=== PATIENT | male | born 1940 | race Caucasian/White ===

== ENCOUNTER 2017-10-07 13:30 | Inpatient (IN) | payer MEDICARE, BC ==
[2017-10-07 14:01] LABS: CHLORIDE,CL 98 mmol/L (98-107); SODIUM,NA 135 mmol/L (136-145)
--- NOTE | 2017-10-07 15:32 | PCM.HP ---
H&P History of Present Illness - General Date of Service: 10/07/17 Admit Problem/Dx: Admission Diagnosis/Problem Admission Diagnosis/Problem Pneumonia Source of Information: Patient, Shelter Records History Limitations: Reports: Altered Mental Status (some limitations due to poor historian) - History of Present Illness Initial Comments - Free Text/Narative: Initially seen at [facility] fever, cough, vomiting. Resident of [place]. Onset of Symptoms: Reports: Today Symptom Onset Date: 10/07/17 Duration of Symptoms: Reports: Hour(s): (symptoms worsening since this morning) Location: Reports: Chest, Abdomen, Generalized (generalized body aches and pains ) Quality: Reports: Ache Severity: Moderate Improves with: Reports: Rest Worsens with: Reports: Movement Associated Symptoms: Reports: Cough, Fever/Chills, Loss of Appetite, Nausea/ Vomiting, Weakness - Related Data Allergies/Adverse Reactions: Allergies Allergy/AdvReac Type Severity Reaction Status Date / Time ceftriaxone sodium Allergy Rash Verified 11/29/15 23:16 [From Rocephin] levofloxacin [From Levaquin] Allergy Rash Verified 11/29/15 23:16 Home Medications: Home Meds Aspirin [Halfprin] 81 mg PO DAILY 06/24/15 [History] Atenolol [Tenormin] 25 mg PO BID 06/24/15 [History] Folic Acid 1 mg PO DAILY 06/24/15 [History] Levothyroxine 75 mcg PO DAILY 06/24/15 [History] Methotrexate 20 mg PO Q7D 06/24/15 [History] Omeprazole [Prilosec] 40 mg PO DAILY 06/24/15 [History] Furosemide 20 mg PO DAILY 08/30/15 [History] Bryant-3 Fatty Acids [Bryant-3] 1 cap PO DAILY 08/30/15 [History] Docusate Sodium [Colace] 200 mg PO DAILY 09/04/15 [History] metFORMIN [Glucophage] 1,000 mg PO BID 09/04/15 [History] Acetaminophen [Tylenol] 650 mg PO Q6H PRN #50 tablet 09/09/15 [Rx] LORazepam [Ativan] 0.25 mg PO Q6H PRN #45 tablet 09/09/15 [Rx] Nph, Human Insulin Isophane [HumuLIN N] 16 unit SUBCUT Q12HR #2 pen 09/09/15 [Rx ] Sertraline [Zoloft] 50 mg PO DAILY #30 tablet 09/09/15 [Rx] predniSONE [Prednisone] 5 mg PO DAILY #60 tablet 09/09/15 [Rx] Acetaminophen 650 mg PO BID 11/29/15 [History] Hydrocodone/Acetaminophen [[place] 5-325] 1 - 2 tab PO Q4H PRN 11/29/15 [History] Hydrocortisone [Hydrocortisone 2.5% Crm] 1 applic RECTAL BID 11/29/15 [History] Polyethylene Glycol 3350 [MiraLAX] 17 gm PO DAILY 11/29/15 [History] Psyllium Husk [Metamucil] 1 tsp PO BID 11/29/15 [History] amLODIPine [Norvasc] 2.5 mg PO DAILY 11/29/15 [History] Past Medical History HEENT History: Reports: None, Cataract, Other (See Below) Other HEENT History: Right upper lid ptosis Cardiovascular History: Reports: Arrhythmia, Heart Murmur, High Cholesterol, Hypertension, SD, Syncope Other Cardiovascular History: Moderate diastolic dysfunction and left atrial dilatation by echocardiogram Respiratory History: Reports: COPD, Pneumonia, Recurrent, Pulmonary Fibrosis Gastrointestinal History: Reports: Chronic Constipation, Chronic Diarrhea, Colon Polyp, Gastritis, GERD, GI Bleed, Hemorrhoids, Hiatal Hernia, Inflammatory Bowel Disease, Irritable Bowel Syndrome, Other (See Below) Other Gastrointestinal History: Dysphagia Genitourinary History: Reports: BPH, Retention, Urinary, Urinary Incontinence Musculoskeletal History: Reports: Back Pain, Chronic, Neck Pain, Chronic, Osteoarthritis, RA, Other (See Below) Other Musculoskeletal History: polymyalgia rheumatica-steroid dependent, moderate Mock's cyst right leg Neurological History: Reports: CVA, Headaches, Chronic, Neuropathy, Diabetic, Vertigo, Other (See Below) Other Neuro History: Borderline mental retardation Psychiatric History: Reports: Anxiety, Depression Endocrine/Metabolic History: Reports: Hypothyroidism, IDDM Hematologic History: Reports: None Immunologic History: Reports: None Oncologic (Cancer) History: Reports: None Dermatologic History: Reports: None Other Dermatologic History: Recent rash, since resolved with triamcinolone - Infectious Disease History Infectious Disease History: Reports: Chicken Pox, Measles - Past Surgical History HEENT Surgical History: Reports: Adenoidectomy, Oral Surgery, Tonsillectomy GI Surgical History: Reports: Colonoscopy, EGD, Hernia, Inguinal, Polypectomy, Other (See Below) Musculoskeletal Surgical History: Reports: Other (See Below) - Past Imaging History Past Imaging History: Reports: Angiography, Cardiac Echo, CAT Scan, MRI, Stress Testing, Swallow Study, Ultrasound, Venous Doppler Social & Family History - Family History Cardiac: Reports: Afib (Mother) Respiratory: Reports: COPD (Father) - Tobacco Use Smoking Status *Q: Never Smoker Second Hand Smoke Exposure: No - Caffeine Use Caffeine Use: Reports: Coffee (2 cups per day). Denies: Energy Drinks, Soda, Tea - Alcohol Use Days Per Week of Alcohol Use: 0 (No previous DWIs, problems with alcohol abuse, etc.) - Recreational Drug Use Recreational Drug Use: No Drug Use in Last 12 Months: No - Living Situation & Occupation Living situation: Reports: Single, Extended Care Facility Occupation: Retired H&P Review of Systems - Review of Systems: Review Of Systems: See Below General: Reports: Fever, Weakness HEENT: Reports: No Symptoms Pulmonary: Reports: Shortness of Breath, Cough Cardiovascular: Reports: No Symptoms Gastrointestinal: Reports: Abdominal Pain, Constipation, Nausea, Vomiting Genitourinary: Reports: No Symptoms Musculoskeletal: Reports: Joint Pain, Muscle Pain Skin: Reports: No Symptoms Psychiatric: Reports: Anxiety Neurological: Reports: No Symptoms Hematologic/Lymphatic: Reports: No Symptoms Exam - Exam Exam: See Below - Exam General: Alert, Oriented HEENT: Hearing Intact, Mucosa Moist & [place] Neck: Supple, Trachea Midline, 2 Lungs: Decreased Breath Sounds Cardiovascular: Regular Rate, Regular Rhythm GI/Abdominal Exam: Tender (generalized) (Male) Exam: Deferred Rectal (Males) Exam: Deferred Back Exam: Normal Inspection, Full Range of Motion, NT Extremities: No Pedal Edema Neurological: Cranial Nerves Intact Neuro Extensive - Mental Status: Alert, Oriented x3, Normal Cognition (patient' s normal, poor historian) Psychiatric: Anxious (about illness) - Patient Data Lab Results Last 24 hrs: Laboratory Results - last 24 hr 10/07/17 10/07/17 Range/Units 13:46 13:46 WBC 13.5 H (4.0-10.2) K/uL RBC 4.05 L (4.33-5.41) M/uL Hgb 12.1 L (13.1-16.8) g/dL Hct 36.2 L (39.0-49.0) % MCV 89.4 (84.0-98.0) fL MCH 29.9 (28.2-33.3) pg MCHC 33.4 (31.7-36.0) g/dL RDW 16.1 H (11.2-14.1) % Plt Count 172 (150-350) K/uL Neut % (Auto) 88.5 H (45.0-80.0) % Lymph % (Auto) 5.6 L (10.0-50.0) % [place] % (Auto) 5.6 (2.0-14.0) % Eos % (Auto) 0.2 (0.0-5.0) % Baso % (Auto) 0.1 (0.0-2.0) % Neut # (Auto) 11.93 H (1.40-7.00) K/uL Lymph # (Auto) 0.76 (0.50-3.50) K/uL [place] # (Auto) 0.76 (0.00-1.00) K/uL Eos # (Auto) 0.03 (0.00-0.50) K/uL Baso # (Auto) 0.01 (0.00-0.20) K/uL Sodium 135 L (136-145) mmol/L Potassium 3.8 (3.5-5.1) mmol/L Chloride 98 (98-107) mmol/L Carbon Dioxide 21.9 (21.0-32.0) mmol/L BUN 15 (7-18) mg/dL Creatinine 0.66 (0.51-1.17) mg/dL Est Cr Clr Drug Dosing TNP Estimated GFR (MDRD) > 60 mL/min Glucose 212 H (74-106) mg/dL Calcium 9.5 (8.5-10.1) mg/dL Total Bilirubin 1.1 H (0.2-1.0) mg/dL AST 17 (15-37) U/L ALT 32 (12-78) U/L Alkaline Phosphatase 74 (46-116) IU/L C-Reactive Protein 3.1 H (<=0.9) mg/dL Total Protein 7.4 (6.4-8.2) g/dL Albumin 3.6 (3.4-5.0) g/dL Amylase 17 L (25-115) U/L Lipase 110 (73-393) U/L Result Diagrams: 10/07/17 13:46 10/07/17 13:46 *Q Meaningful Use (ADM) - VTE *Q VTE Criteria *Q: - Stroke *Q Stroke Criteria *Q: - AMI *Q AMI Criteria *Q: - Problem List (1) Constipation SNOMED Code(s): 52676039 ICD Code: K59.00 - CONSTIPATION, UNSPECIFIED Status: Chronic Priority: Medium Current Visit: Yes Qualifiers: Constipation type: chronic idiopathic constipation Qualified Code(s): K59.04 - Chronic idiopathic constipation (2) Nausea & vomiting SNOMED Code(s): 69285013 ICD Code: R11.2 - NAUSEA WITH VOMITING, UNSPECIFIED Status: Acute Priority: High Current Visit: Yes (3) Pneumonia SNOMED Code(s): 278664387 ICD Code: J18.9 - PNEUMONIA, UNSPECIFIED ORGANISM Status: Acute Priority : High Current Visit: No Problem Details: History of aspiration pneumonia. Discussed with Dr Zhou. Will start Zithromax for community acquired pneumonia. Speech consult ordered Qualifiers: Pneumonia type: aspiration pneumonia Laterality: bilateral Problem List Initiated/Reviewed/Updated: Yes Orders Last 24hrs: Active Orders 24 hr Category Date Time Status Patient Status [ADT] Routine ADT 10/07/17 14:53 Ordered Accu Check [Blood Glucose Check, Bedside] [RC] BIDMEALS Care 10/07/17 15:18 Ordered Ambulate [RC] ASDIRECTED Care 10/07/17 14:53 Ordered Antiembolic Devices [RC] PER UNIT ROUTINE Care 10/07/17 14:59 Ordered Bedrest Bathroom Privileges [RC] ASDIRECTED Care 10/07/17 14:53 Ordered Height and Weight [RC] DAILY Care 10/07/17 14:53 Ordered Intake and Output [RC] QSHIFT Care 10/07/17 14:56 Ordered May Shower [RC] ASDIRECTED Care 10/07/17 14:53 Ordered Oxygen Therapy [RC] PRN Care 10/07/17 14:53 Ordered Peripheral IV Care [RC] . DIRECTED Care 10/07/17 15:00 Ordered Up With Assistance [RC] ASDIRECTED Care 10/07/17 14:53 Ordered VTE/DVT Education [RC] PER UNIT ROUTINE Care 10/07/17 14:53 Ordered Vital Signs [RC] Q4H Care 10/07/17 14:53 Ordered Consult to Case Management [CONS] Routine Cons 10/07/17 14:53 Ordered OT Evaluation and Treatment [CONS] Routine Cons 10/07/17 14:53 Ordered PT Evaluation and Treatment [CONS] Routine Cons 10/07/17 14:53 Ordered [place] [employer] Diet [DIET] Diet 10/07/17 Dinner Ordered Abdomen 2V AP Flat Upright [CR] Routine Exams 10/07/17 13:50 Taken Chest 2V [CR] Routine Exams 10/07/17 13:35 Taken C-REACTIVE PROTEIN [CHEM] AM Lab 10/08/17 05:11 Ordered C-REACTIVE PROTEIN [CHEM] AM Lab 10/09/17 05:11 Ordered C-REACTIVE PROTEIN [CHEM] AM Lab 10/10/17 05:11 Ordered CBC WITH AUTO DIFF [HEME] AM Lab 10/08/17 05:11 Ordered CBC WITH AUTO DIFF [HEME] AM Lab 10/09/17 05:11 Ordered CBC WITH AUTO DIFF [HEME] AM Lab 10/10/17 05:11 Ordered COMPREHENSIVE METABOLIC PN,CMP [CHEM] AM Lab 10/08/17 05:11 Ordered COMPREHENSIVE METABOLIC PN,CMP [CHEM] AM Lab 10/09/17 05:11 Ordered COMPREHENSIVE METABOLIC PN,CMP [CHEM] AM Lab 10/10/17 05:11 Ordered CULTURE BLOOD [BC] Stat Lab 10/07/17 15:00 Ordered CULTURE BLOOD [BC] Stat Lab 10/07/17 15:00 Ordered CULTURE SPUTUM + SMEAR [RM] Stat Lab 10/07/17 14:53 Uncollected Sodium Chloride 0.9% @ 50 MLS/HR(1000ml) Med 10/07/17 15:15 Ordered Sodium Chloride 0.9% [Normal Saline] 1,000 ml IV ASDIRECTED Sodium Chloride 0.9% [Saline Flush] Med 10/07/17 14:53 Ordered 10 ml FLUSH ASDIRECTED PRN metroNIDAZOLE/Normal Saline [Flagyl 500 MG in NS 100 ML Med 10/07/17 15:15 Ordered ] 500 mg Premix Bag 1 bag IV Q8H Antiembolic Hose [OM.PC] Per Unit Routine Oth 10/07/17 14:58 Ordered Blood Culture x2 Reflex Set [OM.PC] Stat Oth 10/07/17 14:53 Ordered Peripheral IV Insertion Adult [OM.PC] Routine Oth 10/07/17 14:53 Ordered Resuscitation Status Routine Resus Stat 10/07/17 14:53 Ordered Medication Orders Sodium Chloride (Normal Saline) 1,000 mls @ 50 mls/hr IV ASDIRECTED JOHN Metronidazole 500 mg/ Premix 100 mls @ 100 mls/hr IV Q8H JOHN Sodium Chloride (Saline Flush) 10 ml FLUSH ASDIRECTED PRN PRN Reason: Keep Vein Open Assessment/Plan Comment:: 10-07-17 Francoise Vazquez PA-C Admitting to IP status after evaluation at [facility], sent down from [facility]. Nursing staff describes concern for aspiration pneumonia due to patient's eating habits and cough. Febrile today, complains of cough, body aches and nausea. Long history of constipation, abdominal x-rays today indicate large amount of stool. CXR indicates pneumonia. WBC 13,500. Consulted with Dr. Zhou regarding admit. Treating pneumonia with Flagyl and Claforan IV. Running IV NS at just 50 ml/h. Will treat nausea with Zofran. Miralax and Mag Citrate for constipation which has been long-standing. Follow up labs ordered for am. [place] notified of admit.
[2017-10-07] MEDS ORDERED: Ondansetron 4 MG/2 ML SDV IVPUSH PRN (16:00)
[2017-10-07] MEDS: Sodium Chloride 0.9% 10 ML Syringe FLUSH PRN ×3 (16:02→16:42)
[2017-10-07] MEDS ORDERED: Magnesium Citrate Solution 296 ML Bottle PO ONE ×2 (16:06→17:00)
[2017-10-07] MEDS: Sodium Chloride 0.9% 1,000 ML IV SCH (16:20)
[2017-10-07] MEDS ORDERED: Calcium Carbonate 500 MG Tab.Chew PO PRN (16:29)
[2017-10-07] MEDS ORDERED: Magnesium Hydroxide 400 MG/5 ML Susp 30 ML Cup PO PRN (16:29)
[2017-10-07] MEDS ORDERED: Aluminum Hydroxide/Magnesium Hydroxide/Simethicone Susp 30 ML Cup PO PRN (16:29)
[2017-10-07] MEDS ORDERED: LORazepam 0.5 MG Tab PO PRN (16:29)
[2017-10-07] MEDS: metroNIDAZOLE/Normal Saline 500 MG in Premix Bag 1 BAG IV SCH (16:51)
[2017-10-07] MEDS: Polyethylene Glycol 3350 Powder 17 GM Packet PO SCH (17:04)
[2017-10-07] MEDS: Trolamine Salicylate/Aloe Vera 10% Crm 85 GM Tube TOP SCH (17:44)
[2017-10-07] MEDS: Atenolol 25 MG Tab PO SCH (17:45)
[2017-10-07] MEDS: Acetaminophen/HYDROcodone 325-5 MG Tab PO PRN (17:52)
[2017-10-07] MEDS: Acetaminophen 325 MG Tab PO SCH (17:54)
[2017-10-07] MEDS: metFORMIN 500 MG Tab PO SCH (17:56)
[2017-10-07] MEDS: Psyllium Husk Powder Sugar Free 5.85 GM Packet PO SCH (17:57)
[2017-10-07] MEDS: Mineral Oil/Petrolatum Ophth Oint 3.5 GM Tube EYEBOTH SCH (20:07)
[2017-10-07] MEDS: Albuterol/Ipratropium 3.0-0.5 MG/3 ML Neb Soln INH SCH (20:07)
[2017-10-07] MEDS: Budesonide 0.5 MG/2 ML Neb Susp NEB SCH (20:07)
[2017-10-07] MEDS: Insulin Isophane NPH, Human 100 Units/ML 3 ML Pen SUBCUT SCH (21:24)
[2017-10-08] MEDS: metroNIDAZOLE/Normal Saline 500 MG in Premix Bag 1 BAG IV SCH ×3 (00:39→15:54)
[2017-10-08 07:37] LABS: CHLORIDE,CL 102 mmol/L (98-107); SODIUM,NA 138 mmol/L (136-145)
[2017-10-08] MEDS ORDERED: Aspirin 81 MG Tab.EC PO SCH (08:00)
[2017-10-08] MEDS ORDERED: Furosemide 20 MG Tab PO SCH (08:00)
[2017-10-08] MEDS ORDERED: Sertraline 25 MG Tab PO SCH (08:00)
[2017-10-08] MEDS: Budesonide 0.5 MG/2 ML Neb Susp NEB SCH (08:23)
[2017-10-08] MEDS: metFORMIN 500 MG Tab PO SCH ×2 (08:24→18:02)
[2017-10-08] MEDS: Albuterol/Ipratropium 3.0-0.5 MG/3 ML Neb Soln INH SCH ×4 (08:24→20:00)
[2017-10-08] MEDS: Psyllium Husk Powder Sugar Free 5.85 GM Packet PO SCH ×2 (08:24→18:01)
[2017-10-08] MEDS: Polyethylene Glycol 3350 Powder 17 GM Packet PO SCH ×2 (08:24)
[2017-10-08] MEDS: Atenolol 25 MG Tab PO SCH ×2 (08:24→20:00)
[2017-10-08] MEDS: Omeprazole 20 MG Cap.CR PO SCH (08:25)
[2017-10-08] MEDS: amLODIPine 5 MG Tab PO SCH (08:25)
[2017-10-08] MEDS: Acetaminophen/HYDROcodone 325-5 MG Tab PO PRN ×2 (08:25→20:17)
[2017-10-08] MEDS: Levothyroxine 75 MCG Tab PO SCH (08:25)
[2017-10-08] MEDS: Acetaminophen 325 MG Tab PO SCH ×2 (08:26→18:01)
[2017-10-08] MEDS: methylPREDNISolone Sodium Succinate 40 MG/1 ML SDV IVPUSH SCH (08:26)
[2017-10-08] MEDS: Trolamine Salicylate/Aloe Vera 10% Crm 85 GM Tube TOP SCH ×2 (08:27→18:02)
[2017-10-08] MEDS: Insulin Isophane NPH, Human 100 Units/ML 3 ML Pen SUBCUT SCH ×2 (08:46→20:01)
[2017-10-08] MEDS: Sodium Chloride 0.9% 1,000 ML IV SCH (15:54)
--- NOTE | 2017-10-08 17:23 | PCM.PN ---
- General Info Date of Service: 10/08/17 Admission Dx/Problem (Free Text): Admission Diagnosis/Problem Admission Diagnosis/Problem Pneumonia Functional Status: Reports: Pain Controlled, Ambulating - Review of Systems General: Reports: Weakness (improving) HEENT: Reports: No Symptoms Pulmonary: Reports: Shortness of Breath, Cough Cardiovascular: Reports: No Symptoms Gastrointestinal: Reports: Constipation, Difficulty Swallowing Genitourinary: Reports: No Symptoms Musculoskeletal: Reports: Other (right groin pain) Skin: Reports: No Symptoms Neurological: Reports: No Symptoms Psychiatric: Reports: No Symptoms - Patient Data Vitals - Most Recent: Last Vital Signs Temp 98.8 F 10/08/17 16:00 Pulse 77 10/08/17 16:00 Resp 16 10/08/17 16:00 BP 120/61 10/08/17 16:00 Pulse Ox 95 10/08/17 16:00 Weight - Most Recent: 184 lb 8.007 oz I&O - Last 24 Hours: Intake & Output 10/08/17 10/08/17 10/08/17 06:59 14:59 22:59 Intake Total 565 800 Output Total 250 450 150 Balance 315 350 -150 Lab Results Last 24 Hours: Laboratory Results - last 24 hr 10/07/17 10/07/17 10/08/17 Range/Units 17:43 21:21 06:55 WBC 8.5 (4.0-10.2) K/uL RBC 3.67 L (4.33-5.41) M/uL Hgb 10.9 L (13.1-16.8) g/dL Hct 33.7 L (39.0-49.0) % MCV 91.8 (84.0-98.0) fL MCH 29.7 (28.2-33.3) pg MCHC 32.3 (31.7-36.0) g/dL RDW 16.3 H (11.2-14.1) % Plt Count 152 (150-350) K/uL Neut % (Auto) 79.7 (45.0-80.0) % Lymph % (Auto) 11.3 (10.0-50.0) % [place] % (Auto) 8.3 (2.0-14.0) % Eos % (Auto) 0.5 (0.0-5.0) % Baso % (Auto) 0.2 (0.0-2.0) % Neut # (Auto) 6.79 (1.40-7.00) K/uL Lymph # (Auto) 0.96 (0.50-3.50) K/uL [place] # (Auto) 0.71 (0.00-1.00) K/uL Eos # (Auto) 0.04 (0.00-0.50) K/uL Baso # (Auto) 0.02 (0.00-0.20) K/uL Sodium (136-145) mmol/L Potassium (3.5-5.1) mmol/L Chloride (98-107) mmol/L Carbon Dioxide (21.0-32.0) mmol/L BUN (7-18) mg/dL Creatinine (0.51-1.17) mg/dL Est Cr Clr Drug Dosing mL/min Estimated GFR (MDRD) mL/min Glucose (74-106) mg/dL POC Glucose 174 H 186 H (65-110) mg/dl Calcium (8.5-10.1) mg/dL Total Bilirubin (0.2-1.0) mg/dL AST (15-37) U/L ALT (12-78) U/L Alkaline Phosphatase (46-116) IU/L C-Reactive Protein (<=0.9) mg/dL Total Protein (6.4-8.2) g/dL Albumin (3.4-5.0) g/dL 10/08/17 10/08/17 Range/Units 06:55 08:23 WBC (4.0-10.2) K/uL RBC (4.33-5.41) M/uL Hgb (13.1-16.8) g/dL Hct (39.0-49.0) % MCV (84.0-98.0) fL MCH (28.2-33.3) pg MCHC (31.7-36.0) g/dL RDW (11.2-14.1) % Plt Count (150-350) K/uL Neut % (Auto) (45.0-80.0) % Lymph % (Auto) (10.0-50.0) % [place] % (Auto) (2.0-14.0) % Eos % (Auto) (0.0-5.0) % Baso % (Auto) (0.0-2.0) % Neut # (Auto) (1.40-7.00) K/uL Lymph # (Auto) (0.50-3.50) K/uL [place] # (Auto) (0.00-1.00) K/uL Eos # (Auto) (0.00-0.50) K/uL Baso # (Auto) (0.00-0.20) K/uL Sodium 138 (136-145) mmol/L Potassium 3.5 (3.5-5.1) mmol/L Chloride 102 (98-107) mmol/L Carbon Dioxide 27.9 (21.0-32.0) mmol/L BUN 18 (7-18) mg/dL Creatinine 0.65 (0.51-1.17) mg/dL Est Cr Clr Drug Dosing 79.69 mL/min Estimated GFR (MDRD) > 60 mL/min Glucose 166 H (74-106) mg/dL POC Glucose 143 H (65-110) mg/dl Calcium 8.4 L (8.5-10.1) mg/dL Total Bilirubin 1.7 H (0.2-1.0) mg/dL AST 24 (15-37) U/L ALT 32 (12-78) U/L Alkaline Phosphatase 62 (46-116) IU/L C-Reactive Protein 15.0 H (<=0.9) mg/dL Total Protein 6.5 (6.4-8.2) g/dL Albumin 2.9 L (3.4-5.0) g/dL Christo Results Last 24 Hours: Microbiology 10/07/17 15:12 Aerobic Blood Culture - Preliminary Blood - Venous NO GROWTH AFTER 1 DAY Anaerobic Blood Culture - Preliminary NO GROWTH AFTER 1 DAY 10/07/17 15:20 Aerobic Blood Culture - Preliminary Blood - Venous - Lab Draw NO GROWTH AFTER 1 DAY Anaerobic Blood Culture - Preliminary NO GROWTH AFTER 1 DAY Med Orders - Current: Current Medications Acetaminophen (Tylenol) 650 mg PO BID JOHN Last Admin: 10/08/17 08:26 Dose: 650 mg Hydrocodone Bitart/Acetaminophen ([place] 325-5 Mg) 1 tab PO BID PRN PRN Reason: Pain Last Admin: 10/08/17 08:25 Dose: 1 tab Al Hydroxide/Mg Hydroxide (Mag-Al Plus) 30 ml PO Q12HR PRN PRN Reason: Heartburn Albuterol/Ipratropium (Duoneb 3.0-0.5 Mg/3 Ml) 3 ml INH QIDRT [facility] Last Admin: 10/08/17 15:54 Dose: 3 ml Albuterol/Ipratropium (Duoneb 3.0-0.5 Mg/3 Ml) 3 ml NEB Q4HRRT PRN PRN Reason: Shortness of Breath Amlodipine Besylate (Norvasc) 2.5 mg PO DAILY [facility] Last Admin: 10/08/17 08:25 Dose: 2.5 mg Aspirin (Halfprin) 81 mg PO DAILY [facility] Last Admin: 10/08/17 08:24 Dose: 81 mg Atenolol (Tenormin) 25 mg PO Q12HR [facility] Calcium Carbonate/Glycine (Tums) 500 mg PO BID PRN PRN Reason: Heartburn Cefotaxime Sodium (Claforan) 1 gm IVPUSH Q8H [facility] Last Admin: 10/08/17 15:54 Dose: 1 gm Sodium Chloride (Normal Saline) 1,000 mls @ 50 mls/hr IV ASDIRECTED [facility] Last Admin: 10/08/17 15:54 Dose: 50 mls/hr Metronidazole 500 mg/ Premix 100 mls @ 100 mls/hr IV Q8H [facility] Last Admin: 10/08/17 15:54 Dose: 100 mls/hr Insulin Human NPH (Humulin N) 16 unit SUBCUT Q12HR [facility] Last Admin: 10/08/17 08:46 Dose: Not Given Levothyroxine Sodium (Levothyroxine) 75 mcg PO ACBREAKFAST [facility] Last Admin: 10/08/17 08:25 Dose: 75 mcg Lorazepam (Ativan) 0.25 mg PO Q6H PRN PRN Reason: Anxiety Magnesium Hydroxide (Milk Of Magnesia) 30 ml PO Q12HR PRN PRN Reason: Constipation Last Admin: 10/08/17 12:02 Dose: 30 ml Metformin HCl (Glucophage) 1,000 mg PO BID [facility] Last Admin: 10/08/17 08:24 Dose: 1,000 mg Methylprednisolone Sodium Succinate (Solu-Medrol) 20 mg IVPUSH DAILY [facility] Last Admin: 10/08/17 08:26 Dose: 20 mg Mineral Oil/White Petrolatum (Lacri-Lube S.O.P Oint) 0 gm EYEBOTH BEDTIME [facility] Last Admin: 10/07/17 20:07 Dose: 1 applic Omeprazole (Omeprazole) 20 mg PO ACBREAKFAST [facility] Last Admin: 10/08/17 08:25 Dose: 20 mg Ondansetron HCl (Zofran) 8 mg IVPUSH Q6H PRN PRN Reason: Nausea/Vomiting Last Admin: 10/07/17 16:02 Dose: 8 mg Polyethylene Glycol (Miralax) 17 gm PO DAILY [facility] Last Admin: 10/08/17 08:24 Dose: 17 gm Polyethylene Glycol (Miralax) 17 gm PO DAILY [facility] Last Admin: 10/08/17 08:24 Dose: Not Given Psyllium Husk (Metamucil Sugar Free) 0 pkt PO BID [facility] Last Admin: 10/08/17 08:24 Dose: 1 pkt Sertraline HCl (Zoloft) 75 mg PO DAILY [facility] Last Admin: 10/08/17 08:24 Dose: 75 mg Sodium Chloride (Saline Flush) 10 ml FLUSH ASDIRECTED PRN PRN Reason: Keep Vein Open Last Admin: 10/07/17 16:42 Dose: 10 ml Trolamine Salicylate (Aspercreme 10%) 0 gm TOP BID [facility] Last Admin: 10/08/17 08:27 Dose: 1 applic Discontinued Medications Atenolol (Tenormin) 25 mg PO BID [facility] Last Admin: 10/08/17 08:24 Dose: 25 mg Budesonide (Pulmicort) 0.5 mg NEB BIDRT [facility] Last Admin: 10/08/17 08:23 Dose: 0.5 mg Furosemide (Lasix) 20 mg PO DAILY [facility] Last Admin: 10/08/17 08:25 Dose: 20 mg Magnesium Citrate (Citrate Of Magnesia) 300 ml PO ONETIME ONE Stop: 10/07/17 16:07 Last Admin: 10/07/17 17:00 Dose: Not Given Magnesium Citrate (Citrate Of Magnesia) 296 ml PO ONETIME ONE Stop: 10/07/17 17:01 Last Admin: 10/07/17 17:04 Dose: 296 ml - Exam General: Alert, Cooperative HEENT: Mucous Membr. Moist/[place] Neck: Trachea Midline, No JVD Lungs: Normal Respiratory Effort, Decreased Breath Sounds Cardiovascular: Regular Rate, Regular Rhythm GI/Abdominal Exam: Normal Bowel Sounds, Soft, Non-Tender, No Organomegaly, No Distention, No Mass, Pelvis Stable (Male) Exam: Other (right groin pain) Back Exam: Normal Inspection Extremities: Normal Inspection, Other (right groin pain) Skin: Warm, Dry, Intact Neurological: No New Focal Deficit Psy/Mental Status: Alert, Normal Affect, Normal Mood, Anxious - Problem List & Annotations (1) Nausea & vomiting SNOMED Code(s): 51508304 Code(s): R11.2 - NAUSEA WITH VOMITING, UNSPECIFIED Status: Acute Priority : High Current Visit: Yes (2) Constipation SNOMED Code(s): 54790521 Code(s): K59.00 - CONSTIPATION, UNSPECIFIED Status: Chronic Priority: Medium Current Visit: Yes Qualifiers: Constipation type: chronic idiopathic constipation Qualified Code(s): K59.04 - Chronic idiopathic constipation (3) Anemia SNOMED Code(s): 510890532 Code(s): D64.9 - ANEMIA, UNSPECIFIED Status: Acute Current Visit: No (4) Anxiety SNOMED Code(s): 35162928 Code(s): F41.9 - ANXIETY DISORDER, UNSPECIFIED Status: Acute Priority: Medium Current Visit: No (5) Anxiety about health SNOMED Code(s): 265140266 Code(s): F41.8 - OTHER SPECIFIED ANXIETY DISORDERS Status: Acute Priority : Medium Current Visit: No (6) Anxiety and depression SNOMED Code(s): 821457418 Code(s): F41.9 - ANXIETY DISORDER, UNSPECIFIED; F32.9 - MAJOR DEPRESSIVE DISORDER, SINGLE EPISODE, UNSPECIFIED Status: Acute Priority: Medium Current Visit: No (7) Anxiety as acute reaction to exceptional stress SNOMED Code(s): 74941934 Code(s): F41.1 - GENERALIZED ANXIETY DISORDER; F43.0 - ACUTE STRESS REACTION Status: Acute Priority: Medium Current Visit: No (8) Pneumonia SNOMED Code(s): 994598075 Code(s): J18.9 - PNEUMONIA, UNSPECIFIED ORGANISM Status: Acute Priority: High Current Visit: No Qualifiers: Pneumonia type: aspiration pneumonia Laterality: bilateral Annotation/Comment:: History of aspiration pneumonia. Discussed with Dr Roa Will start Zithromax for community acquired pneumonia. Speech consult ordered (9) Weakness SNOMED Code(s): 41079373 Code(s): R53.1 - WEAKNESS Status: Acute Priority: High Current Visit: No Annotation/Comment:: PT/OT consulted to evaluate the patient to see if needing swingbed status (10) COPD (chronic obstructive pulmonary disease) SNOMED Code(s): 90985310 Code(s): J44.9 - CHRONIC OBSTRUCTIVE PULMONARY DISEASE, UNSPECIFIED Status : Chronic Priority: Medium Current Visit: No Qualifiers: COPD type: chronic bronchitis Chronic bronchitis type: unspecified Qualified Code(s): J42 - Unspecified chronic bronchitis Annotation/Comment:: Stable by patient history with no recent fever, cough, or bronchitic symptoms (11) Diabetes SNOMED Code(s): 73939443 Code(s): E11.9 - TYPE 2 DIABETES MELLITUS WITHOUT COMPLICATIONS Status: Chronic Priority: Medium Current Visit: No Qualifiers: Diabetes mellitus type: type 2 Diabetes mellitus complication status: with neurologic complications Diabetes mellitus complication detail: with polyneuropathy 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 Annotation/Comment:: will d/c metformin, patient having CT scan. Monitor blood sugars, continue on the Januvia (12) Hypertension SNOMED Code(s): 00126363 Code(s): I10 - ESSENTIAL (PRIMARY) HYPERTENSION Status: Chronic Priority : Medium Current Visit: No Qualifiers: Hypertension type: essential hypertension Qualified Code(s): I10 - Essential (primary) hypertension Annotation/Comment:: Blood Pressures good in the emergency room (13) IDDM (insulin dependent diabetes mellitus) SNOMED Code(s): 17139296 Code(s): E11.9 - TYPE 2 DIABETES MELLITUS WITHOUT COMPLICATIONS; Z79.4 - JAIL (CURRENT) USE OF INSULIN Status: Chronic Priority: Medium Current Visit: No Annotation/Comment:: Stable by patient history despite chronic steroid therapy for his polymyalgia rheumatica (14) Peptic reflux disease SNOMED Code(s): 53483018 Code(s): K21.9 - GASTRO-ESOPHAGEAL REFLUX DISEASE WITHOUT ESOPHAGITIS Status: Chronic Priority: Medium Current Visit: No Annotation/Comment:: Stable by patient history (15) Polyarthritis rheumatica SNOMED Code(s): 62143286 Code(s): M06.9 - RHEUMATOID ARTHRITIS, UNSPECIFIED Status: Chronic Priority: Medium Current Visit: No Qualifiers: Rheumatoid arthritis location: multiple sites Rheumatoid factor presence: unspecified presence Qualified Code(s): M06.9 - Rheumatoid arthritis, unspecified Annotation/Comment:: Stable by patient history with current methotrexate and steroid therapy - Problem List Review Problem List Initiated/Reviewed/Updated: Yes - My Orders Last 24 Hours: My Active Orders 10/08/17 20:00 Atenolol [Tenormin] 25 mg PO Q12HR 10/08/17 Dinner Clear Liquid Diet [DIET] 10/09/17 05:11 LACTIC ACID [CHEM] Routine MAGNESIUM [CHEM] Routine - Plan Plan:: 10-07-17 Francoise Vazquez PA-C Admitting to status [place] [facility] [place] [facility]. Nursing staff describes concern for aspiration pneumonia due to patient's eating habits and cough. Febrile today, complains of cough, body aches and nausea. Long history of constipation, abdominal x-rays today indicate large amount of stool. CXR indicates pneumonia. WBC 13,500. Consulted with Dr. Zhou regarding admit. Treating pneumonia with Flagyl and Claforan IV. Running IV NS at just 50 ml/h. Will treat nausea with Zofran. Miralax and Mag Citrate for constipation which has been long-standing. Follow up labs ordered for . [facility] notified of admit. 10/08/17 Winnie Murrell MD Marked improvement today. Less weak. CRP has increased. Continue IV antibiotics. +bm. Will start clear thickened liquids.
[2017-10-08] MEDS: Mineral Oil/Petrolatum Ophth Oint 3.5 GM Tube EYEBOTH SCH (19:59)
[2017-10-09] MEDS: metroNIDAZOLE/Normal Saline 500 MG in Premix Bag 1 BAG IV SCH ×4 (00:29→23:29)
[2017-10-09] MEDS: Albuterol/Ipratropium 3.0-0.5 MG/3 ML Neb Soln NEB PRN (00:35)
[2017-10-09 07:53] LABS: CHLORIDE,CL 102 mmol/L (98-107); SODIUM,NA 135 mmol/L (136-145)
[2017-10-09] MEDS: Polyethylene Glycol 3350 Powder 17 GM Packet PO SCH ×2 (08:50→09:00)
[2017-10-09] MEDS: Psyllium Husk Powder Sugar Free 5.85 GM Packet PO SCH ×2 (08:50→18:57)
[2017-10-09] MEDS: methylPREDNISolone Sodium Succinate 40 MG/1 ML SDV IVPUSH SCH (08:51)
[2017-10-09] MEDS: Acetaminophen 325 MG Tab PO SCH ×2 (08:53→18:57)
[2017-10-09] MEDS: metFORMIN 500 MG Tab PO SCH ×2 (08:55→18:57)
[2017-10-09] MEDS: Atenolol 25 MG Tab PO SCH ×2 (08:55→18:59)
[2017-10-09] MEDS: Omeprazole 20 MG Cap.CR PO SCH (08:56)
[2017-10-09] MEDS: Trolamine Salicylate/Aloe Vera 10% Crm 85 GM Tube TOP SCH ×2 (08:56→18:58)
[2017-10-09] MEDS: Levothyroxine 75 MCG Tab PO SCH (08:56)
[2017-10-09] MEDS: Sertraline 25 MG Tab PO SCH (08:57)
[2017-10-09] MEDS: amLODIPine 5 MG Tab PO SCH (08:58)
[2017-10-09] MEDS: Insulin Isophane NPH, Human 100 Units/ML 3 ML Pen SUBCUT SCH ×2 (08:59→18:59)
[2017-10-09] MEDS: Albuterol/Ipratropium 3.0-0.5 MG/3 ML Neb Soln INH SCH ×4 (08:59→18:59)
[2017-10-09] MEDS: Sodium Chloride 0.9% 10 ML Syringe FLUSH PRN ×2 (16:19→23:30)
[2017-10-09] MEDS: Sodium Chloride 0.9% 1,000 ML IV SCH (16:21)
[2017-10-09] MEDS: Mineral Oil/Petrolatum Ophth Oint 3.5 GM Tube EYEBOTH SCH (18:59)
--- NOTE | 2017-10-09 19:10 | PCM.PN ---
- General Info Date of Service: 10/09/17 Admission Dx/Problem (Free Text): Admission Diagnosis/Problem Admission Diagnosis/Problem Pneumonia Functional Status: Reports: Tolerating Diet, Ambulating - Review of Systems General: Reports: No Symptoms HEENT: Reports: Other (ptosis no change) Pulmonary: Reports: Cough Cardiovascular: Reports: No Symptoms Gastrointestinal: Reports: No Symptoms Genitourinary: Reports: No Symptoms Musculoskeletal: Reports: Other (right groin pain) Skin: Reports: No Symptoms Neurological: Reports: No Symptoms Psychiatric: Reports: No Symptoms - Patient Data Vitals - Most Recent: Last Vital Signs Temp 97.7 F 10/09/17 15:13 Pulse 67 10/09/17 15:13 Resp 16 10/09/17 15:13 BP 125/75 10/09/17 15:13 Pulse Ox 96 10/09/17 15:13 Weight - Most Recent: 184 lb 8 oz I&O - Last 24 Hours: Intake & Output 10/09/17 10/09/17 10/09/17 06:59 14:59 22:59 Intake Total 982 820 610 Output Total 200 Balance 782 820 610 Lab Results Last 24 Hours: Laboratory Results - last 24 hr 10/08/17 10/08/17 10/09/17 Range/Units 18:07 20:04 07:03 WBC 7.9 (4.0-10.2) K/uL RBC 3.40 L (4.33-5.41) M/uL Hgb 10.2 L (13.1-16.8) g/dL Hct 31.2 L (39.0-49.0) % MCV 91.8 (84.0-98.0) fL MCH 30.0 (28.2-33.3) pg MCHC 32.7 (31.7-36.0) g/dL RDW 15.8 H (11.2-14.1) % Plt Count 147 L (150-350) K/uL Neut % (Auto) 81.6 H (45.0-80.0) % Lymph % (Auto) 12.6 (10.0-50.0) % [place] % (Auto) 4.7 (2.0-14.0) % Eos % (Auto) 1.0 (0.0-5.0) % Baso % (Auto) 0.1 (0.0-2.0) % Neut # (Auto) 6.48 (1.40-7.00) K/uL Lymph # (Auto) 1.00 (0.50-3.50) K/uL [place] # (Auto) 0.37 (0.00-1.00) K/uL Eos # (Auto) 0.08 (0.00-0.50) K/uL Baso # (Auto) 0.01 (0.00-0.20) K/uL Sodium (136-145) mmol/L Potassium (3.5-5.1) mmol/L Chloride (98-107) mmol/L Carbon Dioxide (21.0-32.0) mmol/L BUN (7-18) mg/dL Creatinine (0.51-1.17) mg/dL Est Cr Clr Drug Dosing mL/min Estimated GFR (MDRD) mL/min Glucose (74-106) mg/dL POC Glucose 256 H* 231 H (65-110) mg/dl Lactic Acid (0.4-2.0) mmol/L Calcium (8.5-10.1) mg/dL Magnesium (1.8-2.4) mg/dL Total Bilirubin (0.2-1.0) mg/dL AST (15-37) U/L ALT (12-78) U/L Alkaline Phosphatase (46-116) IU/L C-Reactive Protein (<=0.9) mg/dL Total Protein (6.4-8.2) g/dL Albumin (3.4-5.0) g/dL 10/09/17 10/09/17 10/09/17 Range/Units 07:03 07:03 07:34 WBC (4.0-10.2) K/uL RBC (4.33-5.41) M/uL Hgb (13.1-16.8) g/dL Hct (39.0-49.0) % MCV (84.0-98.0) fL MCH (28.2-33.3) pg MCHC (31.7-36.0) g/dL RDW (11.2-14.1) % Plt Count (150-350) K/uL Neut % (Auto) (45.0-80.0) % Lymph % (Auto) (10.0-50.0) % [place] % (Auto) (2.0-14.0) % Eos % (Auto) (0.0-5.0) % Baso % (Auto) (0.0-2.0) % Neut # (Auto) (1.40-7.00) K/uL Lymph # (Auto) (0.50-3.50) K/uL [place] # (Auto) (0.00-1.00) K/uL Eos # (Auto) (0.00-0.50) K/uL Baso # (Auto) (0.00-0.20) K/uL Sodium 135 L (136-145) mmol/L Potassium 3.5 (3.5-5.1) mmol/L Chloride 102 (98-107) mmol/L Carbon Dioxide 25.9 (21.0-32.0) mmol/L BUN 16 (7-18) mg/dL Creatinine 0.57 (0.51-1.17) mg/dL Est Cr Clr Drug Dosing 91.49 mL/min Estimated GFR (MDRD) > 60 mL/min Glucose 158 H (74-106) mg/dL POC Glucose 141 H (65-110) mg/dl Lactic Acid 1.3 (0.4-2.0) mmol/L Calcium 8.2 L (8.5-10.1) mg/dL Magnesium 2.3 (1.8-2.4) mg/dL Total Bilirubin 0.9 (0.2-1.0) mg/dL AST 40 H (15-37) U/L ALT 29 (12-78) U/L Alkaline Phosphatase 50 (46-116) IU/L C-Reactive Protein 14.7 H (<=0.9) mg/dL Total Protein 6.1 L (6.4-8.2) g/dL Albumin 2.7 L (3.4-5.0) g/dL 10/09/17 Range/Units 16:48 WBC (4.0-10.2) K/uL RBC (4.33-5.41) M/uL Hgb (13.1-16.8) g/dL Hct (39.0-49.0) % MCV (84.0-98.0) fL MCH (28.2-33.3) pg MCHC (31.7-36.0) g/dL RDW (11.2-14.1) % Plt Count (150-350) K/uL Neut % (Auto) (45.0-80.0) % Lymph % (Auto) (10.0-50.0) % [place] % (Auto) (2.0-14.0) % Eos % (Auto) (0.0-5.0) % Baso % (Auto) (0.0-2.0) % Neut # (Auto) (1.40-7.00) K/uL Lymph # (Auto) (0.50-3.50) K/uL [place] # (Auto) (0.00-1.00) K/uL Eos # (Auto) (0.00-0.50) K/uL Baso # (Auto) (0.00-0.20) K/uL Sodium (136-145) mmol/L Potassium (3.5-5.1) mmol/L Chloride (98-107) mmol/L Carbon Dioxide (21.0-32.0) mmol/L BUN (7-18) mg/dL Creatinine (0.51-1.17) mg/dL Est Cr Clr Drug Dosing mL/min Estimated GFR (MDRD) mL/min Glucose (74-106) mg/dL POC Glucose 254 H* (65-110) mg/dl Lactic Acid (0.4-2.0) mmol/L Calcium (8.5-10.1) mg/dL Magnesium (1.8-2.4) mg/dL Total Bilirubin (0.2-1.0) mg/dL AST (15-37) U/L ALT (12-78) U/L Alkaline Phosphatase (46-116) IU/L C-Reactive Protein (<=0.9) mg/dL Total Protein (6.4-8.2) g/dL Albumin (3.4-5.0) g/dL Christo Results Last 24 Hours: Microbiology 10/07/17 15:12 Aerobic Blood Culture - Preliminary Blood - Venous NO GROWTH AFTER 2 DAYS Anaerobic Blood Culture - Preliminary NO GROWTH AFTER 2 DAYS 10/07/17 15:20 Aerobic Blood Culture - Preliminary Blood - Venous - Lab Draw NO GROWTH AFTER 2 DAYS Anaerobic Blood Culture - Preliminary NO GROWTH AFTER 2 DAYS Med Orders - Current: Current Medications Acetaminophen (Tylenol) 650 mg PO BID [facility] Last Admin: 10/09/17 18:57 Dose: 650 mg Hydrocodone Bitart/Acetaminophen ([place] 325-5 Mg) 1 tab PO BID PRN PRN Reason: Pain Last Admin: 10/08/17 20:17 Dose: 1 tab Al Hydroxide/Mg Hydroxide (Mag-Al Plus) 30 ml PO Q12HR PRN PRN Reason: Heartburn Albuterol/Ipratropium (Duoneb 3.0-0.5 Mg/3 Ml) 3 ml INH QIDRT [facility] Last Admin: 10/09/17 18:59 Dose: 3 ml Albuterol/Ipratropium (Duoneb 3.0-0.5 Mg/3 Ml) 3 ml NEB Q4HRRT PRN PRN Reason: Shortness of Breath Last Admin: 10/09/17 00:35 Dose: 3 ml Amlodipine Besylate (Norvasc) 2.5 mg PO DAILY [facility] Last Admin: 10/09/17 08:58 Dose: 2.5 mg Atenolol (Tenormin) 25 mg PO Q12HR [facility] Last Admin: 10/09/17 18:59 Dose: 25 mg Calcium Carbonate/Glycine (Tums) 500 mg PO BID PRN PRN Reason: Heartburn Cefotaxime Sodium (Claforan) 1 gm IVPUSH Q8H [facility] Last Admin: 10/09/17 16:18 Dose: 1 gm Furosemide (Lasix) 40 mg IVPUSH DAILY [facility] Sodium Chloride (Normal Saline) 1,000 mls @ 50 mls/hr IV ASDIRECTED [facility] Last Admin: 10/09/17 16:21 Dose: 50 mls/hr Metronidazole 500 mg/ Premix 100 mls @ 100 mls/hr IV Q8H [facility] Last Admin: 10/09/17 16:19 Dose: 100 mls/hr Insulin Human NPH (Humulin N) 16 unit SUBCUT Q12HR [facility] Last Admin: 10/09/17 18:59 Dose: 16 unit Levothyroxine Sodium (Levothyroxine) 75 mcg PO ACBREAKFAST [facility] Last Admin: 10/09/17 08:56 Dose: 75 mcg Lorazepam (Ativan) 0.25 mg PO Q6H PRN PRN Reason: Anxiety Magnesium Hydroxide (Milk Of Magnesia) 30 ml PO Q12HR PRN PRN Reason: Constipation Last Admin: 10/08/17 12:02 Dose: 30 ml Metformin HCl (Glucophage) 1,000 mg PO BID [facility] Last Admin: 10/09/17 18:57 Dose: 1,000 mg Methylprednisolone Sodium Succinate (Solu-Medrol) 20 mg IVPUSH DAILY [facility] Last Admin: 10/09/17 08:51 Dose: 20 mg Mineral Oil/White Petrolatum (Lacri-Lube S.O.P Oint) 0 gm EYEBOTH BEDTIME [facility] Last Admin: 10/09/17 18:59 Dose: 1 applic Omeprazole (Omeprazole) 20 mg PO ACBREAKFAST [facility] Last Admin: 10/09/17 08:56 Dose: 20 mg Ondansetron HCl (Zofran) 8 mg IVPUSH Q6H PRN PRN Reason: Nausea/Vomiting Last Admin: 10/07/17 16:02 Dose: 8 mg Polyethylene Glycol (Miralax) 17 gm PO DAILY [facility] Last Admin: 10/09/17 09:00 Dose: Not Given Psyllium Husk (Metamucil Sugar Free) 0 pkt PO BID [facility] Last Admin: 10/09/17 18:57 Dose: 1 pkt Sertraline HCl (Zoloft) 50 mg PO DAILY [facility] Last Admin: 10/09/17 08:57 Dose: 50 mg Sodium Chloride (Saline Flush) 10 ml FLUSH ASDIRECTED PRN PRN Reason: Keep Vein Open Last Admin: 10/09/17 16:19 Dose: 10 ml Trolamine Salicylate (Aspercreme 10%) 0 gm TOP BID [facility] Last Admin: 10/09/17 18:58 Dose: 1 applic Discontinued Medications Aspirin (Halfprin) 81 mg PO DAILY [facility] Last Admin: 10/08/17 08:24 Dose: 81 mg Atenolol (Tenormin) 25 mg PO BID [facility] Last Admin: 10/08/17 08:24 Dose: 25 mg Budesonide (Pulmicort) 0.5 mg NEB BIDRT [facility] Last Admin: 10/08/17 08:23 Dose: 0.5 mg Furosemide (Lasix) 20 mg PO DAILY [facility] Last Admin: 10/08/17 08:25 Dose: 20 mg Magnesium Citrate (Citrate Of Magnesia) 300 ml PO ONETIME ONE Stop: 10/07/17 16:07 Last Admin: 10/07/17 17:00 Dose: Not Given Magnesium Citrate (Citrate Of Magnesia) 296 ml PO ONETIME ONE Stop: 10/07/17 17:01 Last Admin: 10/07/17 17:04 Dose: 296 ml Polyethylene Glycol (Miralax) 17 gm PO DAILY [facility] Last Admin: 10/09/17 08:50 Dose: 17 gm Sertraline HCl (Zoloft) 75 mg PO DAILY [facility] Last Admin: 10/08/17 08:24 Dose: 75 mg - Exam General: Alert, Cooperative, No Acute Distress HEENT: Mucous Membr. Moist/[place], Other (ptosis) Neck: Trachea Midline, No JVD Lungs: Normal Respiratory Effort, Decreased Breath Sounds, Wheezing Cardiovascular: Regular Rate, Regular Rhythm GI/Abdominal Exam: Normal Bowel Sounds, Soft, Non-Tender, No Mass, Distended ( mild) (Male) Exam: Deferred Back Exam: Normal Inspection Extremities: Pedal Edema, Other (right groin pain) Skin: Warm, Dry, Intact Neurological: No New Focal Deficit Psy/Mental Status: Alert, Normal Affect, Normal Mood - Problem List & Annotations (1) Nausea & vomiting SNOMED Code(s): 29411229 Code(s): R11.2 - NAUSEA WITH VOMITING, UNSPECIFIED Status: Acute Priority : High Current Visit: Yes (2) Constipation SNOMED Code(s): 04340350 Code(s): K59.00 - CONSTIPATION, UNSPECIFIED Status: Chronic Priority: Medium Current Visit: Yes Qualifiers: Constipation type: chronic idiopathic constipation Qualified Code(s): K59.04 - Chronic idiopathic constipation (3) Anemia SNOMED Code(s): 935125088 Code(s): D64.9 - ANEMIA, UNSPECIFIED Status: Acute Current Visit: No (4) Anxiety SNOMED Code(s): 00464837 Code(s): F41.9 - ANXIETY DISORDER, UNSPECIFIED Status: Acute Priority: Medium Current Visit: No (5) Anxiety about health SNOMED Code(s): 347556255 Code(s): F41.8 - OTHER SPECIFIED ANXIETY DISORDERS Status: Acute Priority : Medium Current Visit: No (6) Anxiety and depression SNOMED Code(s): 202234676 Code(s): F41.9 - ANXIETY DISORDER, UNSPECIFIED; F32.9 - MAJOR DEPRESSIVE DISORDER, SINGLE EPISODE, UNSPECIFIED Status: Acute Priority: Medium Current Visit: No (7) Anxiety as acute reaction to exceptional stress SNOMED Code(s): 20722985 Code(s): F41.1 - GENERALIZED ANXIETY DISORDER; F43.0 - ACUTE STRESS REACTION Status: Acute Priority: Medium Current Visit: No (8) Pneumonia SNOMED Code(s): 850413590 Code(s): J18.9 - PNEUMONIA, UNSPECIFIED ORGANISM Status: Acute Priority: High Current Visit: No Qualifiers: Pneumonia type: aspiration pneumonia Laterality: bilateral Annotation/Comment:: History of aspiration pneumonia. Discussed with Dr Zhou. Will start Zithromax for community acquired pneumonia. Speech consult ordered (9) Weakness SNOMED Code(s): 09278665 Code(s): R53.1 - WEAKNESS Status: Acute Priority: High Current Visit: No Annotation/Comment:: PT/OT consulted to evaluate the patient to see if needing swingbed status (10) COPD (chronic obstructive pulmonary disease) SNOMED Code(s): 63937407 Code(s): J44.9 - CHRONIC OBSTRUCTIVE PULMONARY DISEASE, UNSPECIFIED Status : Chronic Priority: Medium Current Visit: No Qualifiers: COPD type: chronic bronchitis Chronic bronchitis type: unspecified Qualified Code(s): J42 - Unspecified chronic bronchitis Annotation/Comment:: Stable by patient history with no recent fever, cough, or bronchitic symptoms (11) Diabetes SNOMED Code(s): 56170684 Code(s): E11.9 - TYPE 2 DIABETES MELLITUS WITHOUT COMPLICATIONS Status: Chronic Priority: Medium Current Visit: No Qualifiers: Diabetes mellitus type: type 2 Diabetes mellitus complication status: with neurologic complications Diabetes mellitus complication detail: with polyneuropathy 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 Annotation/Comment:: will d/c metformin, patient having CT scan. Monitor blood sugars, continue on the Januvia (12) Hypertension SNOMED Code(s): 27799100 Code(s): I10 - ESSENTIAL (PRIMARY) HYPERTENSION Status: Chronic Priority : Medium Current Visit: No Qualifiers: Hypertension type: essential hypertension Qualified Code(s): I10 - Essential (primary) hypertension Annotation/Comment:: Blood Pressures good in the emergency room (13) IDDM (insulin dependent diabetes mellitus) SNOMED Code(s): 74980962 Code(s): E11.9 - TYPE 2 DIABETES MELLITUS WITHOUT COMPLICATIONS; Z79.4 - [employer] WORK[employer] (CURRENT) USE OF INSULIN Status: Chronic Priority: Medium Current Visit: No Annotation/Comment:: Stable by patient history despite chronic steroid therapy for his polymyalgia rheumatica (14) Peptic reflux disease SNOMED Code(s): 67776037 Code(s): K21.9 - GASTRO-ESOPHAGEAL REFLUX DISEASE WITHOUT ESOPHAGITIS Status: Chronic Priority: Medium Current Visit: No Annotation/Comment:: Stable by patient history (15) Polyarthritis rheumatica SNOMED Code(s): 95948915 Code(s): M06.9 - RHEUMATOID ARTHRITIS, UNSPECIFIED Status: Chronic Priority: Medium Current Visit: No Qualifiers: Rheumatoid arthritis location: multiple sites Rheumatoid factor presence: unspecified presence Qualified Code(s): M06.9 - Rheumatoid arthritis, unspecified Annotation/Comment:: Stable by patient history with current methotrexate and steroid therapy - Problem List Review Problem List Initiated/Reviewed/Updated: Yes - My Orders Last 24 Hours: My Active Orders 10/08/17 20:00 Atenolol [Tenormin] 25 mg PO Q12HR 10/09/17 08:00 Sertraline [Zoloft] 50 mg PO DAILY 10/10/17 05:11 Abdomen 2V AP Flat Upright [CR] Routine Chest 2V [CR] Routine Lumbar Spine Min 4V [CR] Routine 10/10/17 08:00 Furosemide [Lasix] 40 mg IVPUSH DAILY 10/10/17 Breakfast [place] [employer] Diet [DIET] - Plan Plan:: 10-07-17 Francoise Vazquez PA-C Admitting to status after evaluation at [facility], sent down from [facility]. Nursing staff describes concern for aspiration pneumonia due to patient's eating habits and cough. Febrile today, complains of cough, body aches and nausea. Long history of constipation, abdominal x-rays today indicate large amount of stool. CXR indicates pneumonia. WBC 13,500. Consulted with Dr. Zhou regarding admit. Treating pneumonia with Flagyl and Claforan IV. Running IV NS at just 50 ml/h. Will treat nausea with Zofran. Miralax and Mag Citrate for constipation which has been long-standing. Follow up labs ordered for am. [place] notified of admit. 10/08/17 Winnie Murrell MD Marked improvement today. Less weak. CRP has increased. Continue IV antibiotics. +bm. Will start clear thickened liquids. 10/09/17 Winnie Murrell MD Continues to improve. Continue medical therapy.
[2017-10-09] MEDS: Acetaminophen/HYDROcodone 325-5 MG Tab PO PRN (23:44)
[2017-10-10 08:04] LABS: CHLORIDE,CL 104 mmol/L (98-107); SODIUM,NA 137 mmol/L (136-145)
[2017-10-10] MEDS: Furosemide 40 MG/4 ML VIAL IVPUSH SCH (08:35)
[2017-10-10] MEDS: metroNIDAZOLE/Normal Saline 500 MG in Premix Bag 1 BAG IV SCH ×3 (08:35→23:40)
[2017-10-10] MEDS: Psyllium Husk Powder Sugar Free 5.85 GM Packet PO SCH ×2 (08:35→17:14)
[2017-10-10] MEDS: Albuterol/Ipratropium 3.0-0.5 MG/3 ML Neb Soln INH SCH ×4 (08:35→19:29)
[2017-10-10] MEDS: methylPREDNISolone Sodium Succinate 40 MG/1 ML SDV IVPUSH SCH (08:35)
[2017-10-10] MEDS: amLODIPine 5 MG Tab PO SCH (08:36)
[2017-10-10] MEDS: Trolamine Salicylate/Aloe Vera 10% Crm 85 GM Tube TOP SCH ×2 (08:36→17:12)
[2017-10-10] MEDS: Atenolol 25 MG Tab PO SCH ×2 (08:37→19:30)
[2017-10-10] MEDS: Levothyroxine 75 MCG Tab PO SCH (08:37)
[2017-10-10] MEDS: Sertraline 25 MG Tab PO SCH (08:37)
[2017-10-10] MEDS: metFORMIN 500 MG Tab PO SCH ×2 (08:37→17:14)
[2017-10-10] MEDS: Acetaminophen 325 MG Tab PO SCH ×2 (08:37→17:13)
[2017-10-10] MEDS: Insulin Isophane NPH, Human 100 Units/ML 3 ML Pen SUBCUT SCH ×2 (08:38→19:30)
[2017-10-10] MEDS: Omeprazole 20 MG Cap.CR PO SCH (08:38)
[2017-10-10] MEDS: Polyethylene Glycol 3350 Powder 17 GM Packet PO SCH (08:38)
--- NOTE | 2017-10-10 11:09 | PCM.PN ---
- General Info Date of Service: 10/10/17 Admission Dx/Problem (Free Text): Admission Diagnosis/Problem Admission Diagnosis/Problem Pneumonia Functional Status: Reports: Pain Controlled (improved in right groin), Tolerating Diet, Ambulating - Review of Systems General: Reports: No Symptoms HEENT: Reports: No Symptoms Pulmonary: Reports: Shortness of Breath, Cough Cardiovascular: Reports: No Symptoms Gastrointestinal: Reports: No Symptoms Genitourinary: Reports: No Symptoms Musculoskeletal: Reports: Back Pain (low), Joint Pain (right hip and groin pain) Skin: Reports: No Symptoms Neurological: Reports: No Symptoms Psychiatric: Reports: Anxiety - Patient Data Vitals - Most Recent: Last Vital Signs Temp 97.8 F 10/09/17 20:00 Pulse 59 L 10/10/17 08:37 Resp 16 10/09/17 20:00 BP 143/72 H 10/10/17 08:37 Pulse Ox 97 10/09/17 20:00 Weight - Most Recent: 184 lb 8 oz I&O - Last 24 Hours: Intake & Output 10/09/17 10/10/17 10/10/17 22:59 06:59 14:59 Intake Total 610 764 Output Total 400 800 50 Balance 210 -36 -50 Lab Results Last 24 Hours: Laboratory Results - last 24 hr 10/09/17 10/10/17 10/10/17 Range/Units 16:48 07:15 07:15 WBC 6.4 (4.0-10.2) K/uL RBC 3.65 L (4.33-5.41) M/uL Hgb 10.7 L (13.1-16.8) g/dL Hct 33.5 L (39.0-49.0) % MCV 91.8 (84.0-98.0) fL MCH 29.3 (28.2-33.3) pg MCHC 31.9 (31.7-36.0) g/dL RDW 15.8 H (11.2-14.1) % Plt Count 178 (150-350) K/uL Neut % (Auto) 75.5 (45.0-80.0) % Lymph % (Auto) 16.9 (10.0-50.0) % [place] % (Auto) 6.1 (2.0-14.0) % Eos % (Auto) 1.2 (0.0-5.0) % Baso % (Auto) 0.3 (0.0-2.0) % Neut # (Auto) 4.86 (1.40-7.00) K/uL Lymph # (Auto) 1.09 (0.50-3.50) K/uL [place] # (Auto) 0.39 (0.00-1.00) K/uL Eos # (Auto) 0.08 (0.00-0.50) K/uL Baso # (Auto) 0.02 (0.00-0.20) K/uL Sodium 137 (136-145) mmol/L Potassium 3.6 (3.5-5.1) mmol/L Chloride 104 (98-107) mmol/L Carbon Dioxide 25.0 (21.0-32.0) mmol/L BUN 10 (7-18) mg/dL Creatinine 0.60 (0.51-1.17) mg/dL Est Cr Clr Drug Dosing 86.91 mL/min Estimated GFR (MDRD) > 60 mL/min Glucose 100 (74-106) mg/dL POC Glucose 254 H* (65-110) mg/dl Calcium 8.5 (8.5-10.1) mg/dL Total Bilirubin 0.6 (0.2-1.0) mg/dL AST 44 H (15-37) U/L ALT 38 (12-78) U/L Alkaline Phosphatase 51 (46-116) IU/L C-Reactive Protein 5.7 H (<=0.9) mg/dL Total Protein 6.6 (6.4-8.2) g/dL Albumin 2.9 L (3.4-5.0) g/dL 10/10/17 Range/Units 07:48 WBC (4.0-10.2) K/uL RBC (4.33-5.41) M/uL Hgb (13.1-16.8) g/dL Hct (39.0-49.0) % MCV (84.0-98.0) fL MCH (28.2-33.3) pg MCHC (31.7-36.0) g/dL RDW (11.2-14.1) % Plt Count (150-350) K/uL Neut % (Auto) (45.0-80.0) % Lymph % (Auto) (10.0-50.0) % [place] % (Auto) (2.0-14.0) % Eos % (Auto) (0.0-5.0) % Baso % (Auto) (0.0-2.0) % Neut # (Auto) (1.40-7.00) K/uL Lymph # (Auto) (0.50-3.50) K/uL [place] # (Auto) (0.00-1.00) K/uL Eos # (Auto) (0.00-0.50) K/uL Baso # (Auto) (0.00-0.20) K/uL Sodium (136-145) mmol/L Potassium (3.5-5.1) mmol/L Chloride (98-107) mmol/L Carbon Dioxide (21.0-32.0) mmol/L BUN (7-18) mg/dL Creatinine (0.51-1.17) mg/dL Est Cr Clr Drug Dosing mL/min Estimated GFR (MDRD) mL/min Glucose (74-106) mg/dL POC Glucose 103 (65-110) mg/dl Calcium (8.5-10.1) mg/dL Total Bilirubin (0.2-1.0) mg/dL AST (15-37) U/L ALT (12-78) U/L Alkaline Phosphatase (46-116) IU/L C-Reactive Protein (<=0.9) mg/dL Total Protein (6.4-8.2) g/dL Albumin (3.4-5.0) g/dL Christo Results Last 24 Hours: Microbiology 10/07/17 15:12 Aerobic Blood Culture - Preliminary Blood - Venous NO GROWTH AFTER 2 DAYS Anaerobic Blood Culture - Preliminary NO GROWTH AFTER 2 DAYS 10/07/17 15:20 Aerobic Blood Culture - Preliminary Blood - Venous - Lab Draw NO GROWTH AFTER 2 DAYS Anaerobic Blood Culture - Preliminary NO GROWTH AFTER 2 DAYS Med Orders - Current: Current Medications Acetaminophen (Tylenol) 650 mg PO BID JOHN Last Admin: 10/10/17 08:37 Dose: 650 mg Hydrocodone Bitart/Acetaminophen ([place] 325-5 Mg) 1 tab PO BID PRN PRN Reason: Pain Last Admin: 10/09/17 23:44 Dose: 1 tab Al Hydroxide/Mg Hydroxide (Mag-Al Plus) 30 ml PO Q12HR PRN PRN Reason: Heartburn Albuterol/Ipratropium (Duoneb 3.0-0.5 Mg/3 Ml) 3 ml INH QIDRT [facility] Last Admin: 10/10/17 08:35 Dose: 3 ml Albuterol/Ipratropium (Duoneb 3.0-0.5 Mg/3 Ml) 3 ml NEB Q4HRRT PRN PRN Reason: Shortness of Breath Last Admin: 10/09/17 00:35 Dose: 3 ml Amlodipine Besylate (Norvasc) 2.5 mg PO DAILY [facility] Last Admin: 10/10/17 08:36 Dose: 2.5 mg Atenolol (Tenormin) 25 mg PO Q12HR [facility] Last Admin: 10/10/17 08:37 Dose: 25 mg Calcium Carbonate/Glycine (Tums) 500 mg PO BID PRN PRN Reason: Heartburn Cefotaxime Sodium (Claforan) 1 gm IVPUSH Q8H [facility] Last Admin: 10/10/17 08:35 Dose: 1 gm Furosemide (Lasix) 40 mg IVPUSH DAILY [facility] Last Admin: 10/10/17 08:35 Dose: 40 mg Metronidazole 500 mg/ Premix 100 mls @ 100 mls/hr IV Q8H [facility] Last Admin: 10/10/17 08:35 Dose: 100 mls/hr Insulin Human NPH (Humulin N) 16 unit SUBCUT Q12HR [facility] Last Admin: 10/10/17 08:38 Dose: 16 unit Levothyroxine Sodium (Levothyroxine) 75 mcg PO ACBREAKFAST [facility] Last Admin: 10/10/17 08:37 Dose: 75 mcg Lorazepam (Ativan) 0.25 mg PO Q6H PRN PRN Reason: Anxiety Magnesium Hydroxide (Milk Of Magnesia) 30 ml PO Q12HR PRN PRN Reason: Constipation Last Admin: 10/08/17 12:02 Dose: 30 ml Metformin HCl (Glucophage) 1,000 mg PO BID [facility] Last Admin: 10/10/17 08:37 Dose: 1,000 mg Methylprednisolone Sodium Succinate (Solu-Medrol) 20 mg IVPUSH DAILY [facility] Last Admin: 10/10/17 08:35 Dose: 20 mg Mineral Oil/White Petrolatum (Lacri-Lube S.O.P Oint) 0 gm EYEBOTH BEDTIME [facility] Last Admin: 10/09/17 18:59 Dose: 1 applic Omeprazole (Omeprazole) 20 mg PO ACBREAKFAST [facility] Last Admin: 10/10/17 08:38 Dose: 20 mg Ondansetron HCl (Zofran) 8 mg IVPUSH Q6H PRN PRN Reason: Nausea/Vomiting Last Admin: 10/07/17 16:02 Dose: 8 mg Polyethylene Glycol (Miralax) 17 gm PO DAILY [facility] Last Admin: 10/10/17 08:38 Dose: 17 gm Psyllium Husk (Metamucil Sugar Free) 0 pkt PO BID [facility] Last Admin: 10/10/17 08:35 Dose: 1 pkt Sertraline HCl (Zoloft) 100 mg PO DAILY [facility] Sodium Chloride (Saline Flush) 10 ml FLUSH ASDIRECTED PRN PRN Reason: Keep Vein Open Last Admin: 10/09/17 23:30 Dose: 10 ml Trolamine Salicylate (Aspercreme 10%) 0 gm TOP BID [facility] Last Admin: 10/10/17 08:36 Dose: 1 applic Discontinued Medications Aspirin (Halfprin) 81 mg PO DAILY [facility] Last Admin: 10/08/17 08:24 Dose: 81 mg Atenolol (Tenormin) 25 mg PO BID [facility] Last Admin: 10/08/17 08:24 Dose: 25 mg Budesonide (Pulmicort) 0.5 mg NEB BIDRT [facility] Last Admin: 10/08/17 08:23 Dose: 0.5 mg Furosemide (Lasix) 20 mg PO DAILY [facility] Last Admin: 10/08/17 08:25 Dose: 20 mg Sodium Chloride (Normal Saline) 1,000 mls @ 50 mls/hr IV ASDIRECTED [facility] Last Admin: 10/09/17 16:21 Dose: 50 mls/hr Magnesium Citrate (Citrate Of Magnesia) 300 ml PO ONETIME ONE Stop: 10/07/17 16:07 Last Admin: 10/07/17 17:00 Dose: Not Given Magnesium Citrate (Citrate Of Magnesia) 296 ml PO ONETIME ONE Stop: 10/07/17 17:01 Last Admin: 10/07/17 17:04 Dose: 296 ml Polyethylene Glycol (Miralax) 17 gm PO DAILY [facility] Last Admin: 10/09/17 08:50 Dose: 17 gm Sertraline HCl (Zoloft) 75 mg PO DAILY [facility] Last Admin: 10/08/17 08:24 Dose: 75 mg Sertraline HCl (Zoloft) 50 mg PO DAILY [facility] Last Admin: 10/10/17 08:37 Dose: 50 mg - Exam General: Alert, Cooperative, No Acute Distress HEENT: Mucous Membr. Moist/Anton, Other (ptosis) Neck: Trachea Midline, No JVD Lungs: Normal Respiratory Effort, Decreased Breath Sounds, Wheezing Cardiovascular: Regular Rate, Regular Rhythm GI/Abdominal Exam: Normal Bowel Sounds, Soft, Non-Tender, No Mass, Distended ( mild) (Male) Exam: Deferred, Other (right groin pain, no obvious hernia) Back Exam: Decreased Range of Motion, Paraspinal Tenderness (paralumbar), Vertebral Tenderness (lumbar), Other (kyphosis) Extremities: Normal Inspection, Pedal Edema (improved), Limited Range of Motion (right hip with abduction) Skin: Warm, Dry, Intact Neurological: No New Focal Deficit Psy/Mental Status: Alert, Anxious - Problem List & Annotations (1) Nausea & vomiting SNOMED Code(s): 68961756 Code(s): R11.2 - NAUSEA WITH VOMITING, UNSPECIFIED Status: Acute Priority : High Current Visit: Yes (2) Constipation SNOMED Code(s): 35393977 Code(s): K59.00 - CONSTIPATION, UNSPECIFIED Status: Chronic Priority: Medium Current Visit: Yes Qualifiers: Constipation type: chronic idiopathic constipation Qualified Code(s): K59.04 - Chronic idiopathic constipation (3) Anemia SNOMED Code(s): 998486271 Code(s): D64.9 - ANEMIA, UNSPECIFIED Status: Acute Current Visit: No (4) Anxiety SNOMED Code(s): 90605435 Code(s): F41.9 - ANXIETY DISORDER, UNSPECIFIED Status: Acute Priority: Medium Current Visit: No (5) Anxiety about health SNOMED Code(s): 821830585 Code(s): F41.8 - OTHER SPECIFIED ANXIETY DISORDERS Status: Acute Priority : Medium Current Visit: No (6) Anxiety and depression SNOMED Code(s): 147521313 Code(s): F41.9 - ANXIETY DISORDER, UNSPECIFIED; F32.9 - MAJOR DEPRESSIVE DISORDER, SINGLE EPISODE, UNSPECIFIED Status: Acute Priority: Medium Current Visit: No (7) Anxiety as acute reaction to exceptional stress SNOMED Code(s): 98378427 Code(s): F41.1 - GENERALIZED ANXIETY DISORDER; F43.0 - ACUTE STRESS REACTION Status: Acute Priority: Medium Current Visit: No (8) Pneumonia SNOMED Code(s): 713659727 Code(s): J18.9 - PNEUMONIA, UNSPECIFIED ORGANISM Status: Acute Priority: High Current Visit: No Qualifiers: Pneumonia type: aspiration pneumonia Laterality: bilateral Annotation/Comment:: History of aspiration pneumonia. Discussed with Dr Zhou. Will start Zithromax for community acquired pneumonia. Speech consult ordered (9) Weakness SNOMED Code(s): 25899438 Code(s): R53.1 - WEAKNESS Status: Acute Priority: High Current Visit: No Annotation/Comment:: PT/OT consulted to evaluate the patient to see if needing swingbed status (10) COPD (chronic obstructive pulmonary disease) SNOMED Code(s): 29386782 Code(s): J44.9 - CHRONIC OBSTRUCTIVE PULMONARY DISEASE, UNSPECIFIED Status : Chronic Priority: Medium Current Visit: No Qualifiers: COPD type: chronic bronchitis Chronic bronchitis type: unspecified Qualified Code(s): J42 - Unspecified chronic bronchitis Annotation/Comment:: Stable by patient history with no recent fever, cough, or bronchitic symptoms (11) Diabetes SNOMED Code(s): 11144834 Code(s): E11.9 - TYPE 2 DIABETES MELLITUS WITHOUT COMPLICATIONS Status: Chronic Priority: Medium Current Visit: No Qualifiers: Diabetes mellitus type: type 2 Diabetes mellitus complication status: with neurologic complications Diabetes mellitus complication detail: with polyneuropathy 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 Annotation/Comment:: will d/c metformin, patient having CT scan. Monitor blood sugars, continue on the Januvia (12) Hypertension SNOMED Code(s): 33089362 Code(s): I10 - ESSENTIAL (PRIMARY) HYPERTENSION Status: Chronic Priority : Medium Current Visit: No Qualifiers: Hypertension type: essential hypertension Qualified Code(s): I10 - Essential (primary) hypertension Annotation/Comment:: Blood Pressures good in the emergency room (13) IDDM (insulin dependent diabetes mellitus) SNOMED Code(s): 55753031 Code(s): E11.9 - TYPE 2 DIABETES MELLITUS WITHOUT COMPLICATIONS; Z79.4 - INSTRUCTOR PRIVATE (CURRENT) USE OF INSULIN Status: Chronic Priority: Medium Current Visit: No Annotation/Comment:: Stable by patient history despite chronic steroid therapy for his polymyalgia rheumatica (14) Peptic reflux disease SNOMED Code(s): 83800243 Code(s): K21.9 - GASTRO-ESOPHAGEAL REFLUX DISEASE WITHOUT ESOPHAGITIS Status: Chronic Priority: Medium Current Visit: No Annotation/Comment:: Stable by patient history (15) Polyarthritis rheumatica SNOMED Code(s): 18292115 Code(s): M06.9 - RHEUMATOID ARTHRITIS, UNSPECIFIED Status: Chronic Priority: Medium Current Visit: No Qualifiers: Rheumatoid arthritis location: multiple sites Rheumatoid factor presence: unspecified presence Qualified Code(s): M06.9 - Rheumatoid arthritis, unspecified Annotation/Comment:: Stable by patient history with current methotrexate and steroid therapy - Problem List Review Problem List Initiated/Reviewed/Updated: Yes - My Orders Last 24 Hours: My Active Orders 10/10/17 05:11 Abdomen 2V AP Flat Upright [CR] Routine Chest 2V [CR] Routine Lumbar Spine Min 4V [CR] Routine 10/10/17 08:00 Furosemide [Lasix] 40 mg IVPUSH DAILY 10/10/17 Breakfast [employer] Diet [DIET] 10/11/17 05:11 CBC WITH AUTO DIFF [HEME] Routine CMP [COMPREHENSIVE METABOLIC PN,CMP] [CHEM] Routine CRP [C-REACTIVE PROTEIN] [CHEM] Routine 10/11/17 08:00 Sertraline [Zoloft] 100 mg PO DAILY - Plan Plan:: 10-07-17 Francoise Vazquez PA-C Admitting to IP status after evaluation at [facility], sent down from [facility]. Nursing staff describes concern for aspiration pneumonia due to patient's eating habits and cough. Febrile today, complains of cough, body aches and nausea. Long history of constipation, abdominal x-rays today indicate large amount of stool. CXR indicates pneumonia. WBC 13,500. Consulted with Dr. Zhou regarding admit. Treating pneumonia with Flagyl and Claforan IV. Running IV NS at just 50 ml/h. Will treat nausea with Zofran. Miralax and Mag Citrate for constipation which has been long-standing. Follow up labs ordered for am. [place] notified of admit. 10/08/17 Winnie Murrell MD Marked improvement today. Less weak. CRP has increased. Continue IV antibiotics. +bm. Will start clear thickened liquids. 10/09/17 Winnie Murrell MD Continues to improve. Continue medical therapy. 10/10/17 Winnie Murrell MD Continues to improve. Tolerating solid foods. Continue medical therapy. CRP has decreased.
[2017-10-10] MEDS: Acetaminophen/HYDROcodone 325-5 MG Tab PO PRN (17:14)
[2017-10-10] MEDS: Mineral Oil/Petrolatum Ophth Oint 3.5 GM Tube EYEBOTH SCH (19:29)
[2017-10-10] MEDS: Sodium Chloride 0.9% 10 ML Syringe FLUSH PRN ×2 (23:41→23:45)
[2017-10-11] MEDS: Albuterol/Ipratropium 3.0-0.5 MG/3 ML Neb Soln NEB PRN (00:01)
[2017-10-11] MEDS: Acetaminophen/HYDROcodone 325-5 MG Tab PO PRN (04:18)
[2017-10-11] MEDS: Levothyroxine 75 MCG Tab PO SCH (07:46)
[2017-10-11] MEDS: Omeprazole 20 MG Cap.CR PO SCH (07:47)
[2017-10-11] MEDS: Atenolol 25 MG Tab PO SCH (07:47)
[2017-10-11] MEDS: metFORMIN 500 MG Tab PO SCH (07:48)
[2017-10-11] MEDS: amLODIPine 5 MG Tab PO SCH (07:49)
[2017-10-11] MEDS: Acetaminophen 325 MG Tab PO SCH (07:50)
[2017-10-11] MEDS: Insulin Isophane NPH, Human 100 Units/ML 3 ML Pen SUBCUT SCH (07:53)
[2017-10-11] MEDS: Psyllium Husk Powder Sugar Free 5.85 GM Packet PO SCH (07:55)
[2017-10-11] MEDS: Trolamine Salicylate/Aloe Vera 10% Crm 85 GM Tube TOP SCH (07:58)
[2017-10-11] MEDS: Polyethylene Glycol 3350 Powder 17 GM Packet PO SCH (08:00)
[2017-10-11] MEDS ORDERED: Sertraline 25 MG Tab PO SCH (08:00)
[2017-10-11] MEDS: Furosemide 40 MG/4 ML VIAL IVPUSH SCH (08:12)
[2017-10-11] MEDS: methylPREDNISolone Sodium Succinate 40 MG/1 ML SDV IVPUSH SCH (08:16)
[2017-10-11 08:18] LABS: CHLORIDE,CL 105 mmol/L (98-107); SODIUM,NA 138 mmol/L (136-145)
[2017-10-11] MEDS: metroNIDAZOLE/Normal Saline 500 MG in Premix Bag 1 BAG IV SCH (08:20)
[2017-10-11] MEDS: Albuterol/Ipratropium 3.0-0.5 MG/3 ML Neb Soln INH SCH ×2 (08:23→11:12)
[2017-10-11 11:22] VITALS: BP 118/63
--- NOTE | 2017-10-11 12:07 | PCM.PN ---
- General Info Date of Service: 10/11/17 Admission Dx/Problem (Free Text): Admission Diagnosis/Problem Admission Diagnosis/Problem Pneumonia Functional Status: Reports: Pain Controlled, Tolerating Diet, Ambulating - Review of Systems General: Reports: No Symptoms HEENT: Reports: No Symptoms Pulmonary: Reports: Shortness of Breath (chronic), Cough Cardiovascular: Reports: No Symptoms Gastrointestinal: Reports: No Symptoms Genitourinary: Reports: No Symptoms Musculoskeletal: Reports: No Symptoms Skin: Reports: No Symptoms Neurological: Reports: No Symptoms Psychiatric: Reports: Anxiety - Patient Data Vitals - Most Recent: Last Vital Signs Temp 97.7 F 10/11/17 11:21 Pulse 72 10/11/17 11:21 Resp 18 10/11/17 11:21 BP 118/63 10/11/17 11:21 Pulse Ox 95 10/11/17 11:21 Weight - Most Recent: 185 lb 14.4 oz I&O - Last 24 Hours: Intake & Output 10/10/17 10/11/17 10/11/17 22:59 06:59 14:59 Intake Total 100 100 440 Output Total 2950 400 800 Balance -2850 -300 -360 Lab Results Last 24 Hours: Laboratory Results - last 24 hr 10/10/17 10/11/17 10/11/17 Range/Units 17:12 07:17 07:45 WBC 8.2 (4.0-10.2) K/uL RBC 3.66 L (4.33-5.41) M/uL Hgb 10.8 L (13.1-16.8) g/dL Hct 33.1 L (39.0-49.0) % MCV 90.4 (84.0-98.0) fL MCH 29.5 (28.2-33.3) pg MCHC 32.6 (31.7-36.0) g/dL RDW 15.5 H (11.2-14.1) % Plt Count 206 (150-350) K/uL Neut % (Auto) 74.2 (45.0-80.0) % Lymph % (Auto) 19.3 (10.0-50.0) % [place] % (Auto) 5.6 (2.0-14.0) % Eos % (Auto) 0.7 (0.0-5.0) % Baso % (Auto) 0.2 (0.0-2.0) % Neut # (Auto) 6.07 (1.40-7.00) K/uL Lymph # (Auto) 1.58 (0.50-3.50) K/uL [place] # (Auto) 0.46 (0.00-1.00) K/uL Eos # (Auto) 0.06 (0.00-0.50) K/uL Baso # (Auto) 0.02 (0.00-0.20) K/uL Sodium (136-145) mmol/L Potassium (3.5-5.1) mmol/L Chloride (98-107) mmol/L Carbon Dioxide (21.0-32.0) mmol/L BUN (7-18) mg/dL Creatinine (0.51-1.17) mg/dL Est Cr Clr Drug Dosing mL/min Estimated GFR (MDRD) mL/min Glucose (74-106) mg/dL POC Glucose 368 H* 105 (65-110) mg/dl Calcium (8.5-10.1) mg/dL Total Bilirubin (0.2-1.0) mg/dL AST (15-37) U/L ALT (12-78) U/L Alkaline Phosphatase (46-116) IU/L C-Reactive Protein (<=0.9) mg/dL Total Protein (6.4-8.2) g/dL Albumin (3.4-5.0) g/dL 10/11/17 Range/Units 07:45 WBC (4.0-10.2) K/uL RBC (4.33-5.41) M/uL Hgb (13.1-16.8) g/dL Hct (39.0-49.0) % MCV (84.0-98.0) fL MCH (28.2-33.3) pg MCHC (31.7-36.0) g/dL RDW (11.2-14.1) % Plt Count (150-350) K/uL Neut % (Auto) (45.0-80.0) % Lymph % (Auto) (10.0-50.0) % [place] % (Auto) (2.0-14.0) % Eos % (Auto) (0.0-5.0) % Baso % (Auto) (0.0-2.0) % Neut # (Auto) (1.40-7.00) K/uL Lymph # (Auto) (0.50-3.50) K/uL [place] # (Auto) (0.00-1.00) K/uL Eos # (Auto) (0.00-0.50) K/uL Baso # (Auto) (0.00-0.20) K/uL Sodium 138 (136-145) mmol/L Potassium 3.8 (3.5-5.1) mmol/L Chloride 105 (98-107) mmol/L Carbon Dioxide 22.9 (21.0-32.0) mmol/L BUN 18 (7-18) mg/dL Creatinine 0.61 (0.51-1.17) mg/dL Est Cr Clr Drug Dosing 85.49 mL/min Estimated GFR (MDRD) > 60 mL/min Glucose 120 H (74-106) mg/dL POC Glucose (65-110) mg/dl Calcium 8.6 (8.5-10.1) mg/dL Total Bilirubin 0.4 (0.2-1.0) mg/dL AST 38 H (15-37) U/L ALT 42 (12-78) U/L Alkaline Phosphatase 60 (46-116) IU/L C-Reactive Protein 3.0 H (<=0.9) mg/dL Total Protein 6.6 (6.4-8.2) g/dL Albumin 3.0 L (3.4-5.0) g/dL Christo Results Last 24 Hours: Microbiology 10/07/17 15:12 Aerobic Blood Culture - Preliminary Blood - Venous NO GROWTH AFTER 3 DAYS Anaerobic Blood Culture - Preliminary NO GROWTH AFTER 3 DAYS 10/07/17 15:20 Aerobic Blood Culture - Preliminary Blood - Venous - Lab Draw NO GROWTH AFTER 3 DAYS Anaerobic Blood Culture - Preliminary NO GROWTH AFTER 3 DAYS Med Orders - Current: Current Medications Acetaminophen (Tylenol) 650 mg PO BID [facility] Last Admin: 10/11/17 07:50 Dose: 650 mg Hydrocodone Bitart/Acetaminophen ([place] 325-5 Mg) 1 tab PO BID PRN PRN Reason: Pain Last Admin: 10/11/17 04:18 Dose: 1 tab Al Hydroxide/Mg Hydroxide (Mag-Al Plus) 30 ml PO Q12HR PRN PRN Reason: Heartburn Last Admin: 10/11/17 01:02 Dose: 30 ml Albuterol/Ipratropium (Duoneb 3.0-0.5 Mg/3 Ml) 3 ml INH QIDRT [facility] Last Admin: 10/11/17 11:12 Dose: 3 ml Albuterol/Ipratropium (Duoneb 3.0-0.5 Mg/3 Ml) 3 ml NEB Q4HRRT PRN PRN Reason: Shortness of Breath Last Admin: 10/11/17 00:01 Dose: 3 ml Amlodipine Besylate (Norvasc) 2.5 mg PO DAILY [facility] Last Admin: 10/11/17 07:49 Dose: 2.5 mg Atenolol (Tenormin) 25 mg PO Q12HR [facility] Last Admin: 10/11/17 07:47 Dose: 25 mg Calcium Carbonate/Glycine (Tums) 500 mg PO BID PRN PRN Reason: Heartburn Cefotaxime Sodium (Claforan) 1 gm IVPUSH Q8H [facility] Last Admin: 10/11/17 08:03 Dose: 1 gm Furosemide (Lasix) 40 mg IVPUSH DAILY [facility] Last Admin: 10/11/17 08:12 Dose: 40 mg Metronidazole 500 mg/ Premix 100 mls @ 100 mls/hr IV Q8H [facility] Last Admin: 10/11/17 08:20 Dose: 100 mls/hr Insulin Human NPH (Humulin N) 16 unit SUBCUT Q12HR [facility] Last Admin: 10/11/17 07:53 Dose: 16 unit Levothyroxine Sodium (Levothyroxine) 75 mcg PO ACBREAKFAST [facility] Last Admin: 10/11/17 07:46 Dose: 75 mcg Lorazepam (Ativan) 0.25 mg PO Q6H PRN PRN Reason: Anxiety Magnesium Hydroxide (Milk Of Magnesia) 30 ml PO Q12HR PRN PRN Reason: Constipation Last Admin: 10/08/17 12:02 Dose: 30 ml Metformin HCl (Glucophage) 1,000 mg PO BID [facility] Last Admin: 10/11/17 07:48 Dose: 1,000 mg Methylprednisolone Sodium Succinate (Solu-Medrol) 20 mg IVPUSH DAILY [facility] Last Admin: 10/11/17 08:16 Dose: 20 mg Mineral Oil/White Petrolatum (Lacri-Lube S.O.P Oint) 0 gm EYEBOTH BEDTIME [facility] Last Admin: 10/10/17 19:29 Dose: 1 applic Omeprazole (Omeprazole) 20 mg PO ACBREAKFAST [facility] Last Admin: 10/11/17 07:47 Dose: 20 mg Ondansetron HCl (Zofran) 8 mg IVPUSH Q6H PRN PRN Reason: Nausea/Vomiting Last Admin: 10/07/17 16:02 Dose: 8 mg Polyethylene Glycol (Miralax) 17 gm PO DAILY [facility] Last Admin: 10/11/17 08:00 Dose: 17 gm Psyllium Husk (Metamucil Sugar Free) 0 pkt PO BID [facility] Last Admin: 10/11/17 07:55 Dose: 1 pkt Sertraline HCl (Zoloft) 100 mg PO DAILY [facility] Last Admin: 10/11/17 07:49 Dose: 100 mg Sodium Chloride (Saline Flush) 10 ml FLUSH ASDIRECTED PRN PRN Reason: Keep Vein Open Last Admin: 10/10/17 23:45 Dose: 10 ml Trolamine Salicylate (Aspercreme 10%) 0 gm TOP BID [facility] Last Admin: 10/11/17 07:58 Dose: 1 applic Discontinued Medications Aspirin (Halfprin) 81 mg PO DAILY [facility] Last Admin: 10/08/17 08:24 Dose: 81 mg Atenolol (Tenormin) 25 mg PO BID [facility] Last Admin: 10/08/17 08:24 Dose: 25 mg Budesonide (Pulmicort) 0.5 mg NEB BIDRT [facility] Last Admin: 10/08/17 08:23 Dose: 0.5 mg Furosemide (Lasix) 20 mg PO DAILY [facility] Last Admin: 10/08/17 08:25 Dose: 20 mg Sodium Chloride (Normal Saline) 1,000 mls @ 50 mls/hr IV ASDIRECTED [facility] Last Admin: 10/09/17 16:21 Dose: 50 mls/hr Magnesium Citrate (Citrate Of Magnesia) 300 ml PO ONETIME ONE Stop: 10/07/17 16:07 Last Admin: 10/07/17 17:00 Dose: Not Given Magnesium Citrate (Citrate Of Magnesia) 296 ml PO ONETIME ONE Stop: 10/07/17 17:01 Last Admin: 10/07/17 17:04 Dose: 296 ml Polyethylene Glycol (Miralax) 17 gm PO DAILY [facility] Last Admin: 10/09/17 08:50 Dose: 17 gm Sertraline HCl (Zoloft) 75 mg PO DAILY [facility] Last Admin: 10/08/17 08:24 Dose: 75 mg Sertraline HCl (Zoloft) 50 mg PO DAILY [facility] Last Admin: 10/10/17 08:37 Dose: 50 mg - Exam General: Alert, Cooperative, No Acute Distress HEENT: Mucous Membr. Moist/[employer], Other (ptosis) Neck: Trachea Midline, No JVD Lungs: Normal Respiratory Effort, Decreased Breath Sounds, Rub Cardiovascular: Regular Rate, Regular Rhythm GI/Abdominal Exam: Normal Bowel Sounds, Soft, Non-Tender, No Distention (Male) Exam: No Hernia Back Exam: Normal Inspection, Decreased Range of Motion Extremities: Pedal Edema (decreased) Skin: Warm, Dry, Intact Neurological: No New Focal Deficit Psy/Mental Status: Alert, Normal Affect, Anxious - Problem List & Annotations (1) Nausea & vomiting SNOMED Code(s): 44784607 Code(s): R11.2 - NAUSEA WITH VOMITING, UNSPECIFIED Status: Acute Priority : High Current Visit: Yes (2) Constipation SNOMED Code(s): 84786432 Code(s): K59.00 - CONSTIPATION, UNSPECIFIED Status: Chronic Priority: Medium Current Visit: Yes Qualifiers: Constipation type: chronic idiopathic constipation Qualified Code(s): K59.04 - Chronic idiopathic constipation (3) Anemia SNOMED Code(s): 552708715 Code(s): D64.9 - ANEMIA, UNSPECIFIED Status: Acute Current Visit: No (4) Anxiety SNOMED Code(s): 44408109 Code(s): F41.9 - ANXIETY DISORDER, UNSPECIFIED Status: Acute Priority: Medium Current Visit: No (5) Anxiety about health SNOMED Code(s): 544603822 Code(s): F41.8 - OTHER SPECIFIED ANXIETY DISORDERS Status: Acute Priority : Medium Current Visit: No (6) Anxiety and depression SNOMED Code(s): 795813441 Code(s): F41.9 - ANXIETY DISORDER, UNSPECIFIED; F32.9 - MAJOR DEPRESSIVE DISORDER, SINGLE EPISODE, UNSPECIFIED Status: Acute Priority: Medium Current Visit: No (7) Anxiety as acute reaction to exceptional stress SNOMED Code(s): 29625019 Code(s): F41.1 - GENERALIZED ANXIETY DISORDER; F43.0 - ACUTE STRESS REACTION Status: Acute Priority: Medium Current Visit: No (8) Pneumonia SNOMED Code(s): 319871125 Code(s): J18.9 - PNEUMONIA, UNSPECIFIED ORGANISM Status: Acute Priority: High Current Visit: No Qualifiers: Pneumonia type: aspiration pneumonia Laterality: bilateral Annotation/Comment:: History of aspiration pneumonia. Discussed with Dr Zhou. Will start Zithromax for community acquired pneumonia. Speech consult ordered (9) Weakness SNOMED Code(s): 20991054 Code(s): R53.1 - WEAKNESS Status: Acute Priority: High Current Visit: No Annotation/Comment:: PT/OT consulted to evaluate the patient to see if needing swingbed status (10) COPD (chronic obstructive pulmonary disease) SNOMED Code(s): 47375075 Code(s): J44.9 - CHRONIC OBSTRUCTIVE PULMONARY DISEASE, UNSPECIFIED Status : Chronic Priority: Medium Current Visit: No Qualifiers: COPD type: chronic bronchitis Chronic bronchitis type: unspecified Qualified Code(s): J42 - Unspecified chronic bronchitis Annotation/Comment:: Stable by patient history with no recent fever, cough, or bronchitic symptoms (11) Diabetes SNOMED Code(s): 64200101 Code(s): E11.9 - TYPE 2 DIABETES MELLITUS WITHOUT COMPLICATIONS Status: Chronic Priority: Medium Current Visit: No Qualifiers: Diabetes mellitus type: type 2 Diabetes mellitus complication status: with neurologic complications Diabetes mellitus complication detail: with polyneuropathy 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 Annotation/Comment:: will d/c metformin, patient having CT scan. Monitor blood sugars, continue on the Januvia (12) Hypertension SNOMED Code(s): 27128438 Code(s): I10 - ESSENTIAL (PRIMARY) HYPERTENSION Status: Chronic Priority : Medium Current Visit: No Qualifiers: Hypertension type: essential hypertension Qualified Code(s): I10 - Essential (primary) hypertension Annotation/Comment:: Blood Pressures good in the emergency room (13) IDDM (insulin dependent diabetes mellitus) SNOMED Code(s): 59276435 Code(s): E11.9 - TYPE 2 DIABETES MELLITUS WITHOUT COMPLICATIONS; Z79.4 - V[employer]IPMENT [employer] (CURRENT) USE OF INSULIN Status: Chronic Priority: Medium Current Visit: No Annotation/Comment:: Stable by patient history despite chronic steroid therapy for his polymyalgia rheumatica (14) Peptic reflux disease SNOMED Code(s): 89492031 Code(s): K21.9 - GASTRO-ESOPHAGEAL REFLUX DISEASE WITHOUT ESOPHAGITIS Status: Chronic Priority: Medium Current Visit: No Annotation/Comment:: Stable by patient history (15) Polyarthritis rheumatica SNOMED Code(s): 12250294 Code(s): M06.9 - RHEUMATOID ARTHRITIS, UNSPECIFIED Status: Chronic Priority: Medium Current Visit: No Qualifiers: Rheumatoid arthritis location: multiple sites Rheumatoid factor presence: unspecified presence Qualified Code(s): M06.9 - Rheumatoid arthritis, unspecified Annotation/Comment:: Stable by patient history with current methotrexate and steroid therapy - Problem List Review Problem List Initiated/Reviewed/Updated: Yes - My Orders Last 24 Hours: My Active Orders 10/11/17 08:00 Sertraline [Zoloft] 100 mg PO DAILY - Plan Plan:: 10-07-17 Francoise Vazquez PA-C Admitting to status after evaluation at [facility], sent down from [facility]. Nursing staff describes concern for aspiration pneumonia due to patient's eating habits and cough. Febrile today, complains of cough, body aches and nausea. Long history of constipation, abdominal x-rays today indicate large amount of stool. CXR indicates pneumonia. WBC 13,500. Consulted with Dr. Zhou regarding admit. Treating pneumonia with Flagyl and Claforan IV. Running IV NS at just 50 ml/h. Will treat nausea with Zofran. Miralax and Mag Citrate for constipation which has been long-standing. Follow up labs ordered for . [facility] notified of admit. 10/08/17 Winnie Murrell MD Marked improvement today. Less weak. CRP has increased. Continue IV antibiotics. +bm. Will start clear thickened liquids. 10/09/17 Winnie Murrell MD Continues to improve. Continue medical therapy. 10/10/17 Winnie Murrell MD Continues to improve. Tolerating solid foods. Continue medical therapy. CRP has decreased. 10/11/17 Winnie Murrell MD Feels better. Ready for discharge to [facility].
--- NOTE | 2017-10-11 12:33 | PCM.DCSUM1 ---
Discharge Summary - Discharge Data Discharge Date: 10/11/17 Discharge Disposition: Home, Self-Care 01 Condition: Good - Discharge Diagnosis/Problem(s) (1) Nausea & vomiting SNOMED Code(s): 35330573 ICD Code: R11.2 - NAUSEA WITH VOMITING, UNSPECIFIED Status: Acute Priority: High Current Visit: Yes (2) Constipation SNOMED Code(s): 01040138 ICD Code: K59.00 - CONSTIPATION, UNSPECIFIED Status: Chronic Priority: Medium Current Visit: Yes Qualifiers: Constipation type: chronic idiopathic constipation Qualified Code(s): K59.04 - Chronic idiopathic constipation (3) Anemia SNOMED Code(s): 417289241 ICD Code: D64.9 - ANEMIA, UNSPECIFIED Status: Acute Current Visit: No (4) Anxiety SNOMED Code(s): 70080064 ICD Code: F41.9 - ANXIETY DISORDER, UNSPECIFIED Status: Acute Priority: Medium Current Visit: No (5) Anxiety about health SNOMED Code(s): 244739809 ICD Code: F41.8 - OTHER SPECIFIED ANXIETY DISORDERS Status: Acute Priority: Medium Current Visit: No (6) Anxiety and depression SNOMED Code(s): 608480914 ICD Code: F41.9 - ANXIETY DISORDER, UNSPECIFIED; F32.9 - MAJOR DEPRESSIVE DISORDER, SINGLE EPISODE, UNSPECIFIED Status: Acute Priority: Medium Current Visit: No (7) Anxiety as acute reaction to exceptional stress SNOMED Code(s): 00493465 ICD Code: F41.1 - GENERALIZED ANXIETY DISORDER; F43.0 - ACUTE STRESS REACTION Status: Acute Priority: Medium Current Visit: No (8) Pneumonia SNOMED Code(s): 403896137 ICD Code: J18.9 - PNEUMONIA, UNSPECIFIED ORGANISM Status: Acute Priority : High Current Visit: No Problem Details: History of aspiration pneumonia. Discussed with Dr Zhou. Will start Zithromax for community acquired pneumonia. Speech consult ordered Qualifiers: Pneumonia type: aspiration pneumonia Laterality: bilateral (9) Weakness SNOMED Code(s): 53116054 ICD Code: R53.1 - WEAKNESS Status: Acute Priority: High Current Visit: No Problem Details: PT/OT consulted to evaluate the patient to see if needing swingbed status (10) COPD (chronic obstructive pulmonary disease) SNOMED Code(s): 56053144 ICD Code: J44.9 - CHRONIC OBSTRUCTIVE PULMONARY DISEASE, UNSPECIFIED Status : Chronic Priority: Medium Current Visit: No Problem Details: Stable by patient history with no recent fever, cough, or bronchitic symptoms Qualifiers: COPD type: chronic bronchitis Chronic bronchitis type: unspecified Qualified Code(s): J42 - Unspecified chronic bronchitis (11) Diabetes SNOMED Code(s): 31126307 ICD Code: E11.9 - TYPE 2 DIABETES MELLITUS WITHOUT COMPLICATIONS Status: Chronic Priority: Medium Current Visit: No Problem Details: will d/c metformin, patient having CT scan. Monitor blood sugars, continue on the Januvia Qualifiers: Diabetes mellitus type: type 2 Diabetes mellitus complication status: with neurologic complications Diabetes mellitus complication detail: with polyneuropathy 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 (12) Hypertension SNOMED Code(s): 28006522 ICD Code: I10 - ESSENTIAL (PRIMARY) HYPERTENSION Status: Chronic Priority : Medium Current Visit: No Problem Details: Blood Pressures good in the emergency room Qualifiers: Hypertension type: essential hypertension Qualified Code(s): I10 - Essential (primary) hypertension (13) IDDM (insulin dependent diabetes mellitus) SNOMED Code(s): 37846354 ICD Code: E11.9 - TYPE 2 DIABETES MELLITUS WITHOUT COMPLICATIONS; Z79.4 - SKILLED NURSING (CURRENT) USE OF INSULIN Status: Chronic Priority: Medium Current Visit: No Problem Details: Stable by patient history despite chronic steroid therapy for his polymyalgia rheumatica (14) Peptic reflux disease SNOMED Code(s): 82938405 ICD Code: K21.9 - GASTRO-ESOPHAGEAL REFLUX DISEASE WITHOUT ESOPHAGITIS Status: Chronic Priority: Medium Current Visit: No Problem Details: Stable by patient history (15) Polyarthritis rheumatica SNOMED Code(s): 36275495 ICD Code: M06.9 - RHEUMATOID ARTHRITIS, UNSPECIFIED Status: Chronic Priority: Medium Current Visit: No Problem Details: Stable by patient history with current methotrexate and steroid therapy Qualifiers: Rheumatoid arthritis location: multiple sites Rheumatoid factor presence: unspecified presence Qualified Code(s): M06.9 - Rheumatoid arthritis, unspecified - Patient Summary/Data Consults: Consultations 10/07/17 14:53 Consult to Case Management [CONS] Routine OT Evaluation and Treatment [CONS] Routine PT Evaluation and Treatment [CONS] Routine - Patient Instructions Diet: Diabetic Diet (thickened liquids) Activity: As Tolerated Driving: Do Not Drive Showering/Bathing: May Shower Notify Provider of: Nausea and/or Vomiting - Discharge Plan Prescriptions/Med Rec: Cefuroxime [Ceftin] 500 mg PO BID #14 tablet Metronidazole [IJD: metroNIDAZOLE] 500 mg PO TID #21 tab Sennosides/Docusate Sodium [Senna-S] 1 each PO BID #60 tablet Sertraline [Zoloft] 100 mg PO DAILY #90 tablet Home Medications: Home Meds Aspirin [Halfprin] 81 mg PO DAILY 06/24/15 [History] Atenolol [Tenormin] 25 mg PO BID 06/24/15 [History] Folic Acid 1 mg PO DAILY 06/24/15 [History] Methotrexate 20 mg PO WE 06/24/15 [History] Furosemide 20 mg PO DAILY 08/30/15 [History] metFORMIN [Glucophage] 1,000 mg PO BID 09/04/15 [History] Nph, Human Insulin Isophane [HumuLIN N] 16 unit SUBCUT Q12HR #2 pen 09/09/15 [Rx ] Hydrocodone/Acetaminophen [Waldron 5-325] 1 tab PO BID 11/29/15 [History] Polyethylene Glycol 3350 [MiraLAX] 17 gm PO DAILY 11/29/15 [History] amLODIPine [Norvasc] 2.5 mg PO DAILY 11/29/15 [History] Abatacept [Orencia Clickject] 1 syringe SQ MO 10/07/17 [History] Albuterol/Ipratropium [DuoNeb 3.0-0.5 MG/3 ML] 1 vial INH QID 10/07/17 [History] Albuterol/Ipratropium [DuoNeb 3.0-0.5 MG/3 ML] 3 ml NEB Q4HRRT PRN 10/07/17 [ History] Budesonide [Pulmicort] 0.5 mg IH Q12HR 10/07/17 [History] Calcium Carbonate [Tums] 500 mg PO BID 10/07/17 [History] Cyanocobalamin (Vitamin B-12) [Vitamin B-12] 1,000 mcg PO DAILY 10/07/17 [ History] Eucalyptus Oil/Menthol/Camphor [Vicks Vaporub Ointment] 1 applic TOP BEDTIME [History] Fexofenadine [Miryam] 180 mg PO DAILY 10/07/17 [History] Levothyroxine Sodium [Synthroid] 75 mcg PO DAILY 10/07/17 [History] Mag Hydrox/Al Hydrox/Simeth [Antacid Suspension] 30 ml PO Q12HR PRN 10/07/17 [ History] Magnesium Hydroxide [Milk of Magnesia] 30 ml PO DAILY PRN 10/07/17 [History] Mineral Oil/Petrolatum,White [Artificial Tears Eye Ointment] 0.25 gm OP BEDTIME 10/07/17 [History] Multivitamin-Min/Iron/FA/Vit K [Multi-Day Plus Minerals Tablet] 1 tab PO DAILY@ 1800 10/07/17 [History] Trolamine Salicylate/Aloe Vera [Aspercreme 10%] 1 applic TOP BID 10/07/17 [ History] Acetaminophen [Tylenol Arthritis Pain] 650 mg PO Q8HR PRN 10/08/17 [History] LORazepam [Ativan] 0.25 mg PO BEDTIME 10/08/17 [History] Omeprazole Magnesium 20 mg PO DAILY 10/08/17 [History] Psyllium Husk [Metamucil] 0.4 gm PO BID 10/08/17 [History] Trolamine Salicylate/Aloe Vera [Analgesic Creme 10% Cream] 1 applic TOP Q6HR PRN 10/08/17 [History] predniSONE 5 mg PO BID 10/08/17 [History] Cefuroxime [Ceftin] 500 mg PO BID #14 tablet 10/11/17 [Rx] Metronidazole [IJD: metroNIDAZOLE] 500 mg PO TID #21 tab 10/11/17 [Rx] Sennosides/Docusate Sodium [Senna-S] 1 each PO BID #60 tablet 10/11/17 [Rx] Sertraline [Zoloft] 100 mg PO DAILY #90 tablet 10/11/17 [Rx] Referrals: Karen Vazquez PA [Primary Care Provider] - - Discharge Summary/Plan Comment DC Time >30 min.: No - Patient Data Vitals - Most Recent: Last Vital Signs Temp 97.7 F 10/11/17 11:21 Pulse 72 10/11/17 11:21 Resp 18 10/11/17 11:21 BP 118/63 10/11/17 11:21 Pulse Ox 95 10/11/17 11:21 Weight - Most Recent: 185 lb 14.4 oz I&O - Last 24 hours: Intake & Output 10/10/17 10/11/17 10/11/17 22:59 06:59 14:59 Intake Total 100 100 680 Output Total 2950 400 800 Balance -2850 -300 -120 Lab Results - Last 24 hrs: Laboratory Results - last 24 hr 10/10/17 10/11/17 10/11/17 Range/Units 17:12 07:17 07:45 WBC 8.2 (4.0-10.2) K/uL RBC 3.66 L (4.33-5.41) M/uL Hgb 10.8 L (13.1-16.8) g/dL Hct 33.1 L (39.0-49.0) % MCV 90.4 (84.0-98.0) fL MCH 29.5 (28.2-33.3) pg MCHC 32.6 (31.7-36.0) g/dL RDW 15.5 H (11.2-14.1) % Plt Count 206 (150-350) K/uL Neut % (Auto) 74.2 (45.0-80.0) % Lymph % (Auto) 19.3 (10.0-50.0) % Izard % (Auto) 5.6 (2.0-14.0) % Eos % (Auto) 0.7 (0.0-5.0) % Baso % (Auto) 0.2 (0.0-2.0) % Neut # (Auto) 6.07 (1.40-7.00) K/uL Lymph # (Auto) 1.58 (0.50-3.50) K/uL Izard # (Auto) 0.46 (0.00-1.00) K/uL Eos # (Auto) 0.06 (0.00-0.50) K/uL Baso # (Auto) 0.02 (0.00-0.20) K/uL Sodium (136-145) mmol/L Potassium (3.5-5.1) mmol/L Chloride (98-107) mmol/L Carbon Dioxide (21.0-32.0) mmol/L BUN (7-18) mg/dL Creatinine (0.51-1.17) mg/dL Est Cr Clr Drug Dosing mL/min Estimated GFR (MDRD) mL/min Glucose (74-106) mg/dL POC Glucose 368 H* 105 (65-110) mg/dl Calcium (8.5-10.1) mg/dL Total Bilirubin (0.2-1.0) mg/dL AST (15-37) U/L ALT (12-78) U/L Alkaline Phosphatase (46-116) IU/L C-Reactive Protein (<=0.9) mg/dL Total Protein (6.4-8.2) g/dL Albumin (3.4-5.0) g/dL 10/11/17 Range/Units 07:45 WBC (4.0-10.2) K/uL RBC (4.33-5.41) M/uL Hgb (13.1-16.8) g/dL Hct (39.0-49.0) % MCV (84.0-98.0) fL MCH (28.2-33.3) pg MCHC (31.7-36.0) g/dL RDW (11.2-14.1) % Plt Count (150-350) K/uL Neut % (Auto) (45.0-80.0) % Lymph % (Auto) (10.0-50.0) % Izard % (Auto) (2.0-14.0) % Eos % (Auto) (0.0-5.0) % Baso % (Auto) (0.0-2.0) % Neut # (Auto) (1.40-7.00) K/uL Lymph # (Auto) (0.50-3.50) K/uL Izard # (Auto) (0.00-1.00) K/uL Eos # (Auto) (0.00-0.50) K/uL Baso # (Auto) (0.00-0.20) K/uL Sodium 138 (136-145) mmol/L Potassium 3.8 (3.5-5.1) mmol/L Chloride 105 (98-107) mmol/L Carbon Dioxide 22.9 (21.0-32.0) mmol/L BUN 18 (7-18) mg/dL Creatinine 0.61 (0.51-1.17) mg/dL Est Cr Clr Drug Dosing 85.49 mL/min Estimated GFR (MDRD) > 60 mL/min Glucose 120 H (74-106) mg/dL POC Glucose (65-110) mg/dl Calcium 8.6 (8.5-10.1) mg/dL Total Bilirubin 0.4 (0.2-1.0) mg/dL AST 38 H (15-37) U/L ALT 42 (12-78) U/L Alkaline Phosphatase 60 (46-116) IU/L C-Reactive Protein 3.0 H (<=0.9) mg/dL Total Protein 6.6 (6.4-8.2) g/dL Albumin 3.0 L (3.4-5.0) g/dL CECILIO Results - Last 24 hrs: Microbiology 10/07/17 15:12 Aerobic Blood Culture - Preliminary Blood - Venous NO GROWTH AFTER 3 DAYS Anaerobic Blood Culture - Preliminary NO GROWTH AFTER 3 DAYS 10/07/17 15:20 Aerobic Blood Culture - Preliminary Blood - Venous - Lab Draw NO GROWTH AFTER 3 DAYS Anaerobic Blood Culture - Preliminary NO GROWTH AFTER 3 DAYS Med Orders - Current: Current Medications Acetaminophen (Tylenol) 650 mg PO BID [facility] Last Admin: 10/11/17 07:50 Dose: 650 mg Hydrocodone Bitart/Acetaminophen (Waldron 325-5 Mg) 1 tab PO BID PRN PRN Reason: Pain Last Admin: 10/11/17 04:18 Dose: 1 tab Al Hydroxide/Mg Hydroxide (Mag-Al Plus) 30 ml PO Q12HR PRN PRN Reason: Heartburn Last Admin: 10/11/17 01:02 Dose: 30 ml Albuterol/Ipratropium (Duoneb 3.0-0.5 Mg/3 Ml) 3 ml INH QIDRT [facility] Last Admin: 10/11/17 11:12 Dose: 3 ml Albuterol/Ipratropium (Duoneb 3.0-0.5 Mg/3 Ml) 3 ml NEB Q4HRRT PRN PRN Reason: Shortness of Breath Last Admin: 10/11/17 00:01 Dose: 3 ml Amlodipine Besylate (Norvasc) 2.5 mg PO DAILY [facility] Last Admin: 10/11/17 07:49 Dose: 2.5 mg Atenolol (Tenormin) 25 mg PO Q12HR [facility] Last Admin: 10/11/17 07:47 Dose: 25 mg Calcium Carbonate/Glycine (Tums) 500 mg PO BID PRN PRN Reason: Heartburn Cefotaxime Sodium (Claforan) 1 gm IVPUSH Q8H [facility] Last Admin: 10/11/17 08:03 Dose: 1 gm Furosemide (Lasix) 40 mg IVPUSH DAILY [facility] Last Admin: 10/11/17 08:12 Dose: 40 mg Metronidazole 500 mg/ Premix 100 mls @ 100 mls/hr IV Q8H [facility] Last Admin: 10/11/17 08:20 Dose: 100 mls/hr Insulin Human NPH (Humulin N) 16 unit SUBCUT Q12HR [facility] Last Admin: 10/11/17 07:53 Dose: 16 unit Levothyroxine Sodium (Levothyroxine) 75 mcg PO ACBREAKFAST [facility] Last Admin: 10/11/17 07:46 Dose: 75 mcg Lorazepam (Ativan) 0.25 mg PO Q6H PRN PRN Reason: Anxiety Magnesium Hydroxide (Milk Of Magnesia) 30 ml PO Q12HR PRN PRN Reason: Constipation Last Admin: 10/08/17 12:02 Dose: 30 ml Metformin HCl (Glucophage) 1,000 mg PO BID [facility] Last Admin: 10/11/17 07:48 Dose: 1,000 mg Methylprednisolone Sodium Succinate (Solu-Medrol) 20 mg IVPUSH DAILY [facility] Last Admin: 10/11/17 08:16 Dose: 20 mg Mineral Oil/White Petrolatum (Lacri-Lube S.O.P Oint) 0 gm EYEBOTH BEDTIME [facility] Last Admin: 10/10/17 19:29 Dose: 1 applic Omeprazole (Omeprazole) 20 mg PO ACBREAKFAST [facility] Last Admin: 10/11/17 07:47 Dose: 20 mg Ondansetron HCl (Zofran) 8 mg IVPUSH Q6H PRN PRN Reason: Nausea/Vomiting Last Admin: 10/07/17 16:02 Dose: 8 mg Polyethylene Glycol (Miralax) 17 gm PO DAILY [facility] Last Admin: 10/11/17 08:00 Dose: 17 gm Psyllium Husk (Metamucil Sugar Free) 0 pkt PO BID [facility] Last Admin: 10/11/17 07:55 Dose: 1 pkt Sertraline HCl (Zoloft) 100 mg PO DAILY [facility] Last Admin: 10/11/17 07:49 Dose: 100 mg Sodium Chloride (Saline Flush) 10 ml FLUSH ASDIRECTED PRN PRN Reason: Keep Vein Open Last Admin: 10/10/17 23:45 Dose: 10 ml Trolamine Salicylate (Aspercreme 10%) 0 gm TOP BID [facility] Last Admin: 10/11/17 07:58 Dose: 1 applic Discontinued Medications Aspirin (Halfprin) 81 mg PO DAILY [facility] Last Admin: 10/08/17 08:24 Dose: 81 mg Atenolol (Tenormin) 25 mg PO BID [facility] Last Admin: 10/08/17 08:24 Dose: 25 mg Budesonide (Pulmicort) 0.5 mg NEB BIDRT [facility] Last Admin: 10/08/17 08:23 Dose: 0.5 mg Furosemide (Lasix) 20 mg PO DAILY [facility] Last Admin: 10/08/17 08:25 Dose: 20 mg Sodium Chloride (Normal Saline) 1,000 mls @ 50 mls/hr IV ASDIRECTED [facility] Last Admin: 10/09/17 16:21 Dose: 50 mls/hr Magnesium Citrate (Citrate Of Magnesia) 300 ml PO ONETIME ONE Stop: 10/07/17 16:07 Last Admin: 10/07/17 17:00 Dose: Not Given Magnesium Citrate (Citrate Of Magnesia) 296 ml PO ONETIME ONE Stop: 10/07/17 17:01 Last Admin: 10/07/17 17:04 Dose: 296 ml Polyethylene Glycol (Miralax) 17 gm PO DAILY [facility] Last Admin: 10/09/17 08:50 Dose: 17 gm Sertraline HCl (Zoloft) 75 mg PO DAILY [facility] Last Admin: 10/08/17 08:24 Dose: 75 mg Sertraline HCl (Zoloft) 50 mg PO DAILY [facility] Last Admin: 10/10/17 08:37 Dose: 50 mg *Q Meaningful Use (DIS) - VTE *Q VTE Criteria *Q: - Stroke *Q Stroke Criteria *Q: - AMI *Q AMI Criteria *Q:
== END 2017-10-11 13:55 | disposition home or self-care (01) | DRG 179 ==
LOC: LL.LAB 13:30 → UNDOADMIN 14:30 → LL.MS 14:30 → UNDODISIN 10-11 13:55
PROVIDERS: ADMIT Physician Assistant; ATTEND Family Medicine
DX: J69.0 Pneumonitis due to inhalation of food and vomit (principal); R11.2 Nausea with vomiting, unspecified; K59.04 Chronic idiopathic constipation; J18.9 Pneumonia, unspecified organism; D64.9 Anemia, unspecified; F41.8 Other specified anxiety disorders; R53.1 Weakness; E11.42 Type 2 diabetes mellitus with diabetic polyneuropathy; I10 Essential (primary) hypertension; Z79.4 Long term (current) use of insulin; K21.9 Gastro-esophageal reflux disease without esophagitis; M06.9 Rheumatoid arthritis, unspecified; J44.9 Chronic obstructive pulmonary disease, unspecified; F43.0 Acute stress reaction; Z79.52 Long term (current) use of systemic steroids; M25.551 Pain in right hip
CPT/HCPCS: 36415; 71020; 72110; 74020; 80053; 82150; 82962; 83605; 83690; 83735; 85025; 86140; 87040; 94640; 97110-GP; 97161-GP; 97165-GO; A9270-GY; J0698; J1815; J1940; J2405; J2920; J7030; J7050

== ENCOUNTER 2018-03-11 09:35 | Inpatient (IN) | payer MEDICARE, BC ==
[2018-03-11] MEDS ORDERED: methylPREDNISolone Sodium Succinate 40 MG/1 ML SDV IVPUSH SCH (12:00)
[2018-03-11] MEDS: metroNIDAZOLE/Normal Saline 500 MG in Premix Bag 1 BAG IV SCH ×2 (12:40→19:41)
[2018-03-11] MEDS: Sodium Chloride 0.9% 10 ML Syringe FLUSH PRN ×6 (12:40→21:56)
[2018-03-11] MEDS ORDERED: Albuterol/Ipratropium 3.0-0.5 MG/3 ML Neb Soln NEB PRN (13:04)
--- NOTE | 2018-03-11 13:23 | PCM.HP ---
H&P History of Present Illness - General Date of Service: 03/11/18 Admit Problem/Dx: Admission Diagnosis/Problem Admission Diagnosis/Problem Pneumonia Source of Information: Patient, EMS Notes Reviewed, [facility] Records - History of Present Illness Initial Comments - Free Text/Narative: Patient is admitted for aspiration pneumonia, patient was currently on oral antibiotics and increased dose of prednisone. Had another episode of choking while taking pills and eating some ground meat. Worsening respiratory symptoms even after receiving oral antibiotics and breathing treatments. Patient has RA, on methrotrexate. Onset of Symptoms: Reports: Gradual Duration of Symptoms: Reports: Getting Worse Improves with: Reports: Rest Worsens with: Reports: Eating, Movement Associated Symptoms: Reports: Cough, cough w sputum, Loss of Appetite, Shortness of Breath, Weakness Throat Pain Score (Numeric/FACES): 7 - Related Data Allergies/Adverse Reactions: Allergies Allergy/AdvReac Type Severity Reaction Status Date / Time ceftriaxone sodium Allergy Rash Verified 03/11/18 11:14 [From Rocephin] levofloxacin [From Levaquin] Allergy Rash Verified 03/11/18 11:14 Home Medications: Home Meds Aspirin [Halfprin] 81 mg PO DAILY 06/24/15 [History] Atenolol [Tenormin] 25 mg PO BID 06/24/15 [History] Folic Acid 1 mg PO DAILY 06/24/15 [History] Methotrexate 20 mg PO WE 06/24/15 [History] Furosemide 20 mg PO DAILY 08/30/15 [History] metFORMIN [Glucophage] 1,000 mg PO BID 09/04/15 [History] Nph, Human Insulin Isophane [HumuLIN N] 16 unit SUBCUT Q12HR #2 pen 09/09/15 [Rx ] Hydrocodone/Acetaminophen [Warren 5-325] 1 tab PO BID 11/29/15 [History] Polyethylene Glycol 3350 [MiraLAX] 17 gm PO DAILY 11/29/15 [History] amLODIPine [Norvasc] 2.5 mg PO DAILY 11/29/15 [History] Albuterol/Ipratropium [DuoNeb 3.0-0.5 MG/3 ML] 1 vial INH QID 10/07/17 [History] Albuterol/Ipratropium [DuoNeb 3.0-0.5 MG/3 ML] 3 ml NEB Q4HRRT PRN 10/07/17 [ History] Budesonide [Pulmicort] 0.5 mg IH Q12HR 10/07/17 [History] Calcium Carbonate [Tums] 500 mg PO BID 10/07/17 [History] Cyanocobalamin (Vitamin B-12) [Vitamin B-12] 1,000 mcg PO DAILY 10/07/17 [ History] Fexofenadine [Miryam] 180 mg PO DAILY 10/07/17 [History] Magnesium Hydroxide [Milk of Magnesia] 30 ml PO DAILY PRN 10/07/17 [History] Mineral Oil/Petrolatum,White [Artificial Tears Eye Ointment] 0.25 gm OP BEDTIME 10/07/17 [History] Multivitamin-Min/Iron/FA/Vit K [Multi-Day Plus Minerals Tablet] 1 tab PO DAILY@ 1800 10/07/17 [History] Trolamine Salicylate/Aloe Vera [Aspercreme 10%] 1 applic TOP BID 10/07/17 [ History] Acetaminophen [Tylenol Arthritis Pain] 650 mg PO Q8HR PRN 10/08/17 [History] LORazepam [Ativan] 0.25 mg PO BEDTIME 10/08/17 [History] Psyllium Husk [Metamucil] 0.4 gm PO BID 10/08/17 [History] Trolamine Salicylate/Aloe Vera [Analgesic Creme 10% Cream] 1 applic TOP Q6HR PRN 10/08/17 [History] predniSONE 5 mg PO BID 10/08/17 [History] Cefuroxime [Ceftin] 500 mg PO BID #14 tablet 10/11/17 [Rx] Metronidazole [IJD: metroNIDAZOLE] 500 mg PO TID #21 tab 10/11/17 [Rx] Sertraline [Zoloft] 100 mg PO DAILY #90 tablet 10/11/17 [Rx] Docusate Sodium [Colace] 2 cap PO DAILY 03/11/18 [History] Levothyroxine Sodium 88 mcg PO DAILY 03/11/18 [History] Mag Hydrox/Al Hydrox/Simeth [Antacid Suspension] 30 ml PO Q12HR PRN 03/11/18 [ History] Omeprazole [priLOSEC OTC] 20 mg PO DAILY 03/11/18 [History] Past Medical History HEENT History: Reports: None, Cataract, Other (See Below) Other HEENT History: Right upper lid ptosis Cardiovascular History: Reports: Arrhythmia, Heart Murmur, High Cholesterol, Hypertension, [place], Syncope Other Cardiovascular History: Moderate diastolic dysfunction and left atrial dilatation by echocardiogram Respiratory History: Reports: COPD, Pneumonia, Recurrent, Pulmonary Fibrosis Gastrointestinal History: Reports: Chronic Constipation, Chronic Diarrhea, Colon Polyp, Gastritis, GERD, GI Bleed, Hemorrhoids, Hiatal Hernia, Inflammatory Bowel Disease, Irritable Bowel Syndrome, Other (See Below) Other Gastrointestinal History: Dysphagia Genitourinary History: Reports: BPH, Retention, Urinary, Urinary Incontinence Musculoskeletal History: Reports: Back Pain, Chronic, Neck Pain, Chronic, Osteoarthritis, RA, Other (See Below) Other Musculoskeletal History: polymyalgia rheumatica-steroid dependent, moderate Mock's cyst right leg Neurological History: Reports: CVA, Headaches, Chronic, Neuropathy, Diabetic, Vertigo, Other (See Below) Other Neuro History: Borderline mental retardation Psychiatric History: Reports: Anxiety, Depression Endocrine/Metabolic History: Reports: Hypothyroidism, IDDM Hematologic History: Reports: None Immunologic History: Reports: None Oncologic (Cancer) History: Reports: None Dermatologic History: Reports: None Other Dermatologic History: Recent rash, since resolved with triamcinolone - Infectious Disease History Infectious Disease History: Reports: Chicken Pox, Measles - Past Surgical History HEENT Surgical History: Reports: Adenoidectomy, Oral Surgery, Tonsillectomy GI Surgical History: Reports: Colonoscopy, EGD, Hernia, Inguinal, Polypectomy, Other (See Below) Musculoskeletal Surgical History: Reports: Other (See Below) - Past Imaging History Past Imaging History: Reports: Angiography, Cardiac Echo, CAT Scan, MRI, Stress Testing, Swallow Study, Ultrasound, Venous Doppler Social & Family History - Family History Cardiac: Reports: Afib (Mother) Respiratory: Reports: COPD (Father) - Tobacco Use Smoking Status *Q: Never Smoker Second Hand Smoke Exposure: No - Caffeine Use Caffeine Use: Reports: Coffee, Tea - Alcohol Use Days Per Week of Alcohol Use: 0 (No previous DWIs, problems with alcohol abuse, etc.) - Recreational Drug Use Recreational Drug Use: No Drug Use in Last 12 Months: No - Living Situation & Occupation Living situation: Reports: Single, Extended Care Facility Occupation: Retired H&P Review of Systems - Review of Systems: Review Of Systems: See Below General: Reports: Weakness, Fatigue, Decreased Appetite HEENT: Reports: Post Nasal Drip, Sore Throat Pulmonary: Reports: Shortness of Breath, Wheezing, Cough, Sputum Cardiovascular: Reports: Dyspnea on Exertion Gastrointestinal: Reports: Decreased Appetite Genitourinary: Reports: No Symptoms Musculoskeletal: Reports: Joint Pain Skin: Reports: No Symptoms Psychiatric: Reports: Anxiety Neurological: Reports: No Symptoms Hematologic/Lymphatic: Reports: No Symptoms Immunologic: Reports: No Symptoms Exam - Exam Exam: See Below - Vital Signs Vital Signs: Last Vital Signs Temp 98.1 F 03/11/18 09:35 Pulse 98 03/11/18 09:35 Resp 22 H 03/11/18 09:35 BP 119/74 03/11/18 09:35 Pulse Ox 96 03/11/18 09:35 Weight: 182 lb 11.2 oz - Exam Quality Assessment: Supplemental Oxygen, DVT Prophylaxis General: Alert, Oriented, Cooperative HEENT: Conjunctiva Clear, EACs Clear, EOMI, Hearing Intact, Mucosa Moist & [place] , Nares Patent, Normal Nasal Septum, Posterior Pharynx Clear, Pupils Equal, Pupils Reactive, TMs Clear Neck: Supple, Trachea Midline Lungs: Normal Respiratory Effort, Decreased Breath Sounds, Wheezing Cardiovascular: Regular Rate, Regular Rhythm, Normal S1, Normal S2 GI/Abdominal Exam: Normal Bowel Sounds, Soft, Non-Tender, No Organomegaly, No Distention, No Abnormal Bruit, No Mass (Male) Exam: No Hernia Extremities: Normal Inspection, Normal Range of Motion, Non-Tender, No Pedal Edema, Normal Capillary Refill Peripheral Pulses: 1+: Dorsalis Pedis (L), Dorsalis Pedis (R) Skin: Warm, Dry, Intact Neurological: Cranial Nerves Intact, Reflexes Equal Bilateral Neuro Extensive - Mental Status: Alert, Oriented x3, Normal Mood/Affect, Normal Cognition Neuro Extensive - Motor, Sensory, Reflexes: CN II-XII Intact DTR: 1+: Achilles (L), Achilles (R) Psychiatric: Alert, Normal Affect, Normal Mood, Anxious - Patient Data Lab Results Last 24 hrs: Laboratory Results - last 24 hr 03/11/18 Range/Units 12:30 Specimen Type Urinblad Urine Color Yellow Urine Appearance Clear Urine pH 6.5 (5.0-9.0) Ur Specific [place] 1.020 (1.005-1.030) Urine Protein Negative (NEGATIVE) mg/dL Urine Glucose (UA) Negative (NEGATIVE) mg/dL Urine Ketones Negative (NEGATIVE) mg/dL Urine Occult Blood Negative (NEGATIVE) Urine Nitrite Negative (NEGATIVE) Urine Bilirubin Negative (NEGATIVE) Urine Urobilinogen 0.2 (0.2-1.0) E.U./dL Ur Leukocyte Esterase Negative (NEGATIVE) Urine RBC Not seen /HPF Urine WBC 0-5 /HPF Ur Epithelial Cells Rare /LPF Urine Bacteria Rare (NONE TO FEW) /HPF - Problem List (1) Pneumonia SNOMED Code(s): 422594760 ICD Code: J18.9 - PNEUMONIA, UNSPECIFIED ORGANISM Status: Acute Current Visit: Yes Qualifiers: Pneumonia type: aspiration pneumonia Aspiration pneumonia type: due to regurgitated food Laterality: unspecified laterality (2) Rheumatoid arthritis SNOMED Code(s): 63039371 ICD Code: M06.9 - RHEUMATOID ARTHRITIS, UNSPECIFIED Status: Acute Current Visit: Yes Qualifiers: Laterality: unspecified laterality (3) Anxiety SNOMED Code(s): 18190868 ICD Code: F41.9 - ANXIETY DISORDER, UNSPECIFIED Status: Acute Priority: Medium Current Visit: No (4) COPD (chronic obstructive pulmonary disease) SNOMED Code(s): 69517077 ICD Code: J44.9 - CHRONIC OBSTRUCTIVE PULMONARY DISEASE, UNSPECIFIED Status : Chronic Priority: Medium Current Visit: No Qualifiers: COPD type: chronic bronchitis Chronic bronchitis type: unspecified Qualified Code(s): J42 - Unspecified chronic bronchitis (5) Diabetes SNOMED Code(s): 11264099 ICD Code: E11.9 - TYPE 2 DIABETES MELLITUS WITHOUT COMPLICATIONS Status: Chronic Priority: Medium Current Visit: No Problem Details: will d/c metformin, patient having CT scan. Monitor blood sugars, continue on the Januvia Qualifiers: Diabetes mellitus type: type 2 Diabetes mellitus complication status: with neurologic complications Diabetes mellitus complication detail: with polyneuropathy 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 Problem List Initiated/Reviewed/Updated: Yes Orders Last 24hrs: Active Orders 24 hr Category Date Time Status Patient Status [ADT] Routine ADT 03/11/18 11:10 Active Blood Glucose Check, Bedside [RC] TIDMEALS Care 03/11/18 11:10 Active Intake and Output [RC] QSHIFT Care 03/11/18 11:12 Active May Shower [RC] ASDIRECTED Care 03/11/18 11:10 Active Oxygen Therapy [RC] PRN Care 03/11/18 11:10 Active Peripheral IV Care [RC] 00,08,16 Care 03/11/18 11:13 Active Pulse Oximetry [RC] PRN Care 03/11/18 11:12 Active Up With Assistance [RC] ASDIRECTED Care 03/11/18 11:10 Active VTE/DVT Education [RC] PER UNIT ROUTINE Care 03/11/18 11:10 Active Vital Signs [RC] Q4H Care 03/11/18 11:10 Active Consult to Case Management [CONS] Routine Cons 03/11/18 11:10 Active OT Evaluation and Treatment [CONS] Routine Cons 03/11/18 11:10 Active PT Evaluation and Treatment [CONS] Routine Cons 03/11/18 11:10 Active Pharmacy Consult [Consult to Pharmacy] [CONS] Routine Cons 03/11/18 11:35 Active ARCHITECTURE INSTRUCTOR Evaluation and Treatment [CONS] Routine Cons 03/11/18 11:10 Active Mechanical Soft Diet [DIET] Diet 03/11/18 Lunch Active Chest 2V [CR] Routine Exams 03/11/18 11:10 Ordered C-REACTIVE PROTEIN [CHEM] DAILY Lab 03/12/18 05:11 Ordered C-REACTIVE PROTEIN [CHEM] DAILY Lab 03/13/18 05:11 Ordered C-REACTIVE PROTEIN [CHEM] DAILY Lab 03/14/18 05:11 Ordered C-REACTIVE PROTEIN [CHEM] DAILY Lab 03/15/18 05:11 Ordered CBC WITH AUTO DIFF [HEME] DAILY Lab 03/12/18 05:11 Ordered CBC WITH AUTO DIFF [HEME] DAILY Lab 03/13/18 05:11 Ordered CBC WITH AUTO DIFF [HEME] DAILY Lab 03/14/18 05:11 Ordered CBC WITH AUTO DIFF [HEME] DAILY Lab 03/15/18 05:11 Ordered COMPREHENSIVE METABOLIC PN,CMP [CHEM] DAILY Lab 03/12/18 05:11 Ordered COMPREHENSIVE METABOLIC PN,CMP [CHEM] DAILY Lab 03/13/18 05:11 Ordered COMPREHENSIVE METABOLIC PN,CMP [CHEM] DAILY Lab 03/14/18 05:11 Ordered COMPREHENSIVE METABOLIC PN,CMP [CHEM] DAILY Lab 03/15/18 05:11 Ordered CULTURE BLOOD [BC] Stat Lab 03/11/18 11:28 Received CULTURE BLOOD [BC] Stat Lab 03/11/18 12:33 Received CULTURE SPUTUM + SMEAR [RM] Routine Lab 03/11/18 11:10 Ordered CULTURE URINE [RM] Stat Lab 03/11/18 12:30 Received UA W/MICROSCOPIC [URIN] Routine Lab 03/11/18 12:30 Ordered Acetaminophen [Tylenol Arthritis Pain] Med 03/11/18 13:04 Ordered 650 mg PO Q8HR PRN Acetaminophen/HYDROcodone [Warren 325-5 MG] Med 03/11/18 18:00 Ordered 1 tab PO BID Albuterol/Ipratropium [DuoNeb 3.0-0.5 MG/3 ML] Med 03/11/18 16:00 Ordered 1 vial INH QID Albuterol/Ipratropium [DuoNeb 3.0-0.5 MG/3 ML] Med 03/11/18 13:04 Ordered 3 ml NEB Q4HRRT PRN Aspirin [Halfprin] Med 03/12/18 08:00 Ordered 81 mg PO DAILY Atenolol [Tenormin] Med 03/11/18 18:00 Ordered 25 mg PO BID Azithromycin [Zithromax] Med 03/14/18 12:00 Ordered 500 mg PO DAILY Azithromycin [Zithromax] 500 mg Med 03/11/18 13:00 Ordered Sodium Chloride 0.9% [Normal Saline] 250 ml IV Q24H Budesonide [Pulmicort] Med 03/11/18 20:00 Ordered 0.5 mg INH Q12HR Calcium Carbonate [Tums] Med 03/11/18 18:00 Ordered 500 mg PO BID Cyanocobalamin (Vitamin B12) [Vitamin B12] Med 03/12/18 08:00 Ordered 1,000 mcg PO DAILY Docusate Sodium [Colace] Med 03/12/18 08:00 Ordered 2 cap PO DAILY Fexofenadine [Miryam] Med 03/12/18 08:00 Ordered 180 mg PO DAILY Furosemide [Lasix] Med 03/12/18 08:00 Ordered 20 mg PO DAILY LORazepam [Ativan] Med 03/11/18 20:00 Ordered 0.25 mg PO BEDTIME Levothyroxine [Synthroid] Med 03/12/18 08:00 Ordered 88 mcg PO DAILY Mineral Oil/Petrolatum,White [Artificial Tears Eye Med 03/11/18 20:00 Ordered Ointment] 0.25 gm OP BEDTIME Nph, Human Insulin Isophane [HumuLIN N] Med 03/11/18 20:00 Ordered 16 unit SUBCUT Q12HR Omeprazole [priLOSEC OTC] Med 03/12/18 08:00 Ordered 20 mg PO DAILY Polyethylene Glycol 3350 [MiraLAX] Med 03/12/18 08:00 Ordered 17 gm PO DAILY Sertraline [Zoloft] Med 03/12/18 08:00 Ordered 100 mg PO DAILY Sodium Chloride 0.9% [Saline Flush] Med 03/11/18 11:10 Active 10 ml FLUSH ASDIRECTED PRN Tamsulosin [Flomax] Med 03/11/18 20:00 Ordered 0.4 mg PO BEDTIME amLODIPine [Norvasc] Med 03/12/18 08:00 Ordered 2.5 mg PO DAILY cefTAZidime [Fortaz] Med 03/11/18 16:00 Ordered 1 gm IVPUSH Q8HR metFORMIN [Glucophage] Med 03/11/18 18:00 Ordered 1,000 mg PO BID methylPREDNISolone Sod Succ [Solu-MEDROL] Med 03/11/18 12:00 Active 40 mg IVPUSH Q12H metroNIDAZOLE/Normal Saline [Flagyl 500 MG in NS 100 ML Med 03/11/18 12:00 Active ] 500 mg Premix Bag 1 bag IV Q8H Antiembolic Hose [OM.PC] Per Unit Routine Oth 03/11/18 11:12 Ordered Blood Culture x2 Reflex Set [OM.PC] Stat Oth 03/11/18 11:10 Ordered Peripheral IV Insertion Adult [OM.PC] Routine Oth 03/11/18 11:10 Ordered Saline Lock Insert [OM.PC] Routine Oth 03/11/18 11:10 Ordered Resuscitation Status Routine Resus Stat 03/11/18 11:10 Ordered Medication Orders Acetaminophen (Tylenol Arthritis Pain) 650 mg PO Q8HR PRN PRN Reason: Pain Hydrocodone Bitart/Acetaminophen (Warren 325-5 Mg) 1 tab PO BID JOHN Albuterol/Ipratropium (Duoneb 3.0-0.5 Mg/3 Ml) ml INH QID JOHN Albuterol/Ipratropium (Duoneb 3.0-0.5 Mg/3 Ml) 3 ml NEB Q4HRRT PRN PRN Reason: Shortness of Breath Aspirin (Halfprin) 81 mg PO DAILY [facility] Atenolol (Tenormin) 25 mg PO BID [facility] Azithromycin (Zithromax) 500 mg PO DAILY [facility] Budesonide (Pulmicort) 0.5 mg INH Q12HR [facility] Calcium Carbonate/Glycine (Tums) 500 mg PO BID [facility] Ceftazidime (Fortaz) 1 gm IVPUSH Q8HR [facility] Cyanocobalamin (Vitamin B12) 1,000 mcg PO DAILY [facility] Docusate Sodium (Colace) mg PO DAILY [facility] Fexofenadine HCl (Miryam) 180 mg PO DAILY [facility] Furosemide (Lasix) 20 mg PO DAILY [facility] Metronidazole 500 mg/ Premix 100 mls @ 100 mls/hr IV Q8H [facility] Last Admin: 03/11/18 12:40 Dose: 100 mls/hr Azithromycin 500 mg/ Sodium (Chloride) 250 mls @ 250 mls/hr IV Q24H [facility] Stop: 03/14/18 13:01 Insulin Human NPH (Humulin N) 16 unit SUBCUT Q12HR [facility] Levothyroxine Sodium (Synthroid) 88 mcg PO DAILY [facility] Lorazepam (Ativan) 0.25 mg PO BEDTIME [facility] Methylprednisolone Sodium Succinate (Solu-Medrol) 40 mg IVPUSH Q12H [facility] Last Admin: 03/11/18 12:40 Dose: 40 mg Non-Formulary Medication (Amlodipine [Norvasc]) 2.5 mg PO DAILY [facility] Non-Formulary Medication (Metformin [Glucophage]) 1,000 mg PO BID [facility] Non-Formulary Medication (Mineral Oil/Petrolatum,White [Artificial Tears Eye Ointment]) 0.25 gm OP BEDTIME [facility] Non-Formulary Medication (Omeprazole [Prilosec Otc]) 20 mg PO DAILY [facility] Non-Formulary Medication (Sertraline [Zoloft]) 100 mg PO DAILY [facility] Polyethylene Glycol (Miralax) 17 gm PO DAILY [facility] Sodium Chloride (Saline Flush) 10 ml FLUSH ASDIRECTED PRN PRN Reason: Keep Vein Open Last Admin: 03/11/18 12:40 Dose: 10 ml Tamsulosin HCl (Flomax) 0.4 mg PO BEDTIME [facility] Assessment/Plan Comment:: 03/11/2018 Patient has failed outpatient treatment, needs IV antibiotics and IV solumedrol for aspiration pneumonia and COPD flare. patient has DM and RA so immunocompromised state. Will order speech consults and PT/OT. Continue on nebs and recheck labs in the morning. plan to transfer back to [facility] with patient is feeling better. Rash with Ceftriaxone, patient has been on Ceftin, Fortaz and Claforan in the past without adverse drug reactions. Will monitor closely Bebe Pugh,TORY
[2018-03-11] MEDS: Azithromycin 500 MG in Sodium Chloride 0.9% 250 ML IV SCH (13:44)
[2018-03-11] MEDS: cefTAZidime 1 GM Vial IVPUSH SCH ×2 (13:44→21:55)
[2018-03-11] MEDS: Albuterol/Ipratropium 3.0-0.5 MG/3 ML Neb Soln INH SCH ×2 (15:07→19:45)
[2018-03-11] MEDS: Calcium Carbonate 500 MG Tab.Chew PO SCH (17:27)
[2018-03-11] MEDS: Acetaminophen/HYDROcodone 325-5 MG Tab PO SCH (17:27)
[2018-03-11] MEDS: metFORMIN 500 MG Tab PO SCH (17:28)
[2018-03-11] MEDS ORDERED: Atenolol 25 MG Tab PO SCH (18:00)
[2018-03-11] MEDS: LORazepam 0.5 MG Tab PO SCH (19:42)
[2018-03-11] MEDS: Tamsulosin 0.4 MG Cap.ER PO SCH (19:42)
[2018-03-11] MEDS: Mineral Oil/Petrolatum Ophth Oint 3.5 GM Tube EYEBOTH SCH (19:45)
[2018-03-11] MEDS: Budesonide 0.5 MG/2 ML Neb Susp INH SCH (19:45)
[2018-03-11] MEDS: Insulin Isophane NPH, Human 100 Units/ML 3 ML Pen SUBCUT SCH (19:47)
[2018-03-12] MEDS: metroNIDAZOLE/Normal Saline 500 MG in Premix Bag 1 BAG IV SCH ×3 (03:34→19:55)
[2018-03-12] MEDS: Sodium Chloride 0.9% 10 ML Syringe FLUSH PRN ×6 (03:35→21:34)
[2018-03-12] MEDS: Acetaminophen 650 MG Tab.ER PO PRN ×2 (03:55→14:57)
[2018-03-12] MEDS: cefTAZidime 1 GM Vial IVPUSH SCH ×3 (04:00→21:34)
[2018-03-12 07:26] LABS: CHLORIDE,CL 104 mmol/L (98-107); SODIUM,NA 139 mmol/L (136-145)
--- NOTE | 2018-03-12 07:53 | PCM.PN ---
- General Info Date of Service: 03/12/18 Admission Dx/Problem (Free Text): Admission Diagnosis/Problem Admission Diagnosis/Problem Pneumonia Functional Status: Reports: Pain Controlled, Tolerating Diet, Ambulating, Incentive Spirometry - Review of Systems General: Reports: Weakness HEENT: Reports: Sinus Congestion Pulmonary: Reports: Cough, Sputum Cardiovascular: Reports: No Symptoms Gastrointestinal: Reports: No Symptoms Genitourinary: Reports: No Symptoms Musculoskeletal: Reports: No Symptoms Skin: Reports: No Symptoms Neurological: Reports: No Symptoms Psychiatric: Reports: Anxiety - Patient Data Vitals - Most Recent: Last Vital Signs Temp 98.2 F 03/12/18 00:00 Pulse 87 03/12/18 00:00 Resp 20 03/12/18 00:00 BP 94/54 L 03/12/18 00:00 Pulse Ox 98 03/12/18 00:00 Weight - Most Recent: 182 lb 11.2 oz I&O - Last 24 Hours: Intake & Output 03/11/18 03/12/18 03/12/18 22:59 06:59 14:59 Intake Total 350 250 Output Total 500 450 Balance -150 -200 Lab Results Last 24 Hours: Laboratory Results - last 24 hr 03/11/18 03/11/18 03/12/18 Range/Units 12:30 17:10 06:50 WBC (4.0-10.2) K/uL RBC (4.33-5.41) M/uL Hgb (13.1-16.8) g/dL Hct (39.0-49.0) % MCV (84.0-98.0) fL MCH (28.2-33.3) pg MCHC (31.7-36.0) g/dL RDW (11.2-14.1) % Plt Count (150-350) K/uL Neut % (Auto) (45.0-80.0) % Lymph % (Auto) (10.0-50.0) % [place] % (Auto) (2.0-14.0) % Eos % (Auto) (0.0-5.0) % Baso % (Auto) (0.0-2.0) % Neut # (Auto) (1.40-7.00) K/uL Lymph # (Auto) (0.50-3.50) K/uL [place] # (Auto) (0.00-1.00) K/uL Eos # (Auto) (0.00-0.50) K/uL Baso # (Auto) (0.00-0.20) K/uL Sodium 139 (136-145) mmol/L Potassium 3.6 (3.5-5.1) mmol/L Chloride 104 (98-107) mmol/L Carbon Dioxide 28.3 (21.0-32.0) mmol/L BUN 22 H (7-18) mg/dL Creatinine 0.68 (0.51-1.17) mg/dL Est Cr Clr Drug Dosing 74.97 mL/min Estimated GFR (MDRD) > 60 mL/min Glucose 143 H (74-106) mg/dL POC Glucose 258 H* (65-110) mg/dl Calcium 8.5 (8.5-10.1) mg/dL Total Bilirubin 0.3 (0.2-1.0) mg/dL AST 30 (15-37) U/L ALT 41 (12-78) U/L Alkaline Phosphatase 53 (46-116) IU/L C-Reactive Protein 1.3 H (<=0.9) mg/dL Total Protein 7.0 (6.4-8.2) g/dL Albumin 2.9 L (3.4-5.0) g/dL Specimen Type Urinblad Urine Color Yellow Urine Appearance Clear Urine pH 6.5 (5.0-9.0) Ur Specific [place] 1.020 (1.005-1.030) Urine Protein Negative (NEGATIVE) mg/dL Urine Glucose (UA) Negative (NEGATIVE) mg/dL Urine Ketones Negative (NEGATIVE) mg/dL Urine Occult Blood Negative (NEGATIVE) Urine Nitrite Negative (NEGATIVE) Urine Bilirubin Negative (NEGATIVE) Urine Urobilinogen 0.2 (0.2-1.0) E.U./dL Ur Leukocyte Esterase Negative (NEGATIVE) Urine RBC Not seen /HPF Urine WBC 0-5 /HPF Ur Epithelial Cells Rare /LPF Urine Bacteria Rare (NONE TO FEW) /HPF 03/12/18 03/12/18 Range/Units 06:50 07:41 WBC 8.2 (4.0-10.2) K/uL RBC 3.96 L (4.33-5.41) M/uL Hgb 11.1 L (13.1-16.8) g/dL Hct 33.8 L (39.0-49.0) % MCV 85.4 D (84.0-98.0) fL MCH 28.0 L (28.2-33.3) pg MCHC 32.8 (31.7-36.0) g/dL RDW 16.0 H (11.2-14.1) % Plt Count 171 (150-350) K/uL Neut % (Auto) 70.0 (45.0-80.0) % Lymph % (Auto) 23.6 (10.0-50.0) % [place] % (Auto) 5.7 (2.0-14.0) % Eos % (Auto) 0.6 (0.0-5.0) % Baso % (Auto) 0.1 (0.0-2.0) % Neut # (Auto) 5.75 (1.40-7.00) K/uL Lymph # (Auto) 1.94 (0.50-3.50) K/uL [place] # (Auto) 0.47 (0.00-1.00) K/uL Eos # (Auto) 0.05 (0.00-0.50) K/uL Baso # (Auto) 0.01 (0.00-0.20) K/uL Sodium (136-145) mmol/L Potassium (3.5-5.1) mmol/L Chloride (98-107) mmol/L Carbon Dioxide (21.0-32.0) mmol/L BUN (7-18) mg/dL Creatinine (0.51-1.17) mg/dL Est Cr Clr Drug Dosing mL/min Estimated GFR (MDRD) mL/min Glucose (74-106) mg/dL POC Glucose 117 H (65-110) mg/dl Calcium (8.5-10.1) mg/dL Total Bilirubin (0.2-1.0) mg/dL AST (15-37) U/L ALT (12-78) U/L Alkaline Phosphatase (46-116) IU/L C-Reactive Protein (<=0.9) mg/dL Total Protein (6.4-8.2) g/dL Albumin (3.4-5.0) g/dL Specimen Type Urine Color Urine Appearance Urine pH (5.0-9.0) Ur Specific [place] (1.005-1.030) Urine Protein (NEGATIVE) mg/dL Urine Glucose (UA) (NEGATIVE) mg/dL Urine Ketones (NEGATIVE) mg/dL Urine Occult Blood (NEGATIVE) Urine Nitrite (NEGATIVE) Urine Bilirubin (NEGATIVE) Urine Urobilinogen (0.2-1.0) E.U./dL Ur Leukocyte Esterase (NEGATIVE) Urine RBC /HPF Urine WBC /HPF Ur Epithelial Cells /LPF Urine Bacteria (NONE TO FEW) /HPF Med Orders - Current: Current Medications Acetaminophen (Tylenol Arthritis Pain) 650 mg PO Q8HR PRN PRN Reason: Pain Last Admin: 03/12/18 03:55 Dose: 650 mg Hydrocodone Bitart/Acetaminophen ([place] 325-5 Mg) 1 tab PO BID [facility] Last Admin: 03/11/18 17:27 Dose: 1 tab Albuterol/Ipratropium (Duoneb 3.0-0.5 Mg/3 Ml) 3 ml INH QID [facility] Last Admin: 03/11/18 19:45 Dose: 3 ml Albuterol/Ipratropium (Duoneb 3.0-0.5 Mg/3 Ml) 3 ml NEB Q4HRRT PRN PRN Reason: Shortness of Breath Last Admin: 03/12/18 03:51 Dose: 3 ml Amlodipine Besylate (Norvasc) 2.5 mg PO DAILY [facility] Aspirin (Halfprin) 81 mg PO DAILY [facility] Atenolol (Tenormin) 25 mg PO Q12HR [facility] Azithromycin (Zithromax) 500 mg PO DAILY [facility] Budesonide (Pulmicort) 0.5 mg INH Q12HR [facility] Last Admin: 03/11/18 19:45 Dose: 0.5 mg Calcium Carbonate/Glycine (Tums) 500 mg PO BID [facility] Last Admin: 03/11/18 17:27 Dose: 500 mg Ceftazidime (Fortaz) 1 gm IVPUSH Q8H [facility] Last Admin: 03/12/18 04:00 Dose: 1 gm Cyanocobalamin (Vitamin B12) 1,000 mcg PO DAILY [facility] Docusate Sodium (Colace) 200 mg PO DAILY [facility] Fexofenadine HCl (Miryam) 180 mg PO DAILY [facility] Furosemide (Lasix) 20 mg PO DAILY [facility] Metronidazole 500 mg/ Premix 100 mls @ 100 mls/hr IV Q8H [facility] Last Admin: 03/12/18 03:34 Dose: 100 mls/hr Azithromycin 500 mg/ Sodium (Chloride) 250 mls @ 250 mls/hr IV Q24H [facility] Stop: 03/13/18 14:59 Last Admin: 03/11/18 13:44 Dose: 250 mls/hr Insulin Human NPH (Humulin N) 16 unit SUBCUT Q12HR [facility] Last Admin: 03/11/18 19:47 Dose: 16 units Levothyroxine Sodium (Synthroid) 88 mcg PO DAILY [facility] Lorazepam (Ativan) 0.25 mg PO BEDTIME [facility] Last Admin: 03/11/18 19:42 Dose: 0.25 mg Metformin HCl (Glucophage) 1,000 mg PO BID [facility] Last Admin: 03/11/18 17:28 Dose: 1,000 mg Methylprednisolone Sodium Succinate (Solu-Medrol) 40 mg IVPUSH Q12HR [facility] Mineral Oil/White Petrolatum (Lacri-Lube S.O.P Oint) 0 gm EYEBOTH BEDTIME [facility] Last Admin: 03/11/18 19:45 Dose: 0.25 inch Omeprazole (Omeprazole) 20 mg PO DAILY [facility] Polyethylene Glycol (Miralax) 17 gm PO DAILY [facility] Sertraline HCl (Zoloft) 100 mg PO DAILY [facility] Sodium Chloride (Saline Flush) 10 ml FLUSH ASDIRECTED PRN PRN Reason: Keep Vein Open Last Admin: 03/12/18 03:35 Dose: 10 ml Tamsulosin HCl (Flomax) 0.4 mg PO BEDTIME [facility] Last Admin: 03/11/18 19:42 Dose: 0.4 mg Discontinued Medications Atenolol (Tenormin) 25 mg PO BID [facility] Last Admin: 03/11/18 17:27 Dose: 25 mg Cefotaxime Sodium (Claforan) 1 gm IVPUSH Q8H [facility] Last Admin: 03/11/18 13:38 Dose: Not Given Methylprednisolone Sodium Succinate (Solu-Medrol) 40 mg IVPUSH Q12H [facility] Last Admin: 03/11/18 12:40 Dose: 40 mg - Exam Quality Assessment: Supplemental Oxygen General: Alert, Oriented, Cooperative HEENT: Pupils Equal, Pupils Reactive, EOMI, Mucous Membr. Moist/[place] Neck: Supple Lungs: Normal Respiratory Effort, Decreased Breath Sounds, Wheezing (few expiratory wheezes noted to upper lobes) Cardiovascular: Regular Rate, Regular Rhythm, No Murmurs GI/Abdominal Exam: Normal Bowel Sounds, Soft, Non-Tender, No Organomegaly Extremities: Normal Inspection, Normal Range of Motion, Non-Tender, No Pedal Edema, Normal Capillary Refill Peripheral Pulses: 1+: Dorsalis Pedis (L), Dorsalis Pedis (R) Skin: Warm, Dry, Intact Neurological: No New Focal Deficit Psy/Mental Status: Alert, Normal Affect, Normal Mood - Problem List & Annotations (1) Pneumonia SNOMED Code(s): 312376379 Code(s): J18.9 - PNEUMONIA, UNSPECIFIED ORGANISM Status: Acute Current Visit: Yes Qualifiers: Pneumonia type: aspiration pneumonia Aspiration pneumonia type: due to regurgitated food Laterality: unspecified laterality (2) Rheumatoid arthritis SNOMED Code(s): 14406724 Code(s): M06.9 - RHEUMATOID ARTHRITIS, UNSPECIFIED Status: Acute Current Visit: Yes Qualifiers: Laterality: unspecified laterality (3) Anxiety SNOMED Code(s): 09567733 Code(s): F41.9 - ANXIETY DISORDER, UNSPECIFIED Status: Acute Priority: Medium Current Visit: No (4) COPD (chronic obstructive pulmonary disease) SNOMED Code(s): 42392401 Code(s): J44.9 - CHRONIC OBSTRUCTIVE PULMONARY DISEASE, UNSPECIFIED Status : Chronic Priority: Medium Current Visit: No Qualifiers: COPD type: chronic bronchitis Chronic bronchitis type: unspecified Qualified Code(s): J42 - Unspecified chronic bronchitis (5) Diabetes SNOMED Code(s): 17679324 Code(s): E11.9 - TYPE 2 DIABETES MELLITUS WITHOUT COMPLICATIONS Status: Chronic Priority: Medium Current Visit: No Qualifiers: Diabetes mellitus type: type 2 Diabetes mellitus complication status: with neurologic complications Diabetes mellitus complication detail: with polyneuropathy 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 - Problem List Review Problem List Initiated/Reviewed/Updated: Yes - My Orders Last 24 Hours: My Active Orders 03/11/18 11:10 Patient Status [ADT] Routine Blood Glucose Check, Bedside [RC] TIDMEALS May Shower [RC] ASDIRECTED Oxygen Therapy [RC] 2300 Up With Assistance [RC] ASDIRECTED VTE/DVT Education [RC] PER UNIT ROUTINE Consult to Case Management [CONS] Routine OT Evaluation and Treatment [CONS] Routine PT Evaluation and Treatment [CONS] Routine 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 [CONS] Routine Chest 2V [CR] Routine Sodium Chloride 0.9% [Saline Flush] 10 ml FLUSH ASDIRECTED PRN Blood Culture x2 Reflex Set [OM.PC] Stat Peripheral IV Insertion Adult [OM.PC] Routine Saline Lock Insert [OM.PC] Routine Resuscitation Status Routine 03/11/18 11:12 Intake and Output [RC] QSHIFT Pulse Oximetry [RC] PRN Antiembolic Hose [OM.PC] Per Unit Routine 03/11/18 11:13 Peripheral IV Care [RC] 00,08,16 03/11/18 11:28 CULTURE BLOOD [BC] Stat 03/11/18 11:35 Pharmacy Consult [Consult to Pharmacy] [CONS] Routine 03/11/18 12:00 metroNIDAZOLE/Normal Saline [Flagyl 500 MG in NS 100 ML] 500 mg Premix Bag 1 bag IV Q8H 03/11/18 12:30 CULTURE URINE [RM] Stat UA W/MICROSCOPIC [URIN] Routine 03/11/18 12:33 CULTURE BLOOD [BC] Stat 03/11/18 13:00 cefTAZidime [Fortaz] 1 gm IVPUSH Q8H 03/11/18 13:04 Acetaminophen [Tylenol Arthritis Pain] 650 mg PO Q8HR PRN Albuterol/Ipratropium [DuoNeb 3.0-0.5 MG/3 ML] 3 ml NEB Q4HRRT PRN 03/11/18 14:00 Azithromycin [Zithromax] 500 mg Sodium Chloride 0.9% [Normal Saline] 250 ml IV Q24H 03/11/18 15:00 CULTURE SPUTUM + SMEAR [RM] Routine 03/11/18 16:00 Albuterol/Ipratropium [DuoNeb 3.0-0.5 MG/3 ML] 3 ml INH QID 03/11/18 18:00 Acetaminophen/HYDROcodone [[place] 325-5 MG] 1 tab PO BID Calcium Carbonate [Tums] 500 mg PO BID metFORMIN [Glucophage] 1,000 mg PO BID 03/11/18 20:00 Budesonide [Pulmicort] 0.5 mg INH Q12HR LORazepam [Ativan] 0.25 mg PO BEDTIME Mineral Oil/Petrolatum Oint [Lacri-Lube S.O.P Oint] 0 gm EYEBOTH BEDTIME Nph, Human Insulin Isophane [HumuLIN N] 16 unit SUBCUT Q12HR Tamsulosin [Flomax] 0.4 mg PO BEDTIME 03/11/18 Lunch Mechanical Soft Diet [DIET] 03/12/18 08:00 Vital Signs [RC] QID Aspirin [Halfprin] 81 mg PO DAILY Cyanocobalamin (Vitamin B12) [Vitamin B12] 1,000 mcg PO DAILY Docusate Sodium [Colace] 200 mg PO DAILY Fexofenadine [Miryam] 180 mg PO DAILY Furosemide [Lasix] 20 mg PO DAILY Levothyroxine [Synthroid] 88 mcg PO DAILY Omeprazole 20 mg PO DAILY Polyethylene Glycol 3350 [MiraLAX] 17 gm PO DAILY Sertraline [Zoloft] 100 mg PO DAILY amLODIPine [Norvasc] 2.5 mg PO DAILY 03/13/18 05:11 C-REACTIVE PROTEIN [CHEM] DAILY CBC WITH AUTO DIFF [HEME] DAILY COMPREHENSIVE METABOLIC PN,CMP [CHEM] DAILY 03/14/18 05:11 C-REACTIVE PROTEIN [CHEM] DAILY CBC WITH AUTO DIFF [HEME] DAILY COMPREHENSIVE METABOLIC PN,CMP [CHEM] DAILY 03/14/18 12:00 Azithromycin [Zithromax] 500 mg PO DAILY 03/15/18 05:11 C-REACTIVE PROTEIN [CHEM] DAILY CBC WITH AUTO DIFF [HEME] DAILY COMPREHENSIVE METABOLIC PN,CMP [CHEM] DAILY - Plan Plan:: 03/11/2018 Patient has failed outpatient treatment, needs IV antibiotics and IV solumedrol for aspiration pneumonia and COPD flare. patient has DM and RA so immunocompromised state. Will order speech consults and PT/OT. Continue on nebs and recheck labs in the morning. plan to transfer back to [facility] with patient is feeling better. Rash with Ceftriaxone, patient has been on Ceftin, Fortaz and Claforan in the past without adverse drug reactions. Will monitor closely Bebe Pugh CNP 03/12/2018 Patient feeling some better this morning, still with wheezing and productive cough. SBP noted to be in the 90's through the night, will decreased atenolol pm dose. Awaiting speech consult. Will order incentive spirometry and ambulate patient today to see how oxygen levels run with ambulation. Recheck labs in the morning. patient has anxiety with eating, no change in medications will await to see if speech can help the patient with his anxiety prior to eating. Bebe Pugh,MACHINE MAINTENANCE TECHNICIAN
[2018-03-12] MEDS ORDERED: Atenolol 25 MG Tab PO SCH (08:00)
[2018-03-12] MEDS: metFORMIN 500 MG Tab PO SCH ×2 (08:43→17:10)
[2018-03-12] MEDS: Docusate Sodium 100 MG Cap PO SCH (08:43)
[2018-03-12] MEDS: Acetaminophen/HYDROcodone 325-5 MG Tab PO SCH ×2 (08:44→17:09)
[2018-03-12] MEDS: Sertraline 50 MG Tab PO SCH (08:47)
[2018-03-12] MEDS: amLODIPine 5 MG Tab PO SCH (08:48)
[2018-03-12] MEDS: Cyanocobalamin (Vitamin B12) 1,000 MCG Tab PO SCH (08:49)
[2018-03-12] MEDS: Aspirin 81 MG Tab.EC PO SCH (08:51)
[2018-03-12] MEDS: Furosemide 20 MG Tab PO SCH (08:51)
[2018-03-12] MEDS: Levothyroxine 88 MCG Tab PO SCH (08:51)
[2018-03-12] MEDS: Omeprazole 20 MG Cap.CR PO SCH (08:51)
[2018-03-12] MEDS: Calcium Carbonate 500 MG Tab.Chew PO SCH ×2 (08:52→17:09)
[2018-03-12] MEDS: methylPREDNISolone Sodium Succinate 40 MG/1 ML SDV IVPUSH SCH ×2 (08:52→19:56)
[2018-03-12] MEDS: Insulin Isophane NPH, Human 100 Units/ML 3 ML Pen SUBCUT SCH ×2 (08:53→19:56)
[2018-03-12] MEDS: Albuterol/Ipratropium 3.0-0.5 MG/3 ML Neb Soln INH SCH ×4 (08:53→19:55)
[2018-03-12] MEDS: Budesonide 0.5 MG/2 ML Neb Susp INH SCH ×2 (08:53→19:55)
[2018-03-12] MEDS: Polyethylene Glycol 3350 Powder 17 GM Packet PO SCH (08:57)
[2018-03-12] MEDS: Azithromycin 500 MG in Sodium Chloride 0.9% 250 ML IV SCH (14:07)
[2018-03-12] MEDS: Mineral Oil/Petrolatum Ophth Oint 3.5 GM Tube EYEBOTH SCH (19:55)
[2018-03-12] MEDS: Tamsulosin 0.4 MG Cap.ER PO SCH (19:57)
[2018-03-12] MEDS: Atenolol 25 MG Tab PO SCH (19:58)
[2018-03-12] MEDS: LORazepam 0.5 MG Tab PO SCH (19:59)
[2018-03-13] MEDS: Sodium Chloride 0.9% 10 ML Syringe FLUSH PRN ×7 (03:18→19:31)
[2018-03-13] MEDS: metroNIDAZOLE/Normal Saline 500 MG in Premix Bag 1 BAG IV SCH ×3 (03:18→19:26)
[2018-03-13] MEDS: cefTAZidime 1 GM Vial IVPUSH SCH ×4 (04:27→20:07)
[2018-03-13 07:53] LABS: CHLORIDE,CL 102 mmol/L (98-107); SODIUM,NA 136 mmol/L (136-145)
[2018-03-13] MEDS: Atenolol 25 MG Tab PO SCH ×2 (08:13→08:31)
[2018-03-13] MEDS: Calcium Carbonate 500 MG Tab.Chew PO SCH (08:27)
[2018-03-13] MEDS: Aspirin 81 MG Tab.EC PO SCH (08:27)
[2018-03-13] MEDS: Docusate Sodium 100 MG Cap PO SCH (08:28)
[2018-03-13] MEDS: Acetaminophen/HYDROcodone 325-5 MG Tab PO SCH ×2 (08:28→17:19)
[2018-03-13] MEDS: Cyanocobalamin (Vitamin B12) 1,000 MCG Tab PO SCH (08:29)
[2018-03-13] MEDS: Budesonide 0.5 MG/2 ML Neb Susp INH SCH ×2 (08:29→19:26)
[2018-03-13] MEDS: methylPREDNISolone Sodium Succinate 40 MG/1 ML SDV IVPUSH SCH ×2 (08:30→19:31)
[2018-03-13] MEDS: amLODIPine 5 MG Tab PO SCH (08:33)
[2018-03-13] MEDS: metFORMIN 500 MG Tab PO SCH ×2 (08:33→17:19)
[2018-03-13] MEDS: Sertraline 50 MG Tab PO SCH (08:34)
[2018-03-13] MEDS: Furosemide 20 MG Tab PO SCH (08:34)
[2018-03-13] MEDS: Omeprazole 20 MG Cap.CR PO SCH (08:34)
[2018-03-13] MEDS: Levothyroxine 88 MCG Tab PO SCH (08:35)
[2018-03-13] MEDS: Insulin Isophane NPH, Human 100 Units/ML 3 ML Pen SUBCUT SCH ×2 (08:35→19:31)
[2018-03-13] MEDS: Albuterol/Ipratropium 3.0-0.5 MG/3 ML Neb Soln INH SCH ×4 (08:35→19:26)
[2018-03-13] MEDS: Polyethylene Glycol 3350 Powder 17 GM Packet PO SCH (08:35)
--- NOTE | 2018-03-13 09:47 | PCM.PN ---
- General Info Date of Service: 03/13/18 Admission Dx/Problem (Free Text): Admission Diagnosis/Problem Admission Diagnosis/Problem Pneumonia Functional Status: Reports: Pain Controlled, Tolerating Diet, Ambulating - Review of Systems General: Reports: Weakness HEENT: Reports: Sinus Congestion Pulmonary: Reports: Cough, Sputum, Wheezing Cardiovascular: Reports: No Symptoms Gastrointestinal: Reports: Abdominal Pain (epigastric pain states from coughing so much) Genitourinary: Reports: No Symptoms Musculoskeletal: Reports: No Symptoms Skin: Reports: No Symptoms Neurological: Reports: No Symptoms Psychiatric: Reports: Anxiety - Patient Data Vitals - Most Recent: Last Vital Signs Temp 97.6 F 03/12/18 20:00 Pulse 80 03/13/18 08:31 Resp 20 03/12/18 16:00 BP 129/70 03/13/18 08:33 Pulse Ox 98 03/12/18 20:00 Weight - Most Recent: 182 lb 11.188 oz I&O - Last 24 Hours: Intake & Output 03/12/18 03/13/18 03/13/18 22:59 06:59 14:59 Intake Total 240 720 Output Total 1025 Balance -785 720 Lab Results Last 24 Hours: Laboratory Results - last 24 hr 03/12/18 03/12/18 03/13/18 Range/Units 11:01 16:21 07:23 WBC (4.0-10.2) K/uL RBC (4.33-5.41) M/uL Hgb (13.1-16.8) g/dL Hct (39.0-49.0) % MCV (84.0-98.0) fL MCH (28.2-33.3) pg MCHC (31.7-36.0) g/dL RDW (11.2-14.1) % Plt Count (150-350) K/uL Neut % (Auto) (45.0-80.0) % Lymph % (Auto) (10.0-50.0) % [place] % (Auto) (2.0-14.0) % Eos % (Auto) (0.0-5.0) % Baso % (Auto) (0.0-2.0) % Neut # (Auto) (1.40-7.00) K/uL Lymph # (Auto) (0.50-3.50) K/uL [place] # (Auto) (0.00-1.00) K/uL Eos # (Auto) (0.00-0.50) K/uL Baso # (Auto) (0.00-0.20) K/uL Sodium 136 (136-145) mmol/L Potassium 3.9 (3.5-5.1) mmol/L Chloride 102 (98-107) mmol/L Carbon Dioxide 28.1 (21.0-32.0) mmol/L BUN 20 H (7-18) mg/dL Creatinine 0.60 (0.51-1.17) mg/dL Est Cr Clr Drug Dosing 85.53 mL/min Estimated GFR (MDRD) > 60 mL/min Glucose 186 H (74-106) mg/dL POC Glucose 203 H 289 H* (65-110) mg/dl Calcium 8.6 (8.5-10.1) mg/dL Total Bilirubin 0.4 (0.2-1.0) mg/dL AST 30 (15-37) U/L ALT 41 (12-78) U/L Alkaline Phosphatase 58 (46-116) IU/L C-Reactive Protein 1.1 H (<=0.9) mg/dL Total Protein 7.6 (6.4-8.2) g/dL Albumin 3.2 L (3.4-5.0) g/dL 03/13/18 03/13/18 Range/Units 07:23 07:27 WBC 10.5 H (4.0-10.2) K/uL RBC 4.27 L (4.33-5.41) M/uL Hgb 11.8 L (13.1-16.8) g/dL Hct 36.4 L (39.0-49.0) % MCV 85.2 (84.0-98.0) fL MCH 27.6 L (28.2-33.3) pg MCHC 32.4 (31.7-36.0) g/dL RDW 16.2 H (11.2-14.1) % Plt Count 202 (150-350) K/uL Neut % (Auto) 81.5 H (45.0-80.0) % Lymph % (Auto) 13.1 (10.0-50.0) % [place] % (Auto) 5.2 (2.0-14.0) % Eos % (Auto) 0.1 (0.0-5.0) % Baso % (Auto) 0.1 (0.0-2.0) % Neut # (Auto) 8.52 H (1.40-7.00) K/uL Lymph # (Auto) 1.37 (0.50-3.50) K/uL [place] # (Auto) 0.54 (0.00-1.00) K/uL Eos # (Auto) 0.01 (0.00-0.50) K/uL Baso # (Auto) 0.01 (0.00-0.20) K/uL Sodium (136-145) mmol/L Potassium (3.5-5.1) mmol/L Chloride (98-107) mmol/L Carbon Dioxide (21.0-32.0) mmol/L BUN (7-18) mg/dL Creatinine (0.51-1.17) mg/dL Est Cr Clr Drug Dosing mL/min Estimated GFR (MDRD) mL/min Glucose (74-106) mg/dL POC Glucose 172 H (65-110) mg/dl Calcium (8.5-10.1) mg/dL Total Bilirubin (0.2-1.0) mg/dL AST (15-37) U/L ALT (12-78) U/L Alkaline Phosphatase (46-116) IU/L C-Reactive Protein (<=0.9) mg/dL Total Protein (6.4-8.2) g/dL Albumin (3.4-5.0) g/dL Christo Results Last 24 Hours: Microbiology 03/11/18 12:33 Aerobic Blood Culture - Preliminary Blood - Venous - Lab Draw NO GROWTH AFTER 1 DAY Anaerobic Blood Culture - Preliminary NO GROWTH AFTER 1 DAY 03/11/18 11:28 Aerobic Blood Culture - Preliminary Blood - Venous NO GROWTH AFTER 1 DAY Anaerobic Blood Culture - Preliminary NO GROWTH AFTER 1 DAY 03/11/18 12:30 Urine Culture - Preliminary Urine, Bladder NO GROWTH AFTER 1 DAY Med Orders - Current: Current Medications Acetaminophen (Tylenol Arthritis Pain) 650 mg PO Q8HR PRN PRN Reason: Pain Last Admin: 03/12/18 14:57 Dose: 650 mg Hydrocodone Bitart/Acetaminophen (Luverne 325-5 Mg) 1 tab PO BID [facility] Last Admin: 03/13/18 08:28 Dose: 1 tab Albuterol/Ipratropium (Duoneb 3.0-0.5 Mg/3 Ml) 3 ml INH QID [facility] Last Admin: 03/13/18 08:35 Dose: 3 ml Albuterol/Ipratropium (Duoneb 3.0-0.5 Mg/3 Ml) 3 ml NEB Q4HRRT PRN PRN Reason: Shortness of Breath Last Admin: 03/12/18 03:51 Dose: 3 ml Amlodipine Besylate (Norvasc) 2.5 mg PO DAILY [facility] Last Admin: 03/13/18 08:33 Dose: 2.5 mg Aspirin (Halfprin) 81 mg PO DAILY [facility] Last Admin: 03/13/18 08:27 Dose: 81 mg Atenolol (Tenormin) 25 mg PO QAM [facility] Last Admin: 03/13/18 08:31 Dose: 25 mg Atenolol (Tenormin) 12.5 mg PO DAILY@2000 [facility] Azithromycin (Zithromax) 500 mg PO DAILY [facility] Budesonide (Pulmicort) 0.5 mg INH Q12HR [facility] Last Admin: 03/13/18 08:29 Dose: 0.5 mg Calcium Carbonate/Glycine (Tums) 500 mg PO BID [facility] Last Admin: 03/13/18 08:27 Dose: 500 mg Ceftazidime (Fortaz) 1 gm IVPUSH Q8H [facility] Last Admin: 03/13/18 04:27 Dose: 1 gm Cyanocobalamin (Vitamin B12) 1,000 mcg PO DAILY [facility] Last Admin: 03/13/18 08:29 Dose: 1,000 mcg Docusate Sodium (Colace) 200 mg PO DAILY [facility] Last Admin: 03/13/18 08:28 Dose: 200 mg Fexofenadine HCl (Miryam) 180 mg PO DAILY [facility] Last Admin: 03/13/18 08:27 Dose: 180 mg Furosemide (Lasix) 20 mg PO DAILY [facility] Last Admin: 03/13/18 08:34 Dose: 20 mg Metronidazole 500 mg/ Premix 100 mls @ 100 mls/hr IV Q8H [facility] Last Admin: 03/13/18 03:18 Dose: 100 mls/hr Azithromycin 500 mg/ Sodium (Chloride) 250 mls @ 250 mls/hr IV Q24H [facility] Stop: 03/13/18 14:59 Last Admin: 03/12/18 14:07 Dose: 250 mls/hr Insulin Human NPH (Humulin N) 16 unit SUBCUT Q12HR [facility] Last Admin: 03/13/18 08:35 Dose: 16 units Levothyroxine Sodium (Synthroid) 88 mcg PO DAILY [facility] Last Admin: 03/13/18 08:35 Dose: 88 mcg Lorazepam (Ativan) 0.25 mg PO BEDTIME [facility] Last Admin: 03/12/18 19:59 Dose: 0.25 mg Metformin HCl (Glucophage) 1,000 mg PO BID [facility] Last Admin: 03/13/18 08:33 Dose: 1,000 mg Methylprednisolone Sodium Succinate (Solu-Medrol) 40 mg IVPUSH Q12HR [facility] Last Admin: 03/13/18 08:30 Dose: 40 mg Mineral Oil/White Petrolatum (Lacri-Lube S.O.P Oint) 0 gm EYEBOTH BEDTIME [facility] Last Admin: 03/12/18 19:55 Dose: 0.25 inch Omeprazole (Omeprazole) 20 mg PO DAILY [facility] Last Admin: 03/13/18 08:34 Dose: 20 mg Polyethylene Glycol (Miralax) 17 gm PO DAILY [facility] Last Admin: 03/13/18 08:35 Dose: 17 gm Sertraline HCl (Zoloft) 100 mg PO DAILY [facility] Last Admin: 03/13/18 08:34 Dose: 100 mg Sodium Chloride (Saline Flush) 10 ml FLUSH ASDIRECTED PRN PRN Reason: Keep Vein Open Last Admin: 03/13/18 08:37 Dose: 10 ml Tamsulosin HCl (Flomax) 0.4 mg PO BEDTIME [facility] Last Admin: 03/12/18 19:57 Dose: 0.4 mg Discontinued Medications Atenolol (Tenormin) 25 mg PO BID [facility] Last Admin: 03/11/18 17:27 Dose: 25 mg Atenolol (Tenormin) 25 mg PO Q12HR [facility] Last Admin: 03/12/18 08:50 Dose: 25 mg Atenolol (Tenormin) 12.5 mg PO DAILY [facility] Last Admin: 03/13/18 08:13 Dose: Not Given Cefotaxime Sodium (Claforan) 1 gm IVPUSH Q8H [facility] Last Admin: 03/11/18 13:38 Dose: Not Given Methylprednisolone Sodium Succinate (Solu-Medrol) 40 mg IVPUSH Q12H [facility] Last Admin: 03/11/18 12:40 Dose: 40 mg - Exam Quality Assessment: Supplemental Oxygen General: Alert, Oriented, Cooperative, No Acute Distress HEENT: Pupils Equal, Pupils Reactive, EOMI, Mucous Membr. Moist/[place] Neck: Supple, Trachea Midline, No JVD Lungs: Normal Respiratory Effort, Decreased Breath Sounds, Rhonchi, Wheezing Cardiovascular: Regular Rate, Regular Rhythm GI/Abdominal Exam: Normal Bowel Sounds, Soft, Non-Tender, No Distention Back Exam: Normal Inspection Extremities: Normal Inspection, Normal Range of Motion, Non-Tender, No Pedal Edema Peripheral Pulses: 1+: Dorsalis Pedis (L), Dorsalis Pedis (R) Skin: Warm, Dry, Intact Neurological: No New Focal Deficit Psy/Mental Status: Alert, Normal Affect, Normal Mood - Problem List & Annotations (1) Pneumonia SNOMED Code(s): 003682583 Code(s): J18.9 - PNEUMONIA, UNSPECIFIED ORGANISM Status: Acute Current Visit: Yes Qualifiers: Pneumonia type: aspiration pneumonia Aspiration pneumonia type: due to regurgitated food Laterality: unspecified laterality (2) Rheumatoid arthritis SNOMED Code(s): 99883536 Code(s): M06.9 - RHEUMATOID ARTHRITIS, UNSPECIFIED Status: Acute Current Visit: Yes Qualifiers: Laterality: unspecified laterality (3) Anxiety SNOMED Code(s): 75532187 Code(s): F41.9 - ANXIETY DISORDER, UNSPECIFIED Status: Acute Priority: Medium Current Visit: No (4) COPD (chronic obstructive pulmonary disease) SNOMED Code(s): 94415003 Code(s): J44.9 - CHRONIC OBSTRUCTIVE PULMONARY DISEASE, UNSPECIFIED Status : Chronic Priority: Medium Current Visit: No Qualifiers: COPD type: chronic bronchitis Chronic bronchitis type: unspecified Qualified Code(s): J42 - Unspecified chronic bronchitis (5) Diabetes SNOMED Code(s): 34636563 Code(s): E11.9 - TYPE 2 DIABETES MELLITUS WITHOUT COMPLICATIONS Status: Chronic Priority: Medium Current Visit: No Qualifiers: Diabetes mellitus type: type 2 Diabetes mellitus complication status: with neurologic complications Diabetes mellitus complication detail: with polyneuropathy 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 - Problem List Review Problem List Initiated/Reviewed/Updated: Yes - My Orders Last 24 Hours: My Active Orders 03/13/18 08:00 Swallowing Function w Video [CR] Routine Atenolol [Tenormin] 25 mg PO QAM 03/13/18 20:00 Atenolol [Tenormin] 12.5 mg PO DAILY@199903/14/18 05:11 C-REACTIVE PROTEIN [CHEM] DAILY CBC WITH AUTO DIFF [HEME] DAILY COMPREHENSIVE METABOLIC PN,CMP [CHEM] DAILY 03/14/18 12:00 Azithromycin [Zithromax] 500 mg PO DAILY 03/15/18 05:11 C-REACTIVE PROTEIN [CHEM] DAILY CBC WITH AUTO DIFF [HEME] DAILY COMPREHENSIVE METABOLIC PN,CMP [CHEM] DAILY - Plan Plan:: 03/11/2018 Patient has failed outpatient treatment, needs IV antibiotics and IV solumedrol for aspiration pneumonia and COPD flare. patient has DM and RA so immunocompromised state. Will order speech consults and PT/OT. Continue on nebs and recheck labs in the morning. plan to transfer back to [facility] with patient is feeling better. Rash with Ceftriaxone, patient has been on Ceftin, Fortaz and Claforan in the past without adverse drug reactions. Will monitor closely Bebe Pugh CNP 03/12/2018 Patient feeling some better this morning, still with wheezing and productive cough. SBP noted to be in the 90's through the night, will decreased atenolol pm dose. Awaiting speech consult. Will order incentive spirometry and ambulate patient today to see how oxygen levels run with ambulation. Recheck labs in the morning. patient has anxiety with eating, no change in medications will await to see if speech can help the patient with his anxiety prior to eating. Bebe Pugh CNP 03/13/2018 Patient continues to feel some better, states able to swallow the metformin pills here at the hospital. Video swallow set today at noon. Labs reviewed with the patient. Patient ambulating in the room per himself, does not qualify for physical therapy. Patient is resident at [place] on the Basic Unit. catering convention services manager looking into if patient will qualify for [facility]. Patient continues to need inpatient stay to monitor swallowing as patient is high risk for aspiration pneumonia and immuno-compromised due to RA. Bebe Pugh,ACADEMIC DIRECTOR
[2018-03-13] MEDS: Azithromycin 500 MG in Sodium Chloride 0.9% 250 ML IV SCH (14:26)
[2018-03-13] MEDS: Tamsulosin 0.4 MG Cap.ER PO SCH (19:30)
[2018-03-13] MEDS: LORazepam 0.5 MG Tab PO SCH (19:30)
[2018-03-13] MEDS: Mineral Oil/Petrolatum Ophth Oint 3.5 GM Tube EYEBOTH SCH (19:31)
[2018-03-13] MEDS ORDERED: Atenolol 25 MG Tab PO SCH (20:00)
[2018-03-14] MEDS: metroNIDAZOLE/Normal Saline 500 MG in Premix Bag 1 BAG IV SCH ×2 (04:06→11:55)
[2018-03-14] MEDS: cefTAZidime 1 GM Vial IVPUSH SCH ×2 (04:06→13:25)
[2018-03-14] MEDS: Budesonide 0.5 MG/2 ML Neb Susp INH SCH (07:11)
[2018-03-14] MEDS: Polyethylene Glycol 3350 Powder 17 GM Packet PO SCH (07:11)
[2018-03-14] MEDS: methylPREDNISolone Sodium Succinate 40 MG/1 ML SDV IVPUSH SCH (07:11)
[2018-03-14] MEDS: Albuterol/Ipratropium 3.0-0.5 MG/3 ML Neb Soln INH SCH ×2 (07:11→11:55)
[2018-03-14] MEDS: Aspirin 81 MG Tab.EC PO SCH (07:12)
[2018-03-14] MEDS: Furosemide 20 MG Tab PO SCH (07:12)
[2018-03-14] MEDS: amLODIPine 5 MG Tab PO SCH (07:12)
[2018-03-14] MEDS: Atenolol 25 MG Tab PO SCH (07:12)
[2018-03-14] MEDS: Acetaminophen/HYDROcodone 325-5 MG Tab PO SCH (07:12)
[2018-03-14] MEDS: Cyanocobalamin (Vitamin B12) 1,000 MCG Tab PO SCH (07:13)
[2018-03-14] MEDS: Omeprazole 20 MG Cap.CR PO SCH (07:13)
[2018-03-14] MEDS: Docusate Sodium 100 MG Cap PO SCH (07:13)
[2018-03-14] MEDS: Sertraline 50 MG Tab PO SCH (07:13)
[2018-03-14] MEDS: metFORMIN 500 MG Tab PO SCH (07:13)
[2018-03-14] MEDS: Levothyroxine 88 MCG Tab PO SCH (07:13)
[2018-03-14] MEDS: Sodium Chloride 0.9% 10 ML Syringe FLUSH PRN ×3 (07:15→13:25)
[2018-03-14 07:51] LABS: CHLORIDE,CL 101 mmol/L (98-107); SODIUM,NA 135 mmol/L (136-145)
[2018-03-14] MEDS: Insulin Isophane NPH, Human 100 Units/ML 3 ML Pen SUBCUT SCH (09:35)
--- NOTE | 2018-03-14 10:18 | PCM.PN ---
- General Info Date of Service: 03/14/18 Admission Dx/Problem (Free Text): Admission Diagnosis/Problem Admission Diagnosis/Problem Pneumonia Functional Status: Reports: Pain Controlled, Tolerating Diet, Ambulating - Review of Systems General: Reports: Weakness HEENT: Reports: No Symptoms Pulmonary: Reports: Cough, Sputum Cardiovascular: Reports: No Symptoms Gastrointestinal: Reports: No Symptoms Genitourinary: Reports: No Symptoms Musculoskeletal: Reports: No Symptoms Skin: Reports: No Symptoms Neurological: Reports: No Symptoms Psychiatric: Reports: Anxiety - Patient Data Vitals - Most Recent: Last Vital Signs Temp 97.8 F 03/13/18 20:00 Pulse 81 03/14/18 07:12 Resp 32 H 03/13/18 20:00 BP 117/72 03/14/18 07:12 Pulse Ox 98 03/13/18 20:00 Weight - Most Recent: 182 lb 11.188 oz I&O - Last 24 Hours: Intake & Output 03/13/18 03/14/18 03/14/18 22:59 06:59 14:59 Intake Total 1200 100 Output Total 750 900 Balance 450 -800 Lab Results Last 24 Hours: Laboratory Results - last 24 hr 03/13/18 03/13/18 03/13/18 Range/Units 11:21 17:10 22:39 WBC (4.0-10.2) K/uL RBC (4.33-5.41) M/uL Hgb (13.1-16.8) g/dL Hct (39.0-49.0) % MCV (84.0-98.0) fL MCH (28.2-33.3) pg MCHC (31.7-36.0) g/dL RDW (11.2-14.1) % Plt Count (150-350) K/uL Neut % (Auto) (45.0-80.0) % Lymph % (Auto) (10.0-50.0) % Brown % (Auto) (2.0-14.0) % Eos % (Auto) (0.0-5.0) % Baso % (Auto) (0.0-2.0) % Neut # (Auto) (1.40-7.00) K/uL Lymph # (Auto) (0.50-3.50) K/uL Brown # (Auto) (0.00-1.00) K/uL Eos # (Auto) (0.00-0.50) K/uL Baso # (Auto) (0.00-0.20) K/uL Sodium (136-145) mmol/L Potassium (3.5-5.1) mmol/L Chloride (98-107) mmol/L Carbon Dioxide (21.0-32.0) mmol/L BUN (7-18) mg/dL Creatinine (0.51-1.17) mg/dL Est Cr Clr Drug Dosing mL/min Estimated GFR (MDRD) mL/min Glucose (74-106) mg/dL POC Glucose 239 H 198 H 237 H (65-110) mg/dl Calcium (8.5-10.1) mg/dL Total Bilirubin (0.2-1.0) mg/dL AST (15-37) U/L ALT (12-78) U/L Alkaline Phosphatase (46-116) IU/L C-Reactive Protein (<=0.9) mg/dL Total Protein (6.4-8.2) g/dL Albumin (3.4-5.0) g/dL 03/14/18 03/14/18 03/14/18 Range/Units 07:05 07:05 08:01 WBC 10.2 (4.0-10.2) K/uL RBC 4.15 L (4.33-5.41) M/uL Hgb 11.5 L (13.1-16.8) g/dL Hct 35.3 L (39.0-49.0) % MCV 85.1 (84.0-98.0) fL MCH 27.7 L (28.2-33.3) pg MCHC 32.6 (31.7-36.0) g/dL RDW 16.1 H (11.2-14.1) % Plt Count 197 (150-350) K/uL Neut % (Auto) 81.7 H (45.0-80.0) % Lymph % (Auto) 13.2 (10.0-50.0) % Brown % (Auto) 5.0 (2.0-14.0) % Eos % (Auto) 0.0 (0.0-5.0) % Baso % (Auto) 0.1 (0.0-2.0) % Neut # (Auto) 8.29 H (1.40-7.00) K/uL Lymph # (Auto) 1.34 (0.50-3.50) K/uL Brown # (Auto) 0.51 (0.00-1.00) K/uL Eos # (Auto) 0.00 (0.00-0.50) K/uL Baso # (Auto) 0.01 (0.00-0.20) K/uL Sodium 135 L (136-145) mmol/L Potassium 4.2 (3.5-5.1) mmol/L Chloride 101 (98-107) mmol/L Carbon Dioxide 28.7 (21.0-32.0) mmol/L BUN 16 (7-18) mg/dL Creatinine 0.59 (0.51-1.17) mg/dL Est Cr Clr Drug Dosing 86.98 mL/min Estimated GFR (MDRD) > 60 mL/min Glucose 207 H (74-106) mg/dL POC Glucose 210 H (65-110) mg/dl Calcium 8.4 L (8.5-10.1) mg/dL Total Bilirubin 0.4 (0.2-1.0) mg/dL AST 25 (15-37) U/L ALT 40 (12-78) U/L Alkaline Phosphatase 57 (46-116) IU/L C-Reactive Protein 0.3 (<=0.9) mg/dL Total Protein 7.2 (6.4-8.2) g/dL Albumin 3.1 L (3.4-5.0) g/dL Christo Results Last 24 Hours: Microbiology 03/11/18 12:33 Aerobic Blood Culture - Preliminary Blood - Venous - Lab Draw NO GROWTH AFTER 2 DAYS Anaerobic Blood Culture - Preliminary NO GROWTH AFTER 2 DAYS 03/11/18 11:28 Aerobic Blood Culture - Preliminary Blood - Venous NO GROWTH AFTER 2 DAYS Anaerobic Blood Culture - Preliminary NO GROWTH AFTER 2 DAYS 03/11/18 15:00 Gram Stain - Final Sputum - Expectorated Sputum Culture - Final Yeast Isolated 03/11/18 12:30 Urine Culture - Final Urine, Bladder NO GROWTH AFTER 2 DAYS Med Orders - Current: Current Medications Acetaminophen (Tylenol Arthritis Pain) 650 mg PO Q8HR PRN PRN Reason: Pain Last Admin: 03/12/18 14:57 Dose: 650 mg Hydrocodone Bitart/Acetaminophen ([place] 325-5 Mg) 1 tab PO BID [facility] Last Admin: 03/14/18 07:12 Dose: 1 tab Albuterol/Ipratropium (Duoneb 3.0-0.5 Mg/3 Ml) 3 ml INH QID [facility] Last Admin: 03/14/18 07:11 Dose: 3 ml Albuterol/Ipratropium (Duoneb 3.0-0.5 Mg/3 Ml) 3 ml NEB Q4HRRT PRN PRN Reason: Shortness of Breath Last Admin: 03/12/18 03:51 Dose: 3 ml Amlodipine Besylate (Norvasc) 2.5 mg PO DAILY [facility] Last Admin: 03/14/18 07:12 Dose: 2.5 mg Aspirin (Halfprin) 81 mg PO DAILY [facility] Last Admin: 03/14/18 07:12 Dose: 81 mg Atenolol (Tenormin) 25 mg PO QAM [facility] Last Admin: 03/14/18 07:12 Dose: 25 mg Atenolol (Tenormin) 12.5 mg PO DAILY@1999 [facility] Last Admin: 03/13/18 19:27 Dose: 12.5 mg Azithromycin (Zithromax) 500 mg PO DAILY [facility] Budesonide (Pulmicort) 0.5 mg INH Q12HR [facility] Last Admin: 03/14/18 07:11 Dose: 0.5 mg Ceftazidime (Fortaz) 1 gm IVPUSH Q8H [facility] Last Admin: 03/14/18 04:06 Dose: 1 gm Cyanocobalamin (Vitamin B12) 1,000 mcg PO DAILY [facility] Last Admin: 03/14/18 07:13 Dose: 1,000 mcg Docusate Sodium (Colace) 200 mg PO DAILY [facility] Last Admin: 03/14/18 07:13 Dose: 200 mg Fexofenadine HCl (Miryam) 180 mg PO DAILY [facility] Last Admin: 03/14/18 07:11 Dose: 180 mg Furosemide (Lasix) 20 mg PO DAILY [facility] Last Admin: 03/14/18 07:12 Dose: 20 mg Metronidazole 500 mg/ Premix 100 mls @ 100 mls/hr IV Q8H [facility] Last Admin: 03/14/18 04:06 Dose: 100 mls/hr Insulin Human NPH (Humulin N) 16 unit SUBCUT Q12HR [facility] Last Admin: 03/14/18 09:35 Dose: 16 units Levothyroxine Sodium (Synthroid) 88 mcg PO DAILY [facility] Last Admin: 03/14/18 07:13 Dose: 88 mcg Lorazepam (Ativan) 0.25 mg PO BEDTIME [facility] Last Admin: 03/13/18 19:30 Dose: 0.25 mg Metformin HCl (Glucophage) 1,000 mg PO BID [facility] Last Admin: 03/14/18 07:13 Dose: 1,000 mg Methylprednisolone Sodium Succinate (Solu-Medrol) 40 mg IVPUSH Q12HR [facility] Last Admin: 03/14/18 07:11 Dose: 40 mg Mineral Oil/White Petrolatum (Lacri-Lube S.O.P Oint) 0 gm EYEBOTH BEDTIME [facility] Last Admin: 03/13/18 19:31 Dose: 0.25 inch Omeprazole (Omeprazole) 20 mg PO DAILY [facility] Last Admin: 03/14/18 07:13 Dose: 20 mg Polyethylene Glycol (Miralax) 17 gm PO DAILY [facility] Last Admin: 03/14/18 07:11 Dose: 17 gm Sertraline HCl (Zoloft) 100 mg PO DAILY [facility] Last Admin: 03/14/18 07:13 Dose: 100 mg Sodium Chloride (Saline Flush) 10 ml FLUSH ASDIRECTED PRN PRN Reason: Keep Vein Open Last Admin: 03/14/18 07:15 Dose: 10 ml Tamsulosin HCl (Flomax) 0.4 mg PO BEDTIME [facility] Last Admin: 03/13/18 19:30 Dose: 0.4 mg Discontinued Medications Atenolol (Tenormin) 25 mg PO BID [facility] Last Admin: 03/11/18 17:27 Dose: 25 mg Atenolol (Tenormin) 25 mg PO Q12HR [facility] Last Admin: 03/12/18 08:50 Dose: 25 mg Atenolol (Tenormin) 12.5 mg PO DAILY [facility] Last Admin: 03/13/18 08:13 Dose: Not Given Calcium Carbonate/Glycine (Tums) 500 mg PO BID [facility] Last Admin: 03/13/18 08:27 Dose: 500 mg Cefotaxime Sodium (Claforan) 1 gm IVPUSH Q8H [facility] Last Admin: 03/11/18 13:38 Dose: Not Given Azithromycin 500 mg/ Sodium (Chloride) 250 mls @ 250 mls/hr IV Q24H [facility] Stop: 03/13/18 14:59 Last Admin: 03/13/18 14:26 Dose: 250 mls/hr Methylprednisolone Sodium Succinate (Solu-Medrol) 40 mg IVPUSH Q12H [facility] Last Admin: 03/11/18 12:40 Dose: 40 mg - Exam General: Alert, Oriented, Cooperative, No Acute Distress HEENT: Pupils Equal, Pupils Reactive, EOMI, Mucous Membr. Moist/[place] Neck: Supple Lungs: Normal Respiratory Effort, Decreased Breath Sounds Cardiovascular: Regular Rate, Regular Rhythm GI/Abdominal Exam: Normal Bowel Sounds, Soft, Non-Tender, No Organomegaly Extremities: Normal Inspection, Normal Range of Motion, Non-Tender, No Pedal Edema, Normal Capillary Refill Peripheral Pulses: 1+: Dorsalis Pedis (L), Dorsalis Pedis (R) Skin: Warm, Dry, Intact Neurological: No New Focal Deficit Psy/Mental Status: Alert, Normal Affect, Normal Mood, Anxious - Problem List & Annotations (1) Pneumonia SNOMED Code(s): 103611628 Code(s): J18.9 - PNEUMONIA, UNSPECIFIED ORGANISM Status: Acute Current Visit: Yes Qualifiers: Pneumonia type: aspiration pneumonia Aspiration pneumonia type: due to regurgitated food Laterality: unspecified laterality (2) Rheumatoid arthritis SNOMED Code(s): 79051927 Code(s): M06.9 - RHEUMATOID ARTHRITIS, UNSPECIFIED Status: Acute Current Visit: Yes Qualifiers: Laterality: unspecified laterality (3) Anxiety SNOMED Code(s): 19455106 Code(s): F41.9 - ANXIETY DISORDER, UNSPECIFIED Status: Acute Priority: Medium Current Visit: No (4) COPD (chronic obstructive pulmonary disease) SNOMED Code(s): 85862807 Code(s): J44.9 - CHRONIC OBSTRUCTIVE PULMONARY DISEASE, UNSPECIFIED Status : Chronic Priority: Medium Current Visit: No Qualifiers: COPD type: chronic bronchitis Chronic bronchitis type: unspecified Qualified Code(s): J42 - Unspecified chronic bronchitis (5) Diabetes SNOMED Code(s): 70163992 Code(s): E11.9 - TYPE 2 DIABETES MELLITUS WITHOUT COMPLICATIONS Status: Chronic Priority: Medium Current Visit: No Qualifiers: Diabetes mellitus type: type 2 Diabetes mellitus complication status: with neurologic complications Diabetes mellitus complication detail: with polyneuropathy 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 - Problem List Review Problem List Initiated/Reviewed/Updated: Yes - My Orders Last 24 Hours: My Active Orders 03/13/18 20:00 Atenolol [Tenormin] 12.5 mg PO DAILY@199903/14/18 12:00 Azithromycin [Zithromax] 500 mg PO DAILY 03/15/18 05:11 C-REACTIVE PROTEIN [CHEM] DAILY CBC WITH AUTO DIFF [HEME] DAILY COMPREHENSIVE METABOLIC PN,CMP [CHEM] DAILY - Plan Plan:: 03/11/2018 Patient has failed outpatient treatment, needs IV antibiotics and IV solumedrol for aspiration pneumonia and COPD flare. patient has DM and RA so immunocompromised state. Will order speech consults and PT/OT. Continue on nebs and recheck labs in the morning. plan to transfer back to [facility] with patient is feeling better. Rash with Ceftriaxone, patient has been on Ceftin, Fortaz and Claforan in the past without adverse drug reactions. Will monitor closely Bebe Pugh CNP 03/12/2018 Patient feeling some better this morning, still with wheezing and productive cough. SBP noted to be in the 90's through the night, will decreased atenolol pm dose. Awaiting speech consult. Will order incentive spirometry and ambulate patient today to see how oxygen levels run with ambulation. Recheck labs in the morning. patient has anxiety with eating, no change in medications will await to see if speech can help the patient with his anxiety prior to eating. Bebe Pugh CNP 03/13/2018 Patient continues to feel some better, states able to swallow the metformin pills here at the hospital. Video swallow set today at noon. Labs reviewed with the patient. Patient ambulating in the room per himself, does not qualify for physical therapy. Patient is resident at [facility] on the Basic Unit. creative services producer looking into if patient will qualify for [facility]. Patient continues to need inpatient stay to monitor swallowing as patient is high risk for aspiration pneumonia and immuno-compromised due to RA. Bebe Pugh CNP 03/14/2018 Patient is doing well, states ready to go home. Cough is improved. Speech evaluation done, will continue to follow at [facility]. Labs reviewed with the patient. Ready to discharge back to [facility] on oral antibiotics and prednisone. Bebe Pugh,CAR DRYER
--- NOTE | 2018-03-14 10:55 | PCM.DCSUM1 ---
Discharge Summary - Hospital Course Free Text/Narrative:: Patient was admitted for aspiration pneumonia. Treated with IV Zithromax, Fortax and Flagyl. IV solumedrol given and nebs given every 4 hours. Patient had swallow evaluation recommends for mechanical soft diet. Patient improved with inpatient services. - Discharge Data Discharge Date: 03/14/18 Discharge Disposition: DC/Tfer to SNF 03 Condition: Fair - Discharge Diagnosis/Problem(s) (1) Pneumonia SNOMED Code(s): 154614815 ICD Code: J18.9 - PNEUMONIA, UNSPECIFIED ORGANISM Status: Acute Current Visit: Yes Qualifiers: Pneumonia type: aspiration pneumonia Aspiration pneumonia type: due to regurgitated food Laterality: unspecified laterality (2) Rheumatoid arthritis SNOMED Code(s): 00957702 ICD Code: M06.9 - RHEUMATOID ARTHRITIS, UNSPECIFIED Status: Acute Current Visit: Yes Qualifiers: Laterality: unspecified laterality (3) Anxiety SNOMED Code(s): 20492091 ICD Code: F41.9 - ANXIETY DISORDER, UNSPECIFIED Status: Acute Priority: Medium Current Visit: No (4) COPD (chronic obstructive pulmonary disease) SNOMED Code(s): 25087374 ICD Code: J44.9 - CHRONIC OBSTRUCTIVE PULMONARY DISEASE, UNSPECIFIED Status : Chronic Priority: Medium Current Visit: No Qualifiers: COPD type: chronic bronchitis Chronic bronchitis type: unspecified Qualified Code(s): J42 - Unspecified chronic bronchitis (5) Diabetes SNOMED Code(s): 51869663 ICD Code: E11.9 - TYPE 2 DIABETES MELLITUS WITHOUT COMPLICATIONS Status: Chronic Priority: Medium Current Visit: No Qualifiers: Diabetes mellitus type: type 2 Diabetes mellitus complication status: with neurologic complications Diabetes mellitus complication detail: with polyneuropathy 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 - Patient Summary/Data Consults: Consultations 03/11/18 11:10 Consult to Case Management [CONS] Routine OT Evaluation and Treatment [CONS] Routine PT Evaluation and Treatment [CONS] Routine [employer] 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 Labs CBC, CMP and CRP in one week ( [place] lab day). Pharmacy at hospital to check on different options for metformin shape - Discharge Plan Prescriptions/Med Rec: Azithromycin [Zithromax] 500 mg PO DAILY 6 Days #6 tab Pantoprazole Sodium [Protonix] 40 mg PO DAILY #90 tablet.dr Home Medications: Home Meds Aspirin [Halfprin] 81 mg PO DAILY 06/24/15 [History] Furosemide 20 mg PO DAILY 08/30/15 [History] metFORMIN [Glucophage] 1,000 mg PO BID 09/04/15 [History] Nph, Human Insulin Isophane [HumuLIN N] 16 unit SUBCUT Q12HR #2 pen 09/09/15 [Rx ] Hydrocodone/Acetaminophen [[place] 5-325] 1 tab PO BID 11/29/15 [History] Polyethylene Glycol 3350 [MiraLAX] 17 gm PO DAILY 11/29/15 [History] amLODIPine [Norvasc] 2.5 mg PO DAILY 11/29/15 [History] Albuterol/Ipratropium [DuoNeb 3.0-0.5 MG/3 ML] 1 vial INH QID 10/07/17 [History] Albuterol/Ipratropium [DuoNeb 3.0-0.5 MG/3 ML] 3 ml NEB Q4HRRT PRN 10/07/17 [ History] Budesonide [Pulmicort] 0.5 mg IH Q12HR 10/07/17 [History] Calcium Carbonate [Tums] 500 mg PO BID 10/07/17 [History] Cyanocobalamin (Vitamin B-12) [Vitamin B-12] 1,000 mcg PO DAILY 10/07/17 [ History] Fexofenadine [Miryam] 180 mg PO DAILY 10/07/17 [History] Magnesium Hydroxide [Milk of Magnesia] 30 ml PO DAILY PRN 10/07/17 [History] Mineral Oil/Petrolatum,White [Artificial Tears Eye Ointment] 0.25 gm EYEBOTH BEDTIME 10/07/17 [History] Trolamine Salicylate/Aloe Vera [Aspercreme 10%] 1 applic TOP BID 10/07/17 [ History] Acetaminophen [Tylenol Arthritis Pain] 650 mg PO Q8HR PRN 10/08/17 [History] LORazepam [Ativan] 0.25 mg PO BEDTIME 10/08/17 [History] Trolamine Salicylate/Aloe Vera [Analgesic Creme 10% Cream] 1 applic TOP Q6HR PRN 10/08/17 [History] predniSONE 5 mg PO BID 10/08/17 [History] Sertraline [Zoloft] 100 mg PO DAILY #90 tablet 10/11/17 [Rx] Docusate Sodium [Colace] 2 cap PO DAILY 03/11/18 [History] Levothyroxine Sodium 88 mcg PO DAILY 03/11/18 [History] Mag Hydrox/Al Hydrox/Simeth [Antacid Suspension] 30 ml PO Q12HR PRN 03/11/18 [ History] Tamsulosin [Flomax] 0.4 mg PO QPM 03/11/18 [History] Atenolol [Tenormin] 12.5 mg PO DAILY@2000 tablet 03/14/18 [Rx] Atenolol [Tenormin] 25 mg PO QAM #0 03/14/18 [Rx] Azithromycin [Zithromax] 500 mg PO DAILY 6 Days #6 tab 03/14/18 [Rx] Pantoprazole Sodium [Protonix] 40 mg PO DAILY #90 tablet.dr 03/14/18 [Rx] Tamsulosin [Flomax] 0.4 mg PO BEDTIME cap.er 03/14/18 [Rx] metroNIDAZOLE [Metronidazole] 500 mg PO TID 7 Days #21 03/14/18 [Rx] - Discharge Summary/Plan Comment DC Time >30 min.: No Discharge Summary/Plan Comment: Patient is discharged back to [facility]. Continue on Zithromax and Flagyl. Prednisone will be continued and speech pathologist to continue working with the patient. Follow up in 2 weeks at the clinic or on next rounds. Follow up labs in one week. Bebe Pugh CNP - Patient Data Vitals - Most Recent: Last Vital Signs Temp 97.8 F 03/13/18 20:00 Pulse 81 03/14/18 07:12 Resp 32 H 03/13/18 20:00 BP 117/72 03/14/18 07:12 Pulse Ox 98 03/13/18 20:00 Weight - Most Recent: 182 lb 11.188 oz I&O - Last 24 hours: Intake & Output 03/13/18 03/14/18 03/14/18 22:59 06:59 14:59 Intake Total 1200 100 Output Total 750 900 Balance 450 -800 Lab Results - Last 24 hrs: Laboratory Results - last 24 hr 03/13/18 03/13/18 03/13/18 Range/Units 11:21 17:10 22:39 WBC (4.0-10.2) K/uL RBC (4.33-5.41) M/uL Hgb (13.1-16.8) g/dL Hct (39.0-49.0) % MCV (84.0-98.0) fL MCH (28.2-33.3) pg MCHC (31.7-36.0) g/dL RDW (11.2-14.1) % Plt Count (150-350) K/uL Neut % (Auto) (45.0-80.0) % Lymph % (Auto) (10.0-50.0) % Gray % (Auto) (2.0-14.0) % Eos % (Auto) (0.0-5.0) % Baso % (Auto) (0.0-2.0) % Neut # (Auto) (1.40-7.00) K/uL Lymph # (Auto) (0.50-3.50) K/uL Gray # (Auto) (0.00-1.00) K/uL Eos # (Auto) (0.00-0.50) K/uL Baso # (Auto) (0.00-0.20) K/uL Sodium (136-145) mmol/L Potassium (3.5-5.1) mmol/L Chloride (98-107) mmol/L Carbon Dioxide (21.0-32.0) mmol/L BUN (7-18) mg/dL Creatinine (0.51-1.17) mg/dL Est Cr Clr Drug Dosing mL/min Estimated GFR (MDRD) mL/min Glucose (74-106) mg/dL POC Glucose 239 H 198 H 237 H (65-110) mg/dl Calcium (8.5-10.1) mg/dL Total Bilirubin (0.2-1.0) mg/dL AST (15-37) U/L ALT (12-78) U/L Alkaline Phosphatase (46-116) IU/L C-Reactive Protein (<=0.9) mg/dL Total Protein (6.4-8.2) g/dL Albumin (3.4-5.0) g/dL 03/14/18 03/14/18 03/14/18 Range/Units 07:05 07:05 08:01 WBC 10.2 (4.0-10.2) K/uL RBC 4.15 L (4.33-5.41) M/uL Hgb 11.5 L (13.1-16.8) g/dL Hct 35.3 L (39.0-49.0) % MCV 85.1 (84.0-98.0) fL MCH 27.7 L (28.2-33.3) pg MCHC 32.6 (31.7-36.0) g/dL RDW 16.1 H (11.2-14.1) % Plt Count 197 (150-350) K/uL Neut % (Auto) 81.7 H (45.0-80.0) % Lymph % (Auto) 13.2 (10.0-50.0) % Gray % (Auto) 5.0 (2.0-14.0) % Eos % (Auto) 0.0 (0.0-5.0) % Baso % (Auto) 0.1 (0.0-2.0) % Neut # (Auto) 8.29 H (1.40-7.00) K/uL Lymph # (Auto) 1.34 (0.50-3.50) K/uL Gray # (Auto) 0.51 (0.00-1.00) K/uL Eos # (Auto) 0.00 (0.00-0.50) K/uL Baso # (Auto) 0.01 (0.00-0.20) K/uL Sodium 135 L (136-145) mmol/L Potassium 4.2 (3.5-5.1) mmol/L Chloride 101 (98-107) mmol/L Carbon Dioxide 28.7 (21.0-32.0) mmol/L BUN 16 (7-18) mg/dL Creatinine 0.59 (0.51-1.17) mg/dL Est Cr Clr Drug Dosing 86.98 mL/min Estimated GFR (MDRD) > 60 mL/min Glucose 207 H (74-106) mg/dL POC Glucose 210 H (65-110) mg/dl Calcium 8.4 L (8.5-10.1) mg/dL Total Bilirubin 0.4 (0.2-1.0) mg/dL AST 25 (15-37) U/L ALT 40 (12-78) U/L Alkaline Phosphatase 57 (46-116) IU/L C-Reactive Protein 0.3 (<=0.9) mg/dL Total Protein 7.2 (6.4-8.2) g/dL Albumin 3.1 L (3.4-5.0) g/dL CECILIO Results - Last 24 hrs: Microbiology 03/11/18 12:33 Aerobic Blood Culture - Preliminary Blood - Venous - Lab Draw NO GROWTH AFTER 2 DAYS Anaerobic Blood Culture - Preliminary NO GROWTH AFTER 2 DAYS 03/11/18 11:28 Aerobic Blood Culture - Preliminary Blood - Venous NO GROWTH AFTER 2 DAYS Anaerobic Blood Culture - Preliminary NO GROWTH AFTER 2 DAYS 03/11/18 15:00 Gram Stain - Final Sputum - Expectorated Sputum Culture - Final Yeast Isolated 03/11/18 12:30 Urine Culture - Final Urine, Bladder NO GROWTH AFTER 2 DAYS Med Orders - Current: Current Medications Acetaminophen (Tylenol Arthritis Pain) 650 mg PO Q8HR PRN PRN Reason: Pain Last Admin: 03/12/18 14:57 Dose: 650 mg Hydrocodone Bitart/Acetaminophen ([place] 325-5 Mg) 1 tab PO BID [facility] Last Admin: 03/14/18 07:12 Dose: 1 tab Albuterol/Ipratropium (Duoneb 3.0-0.5 Mg/3 Ml) 3 ml INH QID [facility] Last Admin: 03/14/18 07:11 Dose: 3 ml Albuterol/Ipratropium (Duoneb 3.0-0.5 Mg/3 Ml) 3 ml NEB Q4HRRT PRN PRN Reason: Shortness of Breath Last Admin: 03/12/18 03:51 Dose: 3 ml Amlodipine Besylate (Norvasc) 2.5 mg PO DAILY [facility] Last Admin: 03/14/18 07:12 Dose: 2.5 mg Aspirin (Halfprin) 81 mg PO DAILY [facility] Last Admin: 03/14/18 07:12 Dose: 81 mg Atenolol (Tenormin) 25 mg PO QAM [facility] Last Admin: 03/14/18 07:12 Dose: 25 mg Atenolol (Tenormin) 12.5 mg PO DAILY@1999 [facility] Last Admin: 03/13/18 19:27 Dose: 12.5 mg Azithromycin (Zithromax) 500 mg PO DAILY [facility] Budesonide (Pulmicort) 0.5 mg INH Q12HR [facility] Last Admin: 03/14/18 07:11 Dose: 0.5 mg Ceftazidime (Fortaz) 1 gm IVPUSH Q8H [facility] Last Admin: 03/14/18 04:06 Dose: 1 gm Cyanocobalamin (Vitamin B12) 1,000 mcg PO DAILY [facility] Last Admin: 03/14/18 07:13 Dose: 1,000 mcg Docusate Sodium (Colace) 200 mg PO DAILY [facility] Last Admin: 03/14/18 07:13 Dose: 200 mg Fexofenadine HCl (Miryam) 180 mg PO DAILY [facility] Last Admin: 03/14/18 07:11 Dose: 180 mg Furosemide (Lasix) 20 mg PO DAILY [facility] Last Admin: 03/14/18 07:12 Dose: 20 mg Metronidazole 500 mg/ Premix 100 mls @ 100 mls/hr IV Q8H [facility] Last Admin: 03/14/18 04:06 Dose: 100 mls/hr Insulin Human NPH (Humulin N) 16 unit SUBCUT Q12HR [facility] Last Admin: 03/14/18 09:35 Dose: 16 units Levothyroxine Sodium (Synthroid) 88 mcg PO DAILY [facility] Last Admin: 03/14/18 07:13 Dose: 88 mcg Lorazepam (Ativan) 0.25 mg PO BEDTIME [facility] Last Admin: 03/13/18 19:30 Dose: 0.25 mg Metformin HCl (Glucophage) 1,000 mg PO BID [facility] Last Admin: 03/14/18 07:13 Dose: 1,000 mg Methylprednisolone Sodium Succinate (Solu-Medrol) 40 mg IVPUSH Q12HR [facility] Last Admin: 03/14/18 07:11 Dose: 40 mg Mineral Oil/White Petrolatum (Lacri-Lube S.O.P Oint) 0 gm EYEBOTH BEDTIME [facility] Last Admin: 03/13/18 19:31 Dose: 0.25 inch Omeprazole (Omeprazole) 20 mg PO DAILY [facility] Last Admin: 03/14/18 07:13 Dose: 20 mg Polyethylene Glycol (Miralax) 17 gm PO DAILY [facility] Last Admin: 03/14/18 07:11 Dose: 17 gm Sertraline HCl (Zoloft) 100 mg PO DAILY [facility] Last Admin: 03/14/18 07:13 Dose: 100 mg Sodium Chloride (Saline Flush) 10 ml FLUSH ASDIRECTED PRN PRN Reason: Keep Vein Open Last Admin: 03/14/18 07:15 Dose: 10 ml Tamsulosin HCl (Flomax) 0.4 mg PO BEDTIME [facility] Last Admin: 03/13/18 19:30 Dose: 0.4 mg Discontinued Medications Atenolol (Tenormin) 25 mg PO BID [facility] Last Admin: 03/11/18 17:27 Dose: 25 mg Atenolol (Tenormin) 25 mg PO Q12HR [facility] Last Admin: 03/12/18 08:50 Dose: 25 mg Atenolol (Tenormin) 12.5 mg PO DAILY [facility] Last Admin: 03/13/18 08:13 Dose: Not Given Calcium Carbonate/Glycine (Tums) 500 mg PO BID [facility] Last Admin: 03/13/18 08:27 Dose: 500 mg Cefotaxime Sodium (Claforan) 1 gm IVPUSH Q8H [facility] Last Admin: 03/11/18 13:38 Dose: Not Given Azithromycin 500 mg/ Sodium (Chloride) 250 mls @ 250 mls/hr IV Q24H [facility] Stop: 03/13/18 14:59 Last Admin: 03/13/18 14:26 Dose: 250 mls/hr Methylprednisolone Sodium Succinate (Solu-Medrol) 40 mg IVPUSH Q12H [facility] Last Admin: 03/11/18 12:40 Dose: 40 mg
[2018-03-14] MEDS ORDERED: Azithromycin 250 MG Tab PO SCH (12:00)
[2018-03-14 12:32] VITALS: BP 114/69
== END 2018-03-14 13:51 | DRG 179 ==
LOC: LL.MS 09:35
PROVIDERS: ADMIT Family Medicine; ATTEND Family Medicine
DX: J69.0 Pneumonitis due to inhalation of food and vomit (principal); M06.9 Rheumatoid arthritis, unspecified; F41.9 Anxiety disorder, unspecified; J44.9 Chronic obstructive pulmonary disease, unspecified; E11.42 Type 2 diabetes mellitus with diabetic polyneuropathy; H02.401 Unspecified ptosis of right eyelid; I49.9 Cardiac arrhythmia, unspecified; E78.00 Pure hypercholesterolemia, unspecified; I10 Essential (primary) hypertension; J84.10 Pulmonary fibrosis, unspecified; K21.9 Gastro-esophageal reflux disease without esophagitis; K58.2 Mixed irritable bowel syndrome; K64.9 Unspecified hemorrhoids; R13.10 Dysphagia, unspecified; N40.1 Benign prostatic hyperplasia with lower urinary tract symptoms; N39.498 Other specified urinary incontinence; R33.8 Other retention of urine; G89.29 Other chronic pain; M54.9 Dorsalgia, unspecified; M54.2 Cervicalgia; M19.90 Unspecified osteoarthritis, unspecified site; M35.3 Polymyalgia rheumatica; M71.21 Synovial cyst of popliteal space [Baker], right knee; R42 Dizziness and giddiness; R41.83 Borderline intellectual functioning; F32.9 Major depressive disorder, single episode, unspecified; E03.9 Hypothyroidism, unspecified; K29.70 Gastritis, unspecified, without bleeding; I25.2 Old myocardial infarction; Z79.82 Long term (current) use of aspirin; Z79.4 Long term (current) use of insulin; Z86.010 Personal history of colon polyps; Z79.52 Long term (current) use of systemic steroids; Z86.73 Personal history of transient ischemic attack (TIA), and cerebral infarction without residual deficits; Z79.899 Other long term (current) drug therapy; Z87.01 Personal history of pneumonia (recurrent); Z88.1 Allergy status to other antibiotic agents
CPT/HCPCS: 36415; 71046; 74230; 80053; 81001; 82962; 85025; 86140; 87040; 87070; 87086; 87205; 92526-GN; 92611-GN; 94640; 97161-GP; 97165-GO; A9270-GY; J0456; J0713; J1815; J2920; J7050

== ENCOUNTER 2019-03-23 21:03 | Emergency (ER) | payer MEDICARE, BC ==
--- NOTE | 2019-03-23 21:18 | EDM.PDOC ---
ED HPI GENERAL MEDICAL PROBLEM - General Chief Complaint: Respiratory Problem Stated Complaint: aspiration Time Seen by Provider: 03/23/19 21:05 Source of Information: Reports: Patient, Senior Living Records, Old Records ([facility] EMR. No paper hospital chart available.) History Limitations: Reports: No Limitations - History of Present Illness INITIAL COMMENTS - FREE TEXT/NARRATIVE: The patient was brought to the emergency room via transport vehicle from [facility] for evaluation of possible aspiration of one of his pills at about 17:50 hours this evening. He has had a persistent cough since that time , however no sedation, recent history of fever or bronchitic type symptoms. He has had problems with recurrent bronchitis and aspiration pneumonia in the past as below. His pills are usually crushed, however this medication today was apparently not crushed. Dr. Lawrence was at the halfway, however she requested that the patient be seen in the emergency room. The patient denies any chest pain/pressure, heart flutter, dizziness, orthostasis, orthopnea, diaphoresis, paresthesias, recent decreased exercise tolerance, or any other anginal-type symptoms. No recent history of abdominal pain, heartburn, nausea, diarrhea, melena, gross hematochezia, or any food intolerance, including fatty foods, etc.. The patient also denies any recent fever, dyspnea, etc.. He does complain of nonspecific 10/10 throat pain possibly secondary to medication, however he denies any other specific pain or discomfort other than chronic chest wall pain from his chronic cough in the past. Onset: Today, Sudden Onset Date: 03/23/19 Onset Time: 17:50 Duration: Improving Location: Reports: Chest (Chest wall pain as abovechronic), Other (As above). Denies: Head, Face, Neck, Abdomen, Back, Upper Extremity, Left, Upper Extremity , Right, Lower Extremity, Left, Radiates to Quality: Reports: Ache, Same as Previous Episode, Other (As above) Severity: Severe Improves with: Reports: None Worsens with: Reports: None Context: Reports: Other (As above). Denies: Sick Contact, Trauma Associated Symptoms: Reports: Confusion (Stable chronic), Chest Pain (As above) , Cough. 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: Other (see below) (None) Throat Pain Score (Numeric/FACES): 10 - Related Data Allergies Allergy/AdvReac Type Severity Reaction Status Date / Time ceftriaxone sodium Allergy Rash Verified 03/11/18 11:14 [From Rocephin] levofloxacin [From Levaquin] Allergy Rash Verified 03/11/18 11:14 Home Meds: Home Meds Aspirin [Halfprin] 81 mg PO DAILY 06/24/15 [History] Furosemide 20 mg PO DAILY 08/30/15 [History] metFORMIN [Glucophage] 1,000 mg PO BID 09/04/15 [History] Hydrocodone/Acetaminophen [[place] 5-325] 1 tab PO BID 11/29/15 [History] Polyethylene Glycol 3350 [MiraLAX] 17 gm PO DAILY 11/29/15 [History] amLODIPine [Norvasc] 2.5 mg PO DAILY 11/29/15 [History] Albuterol/Ipratropium [DuoNeb 3.0-0.5 MG/3 ML] 1 vial INH QID 10/07/17 [History] Albuterol/Ipratropium [DuoNeb 3.0-0.5 MG/3 ML] 3 ml NEB Q4HRRT PRN 10/07/17 [ History] Budesonide [Pulmicort] 0.5 mg IH Q12HR 10/07/17 [History] Calcium Carbonate [Tums] 500 mg PO BID 10/07/17 [History] Cyanocobalamin (Vitamin B-12) [Vitamin B-12] 1,000 mcg PO DAILY 10/07/17 [ History] Fexofenadine [Miryam] 180 mg PO DAILY 10/07/17 [History] Magnesium Hydroxide [Milk of Magnesia] 30 ml PO DAILY PRN 10/07/17 [History] Mineral Oil/Petrolatum,White [Artificial Tears Eye Ointment] 0.25 gm EYEBOTH BEDTIME 10/07/17 [History] Trolamine Salicylate/Aloe Vera [Aspercreme 10%] 1 applic TOP BID 10/07/17 [ History] Acetaminophen [Tylenol Arthritis Pain] 650 mg PO Q8HR PRN 10/08/17 [History] predniSONE 5 mg PO BID 10/08/17 [History] Docusate Sodium [Colace] 2 cap PO DAILY 03/11/18 [History] Levothyroxine Sodium 88 mcg PO DAILY 03/11/18 [History] Mag Hydrox/Al Hydrox/Simeth [Antacid Suspension] 30 ml PO Q12HR PRN 03/11/18 [ History] Azithromycin [Zithromax] 500 mg PO DAILY 6 Days #6 tab 03/14/18 [Rx] Tamsulosin [Flomax] 0.4 mg PO BEDTIME cap.er 03/14/18 [Rx] Atenolol [Tenormin] 25 mg PO DAILY 03/23/19 [History] Atenolol [Tenormin] 25 mg PO QPM 03/23/19 [History] Eucalyptus Oil/Menthol/Camphor [Vicks Vaporub Ointment] 50 gm TP BEDTIME [History] Famotidine [Pepcid] 20 mg PO BID 03/23/19 [History] Folic Acid 1 mg PO DAILY 03/23/19 [History] Methotrexate 8 tab PO WE 03/23/19 [History] Nph, Human Insulin Isophane [HumuLIN N] 18 unit SUBCUT Q12HR 03/23/19 [History] Ranitidine [Zantac] 150 mg PO BID 03/23/19 [History] Sertraline [Zoloft] 75 mg PO DAILY 03/23/19 [History] guaiFENesin [Tussin] 100 mg PO BID 03/23/19 [History] Past Medical History HEENT History: Reports: Allergic Rhinitis, Cataract, Other (See Below). 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 Dry eye syndrome. Cardiovascular History: Reports: Arrhythmia, CAD, Cardiomyopathy, Heart Murmur, High Cholesterol, Hypertension, PR, Syncope. Denies: Aneurysm, Blood Clots/VTE/ DVT, Bypass, Heart Failure, PTCA, PVD, Stents Other Cardiovascular History: Complete right bundle branch block. Moderate diastolic dysfunction and left atrial dilatation by echocardiogram. Mild diffuse valvular disease without heart murmurs although heart murmurs as a child. Near syncopal episode on 08/30/15. History of non-STEMI. Hyperlipidemia with secondary fatty liver. Respiratory History: Reports: Bronchitis, Recurrent, COPD, Intubation, Previous , Pneumonia, Recurrent, Pulmonary Fibrosis, Sleep Apnea, Other (See Below). Denies: Asthma, Intubation, Difficult, PE, Pneumothorax, TB Other Respiratory History: Recurrent aspiration pneumonia. Gastrointestinal History: Reports: Chronic Constipation, Chronic Diarrhea, Colon Polyp, Gastritis, GERD, GI Bleed, Hemorrhoids, Hiatal Hernia, Inflammatory Bowel Disease, Irritable Bowel Syndrome, Other (See Below). Denies : Celiac Disease, Cholelithiasis, Fecal Incontinence, Jaundice, PUD Other Gastrointestinal History: Excision of adenomatous colonic polyp at hepatic flexure in July 2011. Dysphagia Genitourinary History: Reports: BPH, Prostate Disorder, Retention, Urinary, Urinary Incontinence. Denies: Acute Renal Failure, Chronic Renal Insuffiency, Renal Calculus, STD, UTI, Recurrent Musculoskeletal History: Reports: Arthritis, Back Pain, Chronic, Neck Pain, Chronic, Osteoarthritis, Osteoporosis, RA, Other (See Below). Denies: Fracture , Gout, SLE Other Musculoskeletal History: Rheumatoid arthritis with current methotrexate and steroid therapy. polymyalgia rheumatica-steroid dependent, moderate Mock's cyst right leg Neurological History: Reports: CVA, Headaches, Chronic, Neuropathy, Diabetic, Neuropathy, Peripheral, Vertigo, Other (See Below). Denies: Brain Injury, Cerebral Aneurysms, Concussion, Head Trauma, Migraines, MS, Parkinson's, Seizure , TIA Other Neuro History: Right lacunar infarct. 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 Psychiatric History: Reports: Addiction, Anxiety, Depression, Other (See Below) . Denies: Psych Hospitalization(s), Suicide Attempt, Suicidal Ideation Other Psychiatric History: Chronic narcotic use. Endocrine/Metabolic History: Reports: Diabetes, Type II, Hypothyroidism, IDDM, Osteopenia, Osteoporosis, Other (See Below). Denies: Diabetes, Type I, Diabetes Mellitus, Type 3c Other Endocrine/Metabolic History: Hyponatremia. Hypomagnesemia. Hematologic History: Reports: Anemia. Denies: Blood Transfusion(s) Immunologic History: Reports: None. Denies: AIDS, HIV, SLE Oncologic (Cancer) History: Reports: None Dermatologic History: Reports: None. Denies: Eczema, Psoriasis - Infectious Disease History Infectious Disease History: Reports: Chicken Pox, Measles. Denies: C-Difficile , Helicobacter Pylori, Meningitis, Mononucleosis, MRSA, Mumps, Pertussis ( Whooping Cough), Scarlet Fever, Shingles, TB, VRE - Past Surgical History Head Surgeries/Procedures: Reports: None HEENT Surgical History: Reports: Adenoidectomy, Oral Surgery, Tonsillectomy, Other (See Below). Denies: Cataract Surgery, Eye Surgery, Laser Surgery, LASIK , Myringotomy w Tube(s), Naso-Sinus Surgery Other HEENT Surgeries/Procedures: Complete teeth extraction. Tonsillectomy and adenoidectomy at about age 5. Cardiovascular Surgical History: Reports: None. Denies: Varicose Respiratory Surgical History: Reports: None. Denies: Thoracentesis GI Surgical History: Reports: Colonoscopy, EGD, Hernia, Inguinal, Polypectomy, Other (See Below). Denies: Hernia, Abdominal, Hernia Repair/Other Other GI Surgeries/Procedures: Colonoscopy on 09/22/15 with concomitant EGD with biopsy. Previous colonoscopy in July 2011 with polypectomy of a benign adenoma at the hepatic flexure. Right inguinal hernia repair on 07/18/06. Hemorrhoidectomy. Male Surgical History: Reports: Circumcision, Other (See Below). Denies: TURP-Transurethral Resection of Prostate, Vasectomy Other Male Surgeries/Procedures: Circumcision as an Endocrine Surgical History: Reports: None. Denies: Thyroid Biopsy Neurological Surgical History: Reports: None. Denies: C-Spine, Discectomy, Laminectomy, Lumbar Spine, Sacral Spine, Spinal Fusion, Thoracic Spine, Vertebroplasty Musculoskeletal Surgical History: Reports: Other (See Below). Denies: Carpal Tunnel, Ganglion Cyst, Joint Replacement, ORIF, Shoulder Surgery Other Musculoskeletal Surgeries/Procedures:: Excision of bilateral calcaneal benign fibromas on 06/20/10. Oncologic Surgical History: Reports: None Dermatological Surgical History: Reports: None - Past Imaging History Past Imaging History: Reports: Angiography (Heart catheterization at [facility] in October 2015.), Cardiac Echo (Last echocardiogram on with ejection fraction of 6065 percent and findings as above. Previous echocardiogram on 02/26/14.), CAT Scan (CT of the brain on 04/29/17 and 10/04/16. CT of the chest on 07/04/17, 09/01/14, and 03/26/14. CT of the chest and neck on 14/07.), MRI (C-spine on 09/01/13. Left ankle on 09/01/13.), Sleep Study (, 03/29/16, 03/13/16, and 01/03/16), Stress Testing (Cardiolite stress test on ), Swallow Study (04/03/18, 03/11/18, 10/18/16, 06/01/15, and 08/04/15.), Ultrasound (Abdominal ultrasound on 04/20/14), Venous Doppler (Right leg on and 11/23/15) Social & Family History - Family History Cardiac: Reports: Other (See Below) Other Cardiac Family History: Mother with atrial fibrillation. Respiratory: Reports: Other (See Below) Other Respiratory Family Hisory: Father with COPD. - Tobacco Use Smoking Status *Q: Never Smoker Tobacco Use Within Last Twelve Months: No Used Tobacco, but Quit: No Smoking Cessation Information Provided To Patient: No Second Hand Smoke Exposure: No Second Hand Smoke Education Provided: No - Caffeine Use Caffeine Use: Reports: Tea (3 Cups Per day). Denies: Coffee, Energy Drinks, Soda - Alcohol Use Alcohol Use History: No Days Per Week of Alcohol Use: 0 Number of Drinks Per Day: 0 Number of Drinks Per Day Comment: No previous DWIs, problems with alcohol abuse , etc. Total Drinks Per Week: 0 Alcohol Use in Last Twelve Months: No - Recreational Drug Use Recreational Drug Use: No Drug Use in Last 12 Months: No - Living Situation & Occupation Living situation: Reports: Single (No children), [facility] Occupation: Retired (Retired [employer] at age 61) ED ROS GENERAL - Review of Systems Review Of Systems: ROS reveals no pertinent complaints other than HPI. ED EXAM, GENERAL - Physical Exam Exam: See Below Exam Limited By: No Limitations General Appearance: Alert, WD/WN, No Apparent Distress Eye Exam: Bilateral Eye: EOMI, PERRL, Other (Mild bilateral exophthalmos) Ears: Normal External Exam, Normal Canal, Hearing Grossly Normal, Normal TMs Nose: Normal Inspection, Normal Mucosa, No Blood Throat/Mouth: Normal Lips, Normal Teeth, Normal Gums, Normal Oropharynx, Normal Voice, No Airway Compromise, Dysphagia (Stable chronic), Other (No evidence of mucosal injury in the pharynx or presence of foreign body). No: Inflammation, Perioral Cyanosis Head: Atraumatic, Normocephalic. No: Facial Swelling, Facial Tenderness, Sinus Tenderness Neck: Supple, Non-Tender, Full Range of Motion, Carotid Bruit (Mild bilateral carotid bruits). No: Lymphadenopathy (L), Lymphadenopathy (R), Thyromegaly Respiratory/Chest: No Respiratory Distress, No Accessory Muscle Use, Chest Non- Tender, Rhonchi (Occasional bilateral). No: Rales, Wheezing, Pleural Rub, Retractions Cardiovascular: Normal Peripheral Pulses, No Gallop, No JVD, No Murmur, No Rub, Tachycardia (Borderline, regular rhythm). No: No Edema (Dependent edema as below), Gallop/S3, Gallop/S4, Friction Rub Peripheral Pulses: 2+: Radial (L), Radial (R) GI/Abdominal: Normal Bowel Sounds, Soft, Non-Tender, No Organomegaly, No Distention, No Abnormal Bruit, No Mass, Pelvis Stable, Other (Obese). No: Guarding (Male) Exam: Deferred Rectal (Males) Exam: Deferred Back Exam: Normal Inspection, Full Range of Motion. No: CVA Tenderness (L), CVA Tenderness (R), Muscle Spasm Extremities: Normal Range of Motion, Non-Tender, Normal Capillary Refill, Pedal Edema (+1 bilateral pedal/pretibial edema). No: Car's Sign Neurological: Alert, Oriented, CN II-XII Intact, Normal Cognition, Normal Gait, No Motor/Sensory Deficits Psychiatric: Normal Affect, Normal Mood Skin Exam: Warm, Dry, Intact, Normal Color, No Rash. No: Diaphoretic, Wound/ Incision Lymphatic: No Adenopathy Course - Vital Signs Last Recorded V/S: Last Vital Signs Temp 36.4 C 03/23/19 21:03 Pulse 107 H 03/23/19 22:44 Resp 20 03/23/19 22:44 BP 154/72 H 03/23/19 22:44 Pulse Ox 99 03/23/19 22:44 Vital Signs - 24 hr 03/23/19 03/23/19 03/23/19 21:03 21:30 21:44 Temperature [ 36.4 C Oral] Pulse, 120 H 106 H 106 H Peripheral [ Right Pulse Oximetry] Respiratory 20 24 H 24 H Rate Blood Pressure 138/81 141/72 H 131/79 [Right Upper Arm] O2 Sat by Pulse 100 100 98 Oximetry 03/23/19 03/23/19 03/23/19 22:00 22:15 22:30 Temperature [ Oral] Pulse, 96 103 H 107 H Peripheral [ Right Pulse Oximetry] Respiratory 24 H 25 H 24 H Rate Blood Pressure 132/73 145/75 H 149/90 H [Right Upper Arm] O2 Sat by Pulse 96 97 98 Oximetry 03/23/19 22:44 Temperature [ Oral] Pulse, 107 H Peripheral [ Right Pulse Oximetry] Respiratory 20 Rate Blood Pressure 154/72 H [Right Upper Arm] O2 Sat by Pulse 99 Oximetry - Orders/Labs/Meds Orders: Active Orders 24 hr Category Date Time Status Cardiac Monitoring [RC] CONTINUOUS Care 03/23/19 21:19 Active Peripheral IV Care [RC] . DIRECTED Care 03/23/19 22:34 Active Pulse Oximetry [RC] CONTINUOUS Care 03/23/19 21:19 Active Up With Assistance [RC] ASDIRECTED Care 03/23/19 21:19 Active Chest 2V [CR] Stat Exams 03/23/19 21:19 Taken Obtain Past Medical Record [OM.PC] Stat Oth 03/23/19 21:19 Active Peripheral IV Insertion Adult [OM.PC] Routine Oth 03/23/19 22:34 Ordered Resuscitation Status Routine Resus Stat 03/23/19 21:18 Ordered Labs: Laboratory Tests 03/23/19 03/23/19 03/23/19 Range/Units 21:33 21:35 21:35 WBC 11.8 H (4.0-10.2) K/uL RBC 4.16 L (4.33-5.41) M/uL Hgb 12.3 L (13.1-16.8) g/dL Hct 36.9 L (39.0-49.0) % MCV 88.7 (84.0-98.0) fL MCH 29.6 (28.2-33.3) pg MCHC 33.3 (31.7-36.0) g/dL RDW 16.1 H (11.2-14.1) % Plt Count 199 (150-350) K/uL Neut % (Auto) 85.4 H (45.0-80.0) % Lymph % (Auto) 8.9 L (10.0-50.0) % [place] % (Auto) 4.9 (2.0-14.0) % Eos % (Auto) 0.5 (0.0-5.0) % Baso % (Auto) 0.3 (0.0-2.0) % Neut # (Auto) 10.10 H (1.40-7.00) K/uL Lymph # (Auto) 1.05 (0.50-3.50) K/uL [place] # (Auto) 0.58 (0.00-1.00) K/uL Eos # (Auto) 0.06 (0.00-0.50) K/uL Baso # (Auto) 0.04 (0.00-0.20) K/uL Sodium 133 L (136-145) mmol/L Potassium 4.0 (3.5-5.1) mmol/L Chloride 97 L (98-107) mmol/L Carbon Dioxide 23.8 (21.0-32.0) mmol/L BUN 9 (7-18) mg/dL Creatinine 0.63 (0.51-1.17) mg/dL Est Cr Clr Drug Dosing TNP Estimated GFR (MDRD) > 60 mL/min Glucose 114 H (74-106) mg/dL Lactic Acid 1.7 (0.4-2.0) mmol/L Calcium 8.8 (8.5-10.1) mg/dL Magnesium 1.5 L (1.8-2.4) mg/dL Total Bilirubin 0.5 (0.2-1.0) mg/dL AST 28 (15-37) U/L ALT 36 (12-78) U/L Alkaline Phosphatase 74 (46-116) IU/L Total Protein 7.4 (6.4-8.2) g/dL Albumin 3.5 (3.4-5.0) g/dL Meds: Medications Discontinued Medications Generic Name Dose Route Start Last Admin Trade Name Freq PRN Reason Stop Dose Admin Amoxicillin/Clavulanate Potassium 1 tab 03/23/19 22:13 Augmentin 875 Mg/125 Mg PO 03/23/19 22:14 ONETIME ONE Sodium Chloride 10 ml 03/23/19 22:33 Saline Flush FLUSH ASDIRECTED PRN Keep Vein Open Augmentin not given. - Radiology Interpretation Free Text/Narrative:: Leg Breaker shows mostly borderline mild sinus tachycardia with heart rate in the 100s with no ectopy or arrhythmia, however increased tachycardia in the 120s with coughing episodes. Chest x-ray, PA and lateral, shows moderate COPD changes with mild aortic valve calcification and mild pulmonary hypertension. No cardiomegaly, CHF, pulmonary infiltrates, foreign body, pneumothorax, etc.. Moderate osteoarthritic and osteoporotic changes noted. Departure - Departure Time of Disposition: 23:00 Disposition: DC/Tfer to [facility] 02 Condition: Good Clinical Impression: IDDM (insulin dependent diabetes mellitus), Anxiety and depression, Peptic reflux disease, Hyponatremia, Hypomagnesemia Aspiration into airway Qualifiers: Encounter type: initial encounter Qualified Code(s): T17.908A - Unspecified foreign body in respiratory tract, part unspecified causing other injury, initial encounter COPD (chronic obstructive pulmonary disease) Qualifiers: COPD type: emphysema Emphysema type: panlobular Qualified Code(s): J43.1 - Panlobular emphysema Hypertension Qualifiers: Hypertension type: essential hypertension Qualified Code(s): I10 - Essential ( primary) hypertension Rheumatoid arthritis Qualifiers: Rheumatoid arthritis location: multiple sites Rheumatoid factor presence: unspecified presence Qualified Code(s): M06.9 - Rheumatoid arthritis, unspecified Coronary artery disease Qualifiers: Coronary Disease-Associated Artery/Lesion type: [place] artery [place] vs. transplanted heart: [place] heart Associated angina: without angina Qualified Code(s): I25.10 - Atherosclerotic heart disease of [place] coronary artery without angina pectoris - Discharge Information *PRESCRIPTION DRUG MONITORING PROGRAM REVIEWED*: Not Applicable *COPY OF PRESCRIPTION DRUG MONITORING REPORT IN PATIENT BRITTANY: Not Applicable Referrals: PCP,None [Primary Care Provider] - Forms: ED Department Discharge, Interfacility Transfer EMTALA - Problem List & Annotations (1) Aspiration into airway SNOMED Code(s): 784153368 Code(s): T17.908A - UNSP FB IN RESP TRACT, PART UNSP CAUSING OTH INJURY, INIT Status: Acute Priority: High Onset Date: 03/23/19 Annotation/ Comment:: Patient was observed for an extended period of time in the emergency room with persistent coughing and mild distress consistent with possible aspiration of his medication as above. Chest x-ray appears normal with no direct evidence of foreign body, pulmonary infiltrates, etc.. Telephone consultation at 22:[address] Shetty, ENT at [facility], who does accept transfer the patient for initial evaluation in the emergency room, with no further treatment recommendations given. They do agree to contact the emergency room physician for me at this time. Possible bronchoscopy, etc. depending on his clinical course. Vital signs were stable at time of transfer with no supplemental oxygen required. Saline lock was placed. Note mild WBC elevation likely secondary to stress reaction with patient afebrile at this time. Qualifiers: Encounter type: initial encounter Qualified Code(s): T17.908A - Unspecified foreign body in respiratory tract, part unspecified causing other injury, initial encounter (2) Anxiety and depression SNOMED Code(s): 070919670 Code(s): F41.9 - ANXIETY DISORDER, UNSPECIFIED; F32.9 - MAJOR DEPRESSIVE DISORDER, SINGLE EPISODE, UNSPECIFIED Status: Chronic Priority: Medium Annotation/Comment:: Stable by history. (3) Coronary artery disease SNOMED Code(s): 87536712 Code(s): I25.10 - ATHSCL HEART DISEASE OF [place] CORONARY ARTERY W/O ANG PCTRS Status: Chronic Priority: Medium Annotation/Comment:: No chest pain or anginal type symptoms. Qualifiers: Coronary Disease-Associated Artery/Lesion type: [place] artery [place] vs. transplanted heart: [place] heart Associated angina: without angina Qualified Code(s): I25.10 - Atherosclerotic heart disease of [place] coronary artery without angina pectoris (4) Rheumatoid arthritis SNOMED Code(s): 50588376 Code(s): M06.9 - RHEUMATOID ARTHRITIS, UNSPECIFIED Status: Chronic Priority: Medium Annotation/Comment:: Stable by history with current methotrexate and steroid therapy with additional history of polymyalgia rheumatica. Qualifiers: Rheumatoid arthritis location: multiple sites Rheumatoid factor presence: unspecified presence Qualified Code(s): M06.9 - Rheumatoid arthritis, unspecified (5) COPD (chronic obstructive pulmonary disease) SNOMED Code(s): 49355179 Code(s): J44.9 - CHRONIC OBSTRUCTIVE PULMONARY DISEASE, UNSPECIFIED Status : Chronic Priority: Medium Annotation/Comment:: Stable by history with no recent bronchitic complaints, etc. 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 (7) Peptic reflux disease SNOMED Code(s): 095118046 Code(s): K21.9 - GASTRO-ESOPHAGEAL REFLUX DISEASE WITHOUT ESOPHAGITIS Status: Chronic Priority: Medium Annotation/Comment:: Stable by patient history (8) Hyponatremia SNOMED Code(s): 89779743 Code(s): E87.1 - HYPO-OSMOLALITY AND HYPONATREMIA Status: Acute Priority : Medium Onset Date: 03/23/19 Annotation/Comment:: Close follow-up by accepting providers. No direct clinical evidence of CHF with previously known hyponatremia in the past. (9) Hypomagnesemia SNOMED Code(s): 227194055 Code(s): E83.42 - HYPOMAGNESEMIA Status: Chronic Priority: Medium Annotation/Comment:: Currently under therapy. Medication adjustment likely required. - Problem List Review Problem List Initiated/Reviewed/Updated: Yes - My Orders Last 24 Hours: My Active Orders 03/23/19 21:18 Resuscitation Status Routine 03/23/19 21:19 Cardiac Monitoring [RC] CONTINUOUS Pulse Oximetry [RC] CONTINUOUS Up With Assistance [RC] ASDIRECTED Chest 2V [CR] Stat Obtain Past Medical Record [OM.PC] Stat 03/23/19 22:34 Peripheral IV Care [RC] . DIRECTED Peripheral IV Insertion Adult [OM.PC] Routine - Assessment/Plan Last 24 Hours: My Active Orders 03/23/19 21:18 Resuscitation Status Routine 03/23/19 21:19 Cardiac Monitoring [RC] CONTINUOUS Pulse Oximetry [RC] CONTINUOUS Up With Assistance [RC] ASDIRECTED Chest 2V [CR] Stat Obtain Past Medical Record [OM.PC] Stat 03/23/19 22:34 Peripheral IV Care [RC] . DIRECTED Peripheral IV Insertion Adult [OM.PC] Routine Assessment:: As above Plan: As above. Extensive precautions were given to the patient, who is in agreement with the treatment plan. Ambulance transfer with double cutter accompaniment.
[2019-03-23 21:55] LABS: CHLORIDE,CL 97 mmol/L (98-107); SODIUM,NA 133 mmol/L (136-145)
[2019-03-23] MEDS ORDERED: Amoxicillin/Clavulanate K 875-125 MG Tab PO ONE (22:13)
[2019-03-23] MEDS ORDERED: Sodium Chloride 0.9% 10 ML Syringe FLUSH PRN (22:33)
[2019-03-23 23:17] VITALS: BP 154/72
== END 2019-03-23 23:01 ==
LOC: LL.ED 21:03
DX: T17.990A Other foreign object in respiratory tract, part unspecified in causing asphyxiation, initial encounter (principal); F41.8 Other specified anxiety disorders; K21.9 Gastro-esophageal reflux disease without esophagitis; E87.1 Hypo-osmolality and hyponatremia; E83.42 Hypomagnesemia; J43.1 Panlobular emphysema; M06.9 Rheumatoid arthritis, unspecified; I25.10 Atherosclerotic heart disease of native coronary artery without angina pectoris; I10 Essential (primary) hypertension; E11.9 Type 2 diabetes mellitus without complications; Z88.1 Allergy status to other antibiotic agents; Z88.8 Allergy status to other drugs, medicaments and biological substances; Z79.82 Long term (current) use of aspirin; Z79.899 Other long term (current) drug therapy
CPT/HCPCS: 36415; 71046; 80053; 83605; 83735; 85025; 99285-25

== ENCOUNTER → 2019-09-30 | Outpatient (CLI) | payer MEDICARE, BC | LOC: LL.CLIN 10:15 | PROVIDERS: ATTEND Orthopaedic Surgery | DX: M67.431 Ganglion, right wrist (principal) | CPT/HCPCS: 20612; 99203 ==

== ENCOUNTER 2019-11-30 15:12 | Inpatient (IN) | payer MEDICARE, BC, MEDICAID ==
[2019-11-30] MEDS ORDERED: Ondansetron 4 MG/2 ML SDV IVPUSH PRN (19:01)
[2019-11-30] MEDS ORDERED: Albuterol/Ipratropium 3.0-0.5 MG/3 ML Neb Soln NEB PRN (19:17)
[2019-11-30] MEDS ORDERED: fentaNYL 100 MCG/2 ML SDV IVPUSH ONE (19:30)
--- NOTE | 2019-11-30 19:32 | PCM.HP.2 ---
H&P History of Present Illness - General Date of Service: 11/30/19 Admit Problem/Dx: Admission Diagnosis/Problem Admission Diagnosis/Problem Acute diverticulitis of intestine Source of Information: Patient, Old Records History Limitations: Reports: No Limitations - History of Present Illness Initial Comments - Free Text/Narative: 79 year old white male with nausea, vomiting, diarrhea, abdomenal pain for a couple of days. So weak today he had to be fed and he was not able to get out of bed per self. Diagnosis: diverticulitis. Also muscle spasms. Onset of Symptoms: Reports: Gradual Duration of Symptoms: Reports: Recurring Location: Reports: Abdomen Quality: Reports: Ache, Dull Severity: Moderate Improves with: Reports: Immobilization Worsens with: Reports: Movement Associated Symptoms: Reports: Loss of Appetite, Malaise, Nausea/Vomiting, Weakness Right Knee Pain Score (Numeric/FACES): 5 - Related Data Allergies/Adverse Reactions: Allergies Allergy/AdvReac Type Severity Reaction Status Date / Time ceftriaxone sodium Allergy Rash Verified 03/11/18 11:14 [From Rocephin] levofloxacin [From Levaquin] Allergy Rash Verified 03/11/18 11:14 Home Medications: Home Meds Aspirin [Halfprin] 81 mg PO DAILY 06/24/15 [History] Furosemide 20 mg PO DAILY 08/30/15 [History] metFORMIN [Glucophage] 1,000 mg PO BID 09/04/15 [History] Hydrocodone/Acetaminophen [[place] 5-325] 1 tab PO TID 11/29/15 [History] Polyethylene Glycol 3350 [MiraLAX] 17 gm PO DAILY 11/29/15 [History] amLODIPine [Norvasc] 2.5 mg PO DAILY 11/29/15 [History] Albuterol/Ipratropium [DuoNeb 3.0-0.5 MG/3 ML] 1 vial INH QID 10/07/17 [History] Albuterol/Ipratropium [DuoNeb 3.0-0.5 MG/3 ML] 3 ml NEB Q4HRRT PRN 10/07/17 [ History] Budesonide [Pulmicort] 0.5 mg IH Q12HR 10/07/17 [History] Calcium Carbonate [Tums] 500 mg PO BID 10/07/17 [History] Cyanocobalamin (Vitamin B-12) [Vitamin B-12] 1,000 mcg PO DAILY 10/07/17 [ History] Fexofenadine [Miryam] 180 mg PO DAILY 10/07/17 [History] Magnesium Hydroxide [Milk of Magnesia] 30 ml PO DAILY PRN 10/07/17 [History] Trolamine Salicylate/Aloe Vera [Aspercreme 10%] 1 applic TOP BID 10/07/17 [ History] Acetaminophen [Tylenol Arthritis Pain] 650 mg PO Q8HR PRN 10/08/17 [History] predniSONE 5 mg PO DAILY 10/08/17 [History] Docusate Sodium [Colace] 2 cap PO DAILY 03/11/18 [History] Mag Hydrox/Al Hydrox/Simeth [Antacid Suspension] 30 ml PO DAILY PRN 03/11/18 [ History] Eucalyptus Oil/Menthol/Camphor [Vicks Vaporub Ointment] 50 gm TP BEDTIME [History] Famotidine [Pepcid] 20 mg PO BID 03/23/19 [History] Folic Acid 1 mg PO DAILY 03/23/19 [History] Methotrexate 8 tab PO WE 03/23/19 [History] Nph, Human Insulin Isophane [HumuLIN N] 18 unit SUBCUT Q12HR 03/23/19 [History] Sertraline [Zoloft] 100 mg PO DAILY 03/23/19 [History] atenoloL [Tenormin] 25 mg PO DAILY 03/23/19 [History] Atenolol [Tenormin] 12.5 mg PO BEDTIME 11/30/19 [History] Carboxymethyl/Gly/Poly80/Pf [Refresh Optive Advanced Drops] 1 each EYEBOTH TID 11/30/19 [History] Doxazosin Mesylate [Cardura] 2 mg PO BEDTIME 11/30/19 [History] LORazepam [Ativan] 0.5 mg PO BID PRN 11/30/19 [History] Levothyroxine Sodium [Synthroid] 100 mcg PO DAILY 11/30/19 [History] Mineral Oil/Petrolatum,White [Retaine Pm Eye Ointment] 1 applic EYEBOTH BEDTIME 11/30/19 [History] guaiFENesin/Dextromethorphan [Safetussin DM] 10 ml PO BID 11/30/19 [History] guaiFENesin/Dextromethorphan [Safetussin DM] 10 ml PO Q6H PRN 11/30/19 [History] Past Medical History HEENT History: Reports: Allergic Rhinitis, Cataract, Other (See Below) Other HEENT History: 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 Dry eye syndrome. Cardiovascular History: Reports: Arrhythmia, CAD, Cardiomyopathy, Heart Murmur, High Cholesterol, Hypertension, [place], Syncope Other Cardiovascular History: Complete right bundle branch block. Moderate diastolic dysfunction and left atrial dilatation by echocardiogram. Mild diffuse valvular disease without heart murmurs although heart murmurs as a child. Near syncopal episode on 08/30/15. History of non-STEMI. Hyperlipidemia with secondary fatty liver. Respiratory History: Reports: Bronchitis, Recurrent, COPD, Intubation, Previous , Pneumonia, Recurrent, Pulmonary Fibrosis, Sleep Apnea, Other (See Below) Other Respiratory History: Recurrent aspiration pneumonia. Gastrointestinal History: Reports: Chronic Constipation, Chronic Diarrhea, Colon Polyp, Gastritis, GERD, GI Bleed, Hemorrhoids, Hiatal Hernia, Inflammatory Bowel Disease, Irritable Bowel Syndrome, Other (See Below) Other Gastrointestinal History: Excision of adenomatous colonic polyp at hepatic flexure in July 2011. Dysphagia Genitourinary History: Reports: BPH, Prostate Disorder, Retention, Urinary, Urinary Incontinence Musculoskeletal History: Reports: Arthritis, Back Pain, Chronic, Neck Pain, Chronic, Osteoarthritis, Osteoporosis, RA, Other (See Below) Other Musculoskeletal History: Rheumatoid arthritis with current methotrexate and steroid therapy. polymyalgia rheumatica-steroid dependent, moderate Mock's cyst right leg Neurological History: Reports: CVA, Headaches, Chronic, Neuropathy, Diabetic, Neuropathy, Peripheral, Vertigo, Other (See Below) Other Neuro History: Right lacunar infarct. 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 Psychiatric History: Reports: Addiction, Anxiety, Depression, Other (See Below) Other Psychiatric History: Chronic narcotic use. Endocrine/Metabolic History: Reports: Diabetes, Type II, Hypothyroidism, IDDM, Osteopenia, Osteoporosis, Other (See Below) Other Endocrine/Metabolic History: Hyponatremia. Hypomagnesemia. Hematologic History: Reports: Anemia Immunologic History: Reports: None Oncologic (Cancer) History: Reports: None Dermatologic History: Reports: None Other Dermatologic History: Recent rash, since resolved with triamcinolone - Infectious Disease History Infectious Disease History: Reports: Chicken Pox, Measles - Past Surgical History Head Surgeries/Procedures: Reports: None HEENT Surgical History: Reports: Adenoidectomy, Oral Surgery, Tonsillectomy, Other (See Below) Other HEENT Surgeries/Procedures: Complete teeth extraction. Tonsillectomy and adenoidectomy at about age 5. Cardiovascular Surgical History: Reports: None Respiratory Surgical History: Reports: None GI Surgical History: Reports: Colonoscopy, EGD, Hernia, Inguinal, Polypectomy, Other (See Below) Other GI Surgeries/Procedures: Colonoscopy on 09/22/15 with concomitant EGD with biopsy. Previous colonoscopy in July 2011 with polypectomy of a benign adenoma at the hepatic flexure. Right inguinal hernia repair on 07/18/06. Hemorrhoidectomy. Male Surgical History: Reports: Circumcision, Other (See Below) Other Male Surgeries/Procedures: Circumcision as an infant Endocrine Surgical History: Reports: None Neurological Surgical History: Reports: None Musculoskeletal Surgical History: Reports: Other (See Below) Other Musculoskeletal Surgeries/Procedures:: Excision of bilateral calcaneal benign fibromas on 06/20/10. Oncologic Surgical History: Reports: None Dermatological Surgical History: Reports: None - Past Imaging History Past Imaging History: Reports: Angiography (Heart catheterization at [facility] in October 2015[facility] Cardiac Echo (Last echocardiogram on with ejection fraction of 6065 percent and findings as above. Previous echocardiogram on 02/26/14.), CAT Scan (CT of the brain on 04/29/17 and 10/04/16. CT of the chest on 07/04/17, 09/01/14, and 03/26/14. CT of the chest and neck on 14/07.), MRI (C-spine on 09/01/13. Left ankle on 09/01/13.), Sleep Study (, 03/29/16, 03/13/16, and 01/03/16), Stress Testing (Cardiolite stress test on ), Swallow Study (04/03/18, 03/11/18, 10/18/16, 06/01/15, and 08/04/15.), Ultrasound (Abdominal ultrasound on 04/20/14), Venous Doppler (Right leg on and 11/23/15) Social & Family History - Family History Cardiac: Reports: Other (See Below) Other Cardiac Family History: Mother with atrial fibrillation. Respiratory: Reports: Other (See Below) Other Respiratory Family Hisory: Father with COPD. - Tobacco Use Smoking Status *Q: Never Smoker Second Hand Smoke Exposure: No - Caffeine Use Caffeine Use: Reports: Tea - Recreational Drug Use Recreational Drug Use: No - Living Situation & Occupation Living situation: Reports: Single (No children), [facility]) Occupation: Retired (Retired [employer] at age 61) H&P Review of Systems - Review of Systems: Review Of Systems: See Below General: Reports: Fever, Malaise, Weakness, Decreased Appetite HEENT: Reports: No Symptoms Pulmonary: Reports: No Symptoms Cardiovascular: Reports: Edema, Blood Pressure Problem (hypotension) Gastrointestinal: Reports: Abdominal Pain, Anorexia, Diarrhea, Decreased Appetite, Nausea, Vomiting Genitourinary: Reports: Retention (history) Musculoskeletal: Reports: Leg Pain (muscle spasms) Skin: Reports: No Symptoms Psychiatric: Reports: Anxiety Neurological: Reports: Pre-Existing Deficit Hematologic/Lymphatic: Reports: No Symptoms Immunologic: Reports: Seasonal Allergy Exam - Exam Exam: See Below - Vital Signs Vital Signs: Last Vital Signs Temp 98.1 F 11/30/19 16:14 Pulse 103 H 11/30/19 16:14 Resp 18 11/30/19 16:14 BP 97/57 L 11/30/19 16:14 Pulse Ox 97 11/30/19 16:14 Weight: 158 lb 6.4 oz - Exam General: Alert, Cooperative, Mild Distress HEENT: Hearing Intact, Glasses, Other (mucosa dry) Neck: Trachea Midline Lungs: Normal Respiratory Effort, Decreased Breath Sounds Cardiovascular: Regular Rate, Regular Rhythm GI/Abdominal Exam: Tender (diffuse), Abnormal Bowel Sounds (hypoactive) (Male) Exam: Deferred Rectal (Males) Exam: Deferred Back Exam: Normal Inspection Extremities: Non-Tender, No Pedal Edema Skin: Warm, Dry, Intact, Other (skin turgor decreased) Neurological: Sensation Intact, Other (generalized weakness) Neuro Extensive - Mental Status: Alert, Normal Mood/Affect Neuro Extensive - Motor, Sensory, Reflexes: Other (unable to walk due to generalized weakness) Psychiatric: Alert, Anxious Sepsis Event Note - Evaluation Sepsis Screening Result: No Definite Risk - Focused Exam Vital Signs: Vital Signs Temp Pulse Resp BP Pulse Ox 11/30/19 16:14 98.1 F 103 H 18 97/57 L 97 Date Exam was Performed: 11/30/19 Time Exam was Performed: 19:27 *Q Meaningful Use (ADM) - VTE *Q VTE Mechanical Contraindications *Q: At Risk for Falls VTE Pharmacological Contraindications *Q: Not Candidate LT Anticoag - Problem List (1) Diverticulitis large intestine w/o perforation or abscess w/o bleeding SNOMED Code(s): 2334836 ICD Code: K57.32 - DVTRCLI OF LG INT W/O PERFORATION OR ABSCESS W/O BLEEDING Status: Acute Priority: High Current Visit: Yes (2) Dehydration determined by examination SNOMED Code(s): 127946490 ICD Code: E86.0 - DEHYDRATION Status: Acute Priority: High Current Visit: Yes (3) Hypotension SNOMED Code(s): 48984228 ICD Code: I95.9 - HYPOTENSION, UNSPECIFIED Status: Acute Priority: High Current Visit: No Qualifiers: Hypotension type: unspecified hypotension type Qualified Code(s): I95.9 - Hypotension, unspecified (4) Weakness SNOMED Code(s): 68550311 ICD Code: R53.1 - WEAKNESS Status: Acute Priority: High Current Visit: No Problem Details: PT/OT consulted to evaluate the patient to see if needing swingbed status (5) Anemia SNOMED Code(s): 157515226 ICD Code: D64.9 - ANEMIA, UNSPECIFIED Status: Acute Current Visit: No Qualifiers: Anemia type: folate deficiency Folate deficiency anemia type: drug-induced Qualified Code(s): 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 (6) Anxiety SNOMED Code(s): 07920647 ICD Code: F41.9 - ANXIETY DISORDER, UNSPECIFIED Status: Acute Priority: Medium Current Visit: No (7) Anxiety about health SNOMED Code(s): 096315125 ICD Code: F41.8 - OTHER SPECIFIED ANXIETY DISORDERS Status: Acute Priority: Medium Current Visit: No (8) Depression SNOMED Code(s): 40815019 ICD Code: F32.9 - MAJOR DEPRESSIVE DISORDER, SINGLE EPISODE, UNSPECIFIED Status: Acute Priority: Medium Current Visit: No Qualifiers: Depression Type: major depressive disorder Major depression recurrence: recurrent Active/Remission status: in partial remission Qualified Code(s): F33.41 - Major depressive disorder, recurrent, in partial remission (9) Nausea & vomiting SNOMED Code(s): 51714676 ICD Code: R11.2 - NAUSEA WITH VOMITING, UNSPECIFIED Status: Acute Priority: High Current Visit: No (10) Anxiety and depression SNOMED Code(s): 871665235 ICD Code: F41.9 - ANXIETY DISORDER, UNSPECIFIED; F32.9 - MAJOR DEPRESSIVE DISORDER, SINGLE EPISODE, UNSPECIFIED Status: Chronic Priority: Medium Current Visit: No Problem Details: Stable by history. (11) COPD (chronic obstructive pulmonary disease) SNOMED Code(s): 68411364 ICD Code: J44.9 - CHRONIC OBSTRUCTIVE PULMONARY DISEASE, UNSPECIFIED Status : Chronic Priority: Medium Current Visit: No Problem Details: Stable by history with no recent bronchitic complaints, etc. Qualifiers: COPD type: emphysema Emphysema type: panlobular Qualified Code(s): J43.1 - Panlobular emphysema (12) Coronary artery disease SNOMED Code(s): 77825303 ICD Code: I25.10 - ATHSCL HEART DISEASE OF [place] CORONARY ARTERY W/O ANG PCTRS Status: Chronic Priority: Medium Current Visit: No Problem Details : No chest pain or anginal type symptoms. Qualifiers: Coronary Disease-Associated Artery/Lesion type: [place] artery [place] vs. transplanted heart: [place] heart Associated angina: without angina Qualified Code(s): I25.10 - Atherosclerotic heart disease of [place] coronary artery without angina pectoris (13) Hypertension SNOMED Code(s): 60632150 ICD Code: I10 - ESSENTIAL (PRIMARY) HYPERTENSION Status: Chronic Priority : Medium Current Visit: No Problem Details: Blood Pressures good in the emergency room Qualifiers: Hypertension type: essential hypertension Qualified Code(s): I10 - Essential (primary) hypertension (14) Hypomagnesemia SNOMED Code(s): 705246368 ICD Code: E83.42 - HYPOMAGNESEMIA Status: Chronic Priority: Medium Current Visit: No Problem Details: Currently under therapy. Medication adjustment likely required. (15) IDDM (insulin dependent diabetes mellitus) SNOMED Code(s): 23903500 ICD Code: E11.9 - TYPE 2 DIABETES MELLITUS WITHOUT COMPLICATIONS; Z79.4 - RETIREMENT (CURRENT) USE OF INSULIN Status: Chronic Priority: Medium Current Visit: No Problem Details: Stable by patient history despite chronic steroid therapy for his polymyalgia rheumatica as above. (16) Peptic reflux disease SNOMED Code(s): 484039949 ICD Code: K21.9 - GASTRO-ESOPHAGEAL REFLUX DISEASE WITHOUT ESOPHAGITIS Status: Chronic Priority: Medium Current Visit: No Problem Details: Stable by patient history (17) Polyarthritis rheumatica SNOMED Code(s): 75759306 ICD Code: M06.9 - RHEUMATOID ARTHRITIS, UNSPECIFIED Status: Chronic Priority: Medium Current Visit: No Problem Details: Stable by patient history with current methotrexate and steroid therapy Qualifiers: Rheumatoid arthritis location: multiple sites Rheumatoid factor presence: unspecified presence Qualified Code(s): M06.9 - Rheumatoid arthritis, unspecified (18) Rheumatoid arthritis SNOMED Code(s): 22429390 ICD Code: M06.9 - RHEUMATOID ARTHRITIS, UNSPECIFIED Status: Chronic Priority: Medium Current Visit: No Problem Details: Stable by history with current methotrexate and steroid therapy with additional history of polymyalgia rheumatica. Qualifiers: Rheumatoid arthritis location: multiple sites Rheumatoid factor presence: unspecified presence Qualified Code(s): M06.9 - Rheumatoid arthritis, unspecified (19) Diarrhea SNOMED Code(s): 86571525 ICD Code: R19.7 - DIARRHEA, UNSPECIFIED Status: Acute Priority: High Current Visit: Yes Qualifiers: Diarrhea type: presumed infectious Qualified Code(s): R19.7 - Diarrhea, unspecified Problem List Initiated/Reviewed/Updated: Yes Orders Last 24hrs: Active Orders 24 hr Category Date Time Status Patient Status [ADT] Routine ADT 11/30/19 19:01 Ordered Blood Glucose Check, Bedside [RC] BIDMEALS Care 11/30/19 19:01 Ordered EKG Documentation Completion [RC] ASDIRECTED Care 11/30/19 19:11 Ordered Height and Weight [RC] UPON Care 11/30/19 19:01 Ordered May Shower [RC] ASDIRECTED Care 11/30/19 19:01 Ordered Oxygen Therapy [RC] PRN Care 11/30/19 19:01 Ordered Up With Assistance [RC] ASDIRECTED Care 11/30/19 19:01 Ordered VTE/DVT Education [RC] PER UNIT ROUTINE Care 11/30/19 19:01 Ordered Vital Signs [RC] Q4H Care 11/30/19 19:01 Ordered Consult to Case Management/Emergency Vehicle Operations Instructor [CONS] Cons 11/30/19 19:01 Ordered Routine OT Evaluation and Treatment [CONS] Routine Cons 11/30/19 19:01 Ordered PT Evaluation and Treatment [CONS] Routine Cons 11/30/19 19:01 Ordered Clear Liquid Diet [DIET] Diet 11/30/19 Dinner Ordered Abdomen 1V Flat [CR] Routine Exams 11/30/19 19:01 Stop Req Abdomen 2V AP Flat Upright [CR] Routine Exams 11/30/19 19:13 Ordered Chest 2V [CR] Routine Exams 11/30/19 19:01 Ordered C-REACTIVE PROTEIN [CHEM] Routine Lab 11/30/19 19:01 Ordered CBC WITH AUTO DIFF [HEME] Routine Lab 11/30/19 19:01 Ordered COMPREHENSIVE METABOLIC PN,CMP [CHEM] Routine Lab 11/30/19 19:01 Ordered CREATINE KINASE,CK [CHEM] Routine Lab 11/30/19 19:01 Ordered CULTURE BLOOD [BC] Stat Lab 11/30/19 19:09 Ordered CULTURE BLOOD [BC] Stat Lab 11/30/19 19:09 Ordered LACTIC ACID [CHEM] Routine Lab 11/30/19 19:21 Ordered TROPONIN I [CHEM] Routine Lab 11/30/19 19:01 Ordered UA W/MICROSCOPIC [URIN] Routine Lab 11/30/19 19:01 Ordered Acetaminophen [Tylenol Arthritis Pain] Med 11/30/19 19:17 Ordered 650 mg PO Q8HR PRN Acetaminophen/HYDROcodone [[place]eth[place] 325-5 MG] Med 12/01/19 08:00 Ordered 1 tab PO TID Albuterol/Ipratropium [DuoNeb 3.0-0.5 MG/3 ML] Med 11/30/19 20:00 Ordered 1 vial INH QID Albuterol/Ipratropium [DuoNeb 3.0-0.5 MG/3 ML] Med 11/30/19 19:17 Ordered 3 ml NEB Q4HRRT PRN Budesonide [Pulmicort] Med 11/30/19 20:00 Ordered 0.5 mg NEB Q12HR Carboxymethyl/Gly/Poly80/Pf [Refresh Optive Advanced Med 12/01/19 08:00 Ordered Drops] 1 each EYEBOTH TID Eucalyptus Oil/Menthol/Camphor [Vicks Vaporub Ointment] Med 11/30/19 20:00 Ordered 50 gm TP BEDTIME LORazepam [Ativan] Med 11/30/19 19:17 Ordered 0.5 mg PO BID PRN Lactated Ringers [Ringers, Lactated] 1,000 ml Med 11/30/19 19:15 Ordered IV ASDIRECTED Mineral Oil/Petrolatum,White [Retaine Pm Eye Ointment] Med 11/30/19 20:00 Ordered 1 applic EYEBOTH BEDTIME Ondansetron [Zofran] Med 11/30/19 19:01 Ordered 4 mg IVPUSH Q4H PRN Sodium Chloride 0.9% [Saline Flush] Med 11/30/19 19:01 Ordered 10 ml FLUSH ASDIRECTED PRN Sodium Chloride 0.9% [Saline Flush] Med 11/30/19 20:00 Ordered 10 ml FLUSH Q12HR Trolamine Salicylate/Aloe Vera [Aspercreme 10%] Med 11/30/19 19:30 Ordered 1 applic TOP BID fentaNYL [Sublimaze] Med 11/30/19 19:30 Once 50 mcg IVPUSH ONETIME ONE guaiFENesin/Dextromethorphan [Safetussin DM] Med 11/30/19 19:17 Ordered 10 ml PO Q6H PRN metroNIDAZOLE/Normal Saline [Flagyl 500 MG in NS 100 ML Med 11/30/19 19:30 Ordered ] 500 mg Premix Bag 1 bag IV Q8H Blood Culture x2 Reflex Set [OM.PC] Stat Oth 11/30/19 19:01 Ordered Saline Lock Insert [OM.PC] Routine Oth 11/30/19 19:01 Ordered VTE Mechanical Contraindications [AST] Per Unit Routine Oth 11/30/19 19:01 Ordered VTE Pharmacological Contraindications [AST] Per Unit Oth 11/30/19 19:01 Ordered Routine Resuscitation Status Routine Resus Stat 11/30/19 19:01 Ordered EKG 12 Lead [EK] Routine Ther 11/30/19 19:01 Ordered Medication Orders Acetaminophen (Tylenol Arthritis Pain) 650 mg PO Q8HR PRN PRN Reason: Pain Hydrocodone Bitart/Acetaminophen ([place] 325-5 Mg) 1 tab PO TID JOHN Albuterol/Ipratropium (Duoneb 3.0-0.5 Mg/3 Ml) ml INH QID JOHN Albuterol/Ipratropium (Duoneb 3.0-0.5 Mg/3 Ml) 3 ml NEB Q4HRRT PRN PRN Reason: Shortness of Breath Budesonide (Pulmicort) 0.5 mg NEB Q12HR JOHN Fentanyl (Sublimaze) 50 mcg IVPUSH ONETIME ONE Stop: 11/30/19 19:31 Lactated Ringer's (Ringers, Lactated) 1,000 mls @ 75 mls/hr IV ASDIRECTED JOHN Metronidazole 500 mg/ Premix 100 mls @ 100 mls/hr IV Q8H JOHN Lorazepam (Ativan) 0.5 mg PO BID PRN PRN Reason: Anxiety Non-Formulary Medication (Carboxymethyl/Gly/Poly80/Pf [Refresh Optive Advanced Drops]) 1 each EYEBOTH TID JOHN Non-Formulary Medication (Eucalyptus Oil/Menthol/Camphor [Vicks Vaporub Ointment ]) 50 gm TP BEDTIME JOHN Non-Formulary Medication (Guaifenesin/Dextromethorphan [Safetussin Dm]) 10 ml PO Q6H PRN PRN Reason: Cough Non-Formulary Medication (Mineral Oil/Petrolatum,White [Retaine Pm Eye Ointment] ) 1 applic EYEBOTH BEDTIME JOHN Ondansetron HCl (Zofran) 4 mg IVPUSH Q4H PRN PRN Reason: Nausea/Vomiting Sodium Chloride (Saline Flush) 10 ml FLUSH ASDIRECTED PRN PRN Reason: Keep Vein Open Sodium Chloride (Saline Flush) 10 ml FLUSH Q12HR [facility] Trolamine Salicylate (Aspercreme 10%) gm TOP BID JOHN Assessment/Plan Comment:: 11/30/2019 Winnie Murrell MD 79 yo white male, acute diverticulitis, dehydration, hypotension. Admit in- patient for IV fluids, IV antibiotics, pain management, blood pressure management. - Mortality Measure Prognosis:: Good
[2019-11-30 19:59] LABS: CHLORIDE,CL 100 mmol/L (98-107); SODIUM,NA 135 mmol/L (136-145)
[2019-11-30] MEDS ORDERED: MENTHOL TP SCH (20:00)
[2019-11-30] MEDS ORDERED: CAMPHOR TP SCH (20:00)
[2019-11-30] MEDS ORDERED: [UNRECOGNIZED DRUG - OTHER] TP SCH (20:00)
[2019-11-30] MEDS ORDERED: EUCALYPTUS OIL TP SCH (20:00)
[2019-11-30] MEDS: Lactated Ringers 1,000 ML IV SCH (20:15)
[2019-11-30] MEDS: Sodium Chloride 0.9% 10 ML Syringe FLUSH SCH (20:16)
[2019-11-30] MEDS: metroNIDAZOLE/Normal Saline 500 MG in Premix Bag 1 BAG IV SCH (20:18)
[2019-11-30] MEDS: Albuterol/Ipratropium 3.0-0.5 MG/3 ML Neb Soln INH SCH (20:18)
[2019-11-30] MEDS: Mineral Oil/Petrolatum Ophth Oint 3.5 GM Tube EYEBOTH SCH (20:20)
[2019-11-30] MEDS: Budesonide 0.5 MG/2 ML Neb Susp NEB SCH (20:22)
[2019-11-30] MEDS: Trolamine Salicylate/Aloe Vera 10% Crm 85 GM Tube TOP SCH (20:42)
[2019-11-30] MEDS: Acetaminophen 650 MG Tab.ER PO PRN (20:52)
[2019-11-30] MEDS: guaiFENesin/Dextromethorphan 100-10 MG/5 ML Soln 10 ML Cup PO PRN (20:53)
[2019-11-30] MEDS ORDERED: fentaNYL 100 MCG/2 ML SDV IVPUSH PRN (20:53)
[2019-11-30] MEDS: LORazepam 0.5 MG Tab PO PRN (20:53)
[2019-11-30] MEDS ORDERED: Insulin Lispro 100 Units/ML 3 ML Vial SUBCUT ONE (21:30)
[2019-11-30] MEDS: methylPREDNISolone Sodium Succinate 40 MG/1 ML SDV IVPUSH SCH (21:38)
[2019-12-01] MEDS: methylPREDNISolone Sodium Succinate 40 MG/1 ML SDV IVPUSH SCH ×3 (04:47→20:21)
[2019-12-01] MEDS: metroNIDAZOLE/Normal Saline 500 MG in Premix Bag 1 BAG IV SCH ×3 (04:47→20:22)
[2019-12-01] MEDS: Acetaminophen/HYDROcodone 325-5 MG Tab PO SCH ×3 (07:26→17:11)
[2019-12-01] MEDS: Insulin Lispro 100 Units/ML 3 ML Vial SUBCUT SCH ×3 (07:27→17:16)
[2019-12-01] MEDS: Albuterol/Ipratropium 3.0-0.5 MG/3 ML Neb Soln INH SCH ×4 (07:28→20:34)
[2019-12-01] MEDS: Trolamine Salicylate/Aloe Vera 10% Crm 85 GM Tube TOP SCH ×2 (07:28→17:20)
[2019-12-01] MEDS: Budesonide 0.5 MG/2 ML Neb Susp NEB SCH ×2 (07:29→20:05)
[2019-12-01] MEDS ORDERED: Hypromellose 0.3% Ophth Soln 15 ML Bottle EYEBOTH SCH (08:00)
[2019-12-01 08:08] LABS: CHLORIDE,CL 106 mmol/L (98-107); SODIUM,NA 141 mmol/L (136-145)
[2019-12-01] MEDS ORDERED: Atenolol 25 MG Tab PO SCH ×2 (08:45→20:00)
[2019-12-01] MEDS: Polyvinyl Alcohol 1.4% Ophth Soln 15 ML Bottle EYEBOTH SCH ×3 (09:18→17:21)
[2019-12-01] MEDS: Sodium Chloride 0.9% 10 ML Syringe FLUSH SCH ×3 (09:18→20:12)
[2019-12-01] MEDS ORDERED: Acetaminophen 650 MG Tab.ER PO PRN (11:45)
[2019-12-01] MEDS ORDERED: Acetaminophen 325 MG Tab PO PRN (12:00)
[2019-12-01] MEDS: Lactated Ringers 1,000 ML IV SCH (13:50)
--- NOTE | 2019-12-01 15:41 | PCM.PN ---
- General Info Date of Service: 12/01/19 Admission Dx/Problem (Free Text): Admission Diagnosis/Problem Admission Diagnosis/Problem Acute diverticulitis of intestine Functional Status: Reports: Tolerating Diet, Urinating - Review of Systems General: Reports: Weakness HEENT: Reports: Glasses Pulmonary: Reports: Cough Cardiovascular: Reports: No Symptoms Gastrointestinal: Reports: Decreased Appetite, Difficulty Swallowing (not new) Genitourinary: Reports: Retention (history) Musculoskeletal: Reports: Leg Pain (right), Joint Pain, Joint Swelling Skin: Reports: No Symptoms Neurological: Reports: Pre-Existing Deficit, Difficulty Walking, Weakness, Gait Disturbance Psychiatric: Reports: Anxiety - Patient Data Vitals - Most Recent: Last Vital Signs Temp 98.7 F 12/01/19 15:27 Pulse 90 12/01/19 15:27 Resp 18 12/01/19 15:27 BP 132/67 12/01/19 15:27 Pulse Ox 98 12/01/19 15:27 Weight - Most Recent: 158 lb 6.4 oz I&O - Last 24 Hours: Intake & Output 12/01/19 12/01/19 12/01/19 06:59 14:59 22:59 Intake Total 737 600 Output Total 400 Balance 737 -400 600 Lab Results Last 24 Hours: Laboratory Results - last 24 hr 11/30/19 11/30/19 11/30/19 Range/Units 19:23 19:23 19:23 WBC 13.7 H (4.0-10.2) K/uL RBC 4.55 (4.33-5.41) M/uL Hgb 12.4 L (13.1-16.8) g/dL Hct 38.3 L (39.0-49.0) % MCV 84.2 D (84.0-98.0) fL MCH 27.3 L (28.2-33.3) pg MCHC 32.4 (31.7-36.0) g/dL RDW 16.6 H (11.2-14.1) % Plt Count 198 (150-350) K/uL Neut % (Auto) 91.2 H (45.0-80.0) % Lymph % (Auto) 4.5 L (10.0-50.0) % [place] % (Auto) 4.2 (2.0-14.0) % Eos % (Auto) 0.0 (0.0-5.0) % Baso % (Auto) 0.1 (0.0-2.0) % Neut # (Auto) 12.49 H (1.40-7.00) K/uL Lymph # (Auto) 0.62 (0.50-3.50) K/uL [place] # (Auto) 0.58 (0.00-1.00) K/uL Eos # (Auto) 0.00 (0.00-0.50) K/uL Baso # (Auto) 0.02 (0.00-0.20) K/uL ESR (0-20) mm/hr Sodium 135 L (136-145) mmol/L Potassium 4.0 (3.5-5.1) mmol/L Chloride 100 (98-107) mmol/L Carbon Dioxide 20.2 L (21.0-32.0) mmol/L BUN 34 H D (7-18) mg/dL Creatinine 1.06 (0.51-1.17) mg/dL Est Cr Clr Drug Dosing 48.35 mL/min Estimated GFR (MDRD) > 60 mL/min Glucose 254 H (74-106) mg/dL POC Glucose (65-110) mg/dl Lactic Acid 2.5 H (0.4-2.0) mmol/L Calcium 8.5 (8.5-10.1) mg/dL Magnesium (1.8-2.4) mg/dL Iron (50-175) ug/dL TIBC (250-450) ug/dL % Saturation Ferritin (8-388) ng/mL Total Bilirubin 1.2 H (0.2-1.0) mg/dL AST 47 H (15-37) U/L ALT 26 (12-78) U/L Alkaline Phosphatase 70 (46-116) IU/L Creatine Kinase 758 H (26-308) U/L Creatine Kinase Index (0.0-2.5) % CK-MB (CK-2) (0.00-3.60) ng/mL Troponin I 0.062 H* (0.000-0.056) ng/mL C-Reactive Protein 49.0 H (<=0.9) mg/dL Total Protein 7.9 (6.4-8.2) g/dL Albumin 3.2 L (3.4-5.0) g/dL Vitamin B12 (193-986) pg/mL Folate (8.6-58.9) ng/mL TSH, Ultra Sensitive (0.358-3.740) mIU/mL Specimen Type Urine Color Urine Appearance Urine pH (5.0-9.0) Ur Specific [place] (1.005-1.030) Urine Protein (NEGATIVE) mg/dL Urine Glucose (UA) (NEGATIVE) mg/dL Urine Ketones (NEGATIVE) mg/dL Urine Occult Blood (NEGATIVE) Urine Nitrite (NEGATIVE) Urine Bilirubin (NEGATIVE) Urine Urobilinogen (0.2-1.0) E.U./dL Ur Leukocyte Esterase (NEGATIVE) Urine RBC /HPF Urine WBC /HPF Ur Epithelial Cells /LPF Amorphous Sediment (0/HPF) /HPF Urine Bacteria (NONE TO FEW) /HPF 12/01/19 12/01/19 12/01/19 Range/Units 06:50 06:50 06:50 WBC 11.2 H (4.0-10.2) K/uL RBC 4.09 L (4.33-5.41) M/uL Hgb 11.1 L (13.1-16.8) g/dL Hct 34.3 L (39.0-49.0) % MCV 83.9 L (84.0-98.0) fL MCH 27.1 L (28.2-33.3) pg MCHC 32.4 (31.7-36.0) g/dL RDW 16.2 H (11.2-14.1) % Plt Count 189 (150-350) K/uL Neut % (Auto) 95.6 H (45.0-80.0) % Lymph % (Auto) 2.2 L (10.0-50.0) % [place] % (Auto) 2.2 (2.0-14.0) % Eos % (Auto) 0.0 (0.0-5.0) % Baso % (Auto) 0.0 (0.0-2.0) % Neut # (Auto) 10.67 H (1.40-7.00) K/uL Lymph # (Auto) 0.25 L (0.50-3.50) K/uL [place] # (Auto) 0.25 (0.00-1.00) K/uL Eos # (Auto) 0.00 (0.00-0.50) K/uL Baso # (Auto) 0.00 (0.00-0.20) K/uL ESR 86 H (0-20) mm/hr Sodium 141 (136-145) mmol/L Potassium 3.9 (3.5-5.1) mmol/L Chloride 106 (98-107) mmol/L Carbon Dioxide 23.7 (21.0-32.0) mmol/L BUN 30 H (7-18) mg/dL Creatinine 0.66 (0.51-1.17) mg/dL Est Cr Clr Drug Dosing 77.65 mL/min Estimated GFR (MDRD) > 60 mL/min Glucose 244 H (74-106) mg/dL POC Glucose (65-110) mg/dl Lactic Acid (0.4-2.0) mmol/L Calcium 8.5 (8.5-10.1) mg/dL Magnesium 2.1 (1.8-2.4) mg/dL Iron 8 L (50-175) ug/dL TIBC 225 L (250-450) ug/dL % Saturation 3.93009 Ferritin 270 (8-388) ng/mL Total Bilirubin 1.0 (0.2-1.0) mg/dL AST 42 H (15-37) U/L ALT 24 (12-78) U/L Alkaline Phosphatase 64 (46-116) IU/L Creatine Kinase 631 H (26-308) U/L Creatine Kinase Index 1.0 (0.0-2.5) % CK-MB (CK-2) 6.20 H* (0.00-3.60) ng/mL Troponin I 0.065 H* (0.000-0.056) ng/mL C-Reactive Protein 18.8 H (<=0.9) mg/dL Total Protein 7.4 (6.4-8.2) g/dL Albumin 2.8 L (3.4-5.0) g/dL Vitamin B12 683 (193-986) pg/mL Folate (8.6-58.9) ng/mL TSH, Ultra Sensitive 1.566 (0.358-3.740) mIU/mL Specimen Type Urine Color Urine Appearance Urine pH (5.0-9.0) Ur Specific [place] (1.005-1.030) Urine Protein (NEGATIVE) mg/dL Urine Glucose (UA) (NEGATIVE) mg/dL Urine Ketones (NEGATIVE) mg/dL Urine Occult Blood (NEGATIVE) Urine Nitrite (NEGATIVE) Urine Bilirubin (NEGATIVE) Urine Urobilinogen (0.2-1.0) E.U./dL Ur Leukocyte Esterase (NEGATIVE) Urine RBC /HPF Urine WBC /HPF Ur Epithelial Cells /LPF Amorphous Sediment (0/HPF) /HPF Urine Bacteria (NONE TO FEW) /HPF 12/01/19 12/01/19 12/01/19 Range/Units 06:50 07:00 07:00 WBC (4.0-10.2) K/uL RBC (4.33-5.41) M/uL Hgb (13.1-16.8) g/dL Hct (39.0-49.0) % MCV (84.0-98.0) fL MCH (28.2-33.3) pg MCHC (31.7-36.0) g/dL RDW (11.2-14.1) % Plt Count (150-350) K/uL Neut % (Auto) (45.0-80.0) % Lymph % (Auto) (10.0-50.0) % [place] % (Auto) (2.0-14.0) % Eos % (Auto) (0.0-5.0) % Baso % (Auto) (0.0-2.0) % Neut # (Auto) (1.40-7.00) K/uL Lymph # (Auto) (0.50-3.50) K/uL [place] # (Auto) (0.00-1.00) K/uL Eos # (Auto) (0.00-0.50) K/uL Baso # (Auto) (0.00-0.20) K/uL ESR (0-20) mm/hr Sodium (136-145) mmol/L Potassium (3.5-5.1) mmol/L Chloride (98-107) mmol/L Carbon Dioxide (21.0-32.0) mmol/L BUN (7-18) mg/dL Creatinine (0.51-1.17) mg/dL Est Cr Clr Drug Dosing mL/min Estimated GFR (MDRD) mL/min Glucose (74-106) mg/dL POC Glucose 224 H (65-110) mg/dl Lactic Acid (0.4-2.0) mmol/L Calcium (8.5-10.1) mg/dL Magnesium (1.8-2.4) mg/dL Iron (50-175) ug/dL TIBC (250-450) ug/dL % Saturation Ferritin (8-388) ng/mL Total Bilirubin (0.2-1.0) mg/dL AST (15-37) U/L ALT (12-78) U/L Alkaline Phosphatase (46-116) IU/L Creatine Kinase (26-308) U/L Creatine Kinase Index (0.0-2.5) % CK-MB (CK-2) (0.00-3.60) ng/mL Troponin I (0.000-0.056) ng/mL C-Reactive Protein (<=0.9) mg/dL Total Protein (6.4-8.2) g/dL Albumin (3.4-5.0) g/dL Vitamin B12 (193-986) pg/mL Folate 20.0 (8.6-58.9) ng/mL TSH, Ultra Sensitive (0.358-3.740) mIU/mL Specimen Type Urincc Urine Color Dark yellow Urine Appearance Clear Urine pH 5.5 (5.0-9.0) Ur Specific [place] >= 1.030 (1.005-1.030) Urine Protein 100 H (NEGATIVE) mg/dL Urine Glucose (UA) 100 H (NEGATIVE) mg/dL Urine Ketones 40 H (NEGATIVE) mg/dL Urine Occult Blood Moderate H (NEGATIVE) Urine Nitrite Negative (NEGATIVE) Urine Bilirubin Negative (NEGATIVE) Urine Urobilinogen 0.2 (0.2-1.0) E.U./dL Ur Leukocyte Esterase Negative (NEGATIVE) Urine RBC 0-5 /HPF Urine WBC 0-5 /HPF Ur Epithelial Cells Few /LPF Amorphous Sediment Few (0/HPF) /HPF Urine Bacteria Few (NONE TO FEW) /HPF Med Orders - Current: Current Medications Acetaminophen (Tylenol Arthritis Pain) 650 mg PO Q8HR PRN PRN Reason: Pain Last Admin: 11/30/19 20:52 Dose: 650 mg Acetaminophen (Tylenol) 325 mg PO Q3H PRN PRN Reason: fever Hydrocodone Bitart/Acetaminophen ([place] 325-5 Mg) 1 tab PO TID [facility] Last Admin: 12/01/19 11:26 Dose: 1 tab Albuterol/Ipratropium (Duoneb 3.0-0.5 Mg/3 Ml) 3 ml INH QIDRT [facility] Last Admin: 12/01/19 15:19 Dose: 3 ml Albuterol/Ipratropium (Duoneb 3.0-0.5 Mg/3 Ml) 3 ml NEB Q4HRRT PRN PRN Reason: Shortness of Breath Artificial Tears (Liquitears 1.4% Ophth Soln) 0 ml EYEBOTH TID [facility] Last Admin: 12/01/19 11:26 Dose: 1 drop Atenolol (Tenormin) 12.5 mg PO BEDTIME [facility] Atenolol (Tenormin) 25 mg PO DAILY [facility] Last Admin: 12/01/19 09:19 Dose: 25 mg Budesonide (Pulmicort) 0.5 mg NEB Q12HR [facility] Last Admin: 12/01/19 07:29 Dose: 0.5 mg Famotidine (Pepcid) 20 mg IVPUSH BID [facility] Fentanyl (Sublimaze) 50 mcg IVPUSH Q4H PRN PRN Reason: Pain Fexofenadine HCl (Miryam) 180 mg PO DAILY [facility] Guaifenesin/Dextromethorphan (Robitussin Dm) 10 ml PO Q6H PRN PRN Reason: Cough Last Admin: 11/30/19 20:53 Dose: 10 ml Guaifenesin/Dextromethorphan (Robitussin Dm) 10 ml PO BID [facility] Lactated Ringer's (Ringers, Lactated) 1,000 mls @ 75 mls/hr IV ASDIRECTED [facility] Last Admin: 12/01/19 13:50 Dose: 75 mls/hr Metronidazole 500 mg/ Premix 100 mls @ 100 mls/hr IV Q8H [facility] Last Admin: 12/01/19 11:25 Dose: 100 mls/hr Insulin Human Lispro (Humalog) 0 unit SUBCUT TID@0800,1200,1800 [facility]; Protocol Last Admin: 12/01/19 11:24 Dose: 8 units Insulin Human NPH (Humulin N) 20 unit SQ BIDAC [facility] Lorazepam (Ativan) 0.5 mg PO BID PRN PRN Reason: Anxiety Last Admin: 11/30/19 20:53 Dose: 0.5 mg Meropenem (Merrem) 500 mg IVPUSH Q12HR [facility] Methylprednisolone Sodium Succinate (Solu-Medrol) 40 mg IVPUSH Q12HR [facility] Mineral Oil/White Petrolatum (Lacri-Lube S.O.P Oint) 0 gm EYEBOTH BEDTIME [facility] Last Admin: 11/30/19 20:20 Dose: 1 applic Non-Formulary Medication (Eucalyptus Oil/Menthol/Camphor [Vicks Vaporub Ointment ]) 50 gm TP BEDTIME [facility] Ondansetron HCl (Zofran) 4 mg IVPUSH Q4H PRN PRN Reason: Nausea/Vomiting Sertraline HCl (Zoloft) 100 mg PO BEDTIME [facility] Sodium Chloride (Saline Flush) 10 ml FLUSH ASDIRECTED PRN PRN Reason: Keep Vein Open Sodium Chloride (Saline Flush) 10 ml FLUSH Q12HR [facility] Last Admin: 12/01/19 09:18 Dose: Not Given Trolamine Salicylate (Aspercreme 10%) 0 gm TOP BID [facility] Last Admin: 12/01/19 07:28 Dose: 1 applic Discontinued Medications Artificial Tears (Genteal Mild To Moderate Ophth Soln) 0 ml EYEBOTH TID [facility] Last Admin: 12/01/19 07:36 Dose: Not Given Fentanyl (Sublimaze) 50 mcg IVPUSH ONETIME ONE Stop: 11/30/19 19:31 Last Admin: 11/30/19 20:20 Dose: 50 mcg Insulin Human Lispro (Humalog) 6 unit SUBCUT ONETIME ONE Stop: 12/01/19 21:01 Insulin Human Lispro (Humalog) 6 unit SUBCUT ONETIME ONE Stop: 11/30/19 21:31 Last Admin: 11/30/19 22:46 Dose: 6 units Methylprednisolone Sodium Succinate (Solu-Medrol) 40 mg IVPUSH Q8H [facility] Last Admin: 12/01/19 14:18 Dose: 40 mg - Exam General: Alert, Cooperative, No Acute Distress HEENT: Mucous Membr. Moist/[place] Neck: Trachea Midline, No JVD Lungs: Normal Respiratory Effort, Decreased Breath Sounds Cardiovascular: Regular Rate, Regular Rhythm GI/Abdominal Exam: Soft, Non-Tender (Male) Exam: Deferred Back Exam: Normal Inspection Extremities: Joint Swelling (right knee) Skin: Warm, Dry, Intact Neurological: Other (generalized weakness) Psy/Mental Status: Alert, Anxious Sepsis Event Note - Evaluation Sepsis Screening Result: No Definite Risk - Focused Exam Vital Signs: Vital Signs Temp Pulse Pulse Resp BP BP Pulse Ox 12/01/19 15:27 98.7 F 90 18 132/67 98 12/01/19 10:56 99.0 F 96 18 125/64 97 12/01/19 09:19 90 152/63 H 12/01/19 07:37 97.9 F 90 18 152/63 H 98 12/01/19 04:00 98.2 F 93 16 128/67 98 Date Exam was Performed: 12/01/19 Time Exam was Performed: 15:35 - Problem List & Annotations (1) Diverticulitis large intestine w/o perforation or abscess w/o bleeding SNOMED Code(s): 1341861 Code(s): K57.32 - DVTRCLI OF LG INT W/O PERFORATION OR ABSCESS W/O BLEEDING Status: Acute Priority: High Current Visit: Yes (2) Dehydration determined by examination SNOMED Code(s): 724366181 Code(s): E86.0 - DEHYDRATION Status: Acute Priority: High Current Visit : Yes (3) Hypotension SNOMED Code(s): 51346199 Code(s): I95.9 - HYPOTENSION, UNSPECIFIED Status: Acute Priority: High Current Visit: No Qualifiers: Hypotension type: unspecified hypotension type Qualified Code(s): I95.9 - Hypotension, unspecified (4) Weakness SNOMED Code(s): 83023332 Code(s): R53.1 - WEAKNESS Status: Acute Priority: High Current Visit: No Annotation/Comment:: PT/OT consulted to evaluate the patient to see if needing swingbed status (5) Anemia SNOMED Code(s): 218364145 Code(s): D64.9 - ANEMIA, UNSPECIFIED Status: Acute Current Visit: No Qualifiers: Anemia type: folate deficiency Folate deficiency anemia type: drug-induced Qualified Code(s): 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 (6) Anxiety SNOMED Code(s): 93164347 Code(s): F41.9 - ANXIETY DISORDER, UNSPECIFIED Status: Acute Priority: Medium Current Visit: No (7) Anxiety about health SNOMED Code(s): 443236186 Code(s): F41.8 - OTHER SPECIFIED ANXIETY DISORDERS Status: Acute Priority : Medium Current Visit: No (8) Depression SNOMED Code(s): 97846453 Code(s): F32.9 - MAJOR DEPRESSIVE DISORDER, SINGLE EPISODE, UNSPECIFIED Status: Acute Priority: Medium Current Visit: No Qualifiers: Depression Type: major depressive disorder Major depression recurrence: recurrent Active/Remission status: in partial remission Qualified Code(s): F33.41 - Major depressive disorder, recurrent, in partial remission (9) Nausea & vomiting SNOMED Code(s): 42076980 Code(s): R11.2 - NAUSEA WITH VOMITING, UNSPECIFIED Status: Acute Priority : High Current Visit: No (10) Anxiety and depression SNOMED Code(s): 977710093 Code(s): F41.9 - ANXIETY DISORDER, UNSPECIFIED; F32.9 - MAJOR DEPRESSIVE DISORDER, SINGLE EPISODE, UNSPECIFIED Status: Chronic Priority: Medium Current Visit: No Annotation/Comment:: Stable by history. (11) COPD (chronic obstructive pulmonary disease) SNOMED Code(s): 68116614 Code(s): J44.9 - CHRONIC OBSTRUCTIVE PULMONARY DISEASE, UNSPECIFIED Status : Chronic Priority: Medium Current Visit: No Qualifiers: COPD type: emphysema Emphysema type: panlobular Qualified Code(s): J43.1 - Panlobular emphysema Annotation/Comment:: Stable by history with no recent bronchitic complaints, etc. (12) Coronary artery disease SNOMED Code(s): 08024830 Code(s): I25.10 - ATHSCL HEART DISEASE OF [place] CORONARY ARTERY W/O ANG PCTRS Status: Chronic Priority: Medium Current Visit: No Qualifiers: Coronary Disease-Associated Artery/Lesion type: [place] artery [place] vs. transplanted heart: [place] heart Associated angina: without angina Qualified Code(s): I25.10 - Atherosclerotic heart disease of [place] coronary artery without angina pectoris Annotation/Comment:: No chest pain or anginal type symptoms. (13) Hypertension SNOMED Code(s): 55968578 Code(s): I10 - ESSENTIAL (PRIMARY) HYPERTENSION Status: Chronic Priority : Medium Current Visit: No Qualifiers: Hypertension type: essential hypertension Qualified Code(s): I10 - Essential (primary) hypertension Annotation/Comment:: Blood Pressures good in the emergency room (14) Hypomagnesemia SNOMED Code(s): 590105721 Code(s): E83.42 - HYPOMAGNESEMIA Status: Chronic Priority: Medium Current Visit: No Annotation/Comment:: Currently under therapy. Medication adjustment likely required. (15) IDDM (insulin dependent diabetes mellitus) SNOMED Code(s): 26567904 Code(s): E11.9 - TYPE 2 DIABETES MELLITUS WITHOUT COMPLICATIONS; Z79.4 - FAMILY PRACTICE MEDICAL DOCTOR (CURRENT) USE OF INSULIN Status: Chronic Priority: Medium Current Visit: No Annotation/Comment:: Stable by patient history despite chronic steroid therapy for his polymyalgia rheumatica as above. (16) Peptic reflux disease SNOMED Code(s): 033902748 Code(s): K21.9 - GASTRO-ESOPHAGEAL REFLUX DISEASE WITHOUT ESOPHAGITIS Status: Chronic Priority: Medium Current Visit: No Annotation/Comment:: Stable by patient history (17) Polyarthritis rheumatica SNOMED Code(s): 34518302 Code(s): M06.9 - RHEUMATOID ARTHRITIS, UNSPECIFIED Status: Chronic Priority: Medium Current Visit: No Qualifiers: Rheumatoid arthritis location: multiple sites Rheumatoid factor presence: unspecified presence Qualified Code(s): M06.9 - Rheumatoid arthritis, unspecified Annotation/Comment:: Stable by patient history with current methotrexate and steroid therapy (18) Rheumatoid arthritis SNOMED Code(s): 70967057 Code(s): M06.9 - RHEUMATOID ARTHRITIS, UNSPECIFIED Status: Chronic Priority: Medium Current Visit: No Qualifiers: Rheumatoid arthritis location: multiple sites Rheumatoid factor presence: unspecified presence Qualified Code(s): M06.9 - Rheumatoid arthritis, unspecified Annotation/Comment:: Stable by history with current methotrexate and steroid therapy with additional history of polymyalgia rheumatica. (19) Diarrhea SNOMED Code(s): 05474510 Code(s): R19.7 - DIARRHEA, UNSPECIFIED Status: Acute Priority: High Current Visit: Yes Qualifiers: Diarrhea type: presumed infectious Qualified Code(s): R19.7 - Diarrhea, unspecified (20) Effusion, right knee SNOMED Code(s): 568115176590402 Code(s): M25.461 - EFFUSION, RIGHT KNEE Status: Acute Priority: High Current Visit: Yes - Problem List Review Problem List Initiated/Reviewed/Updated: Yes - My Orders Last 24 Hours: My Active Orders 11/30/19 19:01 Patient Status [ADT] Routine May Shower [RC] ASDIRECTED Oxygen Therapy [RC] .PRN Up With Assistance [RC] ASDIRECTED VTE/DVT Education [RC] PER UNIT ROUTINE Consult to Case Management/Scholastic Aptitude Test Grader [CONS] Routine OT Evaluation and Treatment [CONS] Routine PT Evaluation and Treatment [CONS] Routine Ondansetron [Zofran] 4 mg IVPUSH Q4H PRN Sodium Chloride 0.9% [Saline Flush] 10 ml FLUSH ASDIRECTED PRN Blood Culture x2 Reflex Set [OM.PC] Stat Saline Lock Insert [OM.PC] Routine VTE Mechanical Contraindications [AST] Per Unit Routine VTE Pharmacological Contraindications [AST] Per Unit Routine Resuscitation Status Routine 11/30/19 19:11 EKG Documentation Completion [RC] ASDIRECTED 11/30/19 19:15 Lactated Ringers [Ringers, Lactated] 1,000 ml IV ASDIRECTED 11/30/19 19:17 Acetaminophen [Tylenol Arthritis Pain] 650 mg PO Q8HR PRN Albuterol/Ipratropium [DuoNeb 3.0-0.5 MG/3 ML] 3 ml NEB Q4HRRT PRN Dextromethorphan/guaiFENesin [Robitussin DM] 10 ml PO Q6H PRN LORazepam [Ativan] 0.5 mg PO BID PRN 11/30/19 19:23 CULTURE BLOOD [BC] Stat 11/30/19 19:30 CULTURE BLOOD [BC] Stat Trolamine Salicylate/Aloe Vera [Aspercreme 10%] 0 gm TOP BID 11/30/19 20:00 Abdomen 1V Flat [CR] Routine Chest 1V Frontal [CR] Routine Albuterol/Ipratropium [DuoNeb 3.0-0.5 MG/3 ML] 3 ml INH QIDRT Budesonide [Pulmicort] 0.5 mg NEB Q12HR Eucalyptus Oil/Menthol/Camphor [Vicks Vaporub Ointment] 50 gm TP BEDTIME Mineral Oil/Petrolatum Oint [Lacri-Lube S.O.P Oint] 0 gm EYEBOTH BEDTIME Sodium Chloride 0.9% [Saline Flush] 10 ml FLUSH Q12HR metroNIDAZOLE/Normal Saline [Flagyl 500 MG in NS 100 ML] 500 mg Premix Bag 1 bag IV Q8H 11/30/19 20:51 Accu Check [Blood Glucose Check, Bedside] [RC] TIDMEALS 11/30/19 20:53 fentaNYL [Sublimaze] 50 mcg IVPUSH Q4H PRN 12/01/19 08:00 Acetaminophen/HYDROcodone [[place] 325-5 MG] 1 tab PO TID Insulin Lispro [HumaLOG] See Protocol SUBCUT TID@0800,1200,1800 Polyvinyl Alcohol [LiquiTears 1.4% Ophth Soln] 0 ml EYEBOTH TID 12/01/19 08:44 Knee 1V or 2V Rt [CR] Routine 12/01/19 08:45 atenoloL [Tenormin] 25 mg PO DAILY 12/01/19 12:00 Acetaminophen [Tylenol] 325 mg PO Q3H PRN 12/01/19 15:13 Consult to Speech Language Pathology [CLINICAL LIAISON Evaluation and Treatment] [CONS] Routine 12/01/19 16:00 Vital Signs [RC] QID 12/01/19 17:30 Insulin NPH Human Isophane [HumuLIN N] 20 unit SQ BIDAC 12/01/19 18:00 Dextromethorphan/guaiFENesin [Robitussin DM] 10 ml PO BID Famotidine [Pepcid] 20 mg IVPUSH BID 12/01/19 20:00 Meropenem [Merrem] 500 mg IVPUSH Q12HR Sertraline [Zoloft] 100 mg PO BEDTIME atenoloL [Tenormin] 12.5 mg PO BEDTIME methylPREDNISolone Sod Succ [Solu-MEDROL] 40 mg IVPUSH Q12HR 12/01/19 Lunch Full Liquid Diet [DIET] 12/02/19 05:11 CBC WITH AUTO DIFF [HEME] DAILY CK W CKMB [CHEM] Routine CMP [COMPREHENSIVE METABOLIC PN,CMP] [CHEM] DAILY CRP [C-REACTIVE PROTEIN] [CHEM] DAILY LACTIC ACID [CHEM] Routine SEDIMENTATION RATE AUTO [HEME] Routine TROPONIN I [CHEM] Routine 12/02/19 08:00 Fexofenadine [Miryam] 180 mg PO DAILY 12/03/19 05:11 CBC WITH AUTO DIFF [HEME] DAILY CMP [COMPREHENSIVE METABOLIC PN,CMP] [CHEM] DAILY CRP [C-REACTIVE PROTEIN] [CHEM] DAILY - Plan Plan:: 11/30/2019 Winnie Murrell MD 79 yo white male, acute diverticulitis, dehydration, hypotension. Admit in- patient for IV fluids, IV antibiotics, pain management, blood pressure management. 12/01/2019 Winnie Murrell MD A little bit better today. No abdomenal pain, no emesis, no diarrhea. Still taking in marginal intake of fluid. Continue IV antibiotics and IV fluids.
[2019-12-01] MEDS: Famotidine 20 MG/2 ML SDV IVPUSH SCH (17:14)
[2019-12-01] MEDS: guaiFENesin/Dextromethorphan 100-10 MG/5 ML Soln 10 ML Cup PO SCH (17:18)
[2019-12-01] MEDS: Insulin Isophane NPH, Human 100 Units/ML 3 ML Vial SQ SCH (17:26)
[2019-12-01] MEDS: Meropenem 500 MG SDV IVPUSH SCH (20:10)
[2019-12-01] MEDS: Sertraline 50 MG Tab PO SCH (20:27)
[2019-12-01] MEDS: Metoprolol Tartrate 25 MG Tab PO SCH (20:27)
[2019-12-01] MEDS: Mineral Oil/Petrolatum Ophth Oint 3.5 GM Tube EYEBOTH SCH (20:32)
[2019-12-01] MEDS: LORazepam 0.5 MG Tab PO PRN (20:39)
[2019-12-01] MEDS: guaiFENesin/Dextromethorphan 100-10 MG/5 ML Soln 10 ML Cup PO PRN (20:41)
[2019-12-01] MEDS ORDERED: Insulin Lispro 100 Units/ML 3 ML Vial SUBCUT ONE (21:00)
[2019-12-02] MEDS: metroNIDAZOLE/Normal Saline 500 MG in Premix Bag 1 BAG IV SCH ×3 (04:08→20:05)
[2019-12-02 07:56] LABS: CHLORIDE,CL 103 mmol/L (98-107); SODIUM,NA 137 mmol/L (136-145)
[2019-12-02] MEDS: Sodium Chloride 0.9% 10 ML Syringe FLUSH SCH ×2 (08:17→20:04)
[2019-12-02] MEDS: Famotidine 20 MG/2 ML SDV IVPUSH SCH ×2 (08:18→17:01)
[2019-12-02] MEDS: methylPREDNISolone Sodium Succinate 40 MG/1 ML SDV IVPUSH SCH ×2 (08:18→20:05)
[2019-12-02] MEDS: Meropenem 500 MG SDV IVPUSH SCH ×2 (08:18→20:05)
[2019-12-02] MEDS: Acetaminophen/HYDROcodone 325-5 MG Tab PO SCH ×3 (08:19→17:05)
[2019-12-02] MEDS: Metoprolol Tartrate 25 MG Tab PO SCH ×2 (08:21→20:16)
[2019-12-02] MEDS: guaiFENesin/Dextromethorphan 100-10 MG/5 ML Soln 10 ML Cup PO SCH ×2 (08:24→17:06)
[2019-12-02] MEDS: Albuterol/Ipratropium 3.0-0.5 MG/3 ML Neb Soln INH SCH ×4 (08:24→20:22)
[2019-12-02] MEDS: Budesonide 0.5 MG/2 ML Neb Susp NEB SCH ×2 (08:24→20:04)
[2019-12-02] MEDS: Trolamine Salicylate/Aloe Vera 10% Crm 85 GM Tube TOP SCH ×2 (08:25→17:05)
[2019-12-02] MEDS: Insulin Isophane NPH, Human 100 Units/ML 3 ML Vial SQ SCH ×2 (08:26→17:03)
[2019-12-02] MEDS: Polyvinyl Alcohol 1.4% Ophth Soln 15 ML Bottle EYEBOTH SCH ×3 (08:26→17:00)
[2019-12-02] MEDS: Insulin Lispro 100 Units/ML 3 ML Vial SUBCUT SCH ×3 (08:27→17:04)
[2019-12-02] MEDS: Lactated Ringers 1,000 ML IV SCH (08:46)
[2019-12-02] MEDS: LORazepam 0.5 MG Tab PO PRN ×2 (12:28→20:16)
[2019-12-02] MEDS: Sertraline 50 MG Tab PO SCH (20:15)
[2019-12-02] MEDS: Mineral Oil/Petrolatum Ophth Oint 3.5 GM Tube EYEBOTH SCH (20:21)
[2019-12-02] MEDS: guaiFENesin/Dextromethorphan 100-10 MG/5 ML Soln 10 ML Cup PO PRN (20:32)
--- NOTE | 2019-12-02 21:59 | PCM.PN ---
- General Info Date of Service: 12/02/19 Admission Dx/Problem (Free Text): Admission Diagnosis/Problem Admission Diagnosis/Problem Acute diverticulitis of intestine Functional Status: Reports: Tolerating Diet, Ambulating, Urinating - Review of Systems General: Reports: Weakness (improving), Appetite (improving) HEENT: Reports: No Symptoms Pulmonary: Reports: Cough Cardiovascular: Reports: No Symptoms Gastrointestinal: Reports: No Symptoms Genitourinary: Reports: No Symptoms, Retention (history) Musculoskeletal: Reports: Joint Pain (right knee), Joint Swelling (right knee) Skin: Reports: No Symptoms Neurological: Reports: Pre-Existing Deficit, Weakness Psychiatric: Reports: Anxiety - Patient Data Vitals - Most Recent: Last Vital Signs Temp 98.7 F 12/02/19 20:00 Pulse 80 12/02/19 20:16 Resp 18 12/02/19 20:00 BP 132/66 12/02/19 20:16 Pulse Ox 98 12/02/19 20:00 Weight - Most Recent: 158 lb 6.4 oz I&O - Last 24 Hours: Intake & Output 12/02/19 12/02/19 12/02/19 06:59 14:59 22:59 Intake Total 1003 1030 1285 Output Total 400 150 350 Balance 603 880 935 Lab Results Last 24 Hours: Laboratory Results - last 24 hr 12/02/19 12/02/19 12/02/19 Range/Units 07:16 07:20 07:20 WBC 13.7 H (4.0-10.2) K/uL RBC 3.90 L (4.33-5.41) M/uL Hgb 10.4 L (13.1-16.8) g/dL Hct 32.7 L (39.0-49.0) % MCV 83.8 L (84.0-98.0) fL MCH 26.7 L (28.2-33.3) pg MCHC 31.8 (31.7-36.0) g/dL RDW 15.7 H (11.2-14.1) % Plt Count 201 (150-350) K/uL Neut % (Auto) 93.7 H (45.0-80.0) % Lymph % (Auto) 3.2 L (10.0-50.0) % [place] % (Auto) 3.0 (2.0-14.0) % Eos % (Auto) 0.0 (0.0-5.0) % Baso % (Auto) 0.1 (0.0-2.0) % Neut # (Auto) 12.84 H (1.40-7.00) K/uL Lymph # (Auto) 0.44 L (0.50-3.50) K/uL [place] # (Auto) 0.41 (0.00-1.00) K/uL Eos # (Auto) 0.00 (0.00-0.50) K/uL Baso # (Auto) 0.01 (0.00-0.20) K/uL ESR 78 H (0-20) mm/hr Sodium 137 (136-145) mmol/L Potassium 4.0 (3.5-5.1) mmol/L Chloride 103 (98-107) mmol/L Carbon Dioxide 23.3 (21.0-32.0) mmol/L BUN 27 H (7-18) mg/dL Creatinine 0.61 (0.51-1.17) mg/dL Est Cr Clr Drug Dosing 84.02 mL/min Estimated GFR (MDRD) > 60 mL/min Glucose 293 H (74-106) mg/dL POC Glucose 289 H* (65-110) mg/dl Lactic Acid (0.4-2.0) mmol/L Calcium 8.3 L (8.5-10.1) mg/dL Total Bilirubin 0.7 (0.2-1.0) mg/dL AST 43 H (15-37) U/L ALT 32 (12-78) U/L Alkaline Phosphatase 62 (46-116) IU/L Creatine Kinase 530 H (26-308) U/L Creatine Kinase Index 1.8 (0.0-2.5) % CK-MB (CK-2) 9.40 H* (0.00-3.60) ng/mL Troponin I 0.099 H* (0.000-0.056) ng/mL C-Reactive Protein 7.6 H (<=0.9) mg/dL Total Protein 7.1 (6.4-8.2) g/dL Albumin 2.6 L (3.4-5.0) g/dL 12/02/19 12/02/1920 Range/Units 07:20 11:29 16:56 WBC (4.0-10.2) K/uL RBC (4.33-5.41) M/uL Hgb (13.1-16.8) g/dL Hct (39.0-49.0) % MCV (84.0-98.0) fL MCH (28.2-33.3) pg MCHC (31.7-36.0) g/dL RDW (11.2-14.1) % Plt Count (150-350) K/uL Neut % (Auto) (45.0-80.0) % Lymph % (Auto) (10.0-50.0) % [place] % (Auto) (2.0-14.0) % Eos % (Auto) (0.0-5.0) % Baso % (Auto) (0.0-2.0) % Neut # (Auto) (1.40-7.00) K/uL Lymph # (Auto) (0.50-3.50) K/uL [place] # (Auto) (0.00-1.00) K/uL Eos # (Auto) (0.00-0.50) K/uL Baso # (Auto) (0.00-0.20) K/uL ESR (0-20) mm/hr Sodium (136-145) mmol/L Potassium (3.5-5.1) mmol/L Chloride (98-107) mmol/L Carbon Dioxide (21.0-32.0) mmol/L BUN (7-18) mg/dL Creatinine (0.51-1.17) mg/dL Est Cr Clr Drug Dosing mL/min Estimated GFR (MDRD) mL/min Glucose (74-106) mg/dL POC Glucose 286 H* 275 H* (65-110) mg/dl Lactic Acid 2.1 H (0.4-2.0) mmol/L Calcium (8.5-10.1) mg/dL Total Bilirubin (0.2-1.0) mg/dL AST (15-37) U/L ALT (12-78) U/L Alkaline Phosphatase (46-116) IU/L Creatine Kinase (26-308) U/L Creatine Kinase Index (0.0-2.5) % CK-MB (CK-2) (0.00-3.60) ng/mL Troponin I (0.000-0.056) ng/mL C-Reactive Protein (<=0.9) mg/dL Total Protein (6.4-8.2) g/dL Albumin (3.4-5.0) g/dL Christo Results Last 24 Hours: Microbiology 11/30/19 19:30 Aerobic Blood Culture - Preliminary Blood - Venous - Lab Draw NO GROWTH AFTER 2 DAYS Anaerobic Blood Culture - Preliminary NO GROWTH AFTER 2 DAYS 11/30/19 19:23 Aerobic Blood Culture - Preliminary Blood - Venous NO GROWTH AFTER 2 DAYS Anaerobic Blood Culture - Preliminary NO GROWTH AFTER 2 DAYS Med Orders - Current: Current Medications Acetaminophen (Tylenol Arthritis Pain) 650 mg PO Q8HR PRN PRN Reason: Pain Last Admin: 11/30/19 20:52 Dose: 650 mg Acetaminophen (Tylenol) 325 mg PO Q3H PRN PRN Reason: fever Hydrocodone Bitart/Acetaminophen ([place] 325-5 Mg) 1 tab PO TID [facility] Last Admin: 12/02/19 17:05 Dose: 1 tab Albuterol/Ipratropium (Duoneb 3.0-0.5 Mg/3 Ml) 3 ml INH QIDRT [facility] Last Admin: 12/02/19 20:22 Dose: 3 ml Albuterol/Ipratropium (Duoneb 3.0-0.5 Mg/3 Ml) 3 ml NEB Q4HRRT PRN PRN Reason: Shortness of Breath Artificial Tears (Liquitears 1.4% Ophth Soln) 0 ml EYEBOTH TID [facility] Last Admin: 12/02/19 17:00 Dose: 1 drop Budesonide (Pulmicort) 0.5 mg NEB Q12HR [facility] Last Admin: 12/02/19 20:04 Dose: 0.5 mg Famotidine (Pepcid) 20 mg IVPUSH BID [facility] Last Admin: 12/02/19 17:01 Dose: 20 mg Fentanyl (Sublimaze) 50 mcg IVPUSH Q4H PRN PRN Reason: Pain Fexofenadine HCl (Miryam) 180 mg PO DAILY [facility] Last Admin: 12/02/19 08:24 Dose: 180 mg Guaifenesin/Dextromethorphan (Robitussin Dm) 10 ml PO Q6H PRN PRN Reason: Cough Last Admin: 12/02/19 20:32 Dose: 10 ml Guaifenesin/Dextromethorphan (Robitussin Dm) 10 ml PO BID [facility] Last Admin: 12/02/19 17:06 Dose: 10 ml Metronidazole 500 mg/ Premix 100 mls @ 100 mls/hr IV Q8H JOHN Last Admin: 12/02/19 20:05 Dose: 100 mls/hr Insulin Human Lispro (Humalog) 0 unit SUBCUT TID@0800,1200,1800 JOHN; Protocol Last Admin: 12/02/19 17:04 Dose: 6 units Insulin Human NPH (Humulin N) 20 unit SQ BIDAC JOHN Last Admin: 12/02/19 17:03 Dose: 20 unit Lorazepam (Ativan) 0.5 mg PO BID PRN PRN Reason: Anxiety Last Admin: 12/02/19 20:16 Dose: 0.5 mg Meropenem (Merrem) 500 mg IVPUSH Q12HR [facility] Last Admin: 12/02/19 20:05 Dose: 500 mg Methylprednisolone Sodium Succinate (Solu-Medrol) 40 mg IVPUSH Q12HR [facility] Last Admin: 12/02/19 20:05 Dose: 40 mg Metoprolol Tartrate (Lopressor) 25 mg PO Q12HR [facility] Last Admin: 12/02/19 20:16 Dose: 25 mg Mineral Oil/White Petrolatum (Lacri-Lube S.O.P Oint) 0 gm EYEBOTH BEDTIME [facility] Last Admin: 12/02/19 20:21 Dose: 1 applic Non-Formulary Medication (Eucalyptus Oil/Menthol/Camphor [Vicks Vaporub Ointment ]) 50 gm TP BEDTIME [facility] Ondansetron HCl (Zofran) 4 mg IVPUSH Q4H PRN PRN Reason: Nausea/Vomiting Sertraline HCl (Zoloft) 100 mg PO BEDTIME [facility] Last Admin: 12/02/19 20:15 Dose: 100 mg Sodium Chloride (Saline Flush) 10 ml FLUSH ASDIRECTED PRN PRN Reason: Keep Vein Open Sodium Chloride (Saline Flush) 10 ml FLUSH Q12HR [facility] Last Admin: 12/02/19 20:04 Dose: 10 ml Trolamine Salicylate (Aspercreme 10%) 0 gm TOP BID [facility] Last Admin: 12/02/19 17:05 Dose: 1 applic Discontinued Medications Artificial Tears (Genteal Mild To Moderate Ophth Soln) 0 ml EYEBOTH TID [facility] Last Admin: 12/01/19 07:36 Dose: Not Given Atenolol (Tenormin) 12.5 mg PO BEDTIME [facility] Atenolol (Tenormin) 25 mg PO DAILY [facility] Last Admin: 12/01/19 09:19 Dose: 25 mg Fentanyl (Sublimaze) 50 mcg IVPUSH ONETIME ONE Stop: 11/30/19 19:31 Last Admin: 11/30/19 20:20 Dose: 50 mcg Lactated Ringer's (Ringers, Lactated) 1,000 mls @ 75 mls/hr IV ASDIRECTED [facility] Last Admin: 12/02/19 08:46 Dose: 75 mls/hr Insulin Human Lispro (Humalog) 6 unit SUBCUT ONETIME ONE Stop: 12/01/19 21:01 Insulin Human Lispro (Humalog) 6 unit SUBCUT ONETIME ONE Stop: 11/30/19 21:31 Last Admin: 11/30/19 22:46 Dose: 6 units Methylprednisolone Sodium Succinate (Solu-Medrol) 40 mg IVPUSH Q8H [facility] Last Admin: 12/01/19 14:18 Dose: 40 mg - Exam General: No Acute Distress HEENT: Mucous Membr. Moist/[place] Neck: Trachea Midline, No JVD Lungs: Clear to Auscultation, Normal Respiratory Effort Cardiovascular: Regular Rate, Regular Rhythm GI/Abdominal Exam: Soft, Non-Tender, No Distention (Male) Exam: Deferred Back Exam: Normal Inspection Extremities: Normal Inspection, Non-Tender Skin: Warm, Dry, Intact Neurological: No New Focal Deficit Psy/Mental Status: Anxious Sepsis Event Note - Evaluation Sepsis Screening Result: No Definite Risk - Focused Exam Vital Signs: Vital Signs Temp Pulse Pulse Resp BP BP Pulse Ox 12/02/19 20:16 80 132/66 12/02/19 20:00 98.7 F 80 18 132/66 98 12/02/19 16:00 98.7 F 82 16 127/53 L 99 12/02/19 11:15 98.0 F 82 15 124/57 L 99 Date Exam was Performed: 12/02/19 Time Exam was Performed: 21:54 - Problem List & Annotations (1) Diverticulitis large intestine w/o perforation or abscess w/o bleeding SNOMED Code(s): 5290048 Code(s): K57.32 - DVTRCLI OF LG INT W/O PERFORATION OR ABSCESS W/O BLEEDING Status: Acute Priority: High Current Visit: Yes (2) Dehydration determined by examination SNOMED Code(s): 265920471 Code(s): E86.0 - DEHYDRATION Status: Acute Priority: High Current Visit : Yes (3) Hypotension SNOMED Code(s): 99622117 Code(s): I95.9 - HYPOTENSION, UNSPECIFIED Status: Acute Priority: High Current Visit: No Qualifiers: Hypotension type: unspecified hypotension type Qualified Code(s): I95.9 - Hypotension, unspecified (4) Weakness SNOMED Code(s): 63905649 Code(s): R53.1 - WEAKNESS Status: Acute Priority: High Current Visit: No Annotation/Comment:: PT/OT consulted to evaluate the patient to see if needing swingbed status (5) Anemia SNOMED Code(s): 495716191 Code(s): D64.9 - ANEMIA, UNSPECIFIED Status: Acute Current Visit: No Qualifiers: Anemia type: folate deficiency Folate deficiency anemia type: drug-induced Qualified Code(s): 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 (6) Anxiety SNOMED Code(s): 71788433 Code(s): F41.9 - ANXIETY DISORDER, UNSPECIFIED Status: Acute Priority: Medium Current Visit: No (7) Anxiety about health SNOMED Code(s): 498627033 Code(s): F41.8 - OTHER SPECIFIED ANXIETY DISORDERS Status: Acute Priority : Medium Current Visit: No (8) Depression SNOMED Code(s): 04270040 Code(s): F32.9 - MAJOR DEPRESSIVE DISORDER, SINGLE EPISODE, UNSPECIFIED Status: Acute Priority: Medium Current Visit: No Qualifiers: Depression Type: major depressive disorder Major depression recurrence: recurrent Active/Remission status: in partial remission Qualified Code(s): F33.41 - Major depressive disorder, recurrent, in partial remission (9) Nausea & vomiting SNOMED Code(s): 36721497 Code(s): R11.2 - NAUSEA WITH VOMITING, UNSPECIFIED Status: Acute Priority : High Current Visit: No (10) Anxiety and depression SNOMED Code(s): 310716790 Code(s): F41.9 - ANXIETY DISORDER, UNSPECIFIED; F32.9 - MAJOR DEPRESSIVE DISORDER, SINGLE EPISODE, UNSPECIFIED Status: Chronic Priority: Medium Current Visit: No Annotation/Comment:: Stable by history. 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 (12) Coronary artery disease SNOMED Code(s): 81341307 Code(s): I25.10 - ATHSCL HEART DISEASE OF [place] CORONARY ARTERY W/O ANG PCTRS Status: Chronic Priority: Medium Current Visit: No Qualifiers: Coronary Disease-Associated Artery/Lesion type: [place] artery [place] vs. transplanted heart: [place] heart Associated angina: without angina Qualified Code(s): I25.10 - Atherosclerotic heart disease of [place] coronary artery without angina pectoris Annotation/Comment:: No chest pain or anginal type symptoms. (13) Hypertension SNOMED Code(s): 58735859 Code(s): I10 - ESSENTIAL (PRIMARY) HYPERTENSION Status: Chronic Priority : Medium Current Visit: No Qualifiers: Hypertension type: essential hypertension Qualified Code(s): I10 - Essential (primary) hypertension Annotation/Comment:: Blood Pressures good in the emergency room (14) Hypomagnesemia SNOMED Code(s): 342998949 Code(s): E83.42 - HYPOMAGNESEMIA Status: Chronic Priority: Medium Current Visit: No Annotation/Comment:: Currently under therapy. Medication adjustment likely required. 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 (16) Peptic reflux disease SNOMED Code(s): 448345357 Code(s): K21.9 - GASTRO-ESOPHAGEAL REFLUX DISEASE WITHOUT ESOPHAGITIS Status: Chronic Priority: Medium Current Visit: No Annotation/Comment:: Stable by patient history (17) Polyarthritis rheumatica SNOMED Code(s): 89229480 Code(s): M06.9 - RHEUMATOID ARTHRITIS, UNSPECIFIED Status: Chronic Priority: Medium Current Visit: No Qualifiers: Rheumatoid arthritis location: multiple sites Rheumatoid factor presence: unspecified presence Qualified Code(s): M06.9 - Rheumatoid arthritis, unspecified Annotation/Comment:: Stable by patient history with current methotrexate and steroid therapy (18) Rheumatoid arthritis SNOMED Code(s): 94971045 Code(s): M06.9 - RHEUMATOID ARTHRITIS, UNSPECIFIED Status: Chronic Priority: Medium Current Visit: No Qualifiers: Rheumatoid arthritis location: multiple sites Rheumatoid factor presence: unspecified presence Qualified Code(s): M06.9 - Rheumatoid arthritis, unspecified Annotation/Comment:: Stable by history with current methotrexate and steroid therapy with additional history of polymyalgia rheumatica. 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 SNOMED Code(s): 72013886 Code(s): H49.40 - PROGRESSIVE EXTERNAL OPHTHALMOPLEGIA, UNSPECIFIED EYE; Q93.89 - OTHER DELETIONS FROM THE AUTOSOMES Status: Chronic Priority: Medium Current Visit: Yes (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 SNOMED Code(s): 64490306 Code(s): H49.43 - PROGRESSIVE EXTERNAL OPHTHALMOPLEGIA, BILATERAL; G72.9 - MYOPATHY, UNSPECIFIED Status: Chronic Priority: Medium Current Visit: Yes - Problem List Review Problem List Initiated/Reviewed/Updated: Yes - My Orders Last 24 Hours: My Active Orders 12/02/19 08:00 Fexofenadine [Miryam] 180 mg PO DAILY 12/03/19 05:11 Swallowing Function w Video [CR] Routine CBC WITH AUTO DIFF [HEME] DAILY CMP [COMPREHENSIVE METABOLIC PN,CMP] [CHEM] DAILY CRP [C-REACTIVE PROTEIN] [CHEM] DAILY TROPONIN I [CHEM] Routine - Plan Plan:: 11/30/2019 Winnie Murrell MD 79 yo white male, acute diverticulitis, dehydration, hypotension. Admit in- patient for IV fluids, IV antibiotics, pain management, blood pressure management. 12/01/2019 iWnnie Murrell MD A little bit better today. No abdomenal pain, no emesis, no diarrhea. Still taking in marginal intake of fluid. Continue IV antibiotics and IV fluids. 12/02/2019 Winnie Murrell MD Able to get out of bed today. No more emesis or diarrhea. PO intake improved. Will stop IV fluids. Labs improving.
[2019-12-03] MEDS: metroNIDAZOLE/Normal Saline 500 MG in Premix Bag 1 BAG IV SCH ×3 (04:08→19:48)
[2019-12-03] MEDS: methylPREDNISolone Sodium Succinate 40 MG/1 ML SDV IVPUSH SCH ×2 (07:25→19:43)
[2019-12-03] MEDS: Meropenem 500 MG SDV IVPUSH SCH ×2 (07:25→19:41)
[2019-12-03] MEDS: Sodium Chloride 0.9% 10 ML Syringe FLUSH SCH ×2 (07:26→19:44)
[2019-12-03] MEDS: Insulin Lispro 100 Units/ML 3 ML Vial SUBCUT SCH ×3 (07:28→17:14)
[2019-12-03] MEDS: Insulin Isophane NPH, Human 100 Units/ML 3 ML Vial SQ SCH ×2 (07:29→17:13)
[2019-12-03] MEDS: Famotidine 20 MG/2 ML SDV IVPUSH SCH ×2 (07:33→17:17)
[2019-12-03] MEDS: Albuterol/Ipratropium 3.0-0.5 MG/3 ML Neb Soln INH SCH ×4 (07:33→19:41)
[2019-12-03] MEDS: guaiFENesin/Dextromethorphan 100-10 MG/5 ML Soln 10 ML Cup PO SCH ×2 (07:40→17:11)
[2019-12-03] MEDS: Polyvinyl Alcohol 1.4% Ophth Soln 15 ML Bottle EYEBOTH SCH ×3 (07:41→17:11)
[2019-12-03] MEDS: Metoprolol Tartrate 25 MG Tab PO SCH ×2 (07:42→19:47)
[2019-12-03] MEDS: Acetaminophen/HYDROcodone 325-5 MG Tab PO SCH ×3 (07:42→17:15)
[2019-12-03] MEDS: Budesonide 0.5 MG/2 ML Neb Susp NEB SCH ×2 (07:46→19:41)
[2019-12-03] MEDS: Trolamine Salicylate/Aloe Vera 10% Crm 85 GM Tube TOP SCH ×2 (07:46→17:15)
[2019-12-03] MEDS: Sodium Chloride 0.9% 10 ML Syringe FLUSH PRN ×2 (07:47→11:52)
[2019-12-03 08:22] LABS: CHLORIDE,CL 103 mmol/L (98-107); SODIUM,NA 136 mmol/L (136-145)
[2019-12-03] MEDS: Aspirin 81 MG Tab.EC PO SCH (09:42)
[2019-12-03] MEDS: LORazepam 0.5 MG Tab PO PRN ×2 (11:57→19:43)
[2019-12-03] MEDS: Acetaminophen 650 MG Tab.ER PO PRN (19:42)
[2019-12-03] MEDS: Sertraline 50 MG Tab PO SCH (19:44)
[2019-12-03] MEDS: Mineral Oil/Petrolatum Ophth Oint 3.5 GM Tube EYEBOTH SCH (19:51)
[2019-12-03] MEDS ORDERED: LORazepam 0.5 MG Tab PO PRN (19:53)
--- NOTE | 2019-12-03 20:10 | PCM.PN ---
- General Info Date of Service: 12/03/19 Admission Dx/Problem (Free Text): Admission Diagnosis/Problem Admission Diagnosis/Problem Acute diverticulitis of intestine Functional Status: Reports: Tolerating Diet, Ambulating, Urinating - Review of Systems General: Reports: Weakness, Malaise HEENT: Reports: No Symptoms Pulmonary: Reports: Cough Cardiovascular: Reports: No Symptoms Gastrointestinal: Reports: No Symptoms Genitourinary: Reports: No Symptoms Musculoskeletal: Reports: Back Pain, Joint Pain (right knee) Skin: Reports: Bruising (from IVs and blood draws) Neurological: Reports: Pre-Existing Deficit (bilateral Ptosis), Weakness Psychiatric: Reports: Anxiety - Patient Data Vitals - Most Recent: Last Vital Signs Temp 98.9 F 12/03/19 15:53 Pulse 73 12/03/19 19:47 Resp 16 12/03/19 15:53 BP 119/62 12/03/19 19:47 Pulse Ox 99 12/03/19 15:53 Weight - Most Recent: 158 lb 6.4 oz I&O - Last 24 Hours: Intake & Output 12/03/19 12/03/19 12/03/19 06:59 14:59 22:59 Intake Total 737 635 5601 Output Total 550 200 200 Balance -200 280 980 Lab Results Last 24 Hours: Laboratory Results - last 24 hr 12/03/19 12/03/19 12/03/19 Range/Units 07:22 07:23 07:23 WBC 10.7 H (4.0-10.2) K/uL RBC 3.78 L (4.33-5.41) M/uL Hgb 10.2 L (13.1-16.8) g/dL Hct 32.1 L (39.0-49.0) % MCV 84.9 (84.0-98.0) fL MCH 27.0 L (28.2-33.3) pg MCHC 31.8 (31.7-36.0) g/dL RDW 16.0 H (11.2-14.1) % Plt Count 214 (150-350) K/uL Neut % (Auto) 91.3 H (45.0-80.0) % Lymph % (Auto) 4.6 L (10.0-50.0) % Harris % (Auto) 4.1 (2.0-14.0) % Eos % (Auto) 0.0 (0.0-5.0) % Baso % (Auto) 0.0 (0.0-2.0) % Neut # (Auto) 9.72 H (1.40-7.00) K/uL Lymph # (Auto) 0.49 L (0.50-3.50) K/uL Harris # (Auto) 0.44 (0.00-1.00) K/uL Eos # (Auto) 0.00 (0.00-0.50) K/uL Baso # (Auto) 0.00 (0.00-0.20) K/uL Sodium 136 (136-145) mmol/L Potassium 3.9 (3.5-5.1) mmol/L Chloride 103 (98-107) mmol/L Carbon Dioxide 22.1 (21.0-32.0) mmol/L BUN 25 H (7-18) mg/dL Creatinine 0.61 (0.51-1.17) mg/dL Est Cr Clr Drug Dosing 84.02 mL/min Estimated GFR (MDRD) > 60 mL/min Glucose 331 H (74-106) mg/dL POC Glucose 313 H* (65-110) mg/dl Calcium 8.0 L (8.5-10.1) mg/dL Total Bilirubin 0.5 (0.2-1.0) mg/dL AST 25 (15-37) U/L ALT 34 (12-78) U/L Alkaline Phosphatase 59 (46-116) IU/L Troponin I 0.114 H* (0.000-0.056) ng/mL C-Reactive Protein 8.0 H (<=0.9) mg/dL Total Protein 7.0 (6.4-8.2) g/dL Albumin 2.6 L (3.4-5.0) g/dL 12/03/19 Range/Units 11:39 WBC (4.0-10.2) K/uL RBC (4.33-5.41) M/uL Hgb (13.1-16.8) g/dL Hct (39.0-49.0) % MCV (84.0-98.0) fL MCH (28.2-33.3) pg MCHC (31.7-36.0) g/dL RDW (11.2-14.1) % Plt Count (150-350) K/uL Neut % (Auto) (45.0-80.0) % Lymph % (Auto) (10.0-50.0) % Harris % (Auto) (2.0-14.0) % Eos % (Auto) (0.0-5.0) % Baso % (Auto) (0.0-2.0) % Neut # (Auto) (1.40-7.00) K/uL Lymph # (Auto) (0.50-3.50) K/uL Harris # (Auto) (0.00-1.00) K/uL Eos # (Auto) (0.00-0.50) K/uL Baso # (Auto) (0.00-0.20) K/uL Sodium (136-145) mmol/L Potassium (3.5-5.1) mmol/L Chloride (98-107) mmol/L Carbon Dioxide (21.0-32.0) mmol/L BUN (7-18) mg/dL Creatinine (0.51-1.17) mg/dL Est Cr Clr Drug Dosing mL/min Estimated GFR (MDRD) mL/min Glucose (74-106) mg/dL POC Glucose 254 H* (65-110) mg/dl Calcium (8.5-10.1) mg/dL Total Bilirubin (0.2-1.0) mg/dL AST (15-37) U/L ALT (12-78) U/L Alkaline Phosphatase (46-116) IU/L Troponin I (0.000-0.056) ng/mL C-Reactive Protein (<=0.9) mg/dL Total Protein (6.4-8.2) g/dL Albumin (3.4-5.0) g/dL Christo Results Last 24 Hours: Microbiology 11/30/19 19:30 Aerobic Blood Culture - Preliminary Blood - Venous - Lab Draw NO GROWTH AFTER 3 DAYS Anaerobic Blood Culture - Preliminary NO GROWTH AFTER 3 DAYS 11/30/19 19:23 Aerobic Blood Culture - Preliminary Blood - Venous NO GROWTH AFTER 3 DAYS Anaerobic Blood Culture - Preliminary NO GROWTH AFTER 3 DAYS Med Orders - Current: Current Medications Acetaminophen (Tylenol Arthritis Pain) 650 mg PO Q8HR PRN PRN Reason: Pain Last Admin: 12/03/19 19:42 Dose: 650 mg Acetaminophen (Tylenol) 325 mg PO Q3H PRN PRN Reason: fever Hydrocodone Bitart/Acetaminophen ([place] 325-5 Mg) 1 tab PO TID [facility] Last Admin: 12/03/19 17:15 Dose: 1 tab Albuterol/Ipratropium (Duoneb 3.0-0.5 Mg/3 Ml) 3 ml INH QIDRT [facility] Last Admin: 12/03/19 19:41 Dose: 3 ml Albuterol/Ipratropium (Duoneb 3.0-0.5 Mg/3 Ml) 3 ml NEB Q4HRRT PRN PRN Reason: Shortness of Breath Artificial Tears (Liquitears 1.4% Ophth Soln) 0 ml EYEBOTH TID [facility] Last Admin: 12/03/19 17:11 Dose: 1 drop Aspirin (Halfprin) 81 mg PO WITHBREAKFAST [facility] Last Admin: 12/03/19 09:42 Dose: 81 mg Budesonide (Pulmicort) 0.5 mg NEB Q12HR [facility] Last Admin: 12/03/19 19:41 Dose: 0.5 mg Famotidine (Pepcid) 20 mg IVPUSH BID [facility] Last Admin: 12/03/19 17:17 Dose: 20 mg Fentanyl (Sublimaze) 50 mcg IVPUSH Q4H PRN PRN Reason: Pain Fexofenadine HCl (Miryam) 180 mg PO DAILY [facility] Last Admin: 12/03/19 07:44 Dose: 180 mg Guaifenesin/Dextromethorphan (Robitussin Dm) 10 ml PO Q6H PRN PRN Reason: Cough Last Admin: 12/02/19 20:32 Dose: 10 ml Guaifenesin/Dextromethorphan (Robitussin Dm) 10 ml PO BID [facility] Last Admin: 12/03/19 17:11 Dose: 10 ml Metronidazole 500 mg/ Premix 100 mls @ 100 mls/hr IV Q8H [facility] Last Admin: 12/03/19 19:48 Dose: 100 mls/hr Insulin Human Lispro (Humalog) 0 unit SUBCUT TID@0800,1200,1800 [facility]; Protocol Last Admin: 12/03/19 17:14 Dose: 6 units Insulin Human NPH (Humulin N) 30 unit SQ BIDAC [facility] Lorazepam (Ativan) 0.5 mg PO Q4H PRN PRN Reason: Anxiety Lorazepam (Ativan) 0.5 mg PO TID [facility] Meropenem (Merrem) 500 mg IVPUSH Q12HR [facility] Last Admin: 12/03/19 19:41 Dose: 500 mg Methylprednisolone Sodium Succinate (Solu-Medrol) 40 mg IVPUSH DAILY [facility] Metoprolol Tartrate (Lopressor) 25 mg PO Q12HR [facility] Last Admin: 12/03/19 19:47 Dose: 25 mg Mineral Oil/White Petrolatum (Lacri-Lube S.O.P Oint) 0 gm EYEBOTH BEDTIME [facility] Last Admin: 12/03/19 19:51 Dose: 1 applic Non-Formulary Medication (Eucalyptus Oil/Menthol/Camphor [Vicks Vaporub Ointment ]) 50 gm TP BEDTIME [facility] Ondansetron HCl (Zofran) 4 mg IVPUSH Q4H PRN PRN Reason: Nausea/Vomiting Sertraline HCl (Zoloft) 100 mg PO BEDTIME [facility] Last Admin: 12/03/19 19:44 Dose: 100 mg Sodium Chloride (Saline Flush) 10 ml FLUSH ASDIRECTED PRN PRN Reason: Keep Vein Open Last Admin: 12/03/19 11:52 Dose: 10 ml Sodium Chloride (Saline Flush) 10 ml FLUSH Q12HR [facility] Last Admin: 12/03/19 19:44 Dose: 10 ml Trolamine Salicylate (Aspercreme 10%) 0 gm TOP BID [facility] Last Admin: 12/03/19 17:15 Dose: 1 applic Discontinued Medications Artificial Tears (Genteal Mild To Moderate Ophth Soln) 0 ml EYEBOTH TID [facility] Last Admin: 12/01/19 07:36 Dose: Not Given Atenolol (Tenormin) 12.5 mg PO BEDTIME [facility] Atenolol (Tenormin) 25 mg PO DAILY [facility] Last Admin: 12/01/19 09:19 Dose: 25 mg Fentanyl (Sublimaze) 50 mcg IVPUSH ONETIME ONE Stop: 11/30/19 19:31 Last Admin: 11/30/19 20:20 Dose: 50 mcg Lactated Ringer's (Ringers, Lactated) 1,000 mls @ 75 mls/hr IV ASDIRECTED [facility] Last Admin: 12/02/19 08:46 Dose: 75 mls/hr Insulin Human Lispro (Humalog) 6 unit SUBCUT ONETIME ONE Stop: 12/01/19 21:01 Insulin Human Lispro (Humalog) 6 unit SUBCUT ONETIME ONE Stop: 11/30/19 21:31 Last Admin: 11/30/19 22:46 Dose: 6 units Insulin Human NPH (Humulin N) 20 unit SQ BIDAC [facility] Last Admin: 12/03/19 17:13 Dose: 20 unit Lorazepam (Ativan) 0.5 mg PO BID PRN PRN Reason: Anxiety Last Admin: 12/03/19 19:43 Dose: 0.5 mg Methylprednisolone Sodium Succinate (Solu-Medrol) 40 mg IVPUSH Q8H [facility] Last Admin: 12/01/19 14:18 Dose: 40 mg Methylprednisolone Sodium Succinate (Solu-Medrol) 40 mg IVPUSH Q12HR [facility] Last Admin: 12/03/19 19:43 Dose: 40 mg - Exam General: Alert, Cooperative, No Acute Distress HEENT: Mucous Membr. Moist/[place] Neck: Trachea Midline, No JVD Lungs: Normal Respiratory Effort, Decreased Breath Sounds Cardiovascular: Regular Rate, Regular Rhythm GI/Abdominal Exam: Normal Bowel Sounds, Soft, Non-Tender, No Distention (Male) Exam: Deferred Back Exam: Normal Inspection Extremities: Joint Swelling (right knee) Skin: Warm, Dry, Intact, Ecchymosis Neurological: No New Focal Deficit Psy/Mental Status: Alert, Anxious Sepsis Event Note - Evaluation Sepsis Screening Result: No Definite Risk - Focused Exam Vital Signs: Vital Signs Temp Pulse Pulse Resp BP BP Pulse Ox 12/03/19 19:47 73 119/62 12/03/19 15:53 98.9 F 78 16 119/71 99 12/03/19 11:58 98.6 F 76 16 124/61 99 Date Exam was Performed: 12/03/19 Time Exam was Performed: 20:05 - Problem List & Annotations (1) Diverticulitis large intestine w/o perforation or abscess w/o bleeding SNOMED Code(s): 9855235 Code(s): K57.32 - DVTRCLI OF LG INT W/O PERFORATION OR ABSCESS W/O BLEEDING Status: Acute Priority: High Current Visit: Yes (2) Weakness SNOMED Code(s): 40402233 Code(s): R53.1 - WEAKNESS Status: Acute Priority: High Current Visit: No Annotation/Comment:: PT/OT consulted to evaluate the patient to see if needing swingbed status (3) Anemia SNOMED Code(s): 332685066 Code(s): D64.9 - ANEMIA, UNSPECIFIED Status: Acute Current Visit: No Qualifiers: Anemia type: folate deficiency Folate deficiency anemia type: drug-induced Qualified Code(s): 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 (4) Anxiety SNOMED Code(s): 92889259 Code(s): F41.9 - ANXIETY DISORDER, UNSPECIFIED Status: Acute Priority: Medium Current Visit: No (5) Anxiety about health SNOMED Code(s): 600785734 Code(s): F41.8 - OTHER SPECIFIED ANXIETY DISORDERS Status: Acute Priority : Medium Current Visit: No (6) Depression SNOMED Code(s): 44832666 Code(s): F32.9 - MAJOR DEPRESSIVE DISORDER, SINGLE EPISODE, UNSPECIFIED Status: Acute Priority: Medium Current Visit: No Qualifiers: Depression Type: major depressive disorder Major depression recurrence: recurrent Active/Remission status: in partial remission Qualified Code(s): F33.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 (8) COPD (chronic obstructive pulmonary disease) SNOMED Code(s): 03784156 Code(s): J44.9 - CHRONIC OBSTRUCTIVE PULMONARY DISEASE, UNSPECIFIED Status : Chronic Priority: Medium Current Visit: No Qualifiers: COPD type: emphysema Emphysema type: panlobular Qualified Code(s): J43.1 - Panlobular emphysema Annotation/Comment:: Stable by history with no recent bronchitic complaints, etc. (9) Coronary artery disease SNOMED Code(s): 15171151 Code(s): I25.10 - ATHSCL HEART DISEASE OF [place] CORONARY ARTERY W/O ANG PCTRS Status: Chronic Priority: Medium Current Visit: No Qualifiers: Coronary Disease-Associated Artery/Lesion type: [place] artery [place] vs. transplanted heart: [place] heart Associated angina: without angina Qualified Code(s): I25.10 - Atherosclerotic heart disease of [place] coronary artery without angina pectoris Annotation/Comment:: No chest pain or anginal type symptoms. (10) Hypertension SNOMED Code(s): 62838209 Code(s): I10 - ESSENTIAL (PRIMARY) HYPERTENSION Status: Chronic Priority : Medium Current Visit: No Qualifiers: Hypertension type: essential hypertension Qualified Code(s): I10 - Essential (primary) hypertension Annotation/Comment:: Blood Pressures good in the emergency room (11) Hypomagnesemia SNOMED Code(s): 594273696 Code(s): E83.42 - HYPOMAGNESEMIA Status: Chronic Priority: Medium Current Visit: No Annotation/Comment:: Currently under therapy. Medication adjustment likely required. 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 (13) Peptic reflux disease SNOMED Code(s): 976969539 Code(s): K21.9 - GASTRO-ESOPHAGEAL REFLUX DISEASE WITHOUT ESOPHAGITIS Status: Chronic Priority: Medium Current Visit: No Annotation/Comment:: Stable by patient history (14) Polyarthritis rheumatica SNOMED Code(s): 56359324 Code(s): M06.9 - RHEUMATOID ARTHRITIS, UNSPECIFIED Status: Chronic Priority: Medium Current Visit: No Qualifiers: Rheumatoid arthritis location: multiple sites Rheumatoid factor presence: unspecified presence Qualified Code(s): M06.9 - Rheumatoid arthritis, unspecified Annotation/Comment:: Stable by patient history with current methotrexate and steroid therapy (15) Rheumatoid arthritis SNOMED Code(s): 95537506 Code(s): M06.9 - RHEUMATOID ARTHRITIS, UNSPECIFIED Status: Chronic Priority: Medium Current Visit: No Qualifiers: Rheumatoid arthritis location: multiple sites Rheumatoid factor presence: unspecified presence Qualified Code(s): M06.9 - Rheumatoid arthritis, unspecified Annotation/Comment:: Stable by history with current methotrexate and steroid therapy with additional history of polymyalgia rheumatica. 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 SNOMED Code(s): 21608740 Code(s): H49.43 - PROGRESSIVE EXTERNAL OPHTHALMOPLEGIA, BILATERAL; G72.9 - MYOPATHY, UNSPECIFIED Status: Chronic Priority: Medium Current Visit: Yes (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 SNOMED Code(s): 110865724 Code(s): Q87.89 - OTH CONGENITAL MALFORMATION SYNDROMES, NEC; H49.30 - TOTAL (EXTERNAL) OPHTHALMOPLEGIA, UNSPECIFIED EYE; F79 - UNSPECIFIED INTELLECTUAL DISABILITIES; K14.5 - PLICATED TONGUE Status: Chronic Priority: Medium Current Visit: Yes (20) Progressive external ophthalmoplegia of both eyes SNOMED Code(s): 36946467 Code(s): H49.43 - PROGRESSIVE EXTERNAL OPHTHALMOPLEGIA, BILATERAL Status: Chronic Priority: Medium Current Visit: Yes (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 SNOMED Code(s): 16933423 Code(s): Q87.89 - OTH CONGENITAL MALFORMATION SYNDROMES, NEC; H49.30 - TOTAL (EXTERNAL) OPHTHALMOPLEGIA, UNSPECIFIED EYE; H57.03 - MIOSIS; 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 Status: Chronic Priority: Medium Current Visit: Yes - Problem List Review Problem List Initiated/Reviewed/Updated: Yes - My Orders Last 24 Hours: My Active Orders 12/03/19 05:11 Swallowing Function w Video [CR] Routine 12/03/19 08:38 Aspirin [Halfprin] 81 mg PO WITHBREAKFAST 12/03/19 19:53 LORazepam [Ativan] 0.5 mg PO Q4H PRN 12/04/19 05:11 EKG Documentation Completion [RC] ASDIRECTED CREATINE KINASE,CK [CHEM] Routine TROPONIN I [CHEM] Routine EKG 12 Lead [EK] Routine 12/04/19 07:30 Insulin NPH Human Is[place] [HumuLIN N] 30 unit SQ BIDAC 12/04/19 08:00 Docusate Sodium [Colace] 200 mg PO DAILY Iron Polysaccharides Complex [Ferrex 150] 150 mg PO DAILY LORazepam [Ativan] 0.5 mg PO TID Polyethylene Glycol 3350 [MiraLAX] 17 gm PO DAILY methylPREDNISolone Sod Succ [Solu-MEDROL] 40 mg IVPUSH DAILY 12/04/19 Breakfast [place] [employer] Diet [DIET] - Plan Plan:: 11/30/2019 Winnie Murrell MD 79 yo white male, acute diverticulitis, dehydration, hypotension. Admit in- patient for IV fluids, IV antibiotics, pain management, blood pressure management. 12/01/2019 Winnie Murrell MD A little bit better today. No abdomenal pain, no emesis, no diarrhea. Still taking in marginal intake of fluid. Continue IV antibiotics and IV fluids. 12/02/2019 Winnie Murrell MD Able to get out of bed today. No more emesis or diarrhea. PO intake improved. Will stop IV fluids. Labs improving. 12/03/2019 Winnie Murrell MD He says he is much improved with all the stuff I pumped into him! Strength improved. Labs continue to improve. Video swallowing test today. Discharge plans discussed with him.
[2019-12-04] MEDS: metroNIDAZOLE/Normal Saline 500 MG in Premix Bag 1 BAG IV SCH ×2 (04:13→11:17)
[2019-12-04] MEDS: Sodium Chloride 0.9% 10 ML Syringe FLUSH PRN ×2 (04:15→08:18)
[2019-12-04] MEDS ORDERED: Insulin Isophane NPH, Human 100 Units/ML 3 ML Vial SQ SCH (07:30)
[2019-12-04] MEDS ORDERED: methylPREDNISolone Sodium Succinate 40 MG/1 ML SDV IVPUSH SCH (08:00)
[2019-12-04] MEDS ORDERED: Iron Polysaccharides Complex 150 MG Cap PO SCH (08:00)
[2019-12-04] MEDS ORDERED: Docusate Sodium 100 MG Cap PO SCH (08:00)
[2019-12-04] MEDS: Albuterol/Ipratropium 3.0-0.5 MG/3 ML Neb Soln INH SCH ×2 (08:13→11:14)
[2019-12-04] MEDS: Budesonide 0.5 MG/2 ML Neb Susp NEB SCH (08:13)
[2019-12-04] MEDS: Polyethylene Glycol 3350 Powder 17 GM Packet PO SCH ×2 (08:14→11:25)
[2019-12-04] MEDS: LORazepam 0.5 MG Tab PO SCH ×2 (08:14→11:13)
[2019-12-04] MEDS: Acetaminophen/HYDROcodone 325-5 MG Tab PO SCH ×2 (08:15→11:12)
[2019-12-04] MEDS: Metoprolol Tartrate 25 MG Tab PO SCH (08:15)
[2019-12-04] MEDS: guaiFENesin/Dextromethorphan 100-10 MG/5 ML Soln 10 ML Cup PO SCH (08:16)
[2019-12-04] MEDS: Aspirin 81 MG Tab.EC PO SCH (08:16)
[2019-12-04] MEDS: Famotidine 20 MG/2 ML SDV IVPUSH SCH (08:16)
[2019-12-04] MEDS: Sodium Chloride 0.9% 10 ML Syringe FLUSH SCH (08:17)
[2019-12-04] MEDS: Polyvinyl Alcohol 1.4% Ophth Soln 15 ML Bottle EYEBOTH SCH ×2 (08:21→11:13)
[2019-12-04] MEDS: Meropenem 500 MG SDV IVPUSH SCH (08:23)
[2019-12-04] MEDS: Insulin Lispro 100 Units/ML 3 ML Vial SUBCUT SCH ×2 (08:25→11:14)
[2019-12-04] MEDS: Trolamine Salicylate/Aloe Vera 10% Crm 85 GM Tube TOP SCH (08:27)
[2019-12-04] MEDS ORDERED: metroNIDAZOLE 500 MG Tab PO ONE (11:00)
[2019-12-04 11:28] VITALS: BP 128/62; PULSE 67
--- NOTE | 2019-12-04 20:25 | PCM.PN ---
- General Info Date of Service: 12/04/19 Admission Dx/Problem (Free Text): Admission Diagnosis/Problem Admission Diagnosis/Problem Acute diverticulitis of intestine Functional Status: Reports: Pain Controlled, Tolerating Diet, Ambulating, Urinating - Review of Systems General: Reports: No Symptoms HEENT: Reports: No Symptoms Pulmonary: Reports: No Symptoms Cardiovascular: Reports: No Symptoms Gastrointestinal: Reports: No Symptoms Genitourinary: Reports: No Symptoms Musculoskeletal: Reports: No Symptoms Skin: Reports: No Symptoms Neurological: Reports: Other (ptosis) Psychiatric: Reports: Anxiety - Patient Data Vitals - Most Recent: Last Vital Signs Temp 98.2 F 12/04/19 11:26 Pulse 67 12/04/19 11:26 Resp 20 12/04/19 11:26 BP 128/62 12/04/19 11:26 Pulse Ox 100 12/04/19 11:26 Weight - Most Recent: 158 lb 6.4 oz I&O - Last 24 Hours: Intake & Output 12/04/19 12/04/19 12/04/19 06:59 14:59 22:59 Intake Total 300 720 Output Total 450 Balance -150 720 Lab Results Last 24 Hours: Laboratory Results - last 24 hr 12/03/19 12/04/19 12/04/19 Range/Units 17:03 07:30 07:44 POC Glucose 275 H* 233 H (65-110) mg/dl Creatine Kinase 128 (26-308) U/L Troponin I 0.124 H* (0.000-0.056) ng/mL 12/04/19 Range/Units 11:09 POC Glucose 227 H (65-110) mg/dl Creatine Kinase (26-308) U/L Troponin I (0.000-0.056) ng/mL Christo Results Last 24 Hours: Microbiology 11/30/19 19:30 Aerobic Blood Culture - Preliminary Blood - Venous - Lab Draw NO GROWTH AFTER 4 DAYS Anaerobic Blood Culture - Preliminary NO GROWTH AFTER 4 DAYS 11/30/19 19:23 Aerobic Blood Culture - Preliminary Blood - Venous NO GROWTH AFTER 4 DAYS Anaerobic Blood Culture - Preliminary NO GROWTH AFTER 4 DAYS Med Orders - Current: Current Medications Discontinued Medications Acetaminophen (Tylenol Arthritis Pain) 650 mg PO Q8HR PRN PRN Reason: Pain Last Admin: 12/03/19 19:42 Dose: 650 mg Acetaminophen (Tylenol) 325 mg PO Q3H PRN PRN Reason: fever Hydrocodone Bitart/Acetaminophen ([place] 325-5 Mg) 1 tab PO TID [facility] Last Admin: 12/04/19 11:12 Dose: 1 tab Albuterol/Ipratropium (Duoneb 3.0-0.5 Mg/3 Ml) 3 ml INH QIDRT [facility] Last Admin: 12/04/19 11:14 Dose: 3 ml Albuterol/Ipratropium (Duoneb 3.0-0.5 Mg/3 Ml) 3 ml NEB Q4HRRT PRN PRN Reason: Shortness of Breath Artificial Tears (Genteal Mild To Moderate Ophth Soln) 0 ml EYEBOTH TID [facility] Last Admin: 12/01/19 07:36 Dose: Not Given Artificial Tears (Liquitears 1.4% Ophth Soln) 0 ml EYEBOTH TID [facility] Last Admin: 12/04/19 11:13 Dose: 1 drop Aspirin (Halfprin) 81 mg PO WITHBREAKFAST [facility] Last Admin: 12/04/19 08:16 Dose: 81 mg Atenolol (Tenormin) 12.5 mg PO BEDTIME [facility] Atenolol (Tenormin) 25 mg PO DAILY [facility] Last Admin: 12/01/19 09:19 Dose: 25 mg Budesonide (Pulmicort) 0.5 mg NEB Q12HR [facility] Last Admin: 12/04/19 08:13 Dose: 0.5 mg Docusate Sodium (Colace) 200 mg PO DAILY [facility] Last Admin: 12/04/19 08:14 Dose: 200 mg Famotidine (Pepcid) 20 mg IVPUSH BID [facility] Last Admin: 12/04/19 08:16 Dose: 20 mg Fentanyl (Sublimaze) 50 mcg IVPUSH ONETIME ONE Stop: 11/30/19 19:31 Last Admin: 11/30/19 20:20 Dose: 50 mcg Fentanyl (Sublimaze) 50 mcg IVPUSH Q4H PRN PRN Reason: Pain Fexofenadine HCl (Miryam) 180 mg PO DAILY [facility] Last Admin: 12/04/19 08:15 Dose: 180 mg Guaifenesin/Dextromethorphan (Robitussin Dm) 10 ml PO Q6H PRN PRN Reason: Cough Last Admin: 12/02/19 20:32 Dose: 10 ml Guaifenesin/Dextromethorphan (Robitussin Dm) 10 ml PO BID [facility] Last Admin: 12/04/19 08:16 Dose: 10 ml Lactated Ringer's (Ringers, Lactated) 1,000 mls @ 75 mls/hr IV ASDIRECTED [facility] Last Admin: 12/02/19 08:46 Dose: 75 mls/hr Metronidazole 500 mg/ Premix 100 mls @ 100 mls/hr IV Q8H [facility] Last Admin: 12/04/19 11:17 Dose: Not Given Insulin Human Lispro (Humalog) 0 unit SUBCUT TID@0800,1200,1800 JOHN; Protocol Last Admin: 12/04/19 11:14 Dose: 4 units Insulin Human Lispro (Humalog) 6 unit SUBCUT ONETIME ONE Stop: 12/01/19 21:01 Insulin Human Lispro (Humalog) 6 unit SUBCUT ONETIME ONE Stop: 11/30/19 21:31 Last Admin: 11/30/19 22:46 Dose: 6 units Insulin Human NPH (Humulin N) 20 unit SQ BIDAC [facility] Last Admin: 12/03/19 17:13 Dose: 20 unit Insulin Human NPH (Humulin N) 30 unit SQ BIDAC [facility] Last Admin: 12/04/19 08:24 Dose: 30 unit Lorazepam (Ativan) 0.5 mg PO BID PRN PRN Reason: Anxiety Last Admin: 12/03/19 19:43 Dose: 0.5 mg Lorazepam (Ativan) 0.5 mg PO Q4H PRN PRN Reason: Anxiety Lorazepam (Ativan) 0.5 mg PO TID [facility] Last Admin: 12/04/19 11:13 Dose: 0.5 mg Meropenem (Merrem) 500 mg IVPUSH Q12HR [facility] Last Admin: 12/04/19 08:23 Dose: 500 mg Methylprednisolone Sodium Succinate (Solu-Medrol) 40 mg IVPUSH Q8H [facility] Last Admin: 12/01/19 14:18 Dose: 40 mg Methylprednisolone Sodium Succinate (Solu-Medrol) 40 mg IVPUSH Q12HR [facility] Last Admin: 12/03/19 19:43 Dose: 40 mg Methylprednisolone Sodium Succinate (Solu-Medrol) 40 mg IVPUSH DAILY [facility] Last Admin: 12/04/19 08:17 Dose: 40 mg Metoprolol Tartrate (Lopressor) 25 mg PO Q12HR [facility] Last Admin: 12/04/19 08:15 Dose: 25 mg Metronidazole (Flagyl) 500 mg PO ONETIME ONE Stop: 12/04/19 11:01 Last Admin: 12/04/19 11:13 Dose: 500 mg Mineral Oil/White Petrolatum (Lacri-Lube S.O.P Oint) 0 gm EYEBOTH BEDTIME [facility] Last Admin: 12/03/19 19:51 Dose: 1 applic Non-Formulary Medication (Eucalyptus Oil/Menthol/Camphor [Vicks Vaporub Ointment ]) 0 gm TP BEDTIME [facility] Ondansetron HCl (Zofran) 4 mg IVPUSH Q4H PRN PRN Reason: Nausea/Vomiting Polyethylene Glycol (Miralax) 17 gm PO DAILY [facility] Last Admin: 12/04/19 11:25 Dose: Not Given Polysaccharide Iron Complex (Ferrex 150) 150 mg PO DAILY [facility] Last Admin: 12/04/19 08:15 Dose: 150 mg Sertraline HCl (Zoloft) 100 mg PO BEDTIME [facility] Last Admin: 12/03/19 19:44 Dose: 100 mg Sodium Chloride (Saline Flush) 10 ml FLUSH ASDIRECTED PRN PRN Reason: Keep Vein Open Last Admin: 12/04/19 08:18 Dose: 10 ml Sodium Chloride (Saline Flush) 10 ml FLUSH Q12HR [facility] Last Admin: 12/04/19 08:17 Dose: 10 ml Trolamine Salicylate (Aspercreme 10%) 0 gm TOP BID [facility] Last Admin: 12/04/19 08:27 Dose: 1 applic - Exam General: Alert, Cooperative, No Acute Distress HEENT: Mucous Membr. Moist/[place] Neck: Trachea Midline, No JVD Lungs: Normal Respiratory Effort, Decreased Breath Sounds Cardiovascular: Regular Rate, Regular Rhythm GI/Abdominal Exam: Soft, Non-Tender, No Distention (Male) Exam: Deferred Back Exam: Normal Inspection Extremities: Normal Inspection, Joint Swelling (right knee improving) Skin: Warm, Dry, Intact Psy/Mental Status: Alert, Anxious Sepsis Event Note - Evaluation Sepsis Screening Result: No Definite Risk - Focused Exam Vital Signs: Vital Signs Temp Pulse Resp BP Pulse Ox 12/04/19 11:26 98.2 F 67 20 128/62 100 Date Exam was Performed: 12/04/19 Time Exam was Performed: 20:18 - Problem List & Annotations (1) Diverticulitis large intestine w/o perforation or abscess w/o bleeding SNOMED Code(s): 7955973 Code(s): K57.32 - DVTRCLI OF LG INT W/O PERFORATION OR ABSCESS W/O BLEEDING Status: Acute Priority: High (2) Weakness SNOMED Code(s): 93168256 Code(s): R53.1 - WEAKNESS Status: Acute Priority: High Annotation/ Comment:: PT/OT consulted to evaluate the patient to see if needing swingbed status (3) Anemia SNOMED Code(s): 603302319 Code(s): D64.9 - ANEMIA, UNSPECIFIED Status: Acute Qualifiers: Anemia type: folate deficiency Folate deficiency anemia type: drug-induced Qualified Code(s): 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 (4) Anxiety SNOMED Code(s): 44848303 Code(s): F41.9 - ANXIETY DISORDER, UNSPECIFIED Status: Acute Priority: Medium (5) Anxiety about health SNOMED Code(s): 808015738 Code(s): F41.8 - OTHER SPECIFIED ANXIETY DISORDERS Status: Acute Priority : Medium (6) Depression SNOMED Code(s): 79771461 Code(s): F32.9 - MAJOR DEPRESSIVE DISORDER, SINGLE EPISODE, UNSPECIFIED Status: Acute Priority: Medium Qualifiers: Depression Type: major depressive disorder Major depression recurrence: recurrent Active/Remission status: in partial remission Qualified Code(s): F33.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 (8) COPD (chronic obstructive pulmonary disease) SNOMED Code(s): 21105828 Code(s): J44.9 - CHRONIC OBSTRUCTIVE PULMONARY DISEASE, UNSPECIFIED Status : Chronic Priority: Medium Qualifiers: COPD type: emphysema Emphysema type: panlobular Qualified Code(s): J43.1 - Panlobular emphysema Annotation/Comment:: Stable by history with no recent bronchitic complaints, etc. (9) Coronary artery disease SNOMED Code(s): 35895001 Code(s): I25.10 - ATHSCL HEART DISEASE OF [place] CORONARY ARTERY W/O ANG PCTRS Status: Chronic Priority: Medium Qualifiers: Coronary Disease-Associated Artery/Lesion type: [place] artery [place] vs. transplanted heart: [place] heart Associated angina: without angina Qualified Code(s): I25.10 - Atherosclerotic heart disease of [place] coronary artery without angina pectoris Annotation/Comment:: No chest pain or anginal type symptoms. (10) Hypertension SNOMED Code(s): 85173871 Code(s): I10 - ESSENTIAL (PRIMARY) HYPERTENSION Status: Chronic Priority : Medium Qualifiers: Hypertension type: essential hypertension Qualified Code(s): I10 - Essential (primary) hypertension Annotation/Comment:: Blood Pressures good in the emergency room (11) Hypomagnesemia SNOMED Code(s): 563453867 Code(s): E83.42 - HYPOMAGNESEMIA Status: Chronic Priority: Medium Annotation/Comment:: Currently under therapy. Medication adjustment likely required. 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 (13) Peptic reflux disease SNOMED Code(s): 829177333 Code(s): K21.9 - GASTRO-ESOPHAGEAL REFLUX DISEASE WITHOUT ESOPHAGITIS Status: Chronic Priority: Medium Annotation/Comment:: Stable by patient history (14) Polyarthritis rheumatica SNOMED Code(s): 83161382 Code(s): M06.9 - RHEUMATOID ARTHRITIS, UNSPECIFIED Status: Chronic Priority: Medium Qualifiers: Rheumatoid arthritis location: multiple sites Rheumatoid factor presence: unspecified presence Qualified Code(s): M06.9 - Rheumatoid arthritis, unspecified Annotation/Comment:: Stable by patient history with current methotrexate and steroid therapy (15) Rheumatoid arthritis SNOMED Code(s): 02889721 Code(s): M06.9 - RHEUMATOID ARTHRITIS, UNSPECIFIED Status: Chronic Priority: Medium Qualifiers: Rheumatoid arthritis location: multiple sites Rheumatoid factor presence: unspecified presence Qualified Code(s): M06.9 - Rheumatoid arthritis, unspecified Annotation/Comment:: Stable by history with current methotrexate and steroid therapy with additional history of polymyalgia rheumatica. 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 SNOMED Code(s): 428692722 Code(s): Q87.89 - OTH CONGENITAL MALFORMATION SYNDROMES, NEC; H49.30 - TOTAL (EXTERNAL) OPHTHALMOPLEGIA, UNSPECIFIED EYE; F79 - UNSPECIFIED INTELLECTUAL DISABILITIES; K14.5 - PLICATED TONGUE Status: Chronic Priority: Medium (20) Progressive external ophthalmoplegia of both eyes SNOMED Code(s): 34449675 Code(s): H49.43 - PROGRESSIVE EXTERNAL OPHTHALMOPLEGIA, BILATERAL Status: Chronic Priority: Medium (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 SNOMED Code(s): 56418337 Code(s): Q87.89 - OTH CONGENITAL MALFORMATION SYNDROMES, NEC; H49.30 - TOTAL (EXTERNAL) OPHTHALMOPLEGIA, UNSPECIFIED EYE; H57.03 - MIOSIS; 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 Admit in- patient for IV fluids, IV antibiotics, pain management, blood pressure management. 12/01/2019 Winnie Murrell MD A little bit better today. No abdomenal pain, no emesis, no diarrhea. Still taking in marginal intake of fluid. Continue IV antibiotics and IV fluids. 12/02/2019 Winnie Murrell MD Able to get out of bed today. No more emesis or diarrhea. PO intake improved. Will stop IV fluids. Labs improving. 12/03/2019 Winnie Murrell MD He says he is much improved with all the stuff I pumped into him! Strength improved. Labs continue to improve. Video swallowing test today. Discharge plans discussed with him. 12/04/2019 ~10:30 (late entry) Winnie Murrell MD He ate regular food this AM. Stable and improved. Ready for discharge back to [place] [facility] on [facility] side of home. He says his brother Devin has already moved all of his stuff to his new room. Ganglionic cyst on left wrist has markedly decreased in size. He agrees to postpone procedure with Dr. Mackenzie at this time. Will continue to monitor.
--- NOTE | 2019-12-04 20:26 | PCM.DCSUM1 ---
Discharge Summary - Hospital Course Diagnosis: Stroke: No - Discharge Data Discharge Date: 12/04/19 Discharge Disposition: DC/Tfer to [facility] Condition: Fair - Referral to Home Health Primary Care Physician: PCP Unknown - Discharge Diagnosis/Problem(s) (1) Diverticulitis large intestine w/o perforation or abscess w/o bleeding SNOMED Code(s): 1306038 ICD Code: K57.32 - DVTRCLI OF LG INT W/O PERFORATION OR ABSCESS W/O BLEEDING Status: Acute Priority: High (2) Weakness SNOMED Code(s): 43243323 ICD Code: R53.1 - WEAKNESS Status: Acute Priority: High Problem Details : PT/OT consulted to evaluate the patient to see if needing swingbed status (3) Anemia SNOMED Code(s): 198890411 ICD Code: D64.9 - ANEMIA, UNSPECIFIED Status: Acute Qualifiers: Anemia type: folate deficiency Folate deficiency anemia type: drug-induced Qualified Code(s): 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 (4) Anxiety SNOMED Code(s): 22589933 ICD Code: F41.9 - ANXIETY DISORDER, UNSPECIFIED Status: Acute Priority: Medium (5) Anxiety about health SNOMED Code(s): 481959426 ICD Code: F41.8 - OTHER SPECIFIED ANXIETY DISORDERS Status: Acute Priority: Medium (6) Depression SNOMED Code(s): 49007746 ICD Code: F32.9 - MAJOR DEPRESSIVE DISORDER, SINGLE EPISODE, UNSPECIFIED Status: Acute Priority: Medium Qualifiers: Depression Type: major depressive disorder Major depression recurrence: recurrent Active/Remission status: in partial remission Qualified Code(s): F33.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 (8) COPD (chronic obstructive pulmonary disease) SNOMED Code(s): 68311915 ICD Code: J44.9 - CHRONIC OBSTRUCTIVE PULMONARY DISEASE, UNSPECIFIED Status : Chronic Priority: Medium Problem Details: Stable by history with no recent bronchitic complaints, etc. Qualifiers: COPD type: emphysema Emphysema type: panlobular Qualified Code(s): J43.1 - Panlobular emphysema (9) Coronary artery disease SNOMED Code(s): 46496390 ICD Code: I25.10 - ATHSCL HEART DISEASE OF [place] CORONARY ARTERY W/O ANG PCTRS Status: Chronic Priority: Medium Problem Details: No chest pain or anginal type symptoms. Qualifiers: Coronary Disease-Associated Artery/Lesion type: [place] artery [place] vs. transplanted heart: [place] heart Associated angina: without angina Qualified Code(s): I25.10 - Atherosclerotic heart disease of [place] coronary artery without angina pectoris (10) Hypertension SNOMED Code(s): 60153908 ICD Code: I10 - ESSENTIAL (PRIMARY) HYPERTENSION Status: Chronic Priority : Medium Problem Details: Blood Pressures good in the emergency room Qualifiers: Hypertension type: essential hypertension Qualified Code(s): I10 - Essential (primary) hypertension (11) Hypomagnesemia SNOMED Code(s): 919911522 ICD Code: E83.42 - HYPOMAGNESEMIA Status: Chronic Priority: Medium Problem Details: Currently under therapy. Medication adjustment likely required. (12) IDDM (insulin dependent diabetes mellitus) SNOMED Code(s): 13260395 ICD Code: E11.9 - TYPE 2 DIABETES MELLITUS WITHOUT COMPLICATIONS; Z79.4 - DOCTOR OF AUDIOLOGY (CURRENT) USE OF INSULIN Status: Chronic Priority: Medium Problem Details: Stable by patient history despite chronic steroid therapy for his polymyalgia rheumatica as above. (13) Peptic reflux disease SNOMED Code(s): 949930210 ICD Code: K21.9 - GASTRO-ESOPHAGEAL REFLUX DISEASE WITHOUT ESOPHAGITIS Status: Chronic Priority: Medium Problem Details: Stable by patient history (14) Polyarthritis rheumatica SNOMED Code(s): 90641300 ICD Code: M06.9 - RHEUMATOID ARTHRITIS, UNSPECIFIED Status: Chronic Priority: Medium Problem Details: Stable by patient history with current methotrexate and steroid therapy Qualifiers: Rheumatoid arthritis location: multiple sites Rheumatoid factor presence: unspecified presence Qualified Code(s): M06.9 - Rheumatoid arthritis, unspecified (15) Rheumatoid arthritis SNOMED Code(s): 00087289 ICD Code: M06.9 - RHEUMATOID ARTHRITIS, UNSPECIFIED Status: Chronic Priority: Medium Problem Details: Stable by history with current methotrexate and steroid therapy with additional history of polymyalgia rheumatica. 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 SNOMED Code(s): 28218397 ICD Code: H49.43 - PROGRESSIVE EXTERNAL OPHTHALMOPLEGIA, BILATERAL; G72.9 - MYOPATHY, UNSPECIFIED Status: Chronic Priority: Medium (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 SNOMED Code(s): 518852664 ICD Code: Q87.89 - OTH CONGENITAL MALFORMATION SYNDROMES, NEC; H49.30 - TOTAL (EXTERNAL) OPHTHALMOPLEGIA, UNSPECIFIED EYE; F79 - UNSPECIFIED INTELLECTUAL DISABILITIES; K14.5 - PLICATED TONGUE Status: Chronic Priority : Medium (20) Progressive external ophthalmoplegia of both eyes SNOMED Code(s): 86932172 ICD Code: H49.43 - PROGRESSIVE EXTERNAL OPHTHALMOPLEGIA, BILATERAL Status: Chronic Priority: Medium (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 SNOMED Code(s): 80283073 ICD Code: Q87.89 - OTH CONGENITAL MALFORMATION SYNDROMES, NEC; H49.30 - TOTAL (EXTERNAL) OPHTHALMOPLEGIA, UNSPECIFIED EYE; H57.03 - MIOSIS; 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 Status: Chronic Priority: Medium (22) Comfort measures only status SNOMED Code(s): 60651392741128 ICD Code: Z51.5 - ENCOUNTER FOR PALLIATIVE CARE Status: Acute Priority: High - Patient Summary/Data Consults: Consultations 11/30/19 19:01 Consult to Case Management/Clinical Data Analyst [CONS] Routine OT Evaluation and Treatment [CONS] Routine PT Evaluation and Treatment [CONS] Routine 12/01/19 15:13 Consult to Speech Language Pathology [BONDERIZER Evaluation and Treatment] [CONS] Routine - Patient Instructions Diet: Limited Carb Activity: As Tolerated Driving: Do Not Drive Showering/Bathing: May Shower Other/Special Instructions: PT-OT referral: evaluate and treat. Speech therapy referral: strengthen swallowing muscles. CBC, Sedimentation Rate, CRP. CMP next week on lab week - Discharge Plan *PRESCRIPTION DRUG MONITORING PROGRAM REVIEWED*: Not Applicable *COPY OF PRESCRIPTION DRUG MONITORING REPORT IN PATIENT BRITTANY: Not Applicable Prescriptions/Med Rec: Metoprolol Tartrate [Lopressor] 25 mg PO Q12HR #60 tablet Iron Polysaccharides Complex [Ferrex 150] 150 mg PO DAILY #30 cap metroNIDAZOLE [Metronidazole] 500 mg PO TID #22 tablet Polyethylene Glycol 3350 [MiraLAX] 17 gm PO BID #60 packet predniSONE [Prednisone] See Taper PO DAILY #14 tablet Home Medications: Home Meds Aspirin [Halfprin] 81 mg PO DAILY 06/24/15 [History] Furosemide 20 mg PO DAILY 08/30/15 [History] Albuterol/Ipratropium [DuoNeb 3.0-0.5 MG/3 ML] 1 vial INH QID 10/07/17 [History] Albuterol/Ipratropium [DuoNeb 3.0-0.5 MG/3 ML] 3 ml NEB Q4HRRT PRN 10/07/17 [ History] Budesonide [Pulmicort] 0.5 mg IH Q12HR 10/07/17 [History] Calcium Carbonate [Tums] 500 mg PO BID 10/07/17 [History] Cyanocobalamin (Vitamin B-12) [Vitamin B-12] 1,000 mcg PO DAILY 10/07/17 [ History] Magnesium Hydroxide [Milk of Magnesia] 30 ml PO DAILY PRN 10/07/17 [History] Trolamine Salicylate/Aloe Vera [Aspercreme 10%] 1 applic TOP BID 10/07/17 [ History] Acetaminophen [Tylenol Arthritis Pain] 650 mg PO Q8HR PRN 10/08/17 [History] Docusate Sodium [Colace] 2 cap PO DAILY 03/11/18 [History] Mag Hydrox/Al Hydrox/Simeth [Antacid Suspension] 30 ml PO DAILY PRN 03/11/18 [ History] Eucalyptus Oil/Menthol/Camphor [Vicks Vaporub Ointment] 50 gm TP BEDTIME [History] Famotidine [Pepcid] 20 mg PO BID 03/23/19 [History] Nph, Human Insulin Isophane [HumuLIN N] 18 unit SUBCUT Q12HR 03/23/19 [History] Sertraline [Zoloft] 100 mg PO DAILY 03/23/19 [History] Carboxymethyl/Gly/Poly80/Pf [Refresh Optive Advanced Drops] 1 each EYEBOTH TID 11/30/19 [History] Doxazosin Mesylate [Cardura] 2 mg PO BEDTIME 11/30/19 [History] LORazepam [Ativan] 0.5 mg PO BID 11/30/19 [History] Levothyroxine Sodium [Synthroid] 100 mcg PO DAILY 11/30/19 [History] Mineral Oil/Petrolatum,White [Retaine Pm Eye Ointment] 1 applic EYEBOTH BEDTIME 11/30/19 [History] guaiFENesin/Dextromethorphan [Safetussin DM] 10 ml PO BID 11/30/19 [History] guaiFENesin/Dextromethorphan [Safetussin DM] 10 ml PO Q6H PRN 11/30/19 [History] Acetaminophen/HYDROcodone [[place] 325-5 MG] 1 tab PO TID tablet 12/04/19 [Rx] Iron Polysaccharides Complex [Ferrex 150] 150 mg PO DAILY #30 cap 12/04/19 [Rx] Metoprolol Tartrate [Lopressor] 25 mg PO Q12HR #60 tablet 12/04/19 [Rx] Polyethylene Glycol 3350 [MiraLAX] 17 gm PO BID #60 packet 12/04/19 [Rx] metroNIDAZOLE [Metronidazole] 500 mg PO TID #22 tablet 12/04/19 [Rx] predniSONE [Prednisone] See Taper PO DAILY #14 tablet 12/04/19 [Rx] Oxygen Therapy Mode: Room Air - Discharge Summary/Plan Comment DC Time >30 min.: No - Patient Data Vitals - Most Recent: Last Vital Signs Temp 98.2 F 12/04/19 11:26 Pulse 67 12/04/19 11:26 Resp 20 12/04/19 11:26 BP 128/62 12/04/19 11:26 Pulse Ox 100 12/04/19 11:26 Weight - Most Recent: 158 lb 6.4 oz I&O - Last 24 hours: Intake & Output 12/04/19 12/04/19 12/04/19 06:59 14:59 22:59 Intake Total 300 720 Output Total 450 Balance -150 720 Lab Results - Last 24 hrs: Laboratory Results - last 24 hr 12/03/19 12/04/19 12/04/19 Range/Units 17:03 07:30 07:44 POC Glucose 275 H* 233 H (65-110) mg/dl Creatine Kinase 128 (26-308) U/L Troponin I 0.124 H* (0.000-0.056) ng/mL 12/04/19 Range/Units 11:09 POC Glucose 227 H (65-110) mg/dl Creatine Kinase (26-308) U/L Troponin I (0.000-0.056) ng/mL CECILIO Results - Last 24 hrs: Microbiology 11/30/19 19:30 Aerobic Blood Culture - Preliminary Blood - Venous - Lab Draw NO GROWTH AFTER 4 DAYS Anaerobic Blood Culture - Preliminary NO GROWTH AFTER 4 DAYS 11/30/19 19:23 Aerobic Blood Culture - Preliminary Blood - Venous NO GROWTH AFTER 4 DAYS Anaerobic Blood Culture - Preliminary NO GROWTH AFTER 4 DAYS Med Orders - Current: Current Medications Discontinued Medications Acetaminophen (Tylenol Arthritis Pain) 650 mg PO Q8HR PRN PRN Reason: Pain Last Admin: 12/03/19 19:42 Dose: 650 mg Acetaminophen (Tylenol) 325 mg PO Q3H PRN PRN Reason: fever Hydrocodone Bitart/Acetaminophen ([place] 325-5 Mg) 1 tab PO TID [facility] Last Admin: 12/04/19 11:12 Dose: 1 tab Albuterol/Ipratropium (Duoneb 3.0-0.5 Mg/3 Ml) 3 ml INH QIDRT [facility] Last Admin: 12/04/19 11:14 Dose: 3 ml Albuterol/Ipratropium (Duoneb 3.0-0.5 Mg/3 Ml) 3 ml NEB Q4HRRT PRN PRN Reason: Shortness of Breath Artificial Tears (Genteal Mild To Moderate Ophth Soln) 0 ml EYEBOTH TID [facility] Last Admin: 12/01/19 07:36 Dose: Not Given Artificial Tears (Liquitears 1.4% Ophth Soln) 0 ml EYEBOTH TID [facility] Last Admin: 12/04/19 11:13 Dose: 1 drop Aspirin (Halfprin) 81 mg PO WITHBREAKFAST [facility] Last Admin: 12/04/19 08:16 Dose: 81 mg Atenolol (Tenormin) 12.5 mg PO BEDTIME [facility] Atenolol (Tenormin) 25 mg PO DAILY [facility] Last Admin: 12/01/19 09:19 Dose: 25 mg Budesonide (Pulmicort) 0.5 mg NEB Q12HR [facility] Last Admin: 12/04/19 08:13 Dose: 0.5 mg Docusate Sodium (Colace) 200 mg PO DAILY [facility] Last Admin: 12/04/19 08:14 Dose: 200 mg Famotidine (Pepcid) 20 mg IVPUSH BID [facility] Last Admin: 12/04/19 08:16 Dose: 20 mg Fentanyl (Sublimaze) 50 mcg IVPUSH ONETIME ONE Stop: 11/30/19 19:31 Last Admin: 11/30/19 20:20 Dose: 50 mcg Fentanyl (Sublimaze) 50 mcg IVPUSH Q4H PRN PRN Reason: Pain Fexofenadine HCl (Miryam) 180 mg PO DAILY [facility] Last Admin: 12/04/19 08:15 Dose: 180 mg Guaifenesin/Dextromethorphan (Robitussin Dm) 10 ml PO Q6H PRN PRN Reason: Cough Last Admin: 12/02/19 20:32 Dose: 10 ml Guaifenesin/Dextromethorphan (Robitussin Dm) 10 ml PO BID [facility] Last Admin: 12/04/19 08:16 Dose: 10 ml Lactated Ringer's (Ringers, Lactated) 1,000 mls @ 75 mls/hr IV ASDIRECTED [facility] Last Admin: 12/02/19 08:46 Dose: 75 mls/hr Metronidazole 500 mg/ Premix 100 mls @ 100 mls/hr IV Q8H [facility] Last Admin: 12/04/19 11:17 Dose: Not Given Insulin Human Lispro (Humalog) 0 unit SUBCUT TID@0800,1200,1800 [facility]; Protocol Last Admin: 12/04/19 11:14 Dose: 4 units Insulin Human Lispro (Humalog) 6 unit SUBCUT ONETIME ONE Stop: 12/01/19 21:01 Insulin Human Lispro (Humalog) 6 unit SUBCUT ONETIME ONE Stop: 11/30/19 21:31 Last Admin: 11/30/19 22:46 Dose: 6 units Insulin Human NPH (Humulin N) 20 unit SQ BIDAC [facility] Last Admin: 12/03/19 17:13 Dose: 20 unit Insulin Human NPH (Humulin N) 30 unit SQ BIDAC [facility] Last Admin: 12/04/19 08:24 Dose: 30 unit Lorazepam (Ativan) 0.5 mg PO BID PRN PRN Reason: Anxiety Last Admin: 12/03/19 19:43 Dose: 0.5 mg Lorazepam (Ativan) 0.5 mg PO Q4H PRN PRN Reason: Anxiety Lorazepam (Ativan) 0.5 mg PO TID [facility] Last Admin: 12/04/19 11:13 Dose: 0.5 mg Meropenem (Merrem) 500 mg IVPUSH Q12HR [facility] Last Admin: 12/04/19 08:23 Dose: 500 mg Methylprednisolone Sodium Succinate (Solu-Medrol) 40 mg IVPUSH Q8H [facility] Last Admin: 12/01/19 14:18 Dose: 40 mg Methylprednisolone Sodium Succinate (Solu-Medrol) 40 mg IVPUSH Q12HR [facility] Last Admin: 12/03/19 19:43 Dose: 40 mg Methylprednisolone Sodium Succinate (Solu-Medrol) 40 mg IVPUSH DAILY [facility] Last Admin: 12/04/19 08:17 Dose: 40 mg Metoprolol Tartrate (Lopressor) 25 mg PO Q12HR [facility] Last Admin: 12/04/19 08:15 Dose: 25 mg Metronidazole (Flagyl) 500 mg PO ONETIME ONE Stop: 12/04/19 11:01 Last Admin: 12/04/19 11:13 Dose: 500 mg Mineral Oil/White Petrolatum (Lacri-Lube S.O.P Oint) 0 gm EYEBOTH BEDTIME [facility] Last Admin: 12/03/19 19:51 Dose: 1 applic Non-Formulary Medication (Eucalyptus Oil/Menthol/Camphor [Vicks Vaporub Ointment ]) 0 gm TP BEDTIME [facility] Ondansetron HCl (Zofran) 4 mg IVPUSH Q4H PRN PRN Reason: Nausea/Vomiting Polyethylene Glycol (Miralax) 17 gm PO DAILY [facility] Last Admin: 12/04/19 11:25 Dose: Not Given Polysaccharide Iron Complex (Ferrex 150) 150 mg PO DAILY [facility] Last Admin: 12/04/19 08:15 Dose: 150 mg Sertraline HCl (Zoloft) 100 mg PO BEDTIME [facility] Last Admin: 12/03/19 19:44 Dose: 100 mg Sodium Chloride (Saline Flush) 10 ml FLUSH ASDIRECTED PRN PRN Reason: Keep Vein Open Last Admin: 12/04/19 08:18 Dose: 10 ml Sodium Chloride (Saline Flush) 10 ml FLUSH Q12HR [facility] Last Admin: 12/04/19 08:17 Dose: 10 ml Trolamine Salicylate (Aspercreme 10%) 0 gm TOP BID [facility] Last Admin: 12/04/19 08:27 Dose: 1 applic *Q Meaningful Use (DIS) - VTE *Q VTE Mechanical Contraindications *Q: At Risk for Falls VTE Pharmacological Contraindications *Q: Not Candidate LT Anticoag
== END 2019-12-04 12:25 | DRG 392 ==
LOC: LL.MS 15:12 → UNDOADMIN 15:12 → LL.MS 15:35 → UNDOADMIN 15:35 → LL.MS 19:01
PROVIDERS: ADMIT Family Medicine; ATTEND Family Medicine
DX: K57.32 Diverticulitis of large intestine without perforation or abscess without bleeding (principal); E86.0 Dehydration; I95.9 Hypotension, unspecified; D52.1 Drug-induced folate deficiency anemia; F41.8 Other specified anxiety disorders; F33.41 Major depressive disorder, recurrent, in partial remission; Z51.5 Encounter for palliative care; F32.9 Major depressive disorder, single episode, unspecified; J43.1 Panlobular emphysema; I25.10 Atherosclerotic heart disease of native coronary artery without angina pectoris; E83.42 Hypomagnesemia; K21.9 Gastro-esophageal reflux disease without esophagitis; M06.9 Rheumatoid arthritis, unspecified; M25.461 Effusion, right knee; H49.43 Progressive external ophthalmoplegia, bilateral; E78.00 Pure hypercholesterolemia, unspecified; I10 Essential (primary) hypertension; E11.9 Type 2 diabetes mellitus without complications; M67.432 Ganglion, left wrist; M81.0 Age-related osteoporosis without current pathological fracture; Q10.0 Congenital ptosis; Z88.1 Allergy status to other antibiotic agents; Z79.82 Long term (current) use of aspirin; Z79.84 Long term (current) use of oral hypoglycemic drugs; Z79.890 Hormone replacement therapy; Z79.52 Long term (current) use of systemic steroids; Z79.899 Other long term (current) drug therapy; I25.2 Old myocardial infarction; Z86.73 Personal history of transient ischemic attack (TIA), and cerebral infarction without residual deficits
CPT/HCPCS: 36415; 71045; 73560-RT; 74018; 74230; 80053; 81001; 82550; 82553; 82607; 82728; 82746; 82962; 83540; 83550; 83605; 83735; 84443; 84484; 85025; 85652; 86140; 87040; 92526-GN; 92610-GN; 92611-GN; 93005; 94640; 97110-GP; 97161-GP; 97165-GO; 97530-GP; 97535-GO; A9270-GY; J1815; J2185; J2920; J3010; J3490; J7120; J7620-GY

== ENCOUNTER 2020-12-15 11:17 | Emergency (ER) | payer MEDICARE, BC, MEDICAID ==
[2020-12-15] MEDS ORDERED: Metoprolol Tartrate 5 MG/5 ML SDV IVPUSH ONE ×2 (11:28→13:15)
[2020-12-15] MEDS ORDERED: Aspirin 81 MG Tab.Chew CHEW ONE (11:28)
[2020-12-15] MEDS ORDERED: Ticagrelor 90 MG Tab PO ONE (11:28)
[2020-12-15] MEDS ORDERED: Famotidine 20 MG/2 ML SDV IVPUSH ONE (11:28)
--- NOTE | 2020-12-15 11:28 | EDM.PDOC ---
ED HPI GENERAL MEDICAL PROBLEM - General Chief Complaint: General Stated Complaint: tachycardia, increased BP, "not feeling well" Time Seen by Provider: 12/15/20 11:20 Source of Information: Reports: Patient, Penitentiary Records, Old Records ([facility] chart/EMR) History Limitations: Reports: Other (The patient is a somewhat poor historian secondary to his current illness and borderline mental deficits/organic brain syndrome) - History of Present Illness INITIAL COMMENTS - FREE TEXT/NARRATIVE: Patient was brought to the emergency room via transport vehicle from [facility] for evaluation of 1010 retrosternal chest pressure with possible radiation to the back, shoulders, and epigastric region, although the patient is a somewhat poor historian. No apparent treatment prior to arrival with only limited history obtained from the [place] [facility]. Note that the patient did receive his second COVID-19 immunization yesterday with symptoms starting sometime during the evening. He did apparently have COVID-19 infection last year in September 2020, although apparent negative COVID-19 rapid test at the [place] [facility] yesterday based on limited history. The patient denies any heart flutter, dizziness, orthostasis, orthopnea, diaphoresis, paresthesias, recent decreased exercise tolerance, or any other anginal-type symptoms. No recent history of abdominal pain, heartburn, nausea, diarrhea, melena, gross hematochezia, or any food intolerance, including fatty foods, etc., although some mild anorexia this morning with the patient not eating breakfast and refusing his morning medications today. He apparently had a normal bowel movement earlier this morning. He denies any gross hematuria, colic, or other UTI symptoms. The patient also denies any recent fever, wheezing, dyspnea, etc., although stable chronic clear productive cough secondary to his COPD. Onset: Gradual, Unknown/Unsure Onset Date: 12/14/20 Duration: Constant Location: Reports: Chest, Abdomen, Back, Upper Extremity, Left, Upper Extremity, Right, Radiates to (As above?). Denies: Head, Face, Neck Quality: Reports: Pressure, Same as Previous Episode Severity: Severe Improves with: Reports: None Worsens with: Reports: None Context: Reports: Other (As above). Denies: Sick Contact, Trauma Associated Symptoms: Reports: Confusion (Borderline), Chest Pain, Cough, cough w sputum, Fever/Chills, Loss of Appetite. Denies: Diaphoresis, Headaches, Nausea/Vomiting, Rash, Seizure, Shortness of Breath, Weakness Treatments APPLICATION PACKAGER: Reports: Other (see below) (None) Middle Chest Pain Score (Numeric/FACES): 10 - Related Data Allergies Allergy/AdvReac Type Severity Reaction Status Date / Time ceftriaxone sodium Allergy Rash Verified 12/15/20 11:19 [From Rocephin] levofloxacin [From Levaquin] Allergy Rash Verified 12/15/20 11:19 Home Meds: Home Meds Aspirin [Halfprin] 81 mg PO DAILY 06/24/15 [History] Furosemide 20 mg PO DAILY 08/30/15 [History] Albuterol/Ipratropium [DuoNeb 3.0-0.5 MG/3 ML] 1 vial INH QID 10/07/17 [History] Albuterol/Ipratropium [DuoNeb 3.0-0.5 MG/3 ML] 3 ml NEB Q4HRRT PRN 10/07/17 [History] Budesonide [Pulmicort] 0.5 mg IH Q12HR 10/07/17 [History] Calcium Carbonate [Tums] 500 mg PO BID 10/07/17 [History] Cyanocobalamin (Vitamin B-12) [Vitamin B-12] 1,000 mcg PO DAILY 10/07/17 [History] Magnesium Hydroxide [Milk of Magnesia] 30 ml PO DAILY PRN 10/07/17 [History] Trolamine Salicylate/Aloe Vera [Aspercreme 10%] 1 applic TOP BID 10/07/17 [History] Acetaminophen [Tylenol Arthritis Pain] 650 mg PO Q8HR PRN 10/08/17 [History] Docusate Sodium [Colace] 1 cap PO BID 03/11/18 [History] Eucalyptus Oil/Menthol/Camphor [Vicks Vaporub Ointment] 50 gm TP BEDTIME 03/23/19 [History] Nph, Human Insulin Isophane [HumuLIN N] 26 unit SUBCUT Q12HR 03/23/19 [History] Sertraline [Zoloft] 100 mg PO DAILY 03/23/19 [History] Carboxymethyl/Gly/Poly80/Pf [Refresh Optive Advanced Drops] 1 each EYEBOTH TID 11/30/19 [History] Doxazosin Mesylate [Cardura] 2 mg PO BEDTIME 11/30/19 [History] LORazepam [Ativan] 0.25 mg PO QAM 11/30/19 [History] Levothyroxine Sodium [Synthroid] 125 mcg PO DAILY 11/30/19 [History] Mineral Oil/Petrolatum,White [Retaine Pm Eye Ointment] 1 applic EYEBOTH BEDTIME 11/30/19 [History] guaiFENesin/Dextromethorphan [Safetussin DM] 10 ml PO BID 11/30/19 [History] Iron Polysaccharides Complex [Ferrex 150] 150 mg PO DAILY #30 cap 12/04/19 [Rx] Acetaminophen/HYDROcodone [Calumet 325-5 MG] 1 tab PO BID 12/15/20 [History] Ascorbate Calcium [Vitamin C] 500 mg PO DAILY 12/15/20 [History] Fexofenadine [Miryam] 180 mg PO DAILY 12/15/20 [History] Fluticasone Propionate [Flonase] 1 spray NASBOTH DAILY 12/15/20 [History] Gabapentin [Neurontin] 100 mg PO TID 12/15/20 [History] Hydrocodone/Acetaminophen [Hydrocodone-Acetamin 5-325 mg] 1 tab PO BID 12/15/20 [History] LORazepam [Ativan] 1 tab PO BEDTIME 12/15/20 [History] Metoprolol Tartrate [Lopressor] 25 mg PO BID 12/15/20 [History] Omeprazole Magnesium [Prilosec Otc] 20 mg PO BID 12/15/20 [History] Sennosides/Docusate Sodium [Senna Plus 8.6-50 mg Tablet] 1 tab PO BID 12/15/20 [History] atorvaSTATin Calcium [Atorvastatin Calcium] 1 tab PO BEDTIME 12/15/20 [History] guaiFENesin [Mucinex] 600 mg PO BID 12/15/20 [History] polyethylene glycoL 3350 [MiraLAX] 17 gm PO DAILY 12/15/20 [History] predniSONE [Prednisone] 10 mg PO DAILY 12/15/20 [History] Past Medical History HEENT History: Reports: Allergic Rhinitis, Cataract, Other (See Below). 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 Dry eye syndrome. Cardiovascular History: Reports: Arrhythmia, CAD, Cardiomyopathy, Heart Murmur, High Cholesterol, Hypertension, [place], Syncope. Denies: Afib, Aneurysm, Blood Clots/VTE/DVT, Heart Failure, PVD Other Cardiovascular History: Complete right bundle branch block. Moderate diastolic dysfunction and left atrial dilatation by echocardiogram. Mild diffuse valvular disease without heart murmurs although heart murmurs as a child. Near syncopal episode on 08/30/15. Hypertension with history of hypotension. History of STEMI. Hyperlipidemia with secondary fatty liver. Respiratory History: Reports: Bronchitis, Recurrent, COPD, Intubation, Previous, Pneumonia, Recurrent, Pulmonary Fibrosis, Sleep Apnea, Other (See Below). Denies: Asthma, Intubation, Difficult, PE, Pneumothorax, TB Other Respiratory History: Recurrent aspiration pneumonia. Gastrointestinal History: Reports: Chronic Constipation, Chronic Diarrhea, Colon Polyp, Diverticulosis, Fatty Liver, Gastritis, GERD, GI Bleed, Hemorrhoids, Hiatal Hernia, Inflammatory Bowel Disease, Irritable Bowel Syndrome, Other (See Below). Denies: Celiac Disease, Cholelithiasis, Fecal Incontinence, Hepatitis, Jaundice, Pancreatitis, PUD Other Gastrointestinal History: History of diverticulosis/diverticulitis. Excision of adenomatous colonic polyp at hepatic flexure in July 2011. Dysphagia Genitourinary History: Reports: BPH, Prostate Disorder, Retention, Urinary, Urinary Incontinence. Denies: Acute Renal Failure, Chronic Renal Insuffiency, Renal Calculus, STD, UTI, Recurrent Musculoskeletal History: Reports: Arthritis, Back Pain, Chronic, Neck Pain, Chronic, Osteoarthritis, Osteoporosis, RA, Other (See Below). Denies: Fracture, Gout, SLE Other Musculoskeletal History: Rheumatoid arthritis with current methotrexate and steroid therapy. polymyalgia rheumatica-steroid dependent, moderate Mock's cyst right leg Neurological History: Reports: CVA, Headaches, Chronic, Neuropathy, Diabetic, Neuropathy, Peripheral, Vertigo, Other (See Below). Denies: Cerebral Aneurysms, Concussion, Head Trauma, Migraines, MS, Parkinson's, Seizure, TIA Other Neuro History: Right lacunar infarct. 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 Psychiatric History: Reports: Addiction, Anxiety, Dementia, Depression, Other (See Below). 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 Chronic narcotic use. Endocrine/Metabolic History: Reports: Diabetes, Type II, Hypomagnesemia, Hypothyroidism, IDDM, Obesity/BMI 30+, Osteopenia, Osteoporosis, Other (See Below). Denies: Diabetes, Type I, Diabetes Mellitus, Type 3c Other Endocrine/Metabolic History: Hyponatremia. Hematologic History: Reports: Anemia. Denies: Blood Transfusion(s), Iron Deficiency Immunologic History: Reports: None. Denies: AIDS, HIV, SLE Oncologic (Cancer) History: Reports: None. Denies: Basal Cell Carcinoma, Brain, Colon, Hodgkin's Lymphoma, Leukemia, Lymphoma, Malignant Melanoma, Non- Hodgkin's Lymphoma, Prostate, Squamous Cell Carcinoma Dermatologic History: Reports: None. Denies: Eczema, Psoriasis - Infectious Disease History Infectious Disease History: Reports: Chicken Pox, Measles, Novel Coronavirus (September 2020.). Denies: C-Difficile, Meningitis, Mononucleosis, MRSA, Mumps, Pertussis (Whooping Cough), Rheumatic Fever, RSV, Rubella, Scarlet Fever, TB, VRE - Past Surgical History Head Surgeries/Procedures: Reports: None HEENT Surgical History: Reports: Adenoidectomy, Oral Surgery, Tonsillectomy, Other (See Below). Denies: Cataract Surgery, Detached Retina, Eye Surgery, Laser Surgery, LASIK, Myringotomy w Tube(s) Other HEENT Surgeries/Procedures: Complete teeth extraction. Tonsillectomy and adenoidectomy at about age 5. Cardiovascular Surgical History: Reports: None. Denies: Varicose Respiratory Surgical History: Reports: None. Denies: Thoracentesis GI Surgical History: Reports: Colonoscopy, EGD, Hernia, Inguinal, Polypectomy, Other (See Below). Denies: Appendectomy, Cholecystectomy, Hernia, Abdominal, Hernia Repair/Other Other GI Surgeries/Procedures: Colonoscopy on 09/22/15 with concomitant EGD with biopsy. Previous colonoscopy in July 2011 with polypectomy of a benign adenoma at the hepatic flexure. Right inguinal hernia repair on 07/18/06. Hemorrhoidectomy. Male Surgical History: Reports: Circumcision, Other (See Below). Denies: TURP-Transurethral Resection of Prostate Other Male Surgeries/Procedures: Circumcision as an infant Endocrine Surgical History: Reports: None. Denies: Thyroid Biopsy Neurological Surgical History: Denies: C-Spine, Discectomy, Intracranial, Laminectomy, Lumbar Spine, Sacral Spine, Spinal Fusion, Thoracic Spine, Vertebroplasty Musculoskeletal Surgical History: Reports: None, Other (See Below). Denies: Arthroscopic Knee, Arthroscopic Procedure, Carpal Tunnel, Ganglion Cyst, Joint Replacement, ORIF, Shoulder Surgery Other Musculoskeletal Surgeries/Procedures:: Excision of bilateral calcaneal benign fibromas on 06/20/10. Oncologic Surgical History: Reports: None Dermatological Surgical History: Reports: None - Past Imaging History Past Imaging History: Reports: Angiography (Heart catheterization at [facility] in October 2015.), Cardiac Echo (Last echocardiogram on 06/25/17 with ejection fraction of 6065 percent and findings as above. Previous echocardiogram on 02/26/14.), CAT Scan (CT of the brain on 04/29/17 and 10/04/16. CT of the chest on 07/04/17, 09/01/14, and 03/26/14. CT of the chest and neck on 02/12/08.), MRI (C-spine on 09/01/13. Left ankle on 09/01/13.), Sleep Study (09/11/17, 03/29/16, 03/13/16, and 01/03/16), Stress Testing (Cardiolite stress test on 08/19/03), Swallow Study (04/03/18, 03/11/18, 10/18/16, 06/01/15, and 08/04/15.), Ultrasound (Abdominal ultrasound on 04/20/14), Venous Doppler (Right leg on 08/30/15 and 11/23/15) Social & Family History - Family History Cardiac: Reports: Afib, Arrhythmia, Other (See Below) Other Cardiac Family History: Mother with atrial fibrillation. Respiratory: Reports: COPD, Other (See Below) Other Respiratory Family Hisory: Father with COPD. - Tobacco Use Tobacco Use Status *Q: Never Tobacco User Tobacco Use Within Last Twelve Months: No Used Tobacco, but Quit: No Smoking Cessation Information Provided To Patient: No Second Hand Smoke Exposure: No Second Hand Smoke Education Provided: No - Caffeine Use Caffeine Use: Reports: Tea - Alcohol Use Alcohol Use History: No Days Per Week of Alcohol Use: 0 Number of Drinks Per Day: 0 Number of Drinks Per Day Comment: No previous DWIs, problems with alcohol abuse, etc. Total Drinks Per Week: 0 Alcohol Use in Last Twelve Months: No - Recreational Drug Use Recreational Drug Use: No Drug Use in Last 12 Months: No - Living Situation & Occupation Living situation: Reports: Single (No children), [facility] Occupation: Retired (Retired [employer] at age 61) ED ROS GENERAL - Review of Systems Review Of Systems: Comprehensive ROS is negative, except as noted in HPI. ED EXAM, GENERAL - Physical Exam Exam: See Below Exam Limited By: No Limitations General Appearance: Alert, WD/WN, No Apparent Distress Eye Exam: Bilateral Eye: EOMI, Normal Inspection (No vertigo or nystagmus), PERRL Ears: Normal External Exam, Normal Canal, Hearing Grossly Normal, Normal TMs Nose: Normal Inspection, Normal Mucosa, No Blood Throat/Mouth: Normal Inspection, Normal Lips, Normal Gums, Normal Oropharynx, Normal Voice, No Airway Compromise, Dysphagia (Stable chronic). No: Normal Teeth (Complete absent dentition with the patient not wearing his dentures.), Perioral Cyanosis Head: Atraumatic, Normocephalic. No: Facial Swelling, Facial Tenderness, Sinus Tenderness Neck: Supple, Non-Tender, Full Range of Motion, Carotid Bruit (Mild bilateral carotid bruits). No: Lymphadenopathy (L), Lymphadenopathy (R), Thyromegaly Respiratory/Chest: No Accessory Muscle Use, Chest Non-Tender, Rales (Mild bilateral basilar). No: Rhonchi, Wheezing, Pleural Rub, Retractions Cardiovascular: Normal Peripheral Pulses, No Edema, No Gallop, No JVD, No Murmur, No Rub, Tachycardia (Regular rhythm). No: Gallop/S3, Gallop/S4, Friction Rub Peripheral Pulses: 2+: Radial (L), Radial (R), Dorsalis Pedis (L), Dorsalis Pedis (R) GI/Abdominal: Normal Bowel Sounds, Soft, Non-Tender, No Organomegaly, No Dis tention, No Abnormal Bruit, No Mass, Other (Obese). No: Guarding (Male) Exam: Deferred Rectal (Males) Exam: Deferred Back Exam: Normal Inspection, Full Range of Motion. No: CVA Tenderness (L), CVA Tenderness (R), Muscle Spasm Extremities: Normal Inspection, Normal Range of Motion, Non-Tender, No Pedal Edema, Normal Capillary Refill. No: Car's Sign Neurological: Alert, CN II-XII Intact, Normal Gait, Normal Reflexes (Negative Babinski's), No Motor/Sensory Deficits, Confused (Stable by exam borderline mental deficits and organic brain syndrome.) Psychiatric: Normal Affect, Normal Mood Skin Exam: Warm, Dry, Intact, Normal Color, No Rash. No: Diaphoretic, Ecchymosis, Wound/Incision Lymphatic: No Adenopathy #1 Interpretation EKG Date: 12/15/20 Time: 11:39 Rhythm: Other (Sinus tachycardia) Rate (Beats/Min): 124 [place]: Normal P-Wave: Present QRS: RBBB (0.92 seconds representing a stable complete right bundle branch block) ST-T: Other (New T wave inversions in leads V2V3 with stable previous T wave inversion in lead V1 with nonspecific ST changes in the anterior leads.) QT: Normal HI/PQ Interval: 0.14 seconds representing a borderline short HI interval with no delta waves noted. Stable pulmonary hypertension by EKG. Comparison: Change From Previous EKG (As above since 12/04/2019) EKG Interpretation Comments: 1. Anterior wall cardiac ischemianew 2. Complete right bundle branch block 3. Borderline short HI interval 4. Pulmonary hypertension by EKG Course - Vital Signs Last Recorded V/S: Last Vital Signs Temp 37.3 C 12/15/20 13:30 Pulse 115 H 12/15/20 15:06 Resp 26 H 12/15/20 14:30 BP 136/76 12/15/20 15:06 Pulse Ox 98 12/15/20 15:06 Vital Signs - 24 hr 12/15/20 12/15/20 12/15/20 11:17 11:22 11:35 Temperature [ 36.9 C 36.9 C Oral] Pulse, Peripheral Pulse, 121 H 126 H 122 H Peripheral [ Pulse Oximetry] Respiratory 28 H 28 H 30 H Rate Blood Pressure Blood Pressure 162/78 H 162/78 H 147/75 H [Right Upper Arm] O2 Sat by Pulse 96 97 96 Oximetry 12/15/20 12/15/20 12/15/20 11:42 11:45 12:00 Temperature [ 37.7 C Oral] Pulse, 124 H Peripheral Pulse, 122 H 110 H Peripheral [ Pulse Oximetry] Respiratory 34 H 34 H Rate Blood Pressure 152/76 H Blood Pressure 152/76 H 136/84 [Right Upper Arm] O2 Sat by Pulse 96 97 Oximetry 12/15/20 12/15/20 12/15/20 12:15 12:30 12:45 Temperature [ Oral] Pulse, Peripheral Pulse, 112 H 115 H 117 H Peripheral [ Pulse Oximetry] Respiratory 30 H 32 H 28 H Rate Blood Pressure Blood Pressure 138/66 130/65 137/64 [Right Upper Arm] O2 Sat by Pulse 96 97 117 H Oximetry 12/15/20 12/15/20 12/15/20 13:00 13:30 13:40 Temperature [ 37.3 C Oral] Pulse, 116 H Peripheral Pulse, 121 H 105 H Peripheral [ Pulse Oximetry] Respiratory 26 H 32 H Rate Blood Pressure 142/59 H Blood Pressure 140/63 142/59 H [Right Upper Arm] O2 Sat by Pulse 98 95 Oximetry 12/15/20 12/15/20 12/15/20 14:00 14:30 15:06 Temperature [ Oral] Pulse, Peripheral Pulse, 106 H 109 H 115 H Peripheral [ Pulse Oximetry] Respiratory 28 H 26 H Rate Blood Pressure Blood Pressure 124/78 108/70 136/76 [Right Upper Arm] O2 Sat by Pulse 97 98 98 Oximetry - Orders/Labs/Meds Orders: Active Orders 24 hr Category Date Time Status Cardiac Monitoring [RC] . DIRECTED Care 12/15/20 11:28 Active EKG Documentation Completion [RC] ASDIRECTED Care 12/15/20 11:28 Active Oxygen Therapy, ED [RC] PRN Care 12/15/20 11:28 Active Peripheral IV Care [RC] . DIRECTED Care 12/15/20 11:28 Active Peripheral IV Care [RC] . DIRECTED Care 12/15/20 12:58 Active Pulse Oximetry [RC] CONTINUOUS Care 12/15/20 11:28 Active RT Aerosol Therapy [RC] ASDIRECTED Care 12/15/20 13:15 Active Up With Assistance [RC] PFP Care 12/15/20 11:28 Active Vital Signs [RC] PFP Care 12/15/20 11:28 Active Nothing per Oral Now Diet [DIET] Diet 12/15/20 Breakfast Active Chest 1V Frontal [CR] Stat Exams 12/15/20 11:28 Taken Chest PE [Ang Chest] [CT] Stat Exams 12/15/20 12:26 Taken CULTURE URINE [RM] Routine Lab 12/15/20 14:15 Ordered Heparin Sodium/0.45% NaCl [Heparin 25,000 Units in 1/2 Med 12/15/20 12:45 Active NS 500 ML] 500 ml IV TITRATE Sodium Chloride 0.9% [Saline Flush] Med 12/15/20 11:28 Active 10 ml FLUSH ASDIRECTED PRN Sodium Chloride 0.9% [Saline Flush] Med 12/15/20 12:57 Active 10 ml FLUSH ASDIRECTED PRN Obtain Past Medical Record [OM.PC] Urgent Oth 12/15/20 11:28 Active Peripheral IV Insertion Adult [OM.PC] Stat Oth 12/15/20 11:28 Ordered Peripheral IV Insertion Adult [OM.PC] Stat Oth 12/15/20 12:45 Ordered Resuscitation Status Stat Resus Stat 12/15/20 11:28 Ordered Medication Orders Heparin Sodium/Sodium Chloride (Heparin 25,000 Units In 1/2 Ns 500 Ml) 500 mls @ 18.816 mls/hr IV TITRATE JOHN; Protocol Last Admin: 12/15/20 12:51 Dose: 12 units/kg/hr, 18.816 mls/hr Documented by: PRINCESS Cosigned by: AMADO Sodium Chloride (Saline Flush) 10 ml FLUSH ASDIRECTED PRN PRN Reason: Keep Vein Open Last Admin: 12/15/20 13:56 Dose: 10 ml Documented by: Admin: 12/15/20 13:42 Dose: 10 ml Documented by: Admin: 12/15/20 12:52 Dose: 10 ml Documented by: PRINCESS Sodium Chloride (Saline Flush) 10 ml FLUSH ASDIRECTED PRN PRN Reason: Keep Vein Open Labs: Laboratory Tests 12/15/20 12/15/20 12/15/20 Range/Units 11:52 11:52 11:52 WBC 7.7 (4.0-10.2) K/uL RBC 4.04 L (4.33-5.41) M/uL Hgb 10.4 L (13.1-16.8) g/dL Hct 33.1 L (39.0-49.0) % MCV 81.9 L (84.0-98.0) fL MCH 25.7 L (28.2-33.3) pg MCHC 31.4 L (31.7-36.0) g/dL RDW 15.9 H (11.2-14.1) % Plt Count 225 (150-350) K/uL Neut % (Auto) 88.6 H (45.0-80.0) % Lymph % (Auto) 6.9 L (10.0-50.0) % [place] % (Auto) 3.8 (2.0-14.0) % Eos % (Auto) 0.3 (0.0-5.0) % Baso % (Auto) 0.4 (0.0-2.0) % Neut # (Auto) 6.83 (1.40-7.00) K/uL Lymph # (Auto) 0.53 (0.50-3.50) K/uL [place] # (Auto) 0.29 (0.00-1.00) K/uL Eos # (Auto) 0.02 (0.00-0.50) K/uL Baso # (Auto) 0.03 (0.00-0.20) K/uL PT 12.8 H (9.5-12.0) SEC INR 1.3 APTT 23.9 L (24.5-32.8) SEC D-Dimer, Quantitative 3660 H (0-400) ng/mL Sodium (136-145) mmol/L Potassium (3.5-5.1) mmol/L Chloride (98-107) mmol/L Carbon Dioxide (21.0-32.0) mmol/L BUN (7-18) mg/dL Creatinine (0.51-1.17) mg/dL Est Cr Clr Drug Dosing mL/min Estimated GFR (MDRD) mL/min Glucose (74-106) mg/dL Lactic Acid (0.4-2.0) mmol/L Uric Acid (2.6-7.2) mg/dL Calcium (8.5-10.1) mg/dL Magnesium (1.8-2.4) mg/dL Total Bilirubin (0.2-1.0) mg/dL AST (15-37) U/L ALT (12-78) U/L Alkaline Phosphatase (46-116) IU/L Creatine Kinase (26-308) U/L Creatine Kinase Index (0.0-2.5) % CK-MB (CK-2) (0.00-3.60) ng/mL Troponin I (0.000-0.056) ng/mL NT-Pro-B Natriuret Pep (0-125) pg/mL Total Protein (6.4-8.2) g/dL Albumin (3.4-5.0) g/dL TSH, Ultra Sensitive (0.358-3.740) mIU/mL Specimen Type Urine Color Urine Appearance Urine pH (5.0-9.0) Ur Specific [place] (1.005-1.030) Urine Protein (NEGATIVE) mg/dL Urine Glucose (UA) (NEGATIVE) mg/dL Urine Ketones (NEGATIVE) mg/dL Urine Occult Blood (NEGATIVE) Urine Nitrite (NEGATIVE) Urine Bilirubin (NEGATIVE) Urine Urobilinogen (0.2-1.0) E.U./dL Ur Leukocyte Esterase (NEGATIVE) Urine RBC /HPF Urine WBC /HPF Ur Epithelial Cells /LPF Urine Bacteria (NONE TO FEW) /HPF Urine Mucus (NEGATIVE) /LPF 12/15/20 12/15/20 12/15/20 Range/Units 11:52 11:52 14:30 WBC (4.0-10.2) K/uL RBC (4.33-5.41) M/uL Hgb (13.1-16.8) g/dL Hct (39.0-49.0) % MCV (84.0-98.0) fL MCH (28.2-33.3) pg MCHC (31.7-36.0) g/dL RDW (11.2-14.1) % Plt Count (150-350) K/uL Neut % (Auto) (45.0-80.0) % Lymph % (Auto) (10.0-50.0) % [place] % (Auto) (2.0-14.0) % Eos % (Auto) (0.0-5.0) % Baso % (Auto) (0.0-2.0) % Neut # (Auto) (1.40-7.00) K/uL Lymph # (Auto) (0.50-3.50) K/uL [place] # (Auto) (0.00-1.00) K/uL Eos # (Auto) (0.00-0.50) K/uL Baso # (Auto) (0.00-0.20) K/uL PT (9.5-12.0) SEC INR APTT (24.5-32.8) SEC D-Dimer, Quantitative (0-400) ng/mL Sodium 132 L (136-145) mmol/L Potassium 4.2 (3.5-5.1) mmol/L Chloride 96 L (98-107) mmol/L Carbon Dioxide 25.3 (21.0-32.0) mmol/L BUN 16 (7-18) mg/dL Creatinine 0.63 (0.51-1.17) mg/dL Est Cr Clr Drug Dosing 79.99 mL/min Estimated GFR (MDRD) > 60 mL/min Glucose 211 H (74-106) mg/dL Lactic Acid 1.6 (0.4-2.0) mmol/L Uric Acid 2.6 (2.6-7.2) mg/dL Calcium 8.9 (8.5-10.1) mg/dL Magnesium 1.8 (1.8-2.4) mg/dL Total Bilirubin 0.7 (0.2-1.0) mg/dL AST 19 (15-37) U/L ALT 28 (12-78) U/L Alkaline Phosphatase 66 (46-116) IU/L Creatine Kinase 161 (26-308) U/L Creatine Kinase Index 1.1 (0.0-2.5) % CK-MB (CK-2) 1.80 (0.00-3.60) ng/mL Troponin I 0.059 H* (0.000-0.056) ng/mL NT-Pro-B Natriuret Pep 320 H (0-125) pg/mL Total Protein 8.0 (6.4-8.2) g/dL Albumin 3.0 L (3.4-5.0) g/dL TSH, Ultra Sensitive 2.973 (0.358-3.740) mIU/mL Specimen Type Urincc Urine Color Yellow Urine Appearance Clear Urine pH 8.5 (5.0-9.0) Ur Specific [place] 1.015 (1.005-1.030) Urine Protein 30 H (NEGATIVE) mg/dL Urine Glucose (UA) Negative (NEGATIVE) mg/dL Urine Ketones Negative (NEGATIVE) mg/dL Urine Occult Blood Negative (NEGATIVE) Urine Nitrite Negative (NEGATIVE) Urine Bilirubin Negative (NEGATIVE) Urine Urobilinogen 0.2 (0.2-1.0) E.U./dL Ur Leukocyte Esterase Negative (NEGATIVE) Urine RBC 5-10 H /HPF Urine WBC Not seen /HPF Ur Epithelial Cells Rare /LPF Urine Bacteria Few (NONE TO FEW) /HPF Urine Mucus Few H (NEGATIVE) /LPF Meds: Medications Generic Name Dose Route Start Last Admin Trade Name Damonq PRN Reason Stop Dose Admin Heparin Sodium/Sodium Chloride 500 mls @ 18.816 mls/hr 12/15/20 12:45 12/15/20 12:51 Heparin 25,000 Units In 1/2 Ns 500 Ml IV 12 units/kg/hr TITRATE JOHN 18.816 mls/hr Administration Protocol 12 UNITS/KG/HR Sodium Chloride 10 ml 12/15/20 11:28 12/15/20 13:56 Saline Flush FLUSH 10 ml ASDIRECTED PRN Administration Keep Vein Open Sodium Chloride 10 ml 12/15/20 12:57 Saline Flush FLUSH ASDIRECTED PRN Keep Vein Open Discontinued Medications Generic Name Dose Route Start Last Admin Trade Name Lauren PRN Reason Stop Dose Admin Albuterol/Ipratropium 3 ml 12/15/20 13:15 12/15/20 13:38 Duoneb 3.0-0.5 Mg/3 Ml NEB 12/15/20 13:16 3 ml ONETIME ONE Administration Aspirin 324 mg 12/15/20 11:28 12/15/20 11:35 Aspirin CHEW 12/15/20 11:29 324 mg ONETIME ONE Administration Enoxaparin Sodium 80 mg 12/15/20 12:25 12/15/20 12:37 Lovenox SUBCUT 12/15/20 12:26 Not Given ONETIME ONE Famotidine 40 mg 12/15/20 11:28 12/15/20 11:42 Pepcid IVPUSH 12/15/20 11:29 40 mg ONETIME ONE Administration Furosemide 60 mg 12/15/20 13:15 12/15/20 13:55 Lasix IVPUSH 12/15/20 13:16 60 mg NOW ONE Administration Furosemide Confirm 12/15/20 13:46 12/15/20 13:57 Lasix Administered 12/15/20 13:47 Not Given Dose 40 mg .ROUTE .STK-MED ONE Heparin Sodium (Porcine) 4,000 units 12/15/20 12:37 12/15/20 12:48 Heparin Sodium IVPUSH 12/15/20 12:38 4,000 units ONETIME ONE Administration Iopamidol 100 ml 12/15/20 12:30 12/15/20 14:06 Isovue-370 (76%) IVPUSH 12/15/20 12:31 100 ml ONETIME STA Administration Iopamidol Confirm 12/15/20 12:35 Isovue-370 (76%) Administered 12/15/20 12:36 Dose 100 ml .ROUTE .STK-MED ONE Metoprolol Tartrate 2.5 mg 12/15/20 11:28 12/15/20 11:42 Lopressor IVPUSH 12/15/20 11:29 2.5 mg ONETIME ONE Administration Metoprolol Tartrate 2.5 mg 12/15/20 13:15 12/15/20 13:40 Lopressor IVPUSH 12/15/20 13:16 2.5 mg ONETIME ONE Administration Ticagrelor 180 mg 12/15/20 11:28 12/15/20 11:35 Brilinta PO 12/15/20 11:29 180 mg ONETIME ONE Administration - Radiology Interpretation Free Text/Narrative:: 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 Note initial improvement to sinus tachycardia in the 110s after initial dose of Lopressor with return mild tachycardia in the 120s thereafter requiring an additional dose. Chest x-ray, portable, shows moderate COPD changes with evidence of mild centralized CHF/pulmonary hypertension with additional mild aortic valve calcification. No pulmonary infiltrates, pneumothorax, cardiomegaly, etc.. Official chest x-ray report was overall negative. Telephone consultation at 2:12 PM with the radiology department at [facility] in [place]. Mildly suboptimal exam secondary to patient motion however no direct evidence of PE. Incidental finding of mild left axillary lymphadenopathy and inflammation consistent with the COVID-19 second immunization, which the patient received in that arm yesterday. Written radiological report received prior to patient transfer. 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 transplanted heart: [place] heart Associated angina: without angina Qualified Code(s): I25.10 - Atherosclerotic heart disease of [place] coronary artery without angina pectoris - Discharge Information *PRESCRIPTION DRUG MONITORING PROGRAM REVIEWED*: Not Applicable *COPY OF PRESCRIPTION DRUG MONITORING REPORT IN PATIENT BRITTANY: Not Applicable Referrals: Chaparrita Goldstein MD [Primary Care Provider] - Forms: ED Department Discharge, Interfacility Transfer [facility] Care Plan Goals: See plan Sepsis Event Note (ED) - Evaluation Sepsis Screening Result: No Definite Risk - Focused Exam Vital Signs: Vital Signs Temp Pulse Pulse Resp BP BP Pulse Ox 12/15/20 15:06 115 H 136/76 98 12/15/20 14:30 109 H 26 H 108/70 98 12/15/20 14:00 106 H 28 H 124/78 97 12/15/20 13:40 116 H 142/59 H 12/15/20 13:30 37.3 C 105 H 32 H 142/59 H 95 12/15/20 13:00 121 H 26 H 140/63 98 12/15/20 12:45 117 H 28 H 137/64 117 H 12/15/20 12:30 115 H 32 H 130/65 97 12/15/20 12:15 112 H 30 H 138/66 96 12/15/20 12:00 37.7 C 110 H 34 H 136/84 97 12/15/20 11:45 122 H 34 H 152/76 H 96 12/15/20 11:42 124 H 152/76 H 12/15/20 11:35 122 H 30 H 147/75 H 96 12/15/20 11:22 36.9 C 126 H 28 H 162/78 H 97 12/15/20 11:17 36.9 C 121 H 28 H 162/78 H 96 - Problem List & Annotations (1) Coronary artery disease SNOMED Code(s): 87566247 Code(s): I25.10 - ATHSCL HEART DISEASE OF [place] CORONARY ARTERY W/O ANG PCTRS Status: Chronic Priority: High Onset Date: 12/14/20 Annotation/Comment:: Suspect anterior wall cardiac ischemia and/or non-STEMI with chest pain protocol initiated immediately upon patient's arrival to our emergency room. Note mildly positive troponin I with mild CHF component. Note additional D-dimer elevation as below/above with subsequent negative CTA of the chest for PE. Initial telephone consultation at 12:55 PM with his brother, Devin, who was not available and then at 1 PM with his [id number], Yoli, who will try to get in contact with her . IV heparin therapy initiated as per non-STEMI protocol with T wave inversions represented of new anterior wall cardiac ischemia by EKG. Note sinus tachycardia on arrival with low-dose 2.5 mg of IV Lopressor initiated immediately upon patient's arrival to our facility with additional dose required during later phases of his ER care. Additional IV Lasix was initiated secondary to his mild CHF. Subsequent telephone consultation at 1:20 PM with his brother, Devin, who did talk with his father concerning various treatment options. They have elected to lift his NO CODE STATUS for further possible heart catheterization, etc. and wished to be transferred to [facility]. Subsequent telephone consultation at 1:[address] Lanier, emergency room physician at [facility] in [place], who is requesting that CTA of the chest results to be received prior to transfer of this patient. Subsequent telephone consultation at 2:[address] Lanier informing him of the negative CTA of the chest as above, with no further treatment recommendations given. Ambulance transfer to [place] with rejector accompaniment with continuation of IV heparin infusion per non-STEMI protocol. Vital signs and clinical exam were stable/improved at time of transfer with patient chest pain-free at that time. Dr. Lanier does agree to talk with the hospitalist concerning patient's transfer. Qualifiers: Coronary Disease-Associated Artery/Lesion type: [place] artery [place] vs. transplanted heart: [place] heart Associated angina: without angina Qualified Code(s): I25.10 - Atherosclerotic heart disease of [place] coronary artery without angina pectoris (2) D-dimer, elevated SNOMED Code(s): 998295236 Code(s): R79.89 - OTHER SPECIFIED ABNORMAL FINDINGS OF BLOOD CHEMISTRY Status: Acute Priority: High Onset Date: 12/15/20 Annotation/Comment:: None negative CTA of the chest for PE as above. Consider venous Doppler studies of the lower extremities by accepting providers. Note current IV heparin infusion by non-STEMI protocol. No clinical evidence of DVT or PE. (3) Comfort measures only status SNOMED Code(s): 48728858430061 Code(s): Z51.5 - ENCOUNTER FOR PALLIATIVE CARE Status: Chronic Priority: Medium Annotation/Comment:: Previous NO CODE status which will be temporary lifted for cardiac treatment and evaluation as above per the patient and his brother's request. (4) Anxiety and depression SNOMED Code(s): 508156737 Code(s): F41.9 - ANXIETY DISORDER, UNSPECIFIED; F32.9 - MAJOR DEPRESSIVE DISORDER, SINGLE EPISODE, UNSPECIFIED Status: Chronic Priority: Medium Annotation/Comment:: Stable by history. (5) COPD (chronic obstructive pulmonary disease) SNOMED Code(s): 04832931 Code(s): J44.9 - CHRONIC OBSTRUCTIVE PULMONARY DISEASE, UNSPECIFIED Status: Chronic Priority: Medium Annotation/Comment:: Stable by history with no recent bronchitic complaints, etc., although note history of COVID-19 in N 2019 as above with negative COVID-19 test on 12/14/2020. Note no fever on arrival, however low-grade fever during emergency room care. UA with culture and sensitivity were obtained prior to patient's transfer with consideration of sputum specimen, etc. depending on his clinical course. Note that secondary to his fever and increased wheezing during his emergency room care patient was give n a DuoNeb treatment with additional likely cardiac asthma component secondary to his CHF. Symptoms significantly improved at time of transfer. Qualifiers: COPD type: emphysema Emphysema type: panlobular Qualified Code(s): J43.1 - Panlobular emphysema (6) Hypertension SNOMED Code(s): 95508953 Code(s): I10 - ESSENTIAL (PRIMARY) HYPERTENSION Status: Chronic Priority: Medium Annotation/Comment:: Blood Pressures stable in the emergency room. Qualifiers: Hypertension type: essential hypertension Qualified Code(s): I10 - Essential (primary) hypertension (7) IDDM (insulin dependent diabetes mellitus) SNOMED Code(s): 83778295 Code(s): E11.9 - TYPE 2 DIABETES MELLITUS WITHOUT COMPLICATIONS; Z79.4 - SNF (CURRENT) USE OF INSULIN Status: Chronic Priority: Medium Annotation/Comment:: Continue to observe closely by accepting providers with history of significantly elevated glycosylated hemoglobin's in recent past based on review of medical records. Otherwise stable by patient history despite chronic steroid therapy for his polymyalgia rheumatica as above. (8) Peptic reflux disease SNOMED Code(s): 332935197 Code(s): K21.9 - GASTRO-ESOPHAGEAL REFLUX DISEASE WITHOUT ESOPHAGITIS Status: Chronic Priority: Medium Annotation/Comment:: High-dose IV Pepcid given as GI prophylaxis with no evidence of acute GI bleed. Note stable chronic anemia per medical records. Otherwise stable GERD by patient history with further work-up depending on his clinical course. (9) Rheumatoid arthritis SNOMED Code(s): 26377478 Code(s): M06.9 - RHEUMATOID ARTHRITIS, UNSPECIFIED Status: Chronic Priority: Medium Annotation/Comment:: Stable by history with previous methotrexate therapy and current narcotic and steroid therapy with additional history of polymyalgia rheumatica. Qualifiers: Rheumatoid arthritis location: multiple sites Rheumatoid factor presence: unspecified presence Qualified Code(s): M06.9 - Rheumatoid arthritis, unspecified (10) Hyponatremia SNOMED Code(s): 83120857 Code(s): E87.1 - HYPO-OSMOLALITY AND HYPONATREMIA Status: Chronic Priority: Medium Onset Date: 03/23/19 Annotation/Comment:: Close follow-up by accepting providers. Likely secondary to mild CHF. (11) Hypoalbuminemia SNOMED Code(s): 584094972 Code(s): E88.09 - OTH DISORDERS OF PLASMA-PROTEIN METABOLISM, NEC Status: Acute Priority: Medium Onset Date: 12/15/20 Annotation/Comment:: Observe for now - Problem List Review Problem List Initiated/Reviewed/Updated: Yes - My Orders Last 24 Hours: My Active Orders 12/15/20 Breakfast Nothing per Oral Now Diet [DIET] 12/15/20 11:28 Cardiac Monitoring [RC] . DIRECTED EKG Documentation Completion [RC] ASDIRECTED Oxygen Therapy, ED [RC] PRN Peripheral IV Care [RC] . DIRECTED Pulse Oximetry [RC] CONTINUOUS Up With Assistance [RC] PFP Vital Signs [RC] PFP Chest 1V Frontal [CR] Stat Sodium Chloride 0.9% [Saline Flush] 10 ml FLUSH ASDIRECTED PRN Obtain Past Medical Record [OM.PC] Urgent Peripheral IV Insertion Adult [OM.PC] Stat Resuscitation Status Stat 12/15/20 12:26 Chest PE [Ang Chest] [CT] Stat 12/15/20 12:45 Heparin Sodium/0.45% NaCl [Heparin 25,000 Units in 1/2 NS 500 ML] 500 ml IV TITRATE Peripheral IV Insertion Adult [OM.PC] Stat 12/15/20 12:57 Sodium Chloride 0.9% [Saline Flush] 10 ml FLUSH ASDIRECTED PRN 12/15/20 12:58 Peripheral IV Care [RC] . DIRECTED 12/15/20 13:15 RT Aerosol Therapy [RC] ASDIRECTED 12/15/20 14:15 CULTURE URINE [RM] Routine - Assessment/Plan Last 24 Hours: My Active Orders 12/15/20 Breakfast Nothing per Oral Now Diet [DIET] 12/15/20 11:28 Cardiac Monitoring [RC] . DIRECTED EKG Documentation Completion [RC] ASDIRECTED Oxygen Therapy, ED [RC] PRN Peripheral IV Care [RC] . DIRECTED Pulse Oximetry [RC] CONTINUOUS Up With Assistance [RC] PFP Vital Signs [RC] PFP Chest 1V Frontal [CR] Stat Sodium Chloride 0.9% [Saline Flush] 10 ml FLUSH ASDIRECTED PRN Obtain Past Medical Record [OM.PC] Urgent Peripheral IV Insertion Adult [OM.PC] Stat Resuscitation Status Stat 12/15/20 12:26 Chest PE [Ang Chest] [CT] Stat 12/15/20 12:45 Heparin Sodium/0.45% NaCl [Heparin 25,000 Units in 1/2 NS 500 ML] 500 ml IV TITRATE Peripheral IV Insertion Adult [OM.PC] Stat 12/15/20 12:57 Sodium Chloride 0.9% [Saline Flush] 10 ml FLUSH ASDIRECTED PRN 12/15/20 12:58 Peripheral IV Care [RC] . DIRECTED 12/15/20 13:15 RT Aerosol Therapy [RC] ASDIRECTED 12/15/20 14:15 CULTURE URINE [] Routine Assessment:: As above Plan: As above. Extensive precautions were given to the patient, who is in agreement with the treatment plan. Ambulance transfer to [facility] via ambulance with rejector accompaniment as above.
[2020-12-15 12:12] LABS: PTT,PARTIAL THROMBOPLSTIN TIME 23.9 SEC (24.5-32.8)
[2020-12-15] MEDS ORDERED: Enoxaparin 80 MG/0.8 ML Syringe SUBCUT ONE (12:25)
[2020-12-15 12:30] LABS: CHLORIDE,CL 96 mmol/L (98-107); SODIUM,NA 132 mmol/L (136-145)
[2020-12-15] MEDS ORDERED: Iopamidol 755 Mg/ML 100 ML Bottle IVPUSH STA (12:30)
[2020-12-15] MEDS ORDERED: Iopamidol 755 Mg/ML 100 ML Bottle ONE (12:35)
[2020-12-15] MEDS ORDERED: Heparin Sodium 5,000 Units/ML Vial IVPUSH ONE (12:37)
[2020-12-15] MEDS ORDERED: Heparin Sodium/0.45% NaCl 500 ML IV SCH (12:45)
[2020-12-15] MEDS: Sodium Chloride 0.9% 10 ML Syringe FLUSH PRN ×3 (12:52→13:56)
[2020-12-15] MEDS ORDERED: Sodium Chloride 0.9% 10 ML Syringe FLUSH PRN (12:57)
[2020-12-15] MEDS ORDERED: Furosemide 40 MG/4 ML VIAL IVPUSH ONE (13:15)
[2020-12-15] MEDS ORDERED: Albuterol/Ipratropium 3.0-0.5 MG/3 ML Neb Soln NEB ONE (13:15)
[2020-12-15] MEDS ORDERED: Furosemide 40 MG/4 ML VIAL ONE (13:46)
[2020-12-15 15:07] VITALS: BP 136/76; PULSE 115
== END 2020-12-15 15:50 ==
LOC: LL.ED 11:17
DX: I25.9 Chronic ischemic heart disease, unspecified (principal); I45.10 Unspecified right bundle-branch block; R94.31 Abnormal electrocardiogram [ECG] [EKG]; I27.20 Pulmonary hypertension, unspecified; I25.10 Atherosclerotic heart disease of native coronary artery without angina pectoris; E78.00 Pure hypercholesterolemia, unspecified; I10 Essential (primary) hypertension; I25.2 Old myocardial infarction; J44.9 Chronic obstructive pulmonary disease, unspecified; K21.9 Gastro-esophageal reflux disease without esophagitis; E11.40 Type 2 diabetes mellitus with diabetic neuropathy, unspecified; E03.9 Hypothyroidism, unspecified; M06.9 Rheumatoid arthritis, unspecified; Z86.73 Personal history of transient ischemic attack (TIA), and cerebral infarction without residual deficits; Z79.82 Long term (current) use of aspirin; Z88.1 Allergy status to other antibiotic agents; Z79.899 Other long term (current) drug therapy
CPT/HCPCS: 36415; 71045; 71275; 80053; 81001; 82550; 82553; 83605; 83735; 83880; 84443; 84484; 84550; 85025; 85379; 85610; 85730; 87086; 87088; 87186; 93005; 93010; 94640; 96365; 96366; 96375; 96376; 99284; 99285; A9270; J1644; J1940; J3490; Q9967; J7620-GY

== ENCOUNTER 2020-12-21 02:37 | Emergency (ER) | payer MEDICARE, BC, MEDICAID ==
--- NOTE | 2020-12-21 02:47 | EDM.PDOC ---
ED HPI GENERAL MEDICAL PROBLEM - General Chief Complaint: Lower Extremity Injury/Pain Stated Complaint: right hip pain Time Seen by Provider: 12/21/20 02:45 Source of Information: Reports: Patient, EMS, [facility] Records, Old Records, Other ([facility]). Denies: EMS Notes Reviewed History Limitations: Reports: Altered Mental Status (The patient is a moderate poor historian secondary to previous IV fentanyl and also his baseline mild organic brain syndrome) - History of Present Illness INITIAL COMMENTS - FREE TEXT/NARRATIVE: The patient was brought to the emergency room via ambulance with district commercial superintendent accompaniment with saline lock placed, oxygen applied at 2 L/min by nasal cannula as preventative measure, and 50 mcg of IV fentanyl given prior to arrival to this facility. The patient apparently fell while going to the bathroom at about 11:30 AM this morning, tripping on his walker, and now complaining of 10/10 right low back pain and 10/10 right hip pain. He denies any head injury, loss of consciousness, change in mental status, neck pain, or other complaints or injuries. The patient denies any chest pain/pressure, heart flutter, dizziness, orthostasis, orthopnea, diaphoresis, paresthesias, recent decreased exercise tolerance, or any other anginal-type symptoms. No recent history of abdominal pain, heartburn, nausea, diarrhea, melena, gross hematochez ia, or any food intolerance, including fatty foods, etc.. He denies any gross hematuria, colic, or other UTI symptoms, although he is incontinent of urine on a regular basis. The patient also denies any recent fever, cough, wheezing, dyspnea, etc.. Note that the patient did have COVID-19 in September 2020 and has already received his 2 COVID-19 immunization shots. Onset: Today, Sudden, Unknown/Unsure Onset Date: 12/21/20 Onset Time: 01:00 Duration: Constant Location: Reports: Back, Lower Extremity, Right. Denies: Head, Face, Neck, Chest, Abdomen, Pelvis, Upper Extremity, Left, Upper Extremity, Right, Lower Extremity, Left, Radiates to Quality: Reports: Sharp Severity: Severe Improves with: Reports: None Worsens with: Reports: None Context: Reports: Trauma (As above). Denies: Sick Contact Associated Symptoms: Reports: Confusion (Normal baseline), Headaches (Stable chronic). Denies: Chest Pain, Cough, Diaphoresis, Fever/Chills, Loss of Appetite, Malaise, Nausea/Vomiting, Seizure, Shortness of Breath, Syncope, Weakness Treatments PHARMACY TECHNICIAN TRAINEE: Reports: IV/IO, Other Medication(s), Oxygen Right Hip Pain Score (Numeric/FACES): 10 Right Lower Back Pain Score (Numeric/FACES): 10 - Related Data Allergies Allergy/AdvReac Type Severity Reaction Status Date / Time ceftriaxone sodium Allergy Rash Verified 12/15/20 11:19 [From Rocephin] levofloxacin [From Levaquin] Allergy Rash Verified 12/15/20 11:19 Home Meds: Home Meds Aspirin [Halfprin] 81 mg PO DAILY 06/24/15 [History] Furosemide 40 mg PO DAILY 08/30/15 [History] Albuterol/Ipratropium [DuoNeb 3.0-0.5 MG/3 ML] 1 vial INH QID 10/07/17 [History] Budesonide [Pulmicort] 0.5 mg IH Q12HR 10/07/17 [History] Calcium Carbonate [Tums] 500 mg PO BID 10/07/17 [History] Cyanocobalamin (Vitamin B-12) [Vitamin B-12] 1,000 mcg PO DAILY 10/07/17 [History] Magnesium Hydroxide [Milk of Magnesia] 30 ml PO DAILY PRN 10/07/17 [History] Trolamine Salicylate/Aloe Vera [Aspercreme 10%] 1 applic TOP BID 10/07/17 [History] Acetaminophen [Tylenol Arthritis Pain] 650 mg PO Q8HR PRN 10/08/17 [History] Docusate Sodium [Colace] 1 cap PO BID 03/11/18 [History] Eucalyptus Oil/Menthol/Camphor [Vicks Vaporub Ointment] 50 gm TP BEDTIME 03/23/19 [History] Nph, Human Insulin Isophane [HumuLIN N] 26 unit SUBCUT Q12HR 03/23/19 [History] Sertraline [Zoloft] 100 mg PO DAILY 03/23/19 [History] Carboxymethyl/Gly/Poly80/Pf [Refresh Optive Advanced Drops] 1 each EYEBOTH TID 11/30/19 [History] Doxazosin Mesylate [Cardura] 2 mg PO BEDTIME 11/30/19 [History] LORazepam [Ativan] 0.25 mg PO QAM 11/30/19 [History] Levothyroxine Sodium [Synthroid] 125 mcg PO DAILY 11/30/19 [History] Mineral Oil/Petrolatum,White [Retaine Pm Eye Ointment] 1 applic EYEBOTH BEDTIME 11/30/19 [History] guaiFENesin/Dextromethorphan [Safetussin DM] 10 ml PO BID 11/30/19 [History] Iron Polysaccharides Complex [Ferrex 150] 150 mg PO DAILY #30 cap 12/04/19 [Rx] Fexofenadine [Miryam] 180 mg PO DAILY 12/15/20 [History] Fluticasone Propionate [Flonase] 1 spray NASBOTH DAILY 12/15/20 [History] Gabapentin [Neurontin] 100 mg PO TID 12/15/20 [History] Hydrocodone/Acetaminophen [Hydrocodone-Acetamin 5-325 mg] 1 tab PO BID 12/15/20 [History] LORazepam [Ativan] 0.5 mg PO BEDTIME 12/15/20 [History] Metoprolol Tartrate [Lopressor] 25 mg PO BID 12/15/20 [History] Omeprazole Magnesium [Prilosec Otc] 20 mg PO BID 12/15/20 [History] Sennosides/Docusate Sodium [Senna Plus 8.6-50 mg Tablet] 1 tab PO BID 12/15/20 [History] guaiFENesin [Mucinex] 600 mg PO BID 12/15/20 [History] polyethylene glycoL 3350 [MiraLAX] 17 gm PO DAILY 12/15/20 [History] atorvaSTATin Calcium [Atorvastatin Calcium] 40 mg PO BEDTIME 12/21/20 [History] predniSONE [Prednisone] 10 mg PO DAILY 12/21/20 [History] Past Medical History HEENT History: Reports: Allergic Rhinitis, Cataract, Hard of Hearing, Other (See Below). Denies: Glaucoma, Impaired Vision, Macular Degeneration, Otitis Media, Retinal Detachment Other HEENT History: Presbycusis with no hearing aid therapy. Bilateral upper lid ptosis, right greater than left, and bilateral ophthalmoplegia. Dry eye syndrome. Cardiovascular History: Reports: Arrhythmia, CAD, Cardiomyopathy, Heart Murmur, High Cholesterol, Hypertension, OR, Syncope. Denies: Afib, Aneurysm, Blood Clots/VTE/DVT Other Cardiovascular History: Non-STEMI on 12/15/2020 with patient refusing heart catheterization at that time. Previous moderate diffuse coronary artery disease by heart catheterization in October 2015 as below. Complete right bundle branch block. Recurrent CHF. Moderate diastolic dysfunction and left atrial dilatation by echocardiogram, although improved with serial echocardiograms. Mild diffuse valvular disease without heart murmurs although heart murmurs as a child. Near syncopal episode on 08/30/15. Hypertension with history of hypotension. History of STEMI. Hyperlipidemia with secondary fatty l iver. Recurrent D-dimer elevations. Borderline short [place] interval. Respiratory History: Reports: Bronchitis, Recurrent, COPD, Intubation, Previous, Pneumonia, Recurrent, Pulmonary Fibrosis, Sleep Apnea, Other (See Below). Denies: Asthma, Intubation, Difficult, PE, Pneumothorax, TB Other Respiratory History: Recurrent aspiration pneumonia. Gastrointestinal History: Reports: Chronic Constipation, Chronic Diarrhea, Colon Polyp, Diverticulosis, Fatty Liver, Gastritis, GERD, GI Bleed, Hemorrhoids, Hiatal Hernia, Inflammatory Bowel Disease, Irritable Bowel Syndrome, Other (See Below). Denies: Celiac Disease, Cholelithiasis, Helicobacter Pylori Other Gastrointestinal History: History of diverticulosis/diverticulitis. Excision of adenomatous colonic polyp at hepatic flexure in July 2011. Dysphagia. Genitourinary History: Reports: BPH, Prostate Disorder, Retention, Urinary, Urinary Incontinence. Denies: Acute Renal Failure, Chronic Renal Insuffiency, Renal Calculus, STD, UTI, Recurrent Musculoskeletal History: Reports: Arthritis, Back Pain, Chronic, Neck Pain, Chronic, Osteoarthritis, Osteoporosis, RA, Other (See Below). Denies: Amputation, Fracture, Gout, SLE Other Musculoskeletal History: Rheumatoid arthritis with current methotrexate and steroid therapy. polymyalgia rheumatica-steroid dependent, moderate Mock's cyst right leg Neurological History: Reports: CVA, Headaches, Chronic, Neuropathy, Diabetic, Neuropathy, Peripheral, Vertigo, Other (See Below). Denies: Cerebral Aneurysms, Concussion, Head Trauma, Migraines, MS, Seizure, TIA Other Neuro History: Right lacunar infarct. 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 Psychiatric History: Reports: Addiction, Anxiety, Dementia, Depression, Other (See Below). Denies: Abuse, Victim of, ADD, ADHD, Psych Hospitalization(s), PTSD, Suicide Attempt, Suicidal Ideation Other Psychiatric History: Borderline organic brain syndrome and/or baseline mental deficit. Chronic narcotic use. Endocrine/Metabolic History: Reports: Diabetes, Type II, Hypomagnesemia, Hypothyroidism, IDDM, Obesity/BMI 30+, Osteopenia, Osteoporosis, Other (See Below). Denies: Diabetes, Type I, Diabetes Mellitus, Type 3c Other Endocrine/Metabolic History: Hypoalbuminemia. Hyponatremia. Hematologic History: Reports: Anemia. Denies: B12 Deficiency, Blood Transfusion(s), Iron Deficiency Immunologic History: Reports: None. Denies: AIDS, HIV, SLE Oncologic (Cancer) History: Reports: None. Denies: Basal Cell Carcinoma, Colon, Hodgkin's Lymphoma, Leukemia, Lymphoma, Malignant Melanoma, Non-Hodgkin's Lymphoma, Prostate, Squamous Cell Carcinoma Dermatologic History: Reports: None. Denies: Eczema, Psoriasis - Infectious Disease History Infectious Disease History: Reports: Chicken Pox, Measles, Novel Coronavirus (September 2020). Denies: C-Difficile, Meningitis, Mononucleosis, MRSA, Mumps, Pertussis (Whooping Cough), Rubella, Scarlet Fever, Shingles, TB, VRE - Past Surgical History Head Surgeries/Procedures: Reports: None HEENT Surgical History: Reports: Adenoidectomy, Cataract Surgery, Oral Surgery, Tonsillectomy, Other (See Below) Other HEENT Surgeries/Procedures: Right cataract surgery on 05/08/2016 with left cataract surgery on 01/31/2016. Complete teeth extraction. Tonsillectomy and adenoidectomy at about age 5. Cardiovascular Surgical History: Reports: None. Denies: Varicose Respiratory Surgical History: Reports: None. Denies: Thoracentesis GI Surgical History: Reports: Colonoscopy, EGD, Hernia, Inguinal, Polypectomy, Other (See Below) Other GI Surgeries/Procedures: EGD and colonoscopy on 10/24/2015. Previous colonoscopy on 09/22/15 with concomitant EGD with biopsy. Previous colonoscopy in July 2011 with polypectomy of a benign adenoma at the hepatic flexure. Right inguinal hernia repair on 07/18/06. Hemorrhoidectomy on 11/29/2015. Male Surgical History: Reports: Circumcision, Other (See Below). Denies: TURP-Transurethral Resection of Prostate, Vasectomy Other Male Surgeries/Procedures: Circumcision as an Endocrine Surgical History: Reports: None. Denies: Thyroid Biopsy Neurological Surgical History: Reports: None. Denies: C-Spine, Discectomy, Laminectomy, Lumbar Spine, Sacral Spine, Spinal Fusion, Thoracic Spine, Vertebroplasty Musculoskeletal Surgical History: Reports: None, Other (See Below). Denies: Arthroscopic Procedure, Carpal Tunnel, Ganglion Cyst, Joint Replacement, ORIF, Shoulder Surgery Other Musculoskeletal Surgeries/Procedures:: Excision of bilateral calcaneal benign fibromas on 06/20/10. Oncologic Surgical History: Reports: None Dermatological Surgical History: Reports: None - Past Imaging History Past Imaging History: Reports: Angiography (Heart catheterization at [facility] on 10/21/2015.), Cardiac Echo (Last echocardiogram on 12/16/2020 with ejection fraction of 55-60% and otherwise findings as above. Previous echocardiogram on 06/25/17 with ejection fraction of 6065 percent, 10/12/2015, 06/24/2015, and 02/26/14.), CAT Scan (CT of the brain on 04/29/17, 10/04/16, 09/01/2015 and 06/24/2015. Negative CTA of the chest on 12/15/2020, 09/01/2015, and 06/24/2015. CT of the chest on 07/04/17, 09/01/14, and 03/26/14. CT of the chest and neck on 02/12/08.), MRI (C-spine on 09/01/13. Left ankle on 09/01/13.), PFT (10/22/2016), Sleep Study (09/11/17, 03/29/16, 03/13/16, and 01/03/16), Stress Testing (Cardiolite stress test on 06/25/2015 and 08/19/03), Swallow Study (04/03/18, 03/11/18, 10/18/16, 10/08/2016, 06/01/15, and 08/04/15.), Ultrasound (Abdominal ultrasound on 04/20/14), Venous Doppler (Right leg on 06/24/2015, 08/30/15 and 11/23/15) Social & Family History - Family History HEENT: Reports: Other (See Below) Other HEENT Family History: Mother, maternal uncle, and maternal grandmother with ptosis. Cardiac: Reports: Afib, Arrhythmia, Other (See Below) Other Cardiac Family History: Mother with atrial fibrillation. Respiratory: Reports: COPD, Other (See Below) Other Respiratory Family Hisory: Father with COPD. Endocrine/Metabolic: Reports: Hypothyroidism, Other (See Below) Other Endocrine/Metabolic Family History: Mother with hypothyroidism. 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 ED EXAM, GENERAL - Physical Exam Exam: See Below Exam Limited By: No Limitations General Appearance: Alert, WD/WN, No Apparent Distress Eye Exam: Bilateral Eye: EOMI, Normal Fundi, Normal Inspection (No nystagmus), PERRL Ears: Normal External Exam, Normal Canal, Normal TMs, Hearing Loss (Mild bilateral presbycusis) Nose: Normal Inspection, Normal Mucosa, No Blood Throat/Mouth: Normal Inspection, Normal Lips, Normal Gums, Normal Oropharynx, Normal Voice, No Airway Compromise. No: Normal Teeth (Complete absent dentition with no dentures present), Dysphagia, Perioral Cyanosis Head: Atraumatic, Normocephalic. No: Facial Swelling, Facial Tenderness, Sinus Tenderness Neck: Supple, Non-Tender, Full Range of Motion, Carotid Bruit (Mild bilateral carotid bruits). No: Lymphadenopathy (L), Lymphadenopathy (R), Thyromegaly Respiratory/Chest: No Respiratory Distress, Lungs Clear, Normal Breath Sounds, No Accessory Muscle Use, Chest Non-Tender. No: Pleural Rub, Retractions Cardiovascular: Normal Peripheral Pulses, Regular Rate, Rhythm, No Edema, No Gallop, No JVD, No Murmur, No Rub. No: Gallop/S3 (Polyps), Gallop/S4, Friction Rub Peripheral Pulses: 2+: Radial (L), Radial (R), Dorsalis Pedis (L), Dorsalis Pedis (R) GI/Abdominal: Normal Bowel Sounds, Soft, Non-Tender, No Organomegaly, No Distention, No Abnormal Bruit, No Mass, Pelvis Stable, Other (Obese). No: Guarding (Male) Exam: Deferred Rectal (Males) Exam: Deferred Back Exam: Muscle Spasm (Mild right paraspinal lumbar region), Paraspinal Tenderness (Right mid lumbar). No: CVA Tenderness (L), CVA Tenderness (R), Vertebral Tenderness Extremities: No Pedal Edema, Normal Capillary Refill, Leg Pain (Moderate to severe right hip pain with external rotation), Limited Range of Motion (Right hip secondary to fracture). No: Pedal Edema, Car's Sign Neurological: Alert, CN II-XII Intact, Normal Reflexes (Negative Babinski's), Confused (Borderline organic brain syndrome). No: Normal Cognition, Normal Gait Psychiatric: Normal Affect, Normal Mood Skin Exam: Warm, Dry, Intact, Normal Color, No Rash. No: Diaphoretic, Wound/Incision Lymphatic: No Adenopathy Course - Vital Signs Last Recorded V/S: Last Vital Signs Temp 36.2 C 12/21/20 02:40 Pulse 73 12/21/20 02:59 Resp 19 12/21/20 03:29 BP 131/52 L 12/21/20 03:29 Pulse Ox 100 12/21/20 03:29 Vital Signs - 24 hr 12/21/20 12/21/20 12/21/20 02:40 02:59 03:16 Temperature [ 36.2 C Temporal] Pulse, 68 73 Peripheral [ Pulse Oximetry] Respiratory 19 19 19 Rate Blood Pressure 149/70 H 126/72 129/56 L [Right Upper Arm] O2 Sat by Pulse 100 100 100 Oximetry 12/21/20 12/21/20 12/21/20 03:29 03:46 03:59 Temperature [ Temporal] Pulse, Peripheral [ Pulse Oximetry] Respiratory 19 19 19 Rate Blood Pressure 131/52 L 119/60 120/64 [Right Upper Arm] O2 Sat by Pulse 100 100 100 Oximetry 12/21/20 04:14 Temperature [ Temporal] Pulse, Peripheral [ Pulse Oximetry] Respiratory 12 Rate Blood Pressure 129/61 [Right Upper Arm] O2 Sat by Pulse 99 Oximetry - Orders/Labs/Meds Orders: Active Orders 24 hr Category Date Time Status Blood Glucose Check, Bedside [RC] STAT Care 12/21/20 03:35 Ordered Cardiac Monitoring [RC] . DIRECTED Care 12/21/20 03:22 Active Hip Min 2V or 3V w Pelvis Rt [CR] Stat Exams 12/21/20 02:47 Taken Lumbar Spine 2 or 3V [CR] Stat Exams 12/21/20 02:48 Ordered Lactated Ringers [Ringers, Lactated] 1,000 ml Med 12/21/20 03:45 Ordered IV ASDIRECTED Obtain Past Medical Record [OM.PC] Routine Oth 12/21/20 02:47 Active Medication Orders Lactated Ringer's (Ringers, Lactated) 1,000 mls @ 80 mls/hr IV ASDIRECTED JOHN Labs: Accu-Chek 110 mg percent. Meds: Medications Generic Name Dose Route Start Last Admin Trade Name Freq PRN Reason Stop Dose Admin Lactated Ringer's 1,000 mls @ 80 mls/hr 12/21/20 03:45 Ringers, Lactated IV ASDIRECTED JOHN Discontinued Medications Generic Name Dose Route Start Last Admin Trade Name Freq PRN Reason Stop Dose Admin Fentanyl 100 mcg 12/21/20 02:49 12/21/20 02:52 Sublimaze IVPUSH 12/21/20 02:50 100 mcg ONETIME ONE Administration Ondansetron HCl 4 mg 12/21/20 02:49 12/21/20 02:53 Zofran IVPUSH 12/21/20 02:50 4 mg ONETIME ONE Administration - Radiology Interpretation Free Text/Narrative:: county adviser shows normal sinus rhythm in the 70s with no ectopy or arrhythmia. X-rays of the pelvis, 1 view, and 2 views of the right hip shows evidence of a mildly displaced comminuted intertrochanteric fracture. X-rays of the lumbar spine, 2 views, are somewhat suboptimal with moderate osteoarthritic changes, including spur formation, with additional moderate osteoporotic changes and possible L5 vertebral body fracture of unknown age. Departure - Departure Time of Disposition: 04:30 Disposition: DC/Tfer to Acute Hospital 02 Condition: Good Clinical Impression: Comfort measures only status, IDDM (insulin dependent diabetes mellitus), Coronary artery disease Closed right hip fracture Qualifiers: Encounter type: initial encounter Qualified Code(s): S72.001A - Fracture of unspecified part of neck of right femur, initial encounter for closed fracture Low back pain Qualifiers: Chronicity: acute Back pain laterality: right Sciatica presence: without sciatica Qualified Code(s): M54.5 - Low back pain Osteoarthritis Qualifiers: Osteoarthritis location: multiple joints Osteoarthritis type: primary Qualified Code(s): M89.49 - Other hypertrophic osteoarthropathy, multiple sites COPD (chronic obstructive pulmonary disease) Qualifiers: COPD type: emphysema Emphysema type: panlobular Qualified Code(s): J43.1 - Panlobular emphysema Hypertension Qualifiers: Hypertension type: essential hypertension Qualified Code(s): I10 - Essential (primary) hypertension - Discharge Information *PRESCRIPTION DRUG MONITORING PROGRAM REVIEWED*: Not Applicable *COPY OF PRESCRIPTION DRUG MONITORING REPORT IN PATIENT BRITTANY: Not Applicable Referrals: Bebe Pugh NP [Primary Care Provider] - Forms: ED Department Discharge, Interfacility Transfer [facility] Sepsis Event Note (ED) - Evaluation Sepsis Screening Result: No Definite Risk - Focused Exam Vital Signs: Vital Signs Temp Pulse Resp BP Pulse Ox 12/21/20 03:29 19 131/52 L 100 12/21/20 03:16 19 129/56 L 100 12/21/20 02:59 73 19 126/72 100 12/21/20 02:40 36.2 C 68 19 149/70 H 100 - Problem List & Annotations (1) Closed right hip fracture SNOMED Code(s): 918913302 Code(s): S72.001A - FRACTURE OF UNSP PART OF NECK OF RIGHT FEMUR, INIT Status: Acute Priority: High Current Visit: Yes Onset Date: 12/21/20 Annotation/Comment:: Telephone consultation at 3:[address] Conde, emergency room physician at [facility] in [place], who does accept the patient for direct admission, with no further treatment recommendations given. He does agree to contact their hospitalist concerning this admission. Ambulance transfer with district commercial superintendent accompaniment with stable vital signs and clinical exam at time of transfer. Patient does agree to lift his NO CODE STATUS for orthopedic surgery and is normally active with his walker. Patient received a total of 150 mcg of IV fentanyl in 50 mcg aliquots, with last dose immediately prior to patient's transfer. The patient was transferred with telemetry and lactated Ringer's at 80 cc/h. Qualifiers: Encounter type: initial encounter Qualified Code(s): S72.001A - Fracture of unspecified part of neck of right femur, initial encounter for closed fracture (2) Low back pain SNOMED Code(s): 742778034 Code(s): M54.5 - LOW BACK PAIN Status: Acute Priority: High Current Visit: Yes Onset Date: 12/21/20 Annotation/Comment:: Note possible L5 fracture by today's x-ray however acuity is uncertain secondary to his significant osteoarthritis and osteoporosis. His rheumatoid arthritis, etc. are otherwise stable with no evidence of other injuries. Qualifiers: Chronicity: acute Back pain laterality: right Sciatica presence: without sciatica Qualified Code(s): M54.5 - Low back pain (3) Coronary artery disease SNOMED Code(s): 38113784 Code(s): I25.10 - ATHSCL HEART DISEASE OF [place] CORONARY ARTERY W/O ANG PCTRS Status: Chronic Priority: High Current Visit: Yes Onset Date: 12/14/20 Annotation/Comment:: Suspect anterior wall cardiac ischemia and/or non-STEMI on 12/15/2020 with patient transfer to [facility]. The patient initially agreed to lift his NO CODE STATUS for heart catheterization prior to transfer, however subsequently refused this procedure at [facility]. He then subsequently changed his mind again right before transfer, however discharging physicians elected to have this discussed further with his addiction psychiatrist on an outpatient basis. Note previous moderate diffuse coronary artery disease by heart catheterization on 10/21/2015. He denies any current chest pain or anginal type symptoms. Qualifiers: Coronary Disease-Associated Artery/Lesion type: [place] artery [place] vs. transplanted heart: [place] heart Associated angina: without angina Qualified Code(s): I25.10 - Atherosclerotic heart disease of [place] coronary artery without angina pectoris (4) Osteoarthritis SNOMED Code(s): 016733752 Code(s): M19.90 - UNSPECIFIED OSTEOARTHRITIS, UNSPECIFIED SITE Status: Chronic Priority: Medium Current Visit: Yes Annotation/Comment:: As above. Note osteoporosis and rheumatoid arthritis. Qualifiers: Osteoarthritis location: multiple joints Osteoarthritis type: primary Qualified Code(s): M89.49 - Other hypertrophic osteoarthropathy, multiple sites (5) COPD (chronic obstructive pulmonary disease) SNOMED Code(s): 62364924 Code(s): J44.9 - CHRONIC OBSTRUCTIVE PULMONARY DISEASE, UNSPECIFIED Status: Chronic Priority: Medium Current Visit: Yes Annotation/Comment:: Stable by history with no recent bronchitic complaints, etc., although note history of COVID-19 in September 2020 as above with the patient already receiving his 2 COVID-19 immunizations. Qualifiers: COPD type: emphysema Emphysema type: panlobular Qualified Code(s): J43.1 - Panlobular emphysema (6) Comfort measures only status SNOMED Code(s): 47227415797253 Code(s): Z51.5 - ENCOUNTER FOR PALLIATIVE CARE Status: Chronic Priority: Medium Current Visit: Yes Annotation/Comment:: Previous NO CODE status which will be temporary lifted for orthopedic treatment and evaluation as above per the patient and his brother's request. Note that his patient's brother, was informed of patient transfer and plan treatment. (7) Hypertension SNOMED Code(s): 56978342 Code(s): I10 - ESSENTIAL (PRIMARY) HYPERTENSION Status: Chronic Priority: Medium Current Visit: Yes Annotation/Comment:: Blood Pressures stable in the emergency room. Qualifiers: Hypertension type: essential hypertension Qualified Code(s): I10 - Essential (primary) hypertension (8) IDDM (insulin dependent diabetes mellitus) SNOMED Code(s): 11494422 Code(s): E11.9 - TYPE 2 DIABETES MELLITUS WITHOUT COMPLICATIONS; Z79.4 - METAL BONDER (CURRENT) USE OF INSULIN Status: Chronic Priority: Medium Current Visit: Yes Annotation/Comment:: Accu-Chek of 110 mg percent during emergency room care. - Problem List Review Problem List Initiated/Reviewed/Updated: Yes - My Orders Last 24 Hours: My Active Orders 12/21/20 02:47 Hip Min 2V or 3V w Pelvis Rt [CR] Stat Obtain Past Medical Record [OM.PC] Routine 12/21/20 02:48 Lumbar Spine 2 or 3V [CR] Stat 12/21/20 03:22 Cardiac Monitoring [RC] . DIRECTED 12/21/20 03:35 Blood Glucose Check, Bedside [RC] STAT 12/21/20 03:45 Lactated Ringers [Ringers, Lactated] 1,000 ml IV ASDIRECTED - Assessment/Plan Last 24 Hours: My Active Orders 12/21/20 02:47 Hip Min 2V or 3V w Pelvis Rt [CR] Stat Obtain Past Medical Record [OM.PC] Routine 12/21/20 02:48 Lumbar Spine 2 or 3V [CR] Stat 12/21/20 03:22 Cardiac Monitoring [RC] . DIRECTED 12/21/20 03:35 Blood Glucose Check, Bedside [RC] STAT 12/21/20 03:45 Lactated Ringers [Ringers, Lactated] 1,000 ml IV ASDIRECTED Assessment:: As above. Plan: As above. Extensive precautions were given to the patient, who is in agreement with the treatment plan. Ambulance transfer with district commercial superintendent accompaniment as above.
[2020-12-21] MEDS ORDERED: Ondansetron 4 MG/2 ML SDV IVPUSH ONE (02:49)
[2020-12-21] MEDS ORDERED: fentaNYL 100 MCG/2 ML SDV IVPUSH ONE (02:49)
[2020-12-21 03:00] VITALS: PULSE 73
[2020-12-21] MEDS ORDERED: Lactated Ringers 1,000 ML IV SCH (03:45)
[2020-12-21 04:16] VITALS: BP 129/61
== END 2020-12-21 04:30 ==
LOC: LL.ED 02:37
DX: S72.141A Displaced intertrochanteric fracture of right femur, initial encounter for closed fracture (principal); M89.49 Other hypertrophic osteoarthropathy, multiple sites; J43.1 Panlobular emphysema; I25.10 Atherosclerotic heart disease of native coronary artery without angina pectoris; I25.2 Old myocardial infarction; K21.9 Gastro-esophageal reflux disease without esophagitis; I12.9 Hypertensive chronic kidney disease with stage 1 through stage 4 chronic kidney disease, or unspecified chronic kidney disease; E11.22 Type 2 diabetes mellitus with diabetic chronic kidney disease; N18.9 Chronic kidney disease, unspecified; E78.00 Pure hypercholesterolemia, unspecified; E11.42 Type 2 diabetes mellitus with diabetic polyneuropathy; H91.13 Presbycusis, bilateral; E03.9 Hypothyroidism, unspecified; Z88.1 Allergy status to other antibiotic agents; Z79.4 Long term (current) use of insulin; Z79.82 Long term (current) use of aspirin; Z79.899 Other long term (current) drug therapy; W01.0XXA Fall on same level from slipping, tripping and stumbling without subsequent striking against object, initial encounter; Y92.002 Bathroom of unspecified non-institutional (private) residence as the place of occurrence of the external cause
CPT/HCPCS: 72100; 73502; 82962; 96374; 96375; 99285; J2405; J3010; J7120; 99284

== ENCOUNTER 2024-05-13 09:18 | Emergency (ER) | payer MEDICARE, BC, MEDICAID ==
[2024-05-13 09:22] VITALS: PULSE 87
[2024-05-13 09:37] LABS: BASOPHILS ABSOLUTE AUTO 0.01 K/uL (0.00-0.20); BASOPHILS PERCENT AUTO 0.1 % (0.0-2.0); EOSINOPHILS ABSOLUTE AUTO 0.16 K/uL (0.00-0.50); EOSINOPHILS PERCENT AUTO 1.8 % (0.0-5.0); HEMATOCRIT 36.6 % (39.0-49.0); HEMOGLOBIN 11.7 g/dL (13.1-16.8); LYMPHOCYTES ABSOLUTE AUTO 1.37 K/uL (0.50-3.50); LYMPHOCYTES PERCENT AUTO 15.2 % (10.0-50.0); MEAN CORPUSCULAR HEMOGLOBIN 28.5 pg (28.2-33.3); MEAN CORPUSCULAR VOLUME 89.1 fL (84.0-98.0); MONOCYTES ABSOLUTE AUTO 0.46 K/uL (0.00-1.00); MONOCYTES PERCENT AUTO 5.1 % (2.0-14.0); NEUTROPHILS PERCENT AUTO 77.8 % (45.0-80.0); PLATELET COUNT,PLT 184 K/uL (150-350); RED BLOOD CELL COUNT 4.11 M/uL (4.33-5.41)
[2024-05-13 10:00] LABS: ALBUMIN 2.8 g/dL (3.4-5.0); BILIRUBIN TOTAL 0.7 mg/dL (0.2-1.0); CALCIUM 8.1 mg/dL (8.5-10.1); CARBON DIOXIDE,CO2 25.5 mmol/L (21.0-32.0); CREATININE 0.76 mg/dL (0.51-1.17); EST CRCL DRUG DOSING (CG) 60.58 mL/min; PROTEIN TOTAL,TP 6.7 g/dL (6.4-8.2)
[2024-05-13 10:01] LABS: ANION GAP 12.3 meq/L (7-15)
[2024-05-13 10:03] LABS: POTASSIUM,K 2.8 mmol/L (3.5-5.1)
[2024-05-13] MEDS: Potassium Chloride 20 MEQ Tab.ER PO ONE (10:37)
[2024-05-13 11:17] VITALS: BP 123/57
== END 2024-05-13 11:40 ==
LOC: LL.ED 09:18
DX: E11.649 Type 2 diabetes mellitus with hypoglycemia without coma (principal); E87.6 Hypokalemia; I10 Essential (primary) hypertension; I25.10 Atherosclerotic heart disease of native coronary artery without angina pectoris; E78.00 Pure hypercholesterolemia, unspecified; E03.9 Hypothyroidism, unspecified; Z79.82 Long term (current) use of aspirin; Z79.899 Other long term (current) drug therapy; Z79.891 Long term (current) use of opiate analgesic; Z79.84 Long term (current) use of oral hypoglycemic drugs; Z88.8 Allergy status to other drugs, medicaments and biological substances; Z86.16 Personal history of COVID-19
CPT/HCPCS: 36415; 80053; 85025; 99285; A9270